=== PATIENT | female | born 1940 | race Caucasian/White ===

== ENCOUNTER 2020-12-19 11:15 | Outpatient (CLI) | payer MEDICARE, SELFPAY | END 2020-12-19 11:16 | disposition home or self-care (01) | LOC: ANHAUDIO 11:20 | PROVIDERS: PCP Internal Medicine Infectious Disease; Visit Provider Otolaryngology | DX: H93.13 Tinnitus, bilateral (principal); H90.3 Sensorineural hearing loss, bilateral | CPT/HCPCS: 92557; 92567 ==

== ENCOUNTER 2021-01-16 08:45 | Outpatient (RCR) | payer MEDICARE, SELFPAY | END 2021-01-16 23:59 | disposition home or self-care (01) | LOC: ANHAUDIO 08:45 | PROVIDERS: PCP Internal Medicine Infectious Disease; Visit Provider Internal Medicine Infectious Disease | DX: Z46.1 Encounter for fitting and adjustment of hearing aid (principal) | CPT/HCPCS: V5261 ==

== ENCOUNTER 2021-09-03 14:00 | Outpatient (RCR) | payer MEDICARE, SELFPAY | END 2021-09-03 23:59 | disposition home or self-care (01) | LOC: ANHAUDIO 14:00 | PROVIDERS: PCP Internal Medicine Infectious Disease; Visit Provider Internal Medicine Infectious Disease | DX: Z46.1 Encounter for fitting and adjustment of hearing aid (principal) | CPT/HCPCS: 99199 ==

== ENCOUNTER 2023-02-24 13:37 | Outpatient (CLI) | payer OTHER, SELFPAY ==
--- NOTE | ~2023-02-24 | US_ITS ---
US arterial ankle brachial ind INDICATION: Peripheral vascular disease TECHNIQUE: Segmental pressures and plethysmographic and Doppler waveforms of the brachial and lower e xtremity arteries were obtained. COMPARISON: None. FINDINGS: Right and left brachial artery pressures of 115 mm Hg and 111 mm Hg, respectively, are concordant (no rmal difference <= 30 mmHg). The right ankle-brachial index (GERALDINE) is 1.28 (normal >= 0.9-1.0). The right great toe-brachial index (TBI) is 0.4 (normal >= 0.60). The left GERALDINE is 1.18. The left TBI is 0.32. IMPRESSION: 1. Normal bilateral ankle-brachial indices. 2: Diminished bilateral toe brachial indices consistent with peripheral arterial disease. Reviewed, dictated and finalized at location B. IMPRESSION: 1. Normal bilateral ankle-brachial indices. 2: Diminished bilateral toe brachial indices consistent with peripheral arteri al disease.
== END 2023-02-24 13:38 | disposition home or self-care (01) ==
PROVIDERS: PCP Internal Medicine Infectious Disease; Visit Provider Podiatrist Foot & Ankle Surgery
DX: I73.9 Peripheral vascular disease, unspecified (principal)
CPT/HCPCS: 93922

== ENCOUNTER 2023-12-11 10:34 | Emergency (ER) | payer OTHER, SELFPAY ==
--- NOTE | ~2023-12-11 | CT_ITS ---
EXAMINATION: CT brain wo con DATE: 12/11/2023 11:38 INDICATION: Fall. TECHNIQUE: Computed tomography (CT) of the head was performed without intravenous contrast. The mA wa s adjusted according to patient size. Iterative reconstruction technique was employed. The dose-lengt h product was 605.33 mGy-cm. COMPARISON: None FINDINGS: There are scattered areas of low attenuation in the cerebral white matter. There is an old infarct in right parietal lobe. There is no intracranial hemorrhage, acute infarction, or abnormal in tracranial mass lesion. The ventricles are normal in size. There are likely changes of ocular lens re placement surgeries. There is mucosal thickening in the paranasal sinuses. The mastoid air cells are normal. IMPRESSION: 1. 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 2. Moderate nonspecific cerebral white matter disease, which likely represents chronic small vessel i schemic disease. Reviewed, dictated and finalized at location A. IMPRESSION: 1. 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 2. Moderate nonspecific cerebral white matter disease, which likely represents chronic small vessel ischemic disease.
--- NOTE | ~2023-12-11 | XR_ITS ---
EXAMINATION: XR hip RT min 3V w AP pelvis DATE: 12/11/2023 12:10 INDICATION: Right hip pain. Fall. TECHNIQUE: An anteroposterior view the pelvis on 2 radiographs and 3 views of right hip were obtained . COMPARISON: None. FINDINGS: Bone alignment is normal. No fracture. There is mild osteoarthritis of the hips. There is s evere lumbar spondylosis. IMPRESSION: 1. Mild osteoarthritis of the hips. Reviewed, dictated and finalized at location A.
--- NOTE | ~2023-12-11 | CT_ITS ---
EXAMINATION: CT cervical spine wo con DATE: 12/11/2023 11:38 INDICATION: Fall. TECHNIQUE: Computed tomography (CT) of the cervical spine was performed without intravenous contrast. Automated exposure control and iterative reconstruction technique were employed. The dose-length pro duct was 434.73 mGy-cm. COMPARISON: None FINDINGS: There is 2 mm retrolisthesis of C5 on C6 and 2 mm anterolisthesis of C7 on T1. Vertebral bigg dy heights are normal. There is severely decreased disc height at C5-C6 and C6-C7. The following disc levels are specifically discussed: C2-C3: There is no uncovertebral joint osteoarthritis. There is mild right and severe left facet join t osteoarthritis. There is mild left neural foraminal stenosis. There is no central canal stenosis. C3-C4: There is ankylosis of the uncovertebral joints with severe right and mild left hypertrophy. Th ere is ankylosis of the facet joints with severe right and mild left hypertrophy. There is moderate r ight and mild left neural foraminal stenosis. There is no central canal stenosis. C4-C5: There is no uncovertebral joint osteoarthritis. There is severe right and moderate left facet joint osteoarthritis. There is mild right neural foraminal stenosis. There is no central canal stenos is. C5-C6: There is severe bilateral uncovertebral joint osteoarthritis. There is mild right and moderate left facet joint osteoarthritis. There is moderate bilateral neural foraminal stenosis. There is mil d central canal stenosis. C6-C7: There is severe bilateral uncovertebral joint osteoarthritis. There is severe bilateral facet joint osteoarthritis. There is mild bilateral neural foraminal stenosis. There is mild central canal stenosis. C7-T1: There is no uncovertebral joint osteoarthritis. There is severe bilateral facet joint osteoart hritis. There is mild bilateral neural foraminal stenosis. There is no central canal stenosis. IMPRESSION: 1. No fracture. 2. Severe cervical spondylosis. Reviewed, dictated and finalized at location A.
--- NOTE | ~2023-12-11 | XR_ITS ---
EXAMINATION: XR shoulder RT min 2V DATE: 12/11/2023 12:11 INDICATION: Right shoulder pain. Fall. TECHNIQUE: 4 views of right shoulder were obtained. COMPARISON: None. FINDINGS: Bone alignment is normal. No fracture. There is severe osteoarthritis of acromioclavicular joint and glenohumeral joint. A calcified right lung nodule is consistent with old granulomatous dise ase. IMPRESSION: 1. Polyarticular osteoarthritis. Reviewed, dictated and finalized at location A.
--- NOTE | ~2023-12-11 | CT_ITS ---
EXAMINATION: CT knee RT wo con DATE: 12/11/2023 13:34 INDICATION: Right knee pain. Fall. TECHNIQUE: Computed tomography (CT) of the right knee was performed without intravenous contrast. Aut omated exposure control and iterative reconstruction technique were employed. The dose-length product was 536.81 mGy-cm. COMPARISON: Right knee radiographs 12/11/2023 FINDINGS: There is varus angulation at the knee. No fracture. There is severe osteoarthritis of the m edial and patellofemoral compartments and moderate osteoarthritis of the lateral compartment. There i s a large knee joint effusion with loose bodies. IMPRESSION: 1. Severe right knee osteoarthritis. 2. Large right knee joint effusion with loose bodies. Reviewed, dictated and finalized at location A.
--- NOTE | ~2023-12-11 | XR_ITS ---
EXAMINATION: XR knee RT min 4V DATE: 12/11/2023 12:11 INDICATION: Right knee pain. Fall. TECHNIQUE: 4 views of right knee were obtained. COMPARISON: None. FINDINGS: There is varus angulation at the knee. No fracture. There is severe osteoarthritis of media l and patellofemoral compartments and moderate osteoarthritis of lateral compartment. There is a larg e knee joint effusion with loose bodies. IMPRESSION: 1. Severe right knee osteoarthritis. 2. Large right knee joint effusion with loose bodies. Reviewed, dictated and finalized at location A.
[2023-12-11 10:44] VITALS: BP 122/65; PULSE 80; RESP 16; TEMP 36.2; O2SAT 97
[2023-12-11 10:47] VITALS: O2SAT 97
[2023-12-11] MEDS: HYDROcodone/acetaminophen (*CRX) 5-325 MG TABLET 1 TAB PO (12:39)
--- NOTE | 2023-12-11 13:57 | ED.FALL ---
HPI - Fall General Chief Complaint: Fall Stated Complaint: fall Time Seen by Provider: 12/11/23 11:28 History of Present Illness HPI Narrative: This is a 83-year-old female with a past medical history significant for significant osteoarthritis and previous atrial fibrillation on Eliquis. She presents today from her shelter facility after a mechanical fall while transferring out of her wheelchair into bed. She fell onto her right side and landed on her right knee and hip. She states she did hit her head but did not lose consciousness. Did not have any neck pain. Does take blood thinner medications for her previous atrial fibrillation. No nausea, vomiting, headache, vision change, abdominal pain, back pain. Related Data Home Medications Medication Instructions Recorded Confirmed atorvastatin 10 mg tablet 10 mg PO DAILY 10/10/20 08/19/22 dabigatran etexilate 150 mg 150 mg PO DAILY 10/10/20 08/19/22 capsule (Pradaxa) digoxin 125 mcg (0.125 mg) tablet 125 mcg PO DAILY 10/10/20 08/19/22 furosemide 40 mg tablet (Lasix) 40 mg PO QAM 10/10/20 08/19/22 levothyroxine 175 mcg capsule 175 mcg PO DAILY 10/10/20 08/19/22 Allergies Allergy/AdvReac Type Severity Reaction Status Date / Time adhesive tape Allergy Unknown Unknown Verified 12/11/23 10:50 amitriptyline [From Elavil] Allergy Unknown Unknown Verified 12/11/23 10:50 procaine [From Novocain] Allergy Unknown Unknown Verified 12/11/23 10:50 propoxyphene [From Darvon] Allergy Unknown Unknown Verified 12/11/23 10:50 Review of Systems Review of Systems: As reviewed [facility] Family History Family History Father Malignant neoplasm of prostate Hypertension Cerebrovascular accident Mother Depression Heart disease Grandparent Hypertension Heart disease Grandparent Alcoholism Social History Social History Smoking status: Never smoker Alcohol intake: current Substance use type: does not use Exam Narrative: GENERAL: [Well-appearing, well-nourished, and in no acute distress.] HEAD: [Normocephalic, atraumatic.] EYES: [PERRLA and EOMI.] ENT: Nares clear, no rhinorrhea or epistaxis. Mucous membranes moist. NECK: Supple. CHEST: [Clear to auscultation. No respiratory distress.] HEART: [Regular rate and rhythm]. No murmur heard. [Normal peripheral pulses.] ABDOMEN: [Soft, nondistended], [nontender], [No rigidity or guarding] EXTREMITIES: Normal range of motion. [No edema.] Intact extensor mechanisms bilaterally. Full range of motion of the hip and knee. Able to plantar and dorsiflex equally. Mild joint effusion on the right side without any bleeding, overlying skin changes or tenderness over the patellar or quadriceps tendon. Minimal tenderness to the right hip without any step-offs deformities. No CT or L-spine tenderness. SKIN: Warm, dry, no rash. NEURO: [No focal deficits]. Alert and oriented [x3.] PSYCH: [Normal mood and affect.] Course Vital Signs Vital signs: Vital Signs Temperature 36.2 C L 12/11/23 10:44 Pulse Rate 80 12/11/23 10:44 Respiratory Rate 16 12/11/23 10:44 Blood Pressure 122/65 12/11/23 10:44 Pulse Oximetry 97 12/11/23 10:44 Oxygen Delivery Room Air 12/11/23 10:44 Temperature 36.2 C L 12/11/23 10:44 Pulse Rate 80 12/11/23 10:44 Respiratory Rate 16 12/11/23 10:44 Blood Pressure 122/65 12/11/23 10:44 Pulse Oximetry 97 12/11/23 10:47 Oxygen Delivery Nasal Cannula 12/11/23 10:47 Oxygen Flow Rate 3.5 12/11/23 10:47 MDM - Fall MDM Narrative Medical decision making narrative: This is a 83-year-old female presenting for mechanical fall while transferring out of wheelchair into her bed. She was provide analgesia with [place] p.o. and Zofran. x-rays are obtained of her right shoulder, right knee and right hip. CT cervical spine and brain we
[2023-12-11] MEDS: ONDANSETRON HCL ODT 4 MG TABLET PO (15:16)
[2023-12-11 15:18] VITALS: BP 117/74; PULSE 61; RESP 20; O2SAT 96
== END 2023-12-11 16:19 ==
PROVIDERS: Emergency Provider Student in an Organized Health Care Education/Training Program; PCP Internal Medicine Infectious Disease
DX: S09.90XA Unspecified injury of head, initial encounter (principal); M19.011 Primary osteoarthritis, right shoulder; M17.11 Unilateral primary osteoarthritis, right knee; W05.0XXA Fall from non-moving wheelchair, initial encounter
CPT/HCPCS: 70450; 72125; 73030; 73502; 73564; 73700; 99284; A9270

== ENCOUNTER 2023-12-12 13:03 | Inpatient (IN) | payer OTHER, SELFPAY ==
[2023-12-12] VITALS (8 sets, daily range): BP systolic 115–119; BP diastolic 70–75; PULSE 73–85; RESP 16–22; TEMP 36.7–36.9; O2SAT 96–100; BMI 40.6
--- NOTE | ~2023-12-12 | CT_ITS ---
EXAMINATION: CT brain wo con DATE: 12/12/2023 19:56 INDICATION: Confusion. TECHNIQUE: Computed tomography (CT) of the head was performed without intravenous contrast. The mA wa s adjusted according to patient size. Iterative reconstruction technique was employed. The dose-lengt h product was 756.67 mGy-cm. COMPARISON: Head CT 12/11/23 FINDINGS: There is no intracranial hemorrhage, acute infarction, or abnormal intracranial mass lesion . There is an old infarct in right parietal lobe. There is an old lacunar infarct in left thalamus. T here are scattered areas of low attenuation in the cerebral white matter. The ventricles are normal i n size. There is mild mucosal thickening in the ethmoid sinuses. There are likely changes of ocular l ens replacement surgeries. The mastoid air cells are normal. IMPRESSION: 1. Old infarcts in right parietal lobe and left thalamus. 2. Moderate nonspecific cerebral white matter disease, which likely represents chronic small vessel i schemic disease. Reviewed, dictated and finalized at location E. IMPRESSION: 1. Old infarcts in right parietal lobe and left thalamus. 2. Moderate nonspecific cerebral white matter disease, which likely represents chronic small vessel ischemic disease.
--- NOTE | ~2023-12-12 | XR_ITS ---
EXAMINATION: XR sniff test with CXR2V DATE: 12/20/2023 12:20 INDICATION: Elevated right hemidiaphragm. Shortness of breath. TECHNIQUE: I performed fluoroscopy of the chest while the patient performed normal aspiration, deep r espiration, and forceful sniffing. 518 images were obtained. The fluoroscopy exposure time was 0.3 mi nutes. COMPARISON: Chest 2 views 12/12/2023 FINDINGS: There is marked elevation of right hemidiaphragm at rest. The right hemidiaphragm is hypomo bile with all breathing tasks. No paradoxical motion. There is an electronic implant in left anterior chest wall. IMPRESSION: 1. Paralysis of right hemidiaphragm. Reviewed, dictated and finalized at location A.
--- NOTE | ~2023-12-12 | XR_ITS ---
EXAMINATION: XR chest 2V DATE: 12/12/2023 13:41 INDICATION: Weakness. TECHNIQUE: Frontal and lateral views of the chest were obtained. COMPARISON: None. FINDINGS: There is marked elevation of right hemidiaphragm. Calcified right lung nodules are consiste nt with old granulomatous disease. There are airspace opacities at right lung base and in left mid an d lower lung zones, likely atelectasis. No pneumothorax. Cardiomegaly is noted. There is an electroni c implant in left anterior chest wall. IMPRESSION: 1. Marked elevation of right hemidiaphragm. 2. Airspace opacities at right lung base and in left mid and lower lung zones, likely atelectasis. 3. Cardiomegaly. Reviewed, dictated and finalized at location E.
--- NOTE | ~2023-12-12 | CT_ITS ---
EXAMINATION:CT diagnostic chest wo con DATE: 12/21/2023 09:50 INDICATION: Paralyzed right diaphragm. TECHNIQUE: Computed tomography (CT) of the chest was performed without intravenous contrast. Automate d exposure control and iterative reconstruction technique were employed. The dose-length product (DLP ) was 639.37 mGy-cm. COMPARISON: Chest 2 views 12/11/2013 FINDINGS: There is marked elevation of right hemidiaphragm. There is passive atelectasis in inferior right lung. There is mild atelectasis on the left. A calcified right lung nodule and calcified right hilar lymph nodes are consistent with old granulomatous disease. There is a small right pleural effus ion. Cardiomegaly is noted. There are coronary artery calcifications. There are calcifications of the aortic valve. No pericardial effusion. There are gallstones in the gallbladder. Calcifications in th e spleen are consistent with old granulomatous disease. There is severe thoracic spondylosis. IMPRESSION: 1. Marked elevation of right hemidiaphragm. 2. Small right pleural effusion. Reviewed, dictated and finalized at location A.
--- NOTE | 2023-12-12 13:24 | ECG_ITS ---
Test Date: 2023-12-12 14:38:20 Measurements Intervals [place] Rate: 83 P: 0 RI: 0 QRS: -74 QRSD: 131 T: -24 QT: 373 QTc: 439 Interpretive Statements ATRIAL FIBRILLATION RIGHT BUNDLE BRANCH BLOCK [120+ ms QRS DURATION, UPRIGHT V1, 40+ ms S IN I/aVL/V4/V5/V6] POOR R-WAVE PROGRESSION /CANNOT EXCLUDE PREVIOUS ANTERIOR INFARCTION LEFTWARD AXIS ABNORMAL ECG No previous ECG available for comparison Electronically Signed On 12-13-2023 12:20:16 CDT by Salvatore Reddy M.D.
--- NOTE | 2023-12-12 14:07 | ED.GENADULT ---
HPI - General Adult General Chief complaint: Urogenital-Female Stated complaint: weakness, extra sleepy Time Seen by Provider: 12/12/23 13:19 Source: patient Mode of arrival: EMS Limitations: altered mental status History of Present Illness HPI narrative: 83 yo presents with report of weakness and increased sleepiness per staff at [facility]. She states [facility] is an assisted livign facility and she is respondible for taking her own meds which she hasn't taken today. She did come here yesterday after a ground level fall which did not show any acute process. She is complainign of pain all over from her arthritis; states this is chronic. She denies any abdominal pain. She does feel nauseated. Urine reportedly strong smelling. On 3.5LPM via nasal cannula at baseline by report. Related Data Home Medications Medication Instructions Recorded Confirmed atorvastatin 10 mg tablet 10 mg PO DAILY 10/10/20 12/12/23 digoxin 125 mcg (0.125 mg) tablet 62.5 mcg PO DAILY 10/10/20 12/12/23 furosemide 40 mg tablet (Lasix) 40 mg PO QAM 10/10/20 12/12/23 albuterol sulfate 2.5 mg/3 mL 2.5 mg inhalation TID 12/12/23 12/12/23 (0.083 %) solution for nebulization albuterol sulfate 2.5 mg/3 mL 2.5 mg inhalation TID PRN Wheezing 12/12/23 12/12/23 (0.083 %) solution for nebulization albuterol sulfate 90 mcg/actuation 2 puff inhalation Q6H PRN 12/12/23 12/12/23 aerosol inhaler (Ventolin HFA) Shortness Of Breath apixaban 5 mg tablet (Eliquis) 5 mg PO BID 12/12/23 12/12/23 clotrimazole 1 % topical cream 1 applic topical BID 12/12/23 12/12/23 cyanocobalamin (vitamin B-12) 1,000 mcg IM MONTHLY 12/12/23 12/12/23 1,000 mcg/mL injection solution diltiazem HCl 240 mg PO DAILY 12/12/23 12/12/23 ferrous sulfate 325 mg (65 mg 325 mg PO DAILY 12/12/23 12/12/23 iron) tablet (FeroSul) levothyroxine 150 mcg tablet 150 mcg PO DAILY 12/12/23 12/12/23 loratadine 10 mg tablet 10 mg PO DAILY 12/12/23 12/12/23 meclizine 25 mg tablet 25 mg PO PRN PRN Dizziness 12/12/23 12/12/23 multivitamin with folic acid 400 1 tablet PO DAILY 12/12/23 12/12/23 mcg tablet (Tab-A-Mehran) pantoprazole 40 mg PO DAILY 12/12/23 12/12/23 polyethylene glycol 3350 17 gram 17 g PO DAILY PRN Constipation 12/12/23 12/12/23 oral powder packet (Miralax) potassium chloride 10 mEq 20 meq PO DAILY 12/12/23 12/12/23 capsule,extended release Allergies Allergy/AdvReac Type Severity Reaction Status Date / Time adhesive tape Allergy Unknown Unknown Verified 12/12/23 13:14 amitriptyline [From Elavil] Allergy Unknown Unknown Verified 12/12/23 13:14 procaine [From Novocain] Allergy Unknown Unknown Verified 12/12/23 13:14 propoxyphene [From Darvon] Allergy Unknown Unknown Verified 12/12/23 13:14 [facility] Past Medical History Medical History (Updated 12/12/23 @ 18:27 by Idalia Shelley PA-C) Atrial fibrillation Chronic anticoagulation Diastolic congestive heart failure Hyperlipidemia Hypertension Hypothyroidism Obstructive sleep apnea on CPAP Surgical History Surgical History (Updated 12/12/23 @ 18:23 by Idalia Shelley PA-C) History of cataract extraction History of tonsillectomy and adenoidectomy Family History Family History Father Malignant neoplasm of prostate Hypertension Cerebrovascular accident Mother Depression Heart disease Grandparent Hypertension Heart disease Grandparent Alcoholism Social History Social History (Updated 12/12/23 @ 18:24 by Idalia Shelley PA-C) Social History: Surrogate medical decision maker: Marleny Manzo, cousin. Code status: Full code. Smoking status: Never smoker Alcohol intake: unknown Substance use: never Substance use type: does not use Do You Feel Safe in your Home?: Yes Lack of Transportation: No Lack of Food: Never True Current Housing: I Have Housing Concerned About Future Housing: No Difficulty Paying Gas/Electric Bills: No Difficulty Payin
[2023-12-12 14:13] LABS: Hematocrit 46.8 % (37.0-47.0); Immature Platelet Fraction Pct 6.2 % (0.9-11.2); Mean Corpuscular HGB Conc 29.9 g/dl (32-36); Mean Corpuscular Hemoglobin 30.7 pg (26-34); Mean Corpuscular Volume 102.6 fl (80-100); Mean Platelet Volume 10.4 fl (7.4-10.4); Platelet Count Result 114 k/mm3 (150-375); Red Blood Count 4.56 M/mm3 (4.2-5.4); Red Cell Distribution Width 13.5 % (11.5-14.5); White Blood Count 7.8 K/mm3 (4.5-10.0)
[2023-12-12 14:15] LABS: Add Urine Microscopic? YES; Appearance Urine Cloudy (Clear); Bacteria Urine 4+ /hpf; Bilirubin Urine 1+ (Negative); Blood Urine Negative (Negative); Color Urine Dark Yellow (Yellow); Glucose Urine UA Negative (Negative); Ketones Urine Negative (Negative); Leukocyte Esterase Ur 3+ LEU/UL (Negative); Need Manual Microscopic Reviewed; Nitrate Urine Positive (Negative); Non Pathogenic Casts 0-2; Protein Urine 1+ mg/dL (Negative); Specific Grav Ur 1.023 (1.001-1.035); Squamous Epithelial Cell Urine None Seen /hpf (Few); Urobilinogen Urine >=8.0 mg/dL (<2.0); WBC Urine >100 /hpf (0-3)
[2023-12-12 14:30] LABS: Alanine Aminotransferase 23 U/L (6-35); Albumin Level 3.6 g/dL (3.5-5.1); Alkaline Phosphatase 87 U/L (38-126); Aspartate Amino Transferase 31 U/L (14-36); Bilirubin,Total 1.2 mg/dL (0.2-1.3); Blood Urea Nitrogen 28 mg/dL (7-17); Calcium 8.9 mg/dL (8.4-10.2); Carbon Dioxide > 40 mmol/L (22-30); Chloride 88 mmol/L (98-107); Creatine Kinase 36 U/L (30-135); Estimated CRCL calculation 64 ml/min; Estimated Glomerular Filt Rate > 60; Glucose 131 mg/dL (65-110); Potassium 4.8 mmol/L (3.4-5.0); Sodium 139 mmol/L (137-145)
[2023-12-12 14:38] LABS: Band Neutrophils Percent 1 % (0-6); Monocytes Absolute Manual 1.01 K/mm3 (0.1-0.90); Monocytes Percent Manual 13 % (3-9); Neutrophils Absolute Manual 5.38 K/mm3 (1.7-7.2); Neutrophils Percent Manual 68 % (46-73); Total Cells Counted 100
[2023-12-12 14:39] LABS: Atypical Lymphocytes Present; Platelet Estimate Decreased (Adequate); Schistocytes None Seen
[2023-12-12 14:40] LABS: Hypochromasia 1+
[2023-12-12] MEDS: ONDANSETRON INJ 4 MG/2 ML VIAL IV PUSH ×2 (15:14→20:17)
--- NOTE | 2023-12-12 16:25 | PM.IMHP ---
H&P: HPI History of Present Illness Date/Time: 12/12/23 16:25 Chief Complaint: Weakness, fatigue, confusion. Narrative: This is a pleasant 83-year-old female with atrial fibrillation on chronic anticoagulation, diastolic congestive heart failure, chronic obstructive pulmonary disease, chronic respiratory failure on 3 L home oxygen, obstructive sleep apnea on CPAP, hyperlipidemia, and hypothyroidism who presented to the emergency department via EMS from [facility] for evaluation of weakness, fatigue, and confusion. The patient provides the following history. She was seen in the emergency department late yesterday morning for evaluation after mechanical fall while transferring from wheelchair to bed. She landed on her right side, more specifically on the knee and hip, and did hit her head as well. There was no loss of consciousness and imaging did not demonstrate any acute fractures however she was found to have a large right knee joint effusion with loose bodies. She was discharged home and she has felt increasingly weak and fatigued since that time. She tells me that she has been having memory issues for quite some time however it has been much worse in the last 24 hours. Mostly she feels as though her thought process is slow and she is having occasional difficulties coming up with the words that she is wanting to stay. She has also noticed that her urine smells quite strong today. Her stomach is also upset and she reports pretty frequent belching, hiccups, and dry heaves which started today. With further questioning she reports that she has been taking 2 Aleve a day instead of tramadol for her chronic arthritic pain because she cannot afford the tramadol. She denies vertigo, visual changes, facial droop, dysarthria, dysphagia, focal weakness, paresthesias, chest pain, pleuritic pain, palpitations, vomiting, hematemesis, melena, hematochezia, and dysuria. In the ED: She was afebrile on arrival with stable vital signs. Labs were significant for WBC count of 7.8, hemoglobin 14.0, platelet 114, sodium 139, potassium 4.8, chloride 88, carbon dioxide greater than 40, BUN 28, creatinine 0.70, glucose 131. Urinalysis was nitrate and leukocyte esterase positive with greater than 100 WBC and 4+ bacteria on microscopy. Chest x-ray showed marked elevation of the right hemidiaphragm, airspace opacities the right lung base in the left mid and lower lung zones (likely atelectasis), and cardiomegaly. She was given a dose of ceftriaxone for apparent urinary tract infection and she is being admitted in this setting for further treatment. Review of Systems Review of Systems: 12 systems were reviewed and are negative except for as per HPI. [facility] Past Medical History Medical History (Updated 12/12/23 @ 18:27 by Idalia Shelley PA-C) Atrial fibrillation Chronic anticoagulation Diastolic congestive heart failure Hyperlipidemia Hypertension Hypothyroidism Obstructive sleep apnea on CPAP Surgical History Surgical History (Updated 12/12/23 @ 18:23 by Idalia Shelley PA-C) History of cataract extraction History of tonsillectomy and adenoidectomy Family History Family History Father Malignant neoplasm of prostate Hypertension Cerebrovascular accident Mother Depression Heart disease Grandparent Hypertension Heart disease Grandparent Alcoholism Social History Social History (Updated 12/12/23 @ 18:24 by Idalia Shelley PA-C) Social History: Surrogate medical decision maker: Marleny Manzo, cousin. Code status: Full code. Smoking status: Never smoker Alcohol intake: unknown Substance use: never Substance use type: does not use Do You Feel Safe in your Home?: Yes Lack of Transportation: No Lack of Food: Never True Current Housing: I Have Housing Concerned About Future Housing: No Difficulty Paying Gas/Electric Bills: No Difficulty Paying for Meds: No
--- NOTE | 2023-12-12 16:31 | PC.NURSE ---
This patient, Monica Bishop, was admitted to Medical Room 258-01. Patient/family oriented to hospital policies and general routines including ID bracelet, bed and alarms, visiting hours, pain management, procedures, bathroom and other care routines, personal items, smoking policy, room service/diet, and visiting hours. Information on how to activate the Rapid Response Team has been discussed. Patient/Family are encouraged to report perceived risks to care and to ask questions if they do not understand what they are told or what they should do.
[2023-12-12 17:01] LABS: Fractional Inspired Oxygen 34 %; HCO3 VBG 48.5 mEq/l (24.0-30.0)
[2023-12-12 17:02] LABS: PCO2 VBG 87.9 mmHg (42.0-48.0); PO2 VBG < 27.0 mmHg (35.0-45.0)
[2023-12-12 17:03] LABS: Device NASAL CANNULA; Liters per Minute 3.5 LPM
[2023-12-12 17:48] LABS: Digoxin < 0.5 ng/mL (0.8-2.0)
[2023-12-12 18:17] LABS: Thyroid Stimulating Hormone Reflex 0.567 uIU/mL (0.465-4.68)
[2023-12-12] MEDS: SODIUM CHLORIDE 0.9% IV 1,000 ML 100 ML IV CONT (19:23)
[2023-12-12] MEDS: ACETAMINOPHEN 325 MG TABLET 650 MG PO (20:15)
[2023-12-12] MEDS: APIXABAN 5 MG TABLET PO (20:15)
[2023-12-13] VITALS (16 sets, daily range): BP systolic 102–142; BP diastolic 65–95; PULSE 66–114; RESP 15–23; TEMP 36.4–36.7; O2SAT 92–98
--- NOTE | 2023-12-13 | ECHO_ITS ---
Patient Info Name: Monica Bishop Age: 83 years : 1940 Gender: Female Ht: 64 in Wt: 236 lbs BSA: 2.25 m2 HR: 90 bpm BP: 102 / 70 mmHg Heart Rhythm: Atrial Fibrillation Technical Quality: Fair Exam Date: 12/13/2023 11:16 AM Exam Location: Echo Lab Patient Status: Outpatient Admit Date: 12/12/2023 Staff Ordering Physician: Idalia Shelley PA-C Precipitate Washer: Samina Lucio RDCS Attending Provider: Mikayla Roca PA-C Referring Physician: Karsten GRACE; Exam Type: CA echo doppler color flow Study Info Indications I50.21 - Acute systolic (congestive) heart failure I48.1 - Persistent atrial fibrillation I51.7 - Cardiomegaly Complete two-dimensional, color flow and Doppler transthoracic echocardiogram is performed. Summary 1. Complete two-dimensional, color flow and Doppler transthoracic echocardiogram is performed. 2. Left ventricular chamber dimension is normal. 3. Left ventricular systolic function is normal, estimated at 55-60%. 4. There is mild concentric increased left ventricular wall thickness. 5. The left ventricular diastolic function is abnormal. 6. E/e' 11 is mildly elevated. 7. Atrial fibrillation. 8. Left atrial chamber dimension is moderately enlarged. 9. Right atrial chamber dimension is mildly enlarged. 10. There is moderate aortic valve sclerosis. 11. There is moderate aortic valve stenosis with a peak velocity of 291 cm/s, mean gradient of 15 mmHg, and aortic valve area of 1.3 cm2. 12. There is mild to moderate aortic valve regurgitation. 13. There is trace mitral valve regurgitation. 14. There is mild tricuspid valve regurgitation. 15. Moderate pulmonary hypertension, estimated pulmonary arterial systolic pressure is 52 mmHg. 16. There is trace pulmonic regurgitation. 17. Dilated inferior vena cava with >50% collapse upon inspiration consistent with elevated right atrial pressure, 10 mmHg. Left Ventricle Atrial fibrillation. E/e' 11 is mildly elevated. Left ventricular chamber dimension is normal. Left ventricular systolic function is normal, estimated at 55-60%. There is mild concentric increased left ventricular wall thickness. The left ventricular diastolic function is abnormal. Right Ventricle Right ventricular chamber dimension is normal. Right ventricular systolic function is normal. Left Atria Left atrial chamber dimension is moderately enlarged. Right Atria Right atrial chamber dimension is mildly enlarged. Aortic Valve The aortic valve is trileaflet. There is moderate aortic valve sclerosis. There is moderate aortic valve stenosis with a peak velocity of 291 cm/s, mean gradient of 15 mmHg, and aortic valve area of 1.3 cm2. There is mild to moderate aortic valve regurgitation. Pulmonic Valve There is trace pulmonic regurgitation. Mitral Valve There is no mitral valve stenosis. There is trace mitral valve regurgitation. Tricuspid Valve There is mild tricuspid valve regurgitation. Moderate pulmonary hypertension, estimated pulmonary arterial systolic pressure is 52 mmHg. Pericardium/Pleural There is no pericardial effusion. Inferior Vena Cava Dilated inferior vena cava with >50% collapse upon inspiration consistent with elevated right atrial pressure, 10 mmHg. Aorta The aortic root size at the sinus of Valsalva is normal. Left Ventricular Outflow Tract Name Value Normal LVOT 2D
[2023-12-13] MEDS: ACETAMINOPHEN 325 MG TABLET 650 MG PO ×3 (04:15→20:28)
[2023-12-13 05:17] LABS: Hematocrit 44.5 % (37.0-47.0); Hemoglobin 13.3 g/dL (12.0-15.0); Mean Corpuscular HGB Conc 29.9 g/dl (32-36); Mean Corpuscular Hemoglobin 30.6 pg (26-34); Mean Corpuscular Volume 102.5 fl (80-100); Mean Platelet Volume 10.3 fl (7.4-10.4); Platelet Count Result 112 k/mm3 (150-375); Red Blood Count 4.34 M/mm3 (4.2-5.4); Red Cell Distribution Width 13.2 % (11.5-14.5); White Blood Count 8.2 K/mm3 (4.5-10.0)
[2023-12-13 05:46] LABS: Blood Urea Nitrogen 25 mg/dL (7-17); Calcium 8.7 mg/dL (8.4-10.2); Carbon Dioxide > 40 mmol/L (22-30); Chloride 91 mmol/L (98-107); Estimated CRCL calculation 74 ml/min; Estimated Glomerular Filt Rate > 60; Glucose 155 mg/dL (65-110); Potassium 4.2 mmol/L (3.4-5.0); Sodium 138 mmol/L (137-145)
[2023-12-13] MEDS: LEVOTHYROXINE SODIUM 150 MCG TABLET PO (06:19)
--- NOTE | 2023-12-13 07:24 | PM.IMPN ---
Progress Note: A&P Assessment and Plan (1) Fall: Qualifiers: Encounter type: subsequent encounter Qualified Code(s): W19.XXXD - Unspecified fall, subsequent encounter Code(s): W19.XXXA - Unspecified fall, initial encounter Status: Acute Assessment and Plan: Patient reports a mechanical fall ambulating from wheelchair to bed on 12/10, landing on her right knee/hip and hitting her head. Denies loss of consciousness. She reported to the ED and was discharged that day. Imaging did not demonstrate any acute fractures however she was found to have a large right knee joint effusion with loose bodies. - PT/OT (2) Urinary tract infection: Code(s): N39.0 - Urinary tract infection, site not specified Status: Acute Assessment and Plan: - UA:cloudy appearance with 1+ protein, positive nitrate, +bili, >8 urobilinogen, 3+ leukocytes, 3-5 RBC, >100 WBC, 4+ bacteria - UC obtained on 12/11: pending - No previous micro to be reviewed - started on Rocephin 12/12 (3) Elevated hemidiaphragm: Code(s): J98.6 - Disorders of diaphragm Status: Acute Assessment and Plan: Chest XR showed marked elevation of right hemidiaphragm. Airspace opacities at right lung base and in left mid and lower lung zones, likely atelectasis. Cardiomegaly. Unsure if hemidiaphragm elevation is chronic. - ABG pH 7.360, pCO2 87.9, pO2 <27, HCO3 < 27 - PCP records requested - Chronic O2 supplementation of 3.5 L NC - Pulmonology consulted (4) Nausea: Code(s): R11.0 - Nausea Status: Acute Assessment and Plan: Nausea possibly related to underlying UTI however she has been taking Aleve daily for arthritic pain which could be playing a factor here. She has not noticed any dark stools. - Stool for occult blood ordered - Avoid NSAIDs for now - Continue PPI. (5) Atrial fibrillation: Code(s): I48.91 - Unspecified atrial fibrillation Status: Acute Assessment and Plan: Chronic. - Eliquis 5 mg BID - Diltiazem 240 mg daily - digoxin 62.5 mg daily (level < 0.5) - Monitor (6) Diastolic congestive heart failure: Code(s): I50.30 - Unspecified diastolic (congestive) heart failure Status: Acute Assessment and Plan: Chronic, does not appear to be in acute exacerbation. - Continue home medications - Monitor I/O and volume status (7) Hypertension: Code(s): I10 - Essential (primary) hypertension Status: Acute Assessment and Plan: Chronic, well controlled on home medications. - diltiazem 240 mg daily - lasix 40 mg daily - monitor (8) Hypothyroidism: Code(s): E03.9 - Hypothyroidism, unspecified Status: Acute Assessment and Plan: Chronic, continue home medications. - levothyroxine 150 mcg daily - TSH on 12/11: 0.567 (9) Obstructive sleep apnea on CPAP: Code(s): G47.33 - Obstructive sleep apnea (adult) (pediatric) Status: Acute Assessment and Plan: Continue CPAP Time Spent With Patient Time with patient: 25 - 35 minutes Subjective Date/time seen: 12/13/23 07:24 Interval history: 83-year-old female with atrial fibrillation on chronic anticoagulation, diastolic congestive heart failure, chronic obstructive pulmonary disease, chronic respiratory failure on 3 L home oxygen, obstructive sleep apnea on CPAP, hyperlipidemia, and hypothyroidism who presented to the emergency department via EMS from [facility] for evaluation of weakness, fatigue, and confusion. Patient is pleasant lying comfortably in bed. She continues to endorse slight nausea and lower back pain. Patient has no other complaints, denying chest pain, palpitations, vomiting, abdominal pain, dysuria/hematuria/burning sensation with urination. She does note that she has not had a bowel movement. Patient started on a bowel regimen. Patient's urine culture is still pending. She remains on Rocephin at this time. Patient remai
[2023-12-13] MEDS: ATORVASTATIN 10 MG TABLET PO (09:23)
[2023-12-13] MEDS: APIXABAN 5 MG TABLET PO ×2 (09:23→20:28)
[2023-12-13] MEDS: POTASSIUM CHLORIDE 20 MEQ ER TABLET PO (09:23)
[2023-12-13] MEDS: FUROSEMIDE 40 MG TABLET PO (09:23)
[2023-12-13] MEDS: MULTIVITAMINS THERAPEUTIC TAB (*BKC) 1 TABLET PO (09:24)
[2023-12-13] MEDS: FERROUS SULFATE 325 MG TABLET DR PO (09:24)
[2023-12-13] MEDS: LORATADINE 10 MG TABLET PO (09:24)
[2023-12-13] MEDS: dilTIAZem HCL CD 240 MG CAP.24HR PO (09:24)
[2023-12-13] MEDS: DIGOXIN 62.5 MCG TABLET PO (09:24)
[2023-12-13] MEDS: PANTOPRAZOLE 40 MG TABLET PO (09:24)
[2023-12-13] MEDS: MICONAZOLE NITRATE 2% CREAM 30 GM TUBE 1 APPLIC TOPICAL ×2 (09:26→14:27)
[2023-12-13] MEDS: ONDANSETRON INJ 4 MG/2 ML VIAL IV PUSH ×2 (14:18→20:25)
[2023-12-13] MEDS: SENNA/DOCUSATE SODIUM TABLET 1 TAB PO (20:28)
[2023-12-13] MEDS: traMADol HCL (*CRX) 50 MG TABLET PO (20:29)
--- NOTE | 2023-12-13 21:05 | PM.CNPUL ---
Assessment and Plan Assessment and plan (1) Obstructive sleep apnea on CPAP: Code(s): G47.33 - Obstructive sleep apnea (adult) (pediatric) Status: Acute Assessment and Plan: She has had obstructive sleep apnea for years, her current device is may be 3 to 5 years old. She uses it without difficulties. This is a stable problem and can be followed in the outpatient setting. (2) Elevated hemidiaphragm: Code(s): J98.6 - Disorders of diaphragm Status: Acute Assessment and Plan: She has an elevated right hemidiaphragm, and this contributes to her issue with poor lung capacity. She did know that she had this. She has never had chest surgery. This is an incidental finding but with obesity, this can contribute to hypercapnia. Her body mass index is 41.3. Her CPAP use at night is helping to overcome and helping her to ventilate at night. (3) Chronic respiratory failure with hypoxia: Code(s): J96.11 - Chronic respiratory failure with hypoxia Status: Acute Assessment and Plan: She has been on oxygen a number of years, was prescribed 2.5 L around the clock, she does not ambulate but she does transfer weight from bed to wheelchair. She does not need home oxygen evaluation. She is able to have her oxygen decreased currently at 3.5 L with saturation is high is 97%. Our goal is up to 94% with supplemental oxygen. (4) Secondary pulmonary hypertension: Status: Acute Assessment and Plan: Right ventricular systolic pressure 58 mm Hg on echo December 12. This is secondary to her cardiac dysfunction. The patient has diastolic dysfunction, moderate aortic stenosis, aortic insufficiency and biatrial enlargement. Plan She has significant cardiac issues overlapping with her lung disease. diastolic dysfunction, moderate aortic stenosis, moderate aortic insufficiency, biatrial enlargement, normal systolic size and function; Dr Rivera at [facility] has been her correspondence review clerk, however her insurance does not cover seeing him. She is still short of breath, cannot sleep comfortably, and has not been using PAP since she is in the recliner however has no place to put the CPAP in her apartment. She is a never smoker, tells me that she has increased shortness of breath and wheezing when she has increased edema, and was not responding to Breztri, a triple inhaler and occasional use of albuterol in her nebulizer at home. She is not stable yet, needs to have O2 weaned, and an ABG while she is here, not venous blood gas. She has atelectasis on CXR, not pneumonia. * Incentive spirometry * Wean O2- goal is sat 90-94% on supplemental O2, and she is higher now * ABG on lower O2- may qualify for non invasive ventilator instead of regular CPAP and not need to have repeat sleep testing * continue albuterol to use p.r.n., no regular controller inhaler, I told her that she can follow up in our office, will continue to follow withh you this admission. Thank you. History of Present Illness History of Present Illness Consult date: 12/15/23 Requesting physician: Idalia Shelley PA-C Chief complaint: uti,weakness Narrative: December 15, 2023 10:40 am; Room 258 NEW: Monica Bishop is an 83-year-old female with FERNIE, Home O2 use, hx of COPD, never smoked, and an elevated right hemidiaphragm; she was admitted with a fall and a UTI. She has COPD and has been on oxygen a number of years. She lives at [facility], for the last year and a half due to worsening overall function. Her COPD, FERNIE and O2 needs were treated by LUBA Lees in [facility] who recently moved our practice and she no longer provides pulmonary care. The patient has not had any pulmonary visits since the end of 3. The reason for this ad
[2023-12-13] MEDS: ALBUTEROL SULFATE NEB 2.5 MG/3 ML INH INHALATION (21:11)
[2023-12-14] VITALS (17 sets, daily range): BP systolic 107–137; BP diastolic 56–76; PULSE 57–94; RESP 16–21; TEMP 36.4–36.9; O2SAT 93–96
[2023-12-14] MEDS: ACETAMINOPHEN 325 MG TABLET 650 MG PO ×2 (00:50→21:21)
[2023-12-14] MEDS: LEVOTHYROXINE SODIUM 150 MCG TABLET PO (05:33)
[2023-12-14 06:43] LABS: Basophils Absolute Auto 0.1 K/mm3 (0.0-0.1); Basophils Percent Auto 0.6 % (0.2-1.2); Eosinophils Absolute Auto 0.2 K/mm3 (0-0.3); Eosinophils Percent Auto 2.4 % (0-4.4); Hematocrit 43.4 % (37.0-47.0); Hemoglobin 13.1 g/dL (12.0-15.0); Immature Granulocyte Absolute 0.09 K/mm3 (0.00-0.031); Immature Granulocyte Percent A 1.2 % (0-0.5); Immature Platelet Fraction Pct 6.8 % (0.9-11.2); Lymphocytes Absolute Auto 0.97 K/mm3 (0.9-3.2); Lymphocytes Percent Auto 12.5 % (18.3-44.2); Mean Corpuscular HGB Conc 30.2 g/dl (32-36); Mean Corpuscular Volume 99.5 fl (80-100); Mean Platelet Volume 10.3 fl (7.4-10.4); Monocytes Absolute Auto 0.8 K/mm3 (0.1-0.6); Monocytes Percent Auto 9.8 % (2.6-8.5); Neutrophils Absolute Auto 5.7 K/mm3 (1.3-6.7); Neutrophils Percent Auto 73.5 % (45.5-73.1); Platelet Count Result 114 k/mm3 (150-375); Red Blood Count 4.36 M/mm3 (4.2-5.4); Red Cell Distribution Width 13.2 % (11.5-14.5); White Blood Count 7.8 K/mm3 (4.5-10.0)
[2023-12-14] MEDS: ONDANSETRON INJ 4 MG/2 ML VIAL IV PUSH (06:44)
[2023-12-14] MEDS: traMADol HCL (*CRX) 50 MG TABLET PO ×3 (06:45→21:20)
[2023-12-14 06:51] LABS: Alanine Aminotransferase 19 U/L (6-35); Albumin Level 3.3 g/dL (3.5-5.1); Alkaline Phosphatase 74 U/L (38-126); Aspartate Amino Transferase 26 U/L (14-36); Bilirubin,Total 0.9 mg/dL (0.2-1.3); Blood Urea Nitrogen 18 mg/dL (7-17); Calcium 8.6 mg/dL (8.4-10.2); Carbon Dioxide > 40 mmol/L (22-30); Chloride 89 mmol/L (98-107); Estimated CRCL calculation 64 ml/min; Estimated Glomerular Filt Rate > 60; Glucose 125 mg/dL (65-110); Potassium 4.2 mmol/L (3.4-5.0); Sodium 136 mmol/L (137-145)
--- NOTE | 2023-12-14 08:27 | PM.IMPN ---
Progress Note: A&P Assessment and Plan (1) Fall: Qualifiers: Encounter type: subsequent encounter Qualified Code(s): W19.XXXD - Unspecified fall, subsequent encounter Code(s): W19.XXXA - Unspecified fall, initial encounter Status: Acute Assessment and Plan: Patient reports a mechanical fall ambulating from wheelchair to bed on 12/10, landing on her right knee/hip and hitting her head. Denies loss of consciousness. She reported to the ED and was discharged that day. Imaging did not demonstrate any acute fractures however she was found to have a large right knee joint effusion with loose bodies. - PT/OT Patient states she is able to walk 3-4 steps at baseline to get to wheelchair. (2) Urinary tract infection: Code(s): N39.0 - Urinary tract infection, site not specified Status: Acute Assessment and Plan: - UA:cloudy appearance with 1+ protein, positive nitrate, +bili, >8 urobilinogen, 3+ leukocytes, 3-5 RBC, >100 WBC, 4+ bacteria - UC obtained on 12/11: preliminary- ecoli - No previous micro to be reviewed - started on Rocephin 12/12 (3) Elevated hemidiaphragm: Code(s): J98.6 - Disorders of diaphragm Status: Acute Assessment and Plan: Chest XR showed marked elevation of right hemidiaphragm. Airspace opacities at right lung base and in left mid and lower lung zones, likely atelectasis. Cardiomegaly. Unsure if hemidiaphragm elevation is chronic. - ABG pH 7.360, pCO2 87.9, pO2 <27, HCO3 < 27 - PCP records requested - Chronic O2 supplementation of 3.5 L NC - Pulmonology consulted (4) Nausea: Code(s): R11.0 - Nausea Status: Acute Assessment and Plan: Nausea possibly related to underlying UTI however she has been taking Aleve daily for arthritic pain which could be playing a factor here. She has not noticed any dark stools. - Stool for occult blood ordered - Avoid NSAIDs for now - Continue PPI. - Zofran PO PRN (5) Atrial fibrillation: Code(s): I48.91 - Unspecified atrial fibrillation Status: Acute Assessment and Plan: Chronic. - Eliquis 5 mg BID - Diltiazem 240 mg daily - digoxin 62.5 mg daily (level < 0.5) - Monitor (6) Diastolic congestive heart failure: Code(s): I50.30 - Unspecified diastolic (congestive) heart failure Status: Acute Assessment and Plan: Chronic, does not appear to be in acute exacerbation. - Continue home medications - Monitor I/O and volume status (7) Hypertension: Code(s): I10 - Essential (primary) hypertension Status: Acute Assessment and Plan: Chronic, well controlled on home medications. - diltiazem 240 mg daily - lasix 40 mg daily - monitor (8) Hypothyroidism: Code(s): E03.9 - Hypothyroidism, unspecified Status: Acute Assessment and Plan: Chronic, continue home medications. - levothyroxine 150 mcg daily - TSH on 12/11: 0.567 (9) Obstructive sleep apnea on CPAP: Code(s): G47.33 - Obstructive sleep apnea (adult) (pediatric) Status: Acute Assessment and Plan: Continue CPAP Time Spent With Patient Time with patient: 25 - 35 minutes Subjective Date/time seen: 12/14/23 08:27 Interval history: 83-year-old female with atrial fibrillation on chronic anticoagulation, diastolic congestive heart failure, chronic obstructive pulmonary disease, chronic respiratory failure on 3 L home oxygen, obstructive sleep apnea on CPAP, hyperlipidemia, and hypothyroidism who presented to the emergency department via EMS from [facility] for evaluation of weakness, fatigue, and confusion. Patient is pleasant lying in bed. She continues to endorse nausea. She states that oral zofran has worked very well in the past. DC IV lasix and transitioned to PO. Patient denies chest pain, shortness of breath, vomiting, abdominal pain. She endorses slight dizziness. Resumed patients home meclizine PRN. Pulmonology consulted
[2023-12-14] MEDS: POTASSIUM CHLORIDE 20 MEQ ER TABLET PO (08:28)
[2023-12-14] MEDS: APIXABAN 5 MG TABLET PO ×2 (08:28→21:21)
[2023-12-14] MEDS: PANTOPRAZOLE 40 MG TABLET PO (08:29)
[2023-12-14] MEDS: dilTIAZem HCL CD 240 MG CAP.24HR PO (08:29)
[2023-12-14] MEDS: FERROUS SULFATE 325 MG TABLET DR PO (08:29)
[2023-12-14] MEDS: FUROSEMIDE 40 MG TABLET PO (08:29)
[2023-12-14] MEDS: LORATADINE 10 MG TABLET PO (08:29)
[2023-12-14] MEDS: ATORVASTATIN 10 MG TABLET PO (08:29)
[2023-12-14] MEDS: DIGOXIN 62.5 MCG TABLET PO (08:30)
[2023-12-14] MEDS: MULTIVITAMINS THERAPEUTIC TAB (*BKC) 1 TABLET PO (08:30)
[2023-12-14] MEDS: ALBUTEROL SULFATE NEB 2.5 MG/3 ML INH INHALATION ×3 (08:34→20:24)
[2023-12-14] MEDS: MICONAZOLE NITRATE 2% CREAM 30 GM TUBE 1 APPLIC TOPICAL ×2 (08:39→18:15)
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
[2023-12-14] MEDS: ONDANSETRON HCL ODT 4 MG TABLET PO ×2 (13:26→21:20)
[2023-12-14] MEDS: MECLIZINE HCL 25 MG TABLET PO (21:20)
[2023-12-14] MEDS: SENNA/DOCUSATE SODIUM TABLET 1 TAB PO (21:20)
[2023-12-15] VITALS (17 sets, daily range): BP systolic 98–131; BP diastolic 53–75; PULSE 61–77; RESP 15–24; TEMP 36.3–36.8; O2SAT 94–98
[2023-12-15] MEDS: traMADol HCL (*CRX) 50 MG TABLET PO ×3 (04:07→20:21)
[2023-12-15] MEDS: ONDANSETRON HCL ODT 4 MG TABLET PO ×3 (04:07→20:21)
[2023-12-15] MEDS: ACETAMINOPHEN 325 MG TABLET 650 MG PO (04:08)
[2023-12-15] MEDS: LEVOTHYROXINE SODIUM 150 MCG TABLET PO (05:38)
[2023-12-15 05:39] LABS: Basophils Percent Auto 0.6 % (0.2-1.2); Eosinophils Absolute Auto 0.2 K/mm3 (0-0.3); Eosinophils Percent Auto 2.9 % (0-4.4); Hematocrit 41.7 % (37.0-47.0); Immature Granulocyte Absolute 0.08 K/mm3 (0.00-0.031); Immature Granulocyte Percent A 1.1 % (0-0.5); Immature Platelet Fraction Pct 6.5 % (0.9-11.2); Lymphocytes Absolute Auto 0.96 K/mm3 (0.9-3.2); Lymphocytes Percent Auto 13.4 % (18.3-44.2); Mean Corpuscular HGB Conc 31.2 g/dl (32-36); Mean Corpuscular Volume 99.5 fl (80-100); Mean Platelet Volume 10.3 fl (7.4-10.4); Monocytes Absolute Auto 0.8 K/mm3 (0.1-0.6); Monocytes Percent Auto 10.9 % (2.6-8.5); Neutrophils Absolute Auto 5.1 K/mm3 (1.3-6.7); Neutrophils Percent Auto 71.1 % (45.5-73.1); Platelet Count Result 111 k/mm3 (150-375); Red Blood Count 4.19 M/mm3 (4.2-5.4); Red Cell Distribution Width 13.4 % (11.5-14.5); White Blood Count 7.2 K/mm3 (4.5-10.0)
[2023-12-15 05:59] LABS: Alanine Aminotransferase 18 U/L (6-35); Albumin Level 3.1 g/dL (3.5-5.1); Alkaline Phosphatase 74 U/L (38-126); Aspartate Amino Transferase 25 U/L (14-36); Bilirubin,Total 0.8 mg/dL (0.2-1.3); Blood Urea Nitrogen 14 mg/dL (7-17); Calcium 8.8 mg/dL (8.4-10.2); Carbon Dioxide > 40 mmol/L (22-30); Chloride 90 mmol/L (98-107); Estimated CRCL calculation 64 ml/min; Estimated Glomerular Filt Rate > 60; Glucose 147 mg/dL (65-110); Potassium 4.2 mmol/L (3.4-5.0); Sodium 135 mmol/L (137-145)
--- NOTE | 2023-12-15 08:05 | PM.IMPN ---
Progress Note: A&P Assessment and Plan (1) Urinary tract infection: Code(s): N39.0 - Urinary tract infection, site not specified Status: Acute Assessment and Plan: The patient presented to the emergency department for evaluation of weakness and fatigue as detailed in HPI. Labs, imaging, EKG, and all reports were personally reviewed. Urinalysis is suspicious for urinary tract infection and she has been started on ceftriaxone, pending urine culture - antibiotics switched to PO -Augmentin- based on sensitives (2) Elevated hemidiaphragm: Code(s): J98.6 - Disorders of diaphragm Status: Acute Assessment and Plan: pulm consulted appreciate recommendations (3) Nausea: Code(s): R11.0 - Nausea Status: Acute Assessment and Plan: continue zofran prn (4) Atrial fibrillation: Code(s): I48.91 - Unspecified atrial fibrillation Status: Acute (5) Chronic anticoagulation: Code(s): Z79.01 - nursing home (current) use of anticoagulants Status: Acute (6) Diastolic congestive heart failure: Code(s): I50.30 - Unspecified diastolic (congestive) heart failure Status: Acute (7) Hypertension: Code(s): I10 - Essential (primary) hypertension Status: Acute (8) Hyperlipidemia: Code(s): E78.5 - Hyperlipidemia, unspecified Status: Acute (9) Hypothyroidism: Code(s): E03.9 - Hypothyroidism, unspecified Status: Acute (10) Obstructive sleep apnea on CPAP: Code(s): G47.33 - Obstructive sleep apnea (adult) (pediatric) Status: Acute Plan . Chest x-ray showed markedly elevated right hemidiaphragm of unknown if this is chronic, and records have been requested from her primary care provider for comparison. Serum carbon dioxide is markedly elevated thus will check a blood gas. Nausea may be related to underlying urinary tract infection however she has been taking Aleve daily for arthritic pain which could be playing a factor here. She has not noticed any dark stools however will check stool for occult blood. Avoid NSAIDs for now will and continue PPI. She is clinically compensated with regards to her congestive heart failure. Monitor volume status closely with daily weights and I/O. Blood pressures were reviewed and they are stable. CPAP will be provided for the patient to use while hospitalized. Check digoxin level. Continue apixaban for stroke prophylaxis. Time Spent With Patient Time with patient: Greater than 35 minutes Subjective Date/time seen: 12/15/23 08:05 Interval history: 83-year-old female with atrial fibrillation on chronic anticoagulation, diastolic congestive heart failure, chronic obstructive pulmonary disease, chronic respiratory failure on 3 L home oxygen, obstructive sleep apnea on CPAP, hyperlipidemia, and hypothyroidism who presented to the emergency department via EMS from [facility] for evaluation of weakness, fatigue, and confusion. Patient is pleasant lying in bed. She continues to endorse nausea. She states that oral zofran has worked very well in the past. DC IV lasix and transitioned to PO. Patient denies chest pain, shortness of breath, vomiting, abdominal pain. She endorses slight dizziness. Resumed patients home meclizine PRN. Pulmonology consulted. Patient states that her baseline level of function is walking a few steps. PT/OT ordered. Patient was evaluated by speech as she continues to endorse feeling as though something is stuck in her throat. Patient had a normal swallow study and speech had no recommendations. 12/14- assuming care. Pt is seen and examined. she is convinced that she is swollen- her BUE slightly swollen but BLE have trace edema- she states it is swollen for her . She has pain all over and normally takes pain pill that helps- aware that she would have to work with PT/OT. Review of Systems Review of Systems: 12 systems were reviewed and are negative except for as per H
[2023-12-15] MEDS: FUROSEMIDE 40 MG TABLET PO (08:10)
[2023-12-15] MEDS: LORATADINE 10 MG TABLET PO (08:11)
[2023-12-15] MEDS: PANTOPRAZOLE 40 MG TABLET PO (08:11)
[2023-12-15] MEDS: APIXABAN 5 MG TABLET PO ×2 (08:11→20:22)
[2023-12-15] MEDS: FERROUS SULFATE 325 MG TABLET DR PO (08:11)
[2023-12-15] MEDS: MULTIVITAMINS THERAPEUTIC TAB (*BKC) 1 TABLET PO (08:11)
[2023-12-15] MEDS: DIGOXIN 62.5 MCG TABLET PO (08:12)
[2023-12-15] MEDS: POTASSIUM CHLORIDE 20 MEQ ER TABLET PO (08:12)
[2023-12-15] MEDS: dilTIAZem HCL CD 240 MG CAP.24HR PO (08:12)
[2023-12-15] MEDS: ATORVASTATIN 10 MG TABLET PO (08:12)
[2023-12-15] MEDS: MICONAZOLE NITRATE 2% CREAM 30 GM TUBE 1 APPLIC TOPICAL (08:13)
[2023-12-15] MEDS: ALBUTEROL SULFATE NEB 2.5 MG/3 ML INH INHALATION ×3 (08:32→21:55)
[2023-12-15] MEDS: AMOXICILLIN/CLAVULANATE K 875-125 MG TAB 1 TABLET PO ×2 (12:55→20:22)
[2023-12-15] MEDS: MECLIZINE HCL 25 MG TABLET PO (13:30)
[2023-12-15] MEDS: TOLNAFTATE 1% POWDER 45 GM BTL 1 APPLIC TOPICAL ×2 (18:44→20:22)
[2023-12-15] MEDS: SENNA/DOCUSATE SODIUM TABLET 1 TAB PO (20:22)
[2023-12-16] VITALS (16 sets, daily range): BP systolic 90–151; BP diastolic 49–85; PULSE 58–98; RESP 12–20; TEMP 36.5–37.1; O2SAT 90–100
[2023-12-16] MEDS: ONDANSETRON HCL ODT 4 MG TABLET PO ×2 (02:48→17:41)
[2023-12-16] MEDS: traMADol HCL (*CRX) 50 MG TABLET PO ×2 (02:48→17:41)
[2023-12-16 05:36] LABS: Basophils Absolute Auto 0.1 K/mm3 (0.0-0.1); Basophils Percent Auto 0.8 % (0.2-1.2); Eosinophils Absolute Auto 0.2 K/mm3 (0-0.3); Eosinophils Percent Auto 2.8 % (0-4.4); Hematocrit 43.1 % (37.0-47.0); Hemoglobin 13.2 g/dL (12.0-15.0); Immature Granulocyte Absolute 0.09 K/mm3 (0.00-0.031); Immature Granulocyte Percent A 1.2 % (0-0.5); Immature Platelet Fraction Pct 6.5 % (0.9-11.2); Lymphocytes Absolute Auto 0.72 K/mm3 (0.9-3.2); Lymphocytes Percent Auto 9.3 % (18.3-44.2); Mean Corpuscular HGB Conc 30.6 g/dl (32-36); Mean Corpuscular Hemoglobin 30.3 pg (26-34); Mean Corpuscular Volume 98.9 fl (80-100); Mean Platelet Volume 10.4 fl (7.4-10.4); Monocytes Absolute Auto 0.9 K/mm3 (0.1-0.6); Monocytes Percent Auto 10.9 % (2.6-8.5); Neutrophils Absolute Auto 5.8 K/mm3 (1.3-6.7); Platelet Count Result 110 k/mm3 (150-375); Red Blood Count 4.36 M/mm3 (4.2-5.4); Red Cell Distribution Width 13.3 % (11.5-14.5); White Blood Count 7.8 K/mm3 (4.5-10.0)
[2023-12-16 06:00] LABS: Alanine Aminotransferase 23 U/L (6-35); Albumin Level 3.2 g/dL (3.5-5.1); Alkaline Phosphatase 73 U/L (38-126); Aspartate Amino Transferase 32 U/L (14-36); Bilirubin,Total 0.9 mg/dL (0.2-1.3); Blood Urea Nitrogen 16 mg/dL (7-17); Calcium 8.7 mg/dL (8.4-10.2); Carbon Dioxide > 40 mmol/L (22-30); Chloride 89 mmol/L (98-107); Estimated CRCL calculation 64 ml/min; Estimated Glomerular Filt Rate > 60; Glucose 127 mg/dL (65-110); Potassium 4.1 mmol/L (3.4-5.0); Sodium 134 mmol/L (137-145)
[2023-12-16 06:22] LABS: Alveolar/Arterial O2 Gradient 82.5 mmHg; Base Excess ABG 13.9 mEq/l (+/-2.0); Fractional Inspired Oxygen 32 %; HCO3 ABG 41.1 mEq/l (22.0-26.0); Oxygen Content ABG 17.8 %vol (16.0-22.0); Oxygen Saturation ABG 94.4 % (95.0-100.0); Oxyhemoglobin 93.4 % THb (90.0-100.0); PO2 ABG 71.8 mmHg (80.0-100.0); PO2 FiO2 Ratio Arterial Blood 2.24 %; Total Hemoglobin 13.5 g/dL (12.0-18.0); pH ABG 7.432 (7.350-7.450)
[2023-12-16 06:23] LABS: PCO2 ABG 63.1 mmHg (35.0-45.0); Site Drawn RIGHT BRACHIAL
[2023-12-16 06:24] LABS: Device NASAL CANNULA
[2023-12-16] MEDS: LEVOTHYROXINE SODIUM 150 MCG TABLET PO (07:04)
--- NOTE | 2023-12-16 07:36 | PM.IMPN ---
Progress Note: A&P Assessment and Plan (1) Urinary tract infection: Code(s): N39.0 - Urinary tract infection, site not specified Status: Acute Assessment and Plan: The patient presented to the emergency department for evaluation of weakness and fatigue as detailed in HPI. Labs, imaging, EKG, and all reports were personally reviewed. Urinalysis is suspicious for urinary tract infection and she has been started on ceftriaxone, pending urine culture - antibiotics switched to PO -Augmentin- based on sensitives (2) Elevated hemidiaphragm: Code(s): J98.6 - Disorders of diaphragm Status: Acute Assessment and Plan: pulm consulted appreciate recommendations: - never had any chest surgeries - obesity could be a major contributing factor - CPAP- had been wearing it for awhile - adjustments based on ABG per pulm pco2 result for 12/[address] Mandujano (3) Nausea: Code(s): R11.0 - Nausea Status: Acute Assessment and Plan: continue zofran prn (4) Atrial fibrillation: Code(s): I48.91 - Unspecified atrial fibrillation Status: Acute (5) Chronic anticoagulation: Code(s): Z79.01 - exterminator helper termite (current) use of anticoagulants Status: Acute (6) Diastolic congestive heart failure: Code(s): I50.30 - Unspecified diastolic (congestive) heart failure Status: Acute Assessment and Plan: - secondary pulm HTN - Right ventricular systolic pressure 58 mm Hg on echo completed on December 12- secondary to her cardiac dysfunction. The patient has diastolic dysfunction, moderate aortic stenosis, aortic insufficiency and biatrial enlargement. - she used to follow up with share dairy farmer Dr Rivera at [facility] but her insurance not longer covers this provider (7) Hypertension: Code(s): I10 - Essential (primary) hypertension Status: Acute (8) Hyperlipidemia: Code(s): E78.5 - Hyperlipidemia, unspecified Status: Acute (9) Hypothyroidism: Code(s): E03.9 - Hypothyroidism, unspecified Status: Acute Assessment and Plan: - will check tsh panel (10) Obstructive sleep apnea on CPAP: Code(s): G47.33 - Obstructive sleep apnea (adult) (pediatric) Status: Acute Plan . Chest x-ray showed markedly elevated right hemidiaphragm of unknown if this is chronic, and records have been requested from her primary care provider for comparison. Serum carbon dioxide is markedly elevated thus will check a blood gas. Nausea may be related to underlying urinary tract infection however she has been taking Aleve daily for arthritic pain which could be playing a factor here. She has not noticed any dark stools however will check stool for occult blood. Avoid NSAIDs for now will and continue PPI. She is clinically compensated with regards to her congestive heart failure. Monitor volume status closely with daily weights and I/O. Blood pressures were reviewed and they are stable. CPAP will be provided for the patient to use while hospitalized. Check digoxin level (<0.5). Continue apixaban for stroke prophylaxis. diabetes: hga1c 5.9- she reports it better than 6 and higher in the past. discussed in details. She reports that she lost some weight insertionally in order to prevent diabetes Time Spent With Patient Time with patient: 25 - 35 minutes Subjective Date/time seen: 12/16/23 07:36 Interval history: 83-year-old female with atrial fibrillation on chronic anticoagulation, diastolic congestive heart failure, chronic obstructive pulmonary disease, chronic respiratory failure on 3 L home oxygen, obstructive sleep apnea on CPAP, hyperlipidemia, and hypothyroidism who presented to the emergency department via EMS from [facility] for evaluation of weakness, fatigue, and confusion. Patient is pleasant lying in bed. She continues to endorse nausea. She states that oral zofran has worked very well in the past. DC IV lasix and transitioned to PO. Anupama
[2023-12-16 08:14] LABS: Hemoglobin A1C 5.9 % (<5.7)
[2023-12-16] MEDS: MECLIZINE HCL 25 MG TABLET PO (08:34)
[2023-12-16] MEDS: FUROSEMIDE 40 MG TABLET PO (08:35)
[2023-12-16] MEDS: dilTIAZem HCL CD 240 MG CAP.24HR PO (08:35)
[2023-12-16] MEDS: DIGOXIN 62.5 MCG TABLET PO (08:35)
[2023-12-16] MEDS: PANTOPRAZOLE 40 MG TABLET PO (08:35)
[2023-12-16] MEDS: AMOXICILLIN/CLAVULANATE K 875-125 MG TAB 1 TABLET PO ×2 (08:35→20:31)
[2023-12-16] MEDS: FERROUS SULFATE 325 MG TABLET DR PO (08:36)
[2023-12-16] MEDS: POTASSIUM CHLORIDE 20 MEQ ER TABLET PO (08:36)
[2023-12-16] MEDS: ATORVASTATIN 10 MG TABLET PO (08:36)
[2023-12-16] MEDS: MULTIVITAMINS THERAPEUTIC TAB (*BKC) 1 TABLET PO (08:36)
[2023-12-16] MEDS: LORATADINE 10 MG TABLET PO (08:36)
[2023-12-16] MEDS: APIXABAN 5 MG TABLET PO ×2 (08:36→20:31)
[2023-12-16] MEDS: TOLNAFTATE 1% POWDER 45 GM BTL 1 APPLIC TOPICAL ×2 (08:37→20:31)
[2023-12-16] MEDS: ALBUTEROL SULFATE NEB 2.5 MG/3 ML INH INHALATION ×2 (08:51→20:11)
[2023-12-16 11:52] LABS: Free T4 Free Thyroxine Reflex 0.87 ng/dL (0.78-2.19)
[2023-12-16] MEDS: SACCHAROMYCES BOULARDII 250 MG CAPSULE PO ×2 (12:22→16:28)
--- NOTE | 2023-12-16 13:05 | PM.PNPUL ---
Progress Note: A&P Assessment and Plan (1) Obstructive sleep apnea on CPAP: Code(s): G47.33 - Obstructive sleep apnea (adult) (pediatric) Status: Acute Assessment and Plan: She has had obstructive sleep apnea for years, her current device is may be 3 to 5 years old. She uses it without difficulties. This is a stable problem and can be followed in the outpatient setting. SHe has a machine at [facility], wnats to have it here to use. (2) Elevated hemidiaphragm: Code(s): J98.6 - Disorders of diaphragm Status: Acute Assessment and Plan: She has an elevated right hemidiaphragm, and this contributes to her issue with poor lung capacity. She did know that she had this. She has never had chest surgery. This is an incidental finding but with obesity, this can contribute to hypercapnia. Her body mass index is 41.3. Her CPAP use at night is helping to overcome and helping her to ventilate at night. (3) Chronic respiratory failure with hypoxia: Code(s): J96.11 - Chronic respiratory failure with hypoxia Status: Acute Assessment and Plan: She has been on oxygen a number of years, was prescribed 2.5 L around the clock, she does not ambulate but she does transfer weight from bed to wheelchair. She does not need home oxygen evaluation. She is able to have her oxygen decreased currently at 3L with saturation is high is 96%. Our goal is up to 94% with supplemental oxygen. (4) Secondary pulmonary hypertension: Status: Acute Assessment and Plan: Right ventricular systolic pressure 58 mm Hg on echo December 12. This is secondary to her cardiac dysfunction. The patient has diastolic dysfunction, moderate aortic stenosis, aortic insufficiency and biatrial enlargement. Subjective Date/time seen: 12/16/23 13:05 Interval history: 12/16/2023; hospital follow up; she is lying in bed, has anxiety today, wants some items from [facility], her CPAP which would be more comfortable for her, a radio and electronic tablet, as well as K tape for her left shoulder. She says that her shortness of breath comes and goes. Dr Rivera at [facility] has been her market research associate, can no longer see him due to insurance changes. Dr Rivera is not on her plan. Using 34% which is about 3 L/min with saturation 96% and higher. SHe says taht she does not feel back to normal, still loses balance easily, shortof breath at times. 12/15/2023, new consult; Monica Bishop is an 83-year-old female with FERNIE, Home O2 use, hx of COPD, never smoked, and an elevated right hemidiaphragm; she was admitted with a fall and a UTI. She has COPD and has been on oxygen a number of years. She lives at [facility], for the last year and a half due to worsening overall function. Her COPD, FERNIE and O2 needs were treated by LUBA Lees in [facility] who recently moved our practice and she no longer provides pulmonary care. The patient has not had any pulmonary visits since the end of 2022. The reason for this admission was a mechanical fall transferring from wheelchair into the bed. This was also associated with urinary tract infection. She has atrial fibrillation in the pas, was on Eliquis. She also has osteoarthritis. She tells me that she was increasingly short of breath before coming in. Her baseline oxygen use was 2.5 L but in the last several weeks she increased it to 3.5 L. She does not have an oximeter, her saturation is checked once a month at her facility. She does tell me she was increasingly short of breath. She does not cough every day. She has mild to modest sputum production when she
[2023-12-16 13:39] LABS: Total Triiodothyronine (T3) 0.72 NG/ML (0.97-1.69)
[2023-12-16 17:40] LABS: Strep Group A RT-PCR NOT DETECTED (Negative)
[2023-12-16] MEDS: SENNA/DOCUSATE SODIUM TABLET 1 TAB PO (20:31)
[2023-12-17] VITALS (20 sets, daily range): BP systolic 96–133; BP diastolic 59–79; PULSE 64–90; RESP 14–18; TEMP 36.5–36.8; O2SAT 93–98
[2023-12-17 05:14] LABS: Basophils Percent Auto 0.5 % (0.2-1.2); Eosinophils Absolute Auto 0.3 K/mm3 (0-0.3); Eosinophils Percent Auto 3.5 % (0-4.4); Hemoglobin 12.9 g/dL (12.0-15.0); Immature Granulocyte Percent A 1.3 % (0-0.5); Immature Platelet Fraction Pct 5.5 % (0.9-11.2); Lymphocytes Absolute Auto 0.84 K/mm3 (0.9-3.2); Lymphocytes Percent Auto 10.9 % (18.3-44.2); Mean Corpuscular HGB Conc 31.5 g/dl (32-36); Mean Corpuscular Hemoglobin 30.9 pg (26-34); Mean Corpuscular Volume 98.1 fl (80-100); Mean Platelet Volume 10.5 fl (7.4-10.4); Monocytes Absolute Auto 0.8 K/mm3 (0.1-0.6); Monocytes Percent Auto 10.8 % (2.6-8.5); Neutrophils Absolute Auto 5.6 K/mm3 (1.3-6.7); Platelet Count Result 114 k/mm3 (150-375); Red Blood Count 4.18 M/mm3 (4.2-5.4); Red Cell Distribution Width 13.6 % (11.5-14.5); White Blood Count 7.7 K/mm3 (4.5-10.0)
[2023-12-17 05:26] LABS: Alanine Aminotransferase 26 U/L (6-35); Albumin Level 3.2 g/dL (3.5-5.1); Alkaline Phosphatase 69 U/L (38-126); Aspartate Amino Transferase 36 U/L (14-36); Bilirubin,Total 0.8 mg/dL (0.2-1.3); Blood Urea Nitrogen 13 mg/dL (7-17); Calcium 8.6 mg/dL (8.4-10.2); Carbon Dioxide > 40 mmol/L (22-30); Chloride 91 mmol/L (98-107); Estimated CRCL calculation 75 ml/min; Estimated Glomerular Filt Rate > 60; Glucose 113 mg/dL (65-110); Potassium 3.9 mmol/L (3.4-5.0); Sodium 136 mmol/L (137-145)
--- NOTE | 2023-12-17 07:25 | PM.IMPN ---
Progress Note: A&P Assessment and Plan (1) Urinary tract infection: Code(s): N39.0 - Urinary tract infection, site not specified Status: Acute Assessment and Plan: The patient presented to the emergency department for evaluation of weakness and fatigue as detailed in HPI. Labs, imaging, EKG, and all reports were personally reviewed. Urinalysis is suspicious for urinary tract infection and she has been started on ceftriaxone, pending urine culture - antibiotics switched to PO -Augmentin- based on sensitives (2) Elevated hemidiaphragm: Code(s): J98.6 - Disorders of diaphragm Status: Acute Assessment and Plan: pulm consulted appreciate recommendations: - never had any chest surgeries - obesity could be a major contributing factor - CPAP- had been wearing it for awhile - adjustments based on ABG per pulm pco2 result for 12/[address] Mandujano - stable overnight- continue to minitor - will need to establish with pulm here when discharged (3) Nausea: Code(s): R11.0 - Nausea Status: Acute Assessment and Plan: continue zofran prn (4) Atrial fibrillation: Code(s): I48.91 - Unspecified atrial fibrillation Status: Acute (5) Chronic anticoagulation: Code(s): Z79.01 - intermediate card tender (current) use of anticoagulants Status: Acute (6) Diastolic congestive heart failure: Code(s): I50.30 - Unspecified diastolic (congestive) heart failure Status: Acute Assessment and Plan: - secondary pulm HTN - Right ventricular systolic pressure 58 mm Hg on echo completed on December 12- secondary to her cardiac dysfunction. The patient has diastolic dysfunction, moderate aortic stenosis, aortic insufficiency and biatrial enlargement. - she used to follow up with customs compliance director Dr Rivera at [facility] but her insurance not longer covers this provider (7) Hypertension: Code(s): I10 - Essential (primary) hypertension Status: Acute (8) Hyperlipidemia: Code(s): E78.5 - Hyperlipidemia, unspecified Status: Acute (9) Hypothyroidism: Code(s): E03.9 - Hypothyroidism, unspecified Status: Acute Assessment and Plan: - will check tsh panel (10) Obstructive sleep apnea on CPAP: Code(s): G47.33 - Obstructive sleep apnea (adult) (pediatric) Status: Acute Plan . Chest x-ray showed markedly elevated right hemidiaphragm of unknown if this is chronic, and records have been requested from her primary care provider for comparison. Serum carbon dioxide is markedly elevated thus will check a blood gas. Nausea may be related to underlying urinary tract infection however she has been taking Aleve daily for arthritic pain which could be playing a factor here. She has not noticed any dark stools however will check stool for occult blood. Avoid NSAIDs for now will and continue PPI. She is clinically compensated with regards to her congestive heart failure. Monitor volume status closely with daily weights and I/O. Blood pressures were reviewed and they are stable. CPAP will be provided for the patient to use while hospitalized. Check digoxin level (<0.5). Continue apixaban for stroke prophylaxis. diabetes: hga1c 5.9- she reports it better than 6 and higher in the past. discussed in details. She reports that she lost some weight insertionally in order to prevent diabetes Time Spent With Patient Time with patient: Greater than 35 minutes Subjective Date/time seen: 12/17/23 07:25 Interval history: Interval history: 83-year-old female with atrial fibrillation on chronic anticoagulation, diastolic congestive heart failure, chronic obstructive pulmonary disease, chronic respiratory failure on 3 L home oxygen, obstructive sleep apnea on CPAP, hyperlipidemia, and hypothyroidism who presented to the emergency department via EMS from [facility] for evaluation of weakness, fatigue, and confusion. Patient is pleasant lying in bed. She marky
[2023-12-17] MEDS: ALBUTEROL SULFATE NEB 2.5 MG/3 ML INH INHALATION ×3 (08:50→20:23)
[2023-12-17] MEDS: ONDANSETRON HCL ODT 4 MG TABLET PO ×2 (09:12)
[2023-12-17] MEDS: LEVOTHYROXINE SODIUM 150 MCG TABLET PO (09:42)
[2023-12-17] MEDS: traMADol HCL (*CRX) 50 MG TABLET PO ×2 (09:42)
[2023-12-17] MEDS: dilTIAZem HCL CD 240 MG CAP.24HR PO (09:43)
[2023-12-17] MEDS: FERROUS SULFATE 325 MG TABLET DR PO (09:43)
[2023-12-17] MEDS: PANTOPRAZOLE 40 MG TABLET PO (09:43)
[2023-12-17] MEDS: POTASSIUM CHLORIDE 20 MEQ ER TABLET PO (09:43)
[2023-12-17] MEDS: MULTIVITAMINS THERAPEUTIC TAB (*BKC) 1 TABLET PO (09:43)
[2023-12-17] MEDS: ATORVASTATIN 10 MG TABLET PO (09:43)
[2023-12-17] MEDS: DIGOXIN 62.5 MCG TABLET PO (09:43)
[2023-12-17] MEDS: AMOXICILLIN/CLAVULANATE K 875-125 MG TAB 1 TABLET PO ×2 (09:43→20:19)
[2023-12-17] MEDS: SACCHAROMYCES BOULARDII 250 MG CAPSULE PO ×3 (09:43→16:26)
[2023-12-17] MEDS: FUROSEMIDE 40 MG TABLET PO (09:44)
[2023-12-17] MEDS: TOLNAFTATE 1% POWDER 45 GM BTL 1 APPLIC TOPICAL ×2 (09:44→20:19)
[2023-12-17] MEDS: APIXABAN 5 MG TABLET PO ×2 (09:44→20:19)
[2023-12-17] MEDS: LORATADINE 10 MG TABLET PO (09:44)
[2023-12-17] MEDS: PROCHLORPERAZINE MALEATE PO (16:26)
--- NOTE | 2023-12-17 16:46 | PM.PNPUL ---
Progress Note: A&P Assessment and Plan (1) Obstructive sleep apnea on CPAP: Code(s): G47.33 - Obstructive sleep apnea (adult) (pediatric) Status: Acute Assessment and Plan: She has had obstructive sleep apnea for years, her current device is may be 3 to 5 years old. She uses it without difficulties. This is a stable problem and can be followed in the outpatient setting. She has a CPAP machine at [facility], wants to have it here to use. (2) Elevated hemidiaphragm: Code(s): J98.6 - Disorders of diaphragm Status: Acute Assessment and Plan: She has an elevated right hemidiaphragm, and this contributes to her issue with poor lung capacity. She did know that she had this. She has never had chest surgery. This is an incidental finding but with obesity, this can contribute to hypercapnia. Her body mass index is 41.3. Her CPAP use at night is helping to overcome and helping her to ventilate at night. (3) Chronic respiratory failure with hypoxia: Code(s): J96.11 - Chronic respiratory failure with hypoxia Status: Acute Assessment and Plan: She has been on oxygen a number of years, was prescribed 2.5 L around the clock, she does not ambulate but she does transfer weight from bed to wheelchair. She does not need home oxygen evaluation. She is able to have her oxygen decreased currently at 3L with saturation is high is 96%. Our goal is up to 94% with supplemental oxygen. (4) Secondary pulmonary hypertension: Status: Acute Assessment and Plan: Right ventricular systolic pressure 58 mm Hg on echo December 12. This is secondary to her cardiac dysfunction. The patient has diastolic dysfunction, moderate aortic stenosis, aortic insufficiency and biatrial enlargement. Subjective Date/time seen: 12/17/23 16:46 Interval history: 12/17/23; Monica Bishop is an 83-year-old woman, sitting in a chair, upset because she does not like the person who is her POA. She is considering having someone else take over this task. She has generalized pain, does not feel that she can go home. Her blood pressure is labile, lower when she is sitting or supine, rising when she is upright. She is on the same amount of oxygen, 3 L, sat 93-97%. She does not like using the BiPAP set up here, 02/04 with O2 bleed in, wants her own CPAP machine from [employer]. She does not use it every night, however when she does use it, she says that she sleeps more restfully. ............................................................. 12/16/2023; hospital follow up; she is lying in bed, has anxiety today, wants some items from [employer], her CPAP which would be more comfortable for her, a radio and electronic tablet, as well as K tape for her left shoulder. She says that her shortness of breath comes and goes. Dr Rivera at [facility] has been her all terrain vehicle technician, can no longer see him due to insurance changes. Dr Rivera is not on her plan. Using 34% which is about 3 L/min with saturation 96% and higher. She says that she does not feel back to normal, still loses balance easily, short of breath at times. 12/15/2023, new consult; Monica Bishop is an 83-year-old female with FERNIE, Home O2 use, hx of COPD, never smoked, and an elevated right hemidiaphragm; she was admitted with a fall and a UTI. She has COPD and has been on oxygen a number of years. She lives at [facility], for the last year and a half due to worsening overall function. Her COPD, FERNIE and O2 needs were treated by LUBA eLes in [facility] who recently moved our practice and she no longer provides pulmonary care. The mia
[2023-12-17] MEDS: SENNA/DOCUSATE SODIUM TABLET 1 TAB PO (20:19)
[2023-12-18] VITALS (15 sets, daily range): BP systolic 89–130; BP diastolic 54–72; PULSE 57–79; RESP 16–18; TEMP 36.6–37.1; O2SAT 95–97
[2023-12-18] MEDS: traMADol HCL (*CRX) 50 MG TABLET PO ×3 (00:40→20:36)
[2023-12-18 05:12] LABS: Basophils Percent Auto 0.5 % (0.2-1.2); Eosinophils Absolute Auto 0.3 K/mm3 (0-0.3); Eosinophils Percent Auto 3.3 % (0-4.4); Hematocrit 40.1 % (37.0-47.0); Hemoglobin 12.7 g/dL (12.0-15.0); Immature Granulocyte Absolute 0.11 K/mm3 (0.00-0.031); Immature Granulocyte Percent A 1.4 % (0-0.5); Immature Platelet Fraction Pct 5.5 % (0.9-11.2); Lymphocytes Absolute Auto 0.96 K/mm3 (0.9-3.2); Lymphocytes Percent Auto 11.8 % (18.3-44.2); Mean Corpuscular HGB Conc 31.7 g/dl (32-36); Mean Corpuscular Hemoglobin 31.1 pg (26-34); Mean Platelet Volume 9.7 fl (7.4-10.4); Monocytes Absolute Auto 0.9 K/mm3 (0.1-0.6); Monocytes Percent Auto 10.8 % (2.6-8.5); Neutrophils Absolute Auto 5.9 K/mm3 (1.3-6.7); Neutrophils Percent Auto 72.2 % (45.5-73.1); Platelet Count Result 119 k/mm3 (150-375); Red Blood Count 4.09 M/mm3 (4.2-5.4); Red Cell Distribution Width 13.6 % (11.5-14.5); White Blood Count 8.1 K/mm3 (4.5-10.0)
[2023-12-18 05:32] LABS: Alanine Aminotransferase 33 U/L (6-35); Albumin Level 3.1 g/dL (3.5-5.1); Alkaline Phosphatase 72 U/L (38-126); Aspartate Amino Transferase 44 U/L (14-36); Bilirubin,Total 0.8 mg/dL (0.2-1.3); Blood Urea Nitrogen 12 mg/dL (7-17); Calcium 8.1 mg/dL (8.4-10.2); Carbon Dioxide > 40 mmol/L (22-30); Chloride 93 mmol/L (98-107); Estimated CRCL calculation 64 ml/min; Estimated Glomerular Filt Rate > 60; Glucose 119 mg/dL (65-110); Potassium 4.5 mmol/L (3.4-5.0); Sodium 136 mmol/L (137-145)
[2023-12-18] MEDS: LEVOTHYROXINE SODIUM 150 MCG TABLET PO (06:17)
[2023-12-18] MEDS: ACETAMINOPHEN 325 MG TABLET 650 MG PO ×2 (06:23→15:10)
[2023-12-18] MEDS: PROCHLORPERAZINE MALEATE PO (06:23)
[2023-12-18] MEDS: ALBUTEROL SULFATE NEB 2.5 MG/3 ML INH INHALATION ×3 (07:04→21:30)
--- NOTE | 2023-12-18 08:18 | PM.IMPN ---
Progress Note: A&P Assessment and Plan (1) Urinary tract infection: Code(s): N39.0 - Urinary tract infection, site not specified Status: Acute Assessment and Plan: The patient presented to the emergency department for evaluation of weakness and fatigue as detailed in HPI. Labs, imaging, EKG, and all reports were personally reviewed. Urinalysis is suspicious for urinary tract infection and she has been started on ceftriaxone, pending urine culture - antibiotics switched to PO -Augmentin- based on sensitives - last dose 12/17 2099 (2) Elevated hemidiaphragm: Code(s): J98.6 - Disorders of diaphragm Status: Acute Assessment and Plan: pulm consulted appreciate recommendations: - never had any chest surgeries - obesity could be a major contributing factor - CPAP- had been wearing it for awhile - adjustments based on ABG per pulm pco2 result for 12/[address] Mandujano - stable overnight- continue to minitor - will need to establish with pulm here when discharged (3) Nausea: Code(s): R11.0 - Nausea Status: Acute Assessment and Plan: continue zofran prn (4) Atrial fibrillation: Code(s): I48.91 - Unspecified atrial fibrillation Status: Acute Assessment and Plan: continue ANTICOAGULATION will need to re establish with card when discharged (5) Chronic anticoagulation: Code(s): Z79.01 - senior care (current) use of anticoagulants Status: Acute (6) Diastolic congestive heart failure: Code(s): I50.30 - Unspecified diastolic (congestive) heart failure Status: Acute Assessment and Plan: - secondary pulm HTN - Right ventricular systolic pressure 58 mm Hg on echo completed on December 12- secondary to her cardiac dysfunction. The patient has diastolic dysfunction, moderate aortic stenosis, aortic insufficiency and biatrial enlargement. - she used to follow up with pathology manager Dr Rivera at [facility] but her insurance not longer covers this provider (7) Hypertension: Code(s): I10 - Essential (primary) hypertension Status: Acute (8) Hyperlipidemia: Code(s): E78.5 - Hyperlipidemia, unspecified Status: Acute (9) Hypothyroidism: Code(s): E03.9 - Hypothyroidism, unspecified Status: Acute Assessment and Plan: - will check tsh panel (10) Obstructive sleep apnea on CPAP: Code(s): G47.33 - Obstructive sleep apnea (adult) (pediatric) Status: Acute Plan . Chest x-ray showed markedly elevated right hemidiaphragm of unknown if this is chronic, and records have been requested from her primary care provider for comparison. Serum carbon dioxide is markedly elevated thus will check a blood gas. Nausea may be related to underlying urinary tract infection however she has been taking Aleve daily for arthritic pain which could be playing a factor here. She has not noticed any dark stools however will check stool for occult blood. Avoid NSAIDs for now will and continue PPI. She is clinically compensated with regards to her congestive heart failure. Monitor volume status closely with daily weights and I/O. Blood pressures were reviewed and they are stable. CPAP will be provided for the patient to use while hospitalized. Check digoxin level (<0.5). Continue apixaban for stroke prophylaxis. diabetes: hga1c 5.9- she reports it better than 6 and higher in the past. discussed in details. She reports that she lost some weight insertionally in order to prevent diabetes Time Spent With Patient Time with patient: Greater than 35 minutes Subjective Date/time seen: 12/18/23 08:18 Interval history: Interval history: 83-year-old female with atrial fibrillation on chronic anticoagulation, diastolic congestive heart failure, chronic obstructive pulmonary disease, chronic respiratory failure on 3 L home oxygen, obstructive sleep apnea on CPAP, hyperlipidemia, and hypothyroidism who presented to the emergency departme
[2023-12-18] MEDS: SACCHAROMYCES BOULARDII 250 MG CAPSULE PO ×2 (08:50→12:22)
[2023-12-18] MEDS: PANTOPRAZOLE 40 MG TABLET PO (08:50)
[2023-12-18] MEDS: dilTIAZem HCL CD 240 MG CAP.24HR PO (08:50)
[2023-12-18] MEDS: ATORVASTATIN 10 MG TABLET PO (08:50)
[2023-12-18] MEDS: POTASSIUM CHLORIDE 20 MEQ ER TABLET PO (08:50)
[2023-12-18] MEDS: AMOXICILLIN/CLAVULANATE K 875-125 MG TAB 1 TABLET PO ×2 (08:50→20:36)
[2023-12-18] MEDS: FERROUS SULFATE 325 MG TABLET DR PO (08:50)
[2023-12-18] MEDS: LORATADINE 10 MG TABLET PO (08:50)
[2023-12-18] MEDS: APIXABAN 5 MG TABLET PO ×2 (08:50→20:36)
[2023-12-18] MEDS: MULTIVITAMINS THERAPEUTIC TAB (*BKC) 1 TABLET PO (08:50)
[2023-12-18] MEDS: TOLNAFTATE 1% POWDER 45 GM BTL 1 APPLIC TOPICAL ×2 (08:51→20:36)
--- NOTE | 2023-12-18 14:40 | PCPTNOTE ---
The patient treatment was not able to be completed due to patient having low BP. RN advised to hold PT at this time as meds are ajusted to improve BP. Will plan to continue treatment per plan of care.
[2023-12-18] MEDS: ALBUMIN HUMAN 25% 25 GM/100 ML 100 ML IVPB (15:00)
--- NOTE | 2023-12-18 15:58 | PM.PNPUL ---
Progress Note: A&P Assessment and Plan (1) Obstructive sleep apnea on CPAP: Code(s): G47.33 - Obstructive sleep apnea (adult) (pediatric) Status: Acute Assessment and Plan: She has had obstructive sleep apnea for years, her current device is may be 3 to 5 years old. She uses it without difficulties. This is a stable problem and can be followed in the outpatient setting. She has a CPAP machine at [facility], now has it here, with settings APAP 5 cm to 9 cm and 2 cm EPR. She has a nasal mask. She now has her own machine here. She wants to wear it instead of using the machine we have. With her elevated CO2, she will likely need better settings. I plugged her machine in to check settings. We will have her wear it tongiht, see how she feels in the morning. (2) Elevated hemidiaphragm: Code(s): J98.6 - Disorders of diaphragm Status: Acute Assessment and Plan: She has an elevated right hemidiaphragm, and this contributes to her issue with poor lung capacity. She did know that she had this. She has never had chest surgery. This is an incidental finding but with obesity, this can contribute to hypercapnia. Her body mass index is 41.3. Her CPAP use at night is helping to overcome and helping her to ventilate at night. (3) Chronic respiratory failure with hypoxia: Code(s): J96.11 - Chronic respiratory failure with hypoxia Status: Acute Assessment and Plan: She has been on oxygen a number of years, was prescribed 2.5 L around the clock, she does not ambulate but she does transfer weight from bed to wheelchair. She does not need home oxygen evaluation. She is able to have her oxygen decreased currently at 3L with saturation is high is 96%. Our goal is up to 94% with supplemental oxygen. (4) Secondary pulmonary hypertension: Status: Acute Assessment and Plan: Right ventricular systolic pressure 58 mm Hg on echo December 12. This is secondary to her cardiac dysfunction. The patient has diastolic dysfunction, moderate aortic stenosis, aortic insufficiency and biatrial enlargement. Subjective Date/time seen: 12/18/23 15:58 Interval history: 12/18/23; Monica Bishop is sitting in chair, BP is low; this was re-checked manually by the charge nurse; ......................................................... 12/17/23; Monica Bishop is an 83-year-old woman, sitting in a chair, upset because she does not like the person who is her POA. She is considering having someone else take over this task. She has generalized pain, does not feel that she can go home. Her blood pressure is labile, lower when she is sitting or supine, rising when she is upright. She is on the same amount of oxygen, 3 L, sat 93-97%. She does not like using the BiPAP set up here, 02/04 with O2 bleed in, wants her own CPAP machine from [facility]. She does not use it every night, however when she does use it, she says that she sleeps more restfully. ............................................................. 12/16/2023; hospital follow up; she is lying in bed, has anxiety today, wants some items from [employer], her CPAP which would be more comfortable for her, a radio and electronic tablet, as well as K tape for her left shoulder. She says that her shortness of breath comes and goes. Dr Rivera at [facility] has been her brewery representative, can no longer see him due to insurance changes. Dr Rivera is not on her plan. Using 34% which is about 3 L/min with saturation 96% and higher. She says that she does not feel back to normal, still loses balance easily, short of breath at times. 12/15/2023, new consult; Monica Bishop is
[2023-12-18] MEDS: SENNA/DOCUSATE SODIUM TABLET 1 TAB PO (20:36)
[2023-12-19] VITALS (23 sets, daily range): BP systolic 96–155; BP diastolic 52–125; PULSE 61–77; RESP 16–22; TEMP 36.4–37.1; O2SAT 94–100
[2023-12-19] MEDS: traMADol HCL (*CRX) 50 MG TABLET PO (04:35)
[2023-12-19] MEDS: LEVOTHYROXINE SODIUM 150 MCG TABLET PO (05:54)
--- NOTE | 2023-12-19 07:27 | PM.IMPN ---
Progress Note: A&P Assessment and Plan (1) Urinary tract infection: Code(s): N39.0 - Urinary tract infection, site not specified Status: Acute Assessment and Plan: The patient presented to the emergency department for evaluation of weakness and fatigue as detailed in HPI. Labs, imaging, EKG, and all reports were personally reviewed. Urinalysis is suspicious for urinary tract infection and she has been started on ceftriaxone, pending urine culture - antibiotics switched to PO -Augmentin- based on sensitives - last dose 12/17 2100 (2) Elevated hemidiaphragm: Code(s): J98.6 - Disorders of diaphragm Status: Acute Assessment and Plan: pulm consulted appreciate recommendations: - never had any chest surgeries - obesity could be a major contributing factor - CPAP- had been wearing it for awhile - adjustments based on ABG per pulm pco2 result for 12/[address] Mandujano - stable overnight- continue to minitor - will need to establish with pulm here when discharged (3) Nausea: Code(s): R11.0 - Nausea Status: Acute Assessment and Plan: continue zofran prn (4) Atrial fibrillation: Code(s): I48.91 - Unspecified atrial fibrillation Status: Acute Assessment and Plan: continue ANTICOAGULATION will need to re establish with card when discharged - card was consulted- advised to stop dig and continue the diltiazem and apixaban (5) Chronic anticoagulation: Code(s): Z79.01 - retirement (current) use of anticoagulants Status: Acute (6) Diastolic congestive heart failure: Code(s): I50.30 - Unspecified diastolic (congestive) heart failure Status: Acute Assessment and Plan: - secondary pulm HTN - Right ventricular systolic pressure 58 mm Hg on echo completed on December 12- secondary to her cardiac dysfunction. The patient has diastolic dysfunction, moderate aortic stenosis, aortic insufficiency and biatrial enlargement. - she used to follow up with lead front desk agent Dr Rivera at [facility] but her insurance not longer covers this provider 12/17- card consult placed. episodes of hypotension last night. her lasix was held. card consult will not prevent her from being discharged- if placement is found- she can go and have a close f/u with them after discharge if stable 12/18- card seen her- appreciate recommendations. Not sure if she would want to f/u with cardiology here- will give her resources. (7) Hypertension: Code(s): I10 - Essential (primary) hypertension Status: Acute (8) Hyperlipidemia: Code(s): E78.5 - Hyperlipidemia, unspecified Status: Acute (9) Hypothyroidism: Code(s): E03.9 - Hypothyroidism, unspecified Status: Acute Assessment and Plan: - will check tsh panel (10) Obstructive sleep apnea on CPAP: Code(s): G47.33 - Obstructive sleep apnea (adult) (pediatric) Status: Acute Plan . Chest x-ray showed markedly elevated right hemidiaphragm of unknown if this is chronic, and records have been requested from her primary care provider for comparison. Serum carbon dioxide is markedly elevated thus will check a blood gas. Nausea may be related to underlying urinary tract infection however she has been taking Aleve daily for arthritic pain which could be playing a factor here. She has not noticed any dark stools however will check stool for occult blood. Avoid NSAIDs for now will and continue PPI. She is clinically compensated with regards to her congestive heart failure. Monitor volume status closely with daily weights and I/O. Blood pressures were reviewed and they are stable. CPAP will be provided for the patient to use while hospitalized. Check digoxin level (<0.5). Continue apixaban for stroke prophylaxis. diabetes: hga1c 5.9- she reports it better than 6 and higher in the past. discussed in details. She reports that she lost some weight insertionally in order to prevent diabetes Time Spent
[2023-12-19] MEDS: ALBUTEROL SULFATE NEB 2.5 MG/3 ML INH INHALATION ×3 (07:55→20:19)
[2023-12-19] MEDS: PROCHLORPERAZINE MALEATE PO (08:28)
[2023-12-19] MEDS: dilTIAZem HCL CD 240 MG CAP.24HR PO (08:29)
[2023-12-19] MEDS: MULTIVITAMINS THERAPEUTIC TAB (*BKC) 1 TABLET PO (08:29)
[2023-12-19] MEDS: POTASSIUM CHLORIDE 20 MEQ ER TABLET PO (08:29)
[2023-12-19] MEDS: LORATADINE 10 MG TABLET PO (08:30)
[2023-12-19] MEDS: HYDROcodone/acetaminophen (*CRX) 5-325 MG TABLET 1 TAB PO ×2 (08:30→20:43)
[2023-12-19] MEDS: FERROUS SULFATE 325 MG TABLET DR PO (08:30)
[2023-12-19] MEDS: PANTOPRAZOLE 40 MG TABLET PO (08:30)
[2023-12-19] MEDS: APIXABAN 5 MG TABLET PO ×2 (08:30→20:40)
[2023-12-19] MEDS: ATORVASTATIN 10 MG TABLET PO (08:30)
[2023-12-19] MEDS: SACCHAROMYCES BOULARDII 250 MG CAPSULE PO ×3 (08:30→17:30)
[2023-12-19] MEDS: TOLNAFTATE 1% POWDER 45 GM BTL 1 APPLIC TOPICAL ×2 (08:32→20:40)
--- NOTE | 2023-12-19 10:22 | PM.CNCAR ---
Assessment and Plan Assessment and plan (1) Atrial fibrillation: Code(s): I48.91 - Unspecified atrial fibrillation Status: Acute (2) Chronic anticoagulation: Code(s): Z79.01 - shelter (current) use of anticoagulants Status: Acute Plan This is an 83-year-old woman with chronic atrial fibrillation being managed with rate control and anticoagulation. Her rhythm is stable since she has been here over the last week and she is appropriately anticoagulated with apixaban. The patient has a multitude of other comorbidities with morbid obesity sleep apnea and significant generalized weakness. Her echocardiogram shows that she has mild aortic valve stenosis which is not a clinically important issue at this time and given her advanced age I doubt will become significant in her lifetime. It seems possible but unlikely that she will regain strength/capability returning to assisted living facility she may well require long term placement. Hopefully with rehab/therapy she will get strong enough to go back to her apartment. Regarding her rate control I believe we should consider discontinuing the very low dose of digoxin she is taking I doubt that is doing much at all to provide rate control and at her advanced age has a very low therapeutic index. Will continue the diltiazem and apixaban for now Salvatore Reddy MD [facility] History of Present Illness History of Present Illness Consult date/time: 12/19/23 10:22 Reason For Visit: uti,weakness Narrative: This is an 83-year-old lady I am seeing today at the request of the hospitalist to become established for cardiovascular care because according to the chart her established nurse manager no longer accepts her insurance. Her principal cardiac problem is chronic atrial fibrillation. I do not have records from her previous physician but the patient is a reasonable historian she was brought to the hospital here 7 days ago because of a fall that she sustained at her assisted living facility when transferring from the bed to a chair. She has been having problems with weakness, labile blood pressure and has not been able to be discharged from the hospital since then. There apparently are plans that she might have to go to a long term facility for these reasons. She has atrial fibrillation and is on a regimen of diltiazem and a very low dose of digoxin to provide heart rate control and she is anticoagulated with apixaban. She is not known to have coronary artery disease. An echocardiogram that was done earlier during this hospitalization and read by a different nurse manager shows evidence of mild aortic valve stenosis with a valve area of 1.3 cm2. The principal reason for asking me to see her today is to become established for ongoing cardiovascular care in anticipation of her discharge. 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 She has not been experiencing any step complaints of palpitations chest pain significant shortness of breath orthopnea or PND. According to the records her principal medical comorbidities are obesity and sleep apnea as well as treated hypothyroidism. Review of Systems Constitutional: Constitutional: Reports lethargy Eyes: Eyes: Reports no additional eye complaints ENT: Reports system reviewed and no additional complaints, except as documented Cardiovascular: Cardiovascular: Reports no additional cardiovascular complaints Respiratory: Respiratory: Reports dyspnea on exertion Gastrointestinal: Gastrointestinal: Reports no additional gastrointestinal complaints Musculoskeletal: Musculoskeletal: Reports back pain and Reports arthralgias Neurologic: Comments: Recent memory decline Endocrine: Endocrine: Reports no additional endocrine complaints Hematologic/Lymphatic: Hematologic/Lymphatic: Reports no additional hematologic/lymphatic complaints Allergic/Immunologic: Allergic/Immunologic: Reports
[2023-12-19] MEDS: polyethylene glycoL 3350 17 GM POWD.PACK PO (12:33)
[2023-12-19] MEDS: SENNA/DOCUSATE SODIUM TABLET 1 TAB PO (20:40)
[2023-12-20] VITALS (22 sets, daily range): BP systolic 104–148; BP diastolic 46–94; PULSE 60–88; RESP 12–24; TEMP 36.6–36.9; O2SAT 90–97
[2023-12-20] MEDS: ALBUTEROL SULFATE NEB 2.5 MG/3 ML INH INHALATION ×4 (05:50→20:44)
[2023-12-20] MEDS: LEVOTHYROXINE SODIUM 150 MCG TABLET PO (06:12)
[2023-12-20 06:36] LABS: Hematocrit 41.1 % (37.0-47.0); Hemoglobin 12.9 g/dL (12.0-15.0); Immature Platelet Fraction Pct 5.4 % (0.9-11.2); Mean Corpuscular HGB Conc 31.4 g/dl (32-36); Mean Corpuscular Volume 98.8 fl (80-100); Mean Platelet Volume 9.9 fl (7.4-10.4); Platelet Count Result 119 k/mm3 (150-375); Red Blood Count 4.16 M/mm3 (4.2-5.4); Red Cell Distribution Width 13.9 % (11.5-14.5); White Blood Count 8.5 K/mm3 (4.5-10.0)
[2023-12-20 06:44] LABS: Anion Gap 5 mmol/L (4-12); Blood Urea Nitrogen 14 mg/dL (7-17); Calcium 8.7 mg/dL (8.4-10.2); Carbon Dioxide 36 mmol/L (22-30); Chloride 95 mmol/L (98-107); Estimated CRCL calculation 74 ml/min; Estimated Glomerular Filt Rate > 60; Glucose 120 mg/dL (65-110); Potassium 4.4 mmol/L (3.4-5.0); Sodium 136 mmol/L (137-145)
--- NOTE | 2023-12-20 08:31 | PM.IMPN ---
Progress Note: A&P Assessment and Plan (1) Urinary tract infection: Code(s): N39.0 - Urinary tract infection, site not specified Status: Acute Assessment and Plan: The patient presented to the emergency department for evaluation of weakness and fatigue as detailed in HPI. Labs, imaging, EKG, and all reports were personally reviewed. Urinalysis is suspicious for urinary tract infection and she has been started on ceftriaxone, pending urine culture - antibiotics switched to PO -Augmentin- based on sensitives - last dose 12/17 2100 (2) Elevated hemidiaphragm: Code(s): J98.6 - Disorders of diaphragm Status: Acute Assessment and Plan: pulm consulted appreciate recommendations: - never had any chest surgeries - obesity could be a major contributing factor - CPAP- had been wearing it for awhile - adjustments based on ABG per pulm pco2 result for 12/[address] Mandujano - stable overnight- continue to minitor - will need to establish with pulm here when discharged - pulm repeating abg in am 12/19 (3) Nausea: Code(s): R11.0 - Nausea Status: Acute Assessment and Plan: continue zofran prn stable (4) Atrial fibrillation: Code(s): I48.91 - Unspecified atrial fibrillation Status: Acute Assessment and Plan: continue ANTICOAGULATION will need to re establish with card when discharged - card was consulted- advised to stop dig and continue the diltiazem and apixaban (5) Chronic anticoagulation: Code(s): Z79.01 - alf (current) use of anticoagulants Status: Acute (6) Diastolic congestive heart failure: Code(s): I50.30 - Unspecified diastolic (congestive) heart failure Status: Acute Assessment and Plan: - secondary pulm HTN - Right ventricular systolic pressure 58 mm Hg on echo completed on December 12- secondary to her cardiac dysfunction. The patient has diastolic dysfunction, moderate aortic stenosis, aortic insufficiency and biatrial enlargement. - she used to follow up with asphalt paving machine operator Dr Rivera at [facility] but her insurance not longer covers this provider 12/17- card consult placed. episodes of hypotension last night. her lasix was held. card consult will not prevent her from being discharged- if placement is found- she can go and have a close f/u with them after discharge if stable 12/18- card seen her- appreciate recommendations. Not sure if she would want to f/u with cardiology here- will give her resources. 12/19 stopped digoxin per card recommendations. monitor. will discuss starting jardiance- pt is agreeable- will start. hold lasix (7) Hypertension: Code(s): I10 - Essential (primary) hypertension Status: Acute (8) Hyperlipidemia: Code(s): E78.5 - Hyperlipidemia, unspecified Status: Acute (9) Hypothyroidism: Code(s): E03.9 - Hypothyroidism, unspecified Status: Acute Assessment and Plan: - will check tsh panel (10) Obstructive sleep apnea on CPAP: Code(s): G47.33 - Obstructive sleep apnea (adult) (pediatric) Status: Acute Plan . Chest x-ray showed markedly elevated right hemidiaphragm of unknown if this is chronic, and records have been requested from her primary care provider for comparison. Serum carbon dioxide is markedly elevated thus will check a blood gas. Nausea may be related to underlying urinary tract infection however she has been taking Aleve daily for arthritic pain which could be playing a factor here. She has not noticed any dark stools however will check stool for occult blood. Avoid NSAIDs for now will and continue PPI. She is clinically compensated with regards to her congestive heart failure. Monitor volume status closely with daily weights and I/O. Blood pressures were reviewed and they are stable. CPAP will be provided for the patient to use while hospitalized. Check digoxin level (<0.5). Continue apixaban for stroke prophylaxis. diabetes: hga1c 5
[2023-12-20 08:33] LABS: NT Pro B Type Natriuretic Pept 494 pg/mL (19.9-100)
[2023-12-20] MEDS: POTASSIUM CHLORIDE 20 MEQ ER TABLET PO (08:36)
[2023-12-20] MEDS: SACCHAROMYCES BOULARDII 250 MG CAPSULE PO ×3 (08:36→16:52)
[2023-12-20] MEDS: PANTOPRAZOLE 40 MG TABLET PO (08:36)
[2023-12-20] MEDS: FERROUS SULFATE 325 MG TABLET DR PO (08:36)
[2023-12-20] MEDS: LORATADINE 10 MG TABLET PO (08:37)
[2023-12-20] MEDS: ATORVASTATIN 10 MG TABLET PO (08:37)
[2023-12-20] MEDS: APIXABAN 5 MG TABLET PO ×2 (08:37→21:01)
[2023-12-20] MEDS: MULTIVITAMINS THERAPEUTIC TAB (*BKC) 1 TABLET PO (08:37)
[2023-12-20] MEDS: traMADol HCL (*CRX) 50 MG TABLET PO (08:40)
[2023-12-20] MEDS: dilTIAZem HCL CD 240 MG CAP.24HR PO (08:41)
[2023-12-20] MEDS: TOLNAFTATE 1% POWDER 45 GM BTL 1 APPLIC TOPICAL ×2 (08:41→21:02)
[2023-12-20] MEDS: polyethylene glycoL 3350 17 GM POWD.PACK PO (08:43)
--- NOTE | 2023-12-20 09:30 | PM.PNCARD ---
Progress Note: A&P Assessment and Plan (1) Atrial fibrillation: Code(s): I48.91 - Unspecified atrial fibrillation Status: Acute Assessment and Plan: Continue diltiazem and apixaban (2) Chronic anticoagulation: Code(s): Z79.01 - [facility] (current) use of anticoagulants Status: Acute Assessment and Plan: No bleeding issues (3) Chronic diastolic (congestive) heart failure: Code(s): I50.32 - Chronic diastolic (congestive) heart failure Status: Acute Assessment and Plan: Acutely short of breath today. She has not been receiving her oral furosemide. Will give her a dose of IV furosemide 40 mg IV x1 and monitor response (4) Hypertension: Code(s): I10 - Essential (primary) hypertension Status: Acute Assessment and Plan: At reasonable goal Subjective Date/time seen: 12/20/23 09:30 Interval history: This is an 83-year-old lady I am seeing at the request of the hospitalist to become established for cardiovascular care because according to the chart her established oil expeller no longer accepts her insurance. Her principal cardiac problem is chronic atrial fibrillation. I do not have records from her previous physician but the patient is a reasonable historian she was brought to the hospital here 7 days ago because of a fall that she sustained at her assisted living facility when transferring from the bed to a chair. She has been having problems with weakness, labile blood pressure and has not been able to be discharged from the hospital since then. There apparently are plans that she might have to go to a detention facility for these reasons. She has atrial fibrillation and is on a regimen of diltiazem and a very low dose of digoxin to provide heart rate control and she is anticoagulated with apixaban. She is not known to have coronary artery disease. An echocardiogram that was done earlier during this hospitalization and read by a different oil expeller shows evidence of mild aortic valve stenosis with a valve area of 1.3 cm2. The principal reason for asking me to see her today is to become established for ongoing cardiovascular care in anticipation of her discharge. 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 She has not been experiencing any step complaints of palpitations chest pain significant shortness of breath orthopnea or PND. According to the records her principal medical comorbidities are obesity and sleep apnea as well as treated hypothyroidism. Date of service 12/20/2023: Complains of some acute shortness of breath today. No chest pain. Review of Systems Constitutional: Constitutional: Reports lethargy Eyes: Eyes: Reports no additional eye complaints ENT: Reports system reviewed and no additional complaints, except as documented Cardiovascular: Cardiovascular: Reports no additional cardiovascular complaints and Reports dyspnea on exertion Respiratory: Respiratory: Reports dyspnea on exertion Gastrointestinal: Gastrointestinal: Reports no additional gastrointestinal complaints Musculoskeletal: Musculoskeletal: Reports back pain and Reports arthralgias Endocrine: Endocrine: Reports no additional endocrine complaints Hematologic/Lymphatic: Hematologic/Lymphatic: Reports no additional hematologic/lymphatic complaints Allergic/Immunologic: Allergic/Immunologic: Reports no additional allergic/immunologic complaints Exam Const: General: comfortable and no acute distress Other: Pleasant obese elderly lady watching television no active complaints HENMT: Mouth: Yes moist mucous membranes Eyes: Sclera: sclerae normal Neck: Neck: supple Resp: Effort & Inspection: normal respiratory effort Auscultation: clear to auscultation bilaterally Cardio: Rate: regular rate Rhythm: abnormal rhythm irregularly irregular GI: Auscultation: normal bowel sounds Other: Obese but benign Sk
[2023-12-20] MEDS: FUROSEMIDE INJ 40 MG/4 ML VIAL IV PUSH (10:20)
--- NOTE | 2023-12-20 10:42 | PM.PNPUL ---
Progress Note: A&P Assessment and Plan (1) Obstructive sleep apnea on CPAP: Code(s): G47.33 - Obstructive sleep apnea (adult) (pediatric) Status: Acute Assessment and Plan: 12/18/23: She has had obstructive sleep apnea for years, her current device is may be 3 to 5 years old. She uses it without difficulties. This is a stable problem and can be followed in the outpatient setting. She has a CPAP machine at [facility], now has it here, with settings APAP 5 cm to 9 cm and 2 cm EPR. She has a nasal mask. She now has her own machine here. She wants to wear it instead of using the machine we have. With her elevated CO2, she will likely need better settings. I plugged her machine in to check settings. We will have her wear it tonight, see how she feels in the morning. 12/20/23: The patient tells me that at [facility], 6 months ago she moved from sleeping in her bed to sleeping in a recliner. Her auto Pap machine was never moved from her bed room to the recliner and she has not been wearing this for 6 months. Last night she wore her home auto PAP 5 to -9 machine with 3 L bleed in and said she did well and slept well. She had some shortness of breath this morning minimally improved with albuterol. She is receiving 40 of Lasix IV from Cardiology. BNP today is 494. Sniff test is ordered. Plan: Tonight the patient will wear her home auto PAP 5 to 9 with 3 L bleed in and we will obtain an overnight oximetry and an ABG prior to removal of the nasal cushions. The patient will not be able to return to [facility] and will need a assisted facility. Tentatively she is being arranged to go to [place]. I have discussed with the sales service coordinator who will contact care coordination to discuss the respiratory support that can be delivered at her assisted facility. Will follow with you. (2) Chronic respiratory failure with hypoxia: Code(s): J96.11 - Chronic respiratory failure with hypoxia Status: Acute Assessment and Plan: 12/18/23: She has an elevated right hemidiaphragm, and this contributes to her issue with poor lung capacity. She did know that she had this. She has never had chest surgery. This is an incidental finding but with obesity, this can contribute to hypercapnia. Her body mass index is 41.3. Her CPAP use at night is helping to overcome and helping her to ventilate at night. She has been on oxygen a number of years, was prescribed 2.5 L around the clock, she does not ambulate but she does transfer weight from bed to wheelchair. She does not need home oxygen evaluation. She is able to have her oxygen decreased currently at 3L with saturation is high is 96%. Our goal is up to 94% with supplemental oxygen. 12/20/23: Patient with shortness of breath. She has no wheezing. She has no tobacco history use and no history of asthma. Admission weight 110.4 kg and today's weight is 109.3 kg. Cumulative she is positive 3.7 L since admission. BNP is 494 today. Etiology of shortness of breath, hypoxic and hypercarbic respiratory failure, and pulmonary hypertension includes: paralyzed right hemidiaphragm, atelectasis from her elevated right hemidiaphragm, fluid overload (the patient has diastolic dysfunction, afib, moderate aortic stenosis, Mild to moderate aortic regurgitation, and biatrial enlargement, normal RV size and function with PASP 52), obstructive sleep apnea, and morbid obesity. I doubt she has reactive airways disease Plan: I will change her albuterol nebulizers from scheduled t.i.d. to p.r.n.. I will order sniff test to assess for paralyzed right hemidiaphragm. Lasix 40 IV given by Cardiology. Subjective Date/time seen: 12/20/23 10:42 Interval history: 12/15/2023, new consult; Monica Bishop is an 83-year-old female with FERNIE, Home O2 use, hx of COPD, never smoked, and an elevated right hemidiaphragm; she was admitted with a fall and
--- NOTE | 2023-12-20 11:49 | PCPTNOTE ---
Attempted to see patient for PT, however patient was leaving room for testing.
[2023-12-20] MEDS: PROCHLORPERAZINE MALEATE PO (12:35)
[2023-12-20] MEDS: EMPAGLIFLOZIN 10 MG TABLET PO (16:53)
[2023-12-20] MEDS: HYDROcodone/acetaminophen (*CRX) 5-325 MG TABLET 1 TAB PO (21:01)
[2023-12-20] MEDS: SENNA/DOCUSATE SODIUM TABLET 1 TAB PO (21:01)
[2023-12-21] VITALS (12 sets, daily range): BP systolic 109–143; BP diastolic 48–84; PULSE 58–90; RESP 14–20; TEMP 36.2–36.7; O2SAT 90–98
[2023-12-21] MEDS: HYDROcodone/acetaminophen (*CRX) 5-325 MG TABLET 1 TAB PO (04:41)
[2023-12-21 05:56] LABS: Alveolar/Arterial O2 Gradient 88.5 mmHg; Base Excess ABG 7.5 mEq/l (+/-2.0); Fractional Inspired Oxygen 32 %; HCO3 ABG 34.6 mEq/l (22.0-26.0); Oxygen Content ABG 17.6 %vol (16.0-22.0); Oxygen Saturation ABG 93.2 % (95.0-100.0); Oxyhemoglobin 92.6 % THb (90.0-100.0); PO2 ABG 69.5 mmHg (80.0-100.0); PO2 FiO2 Ratio Arterial Blood 2.17 %; Total Hemoglobin 13.5 g/dL (12.0-18.0); pH ABG 7.379 (7.350-7.450)
[2023-12-21 05:57] LABS: Site Drawn RIGHT BRACHIAL
[2023-12-21 05:58] LABS: Device OTHER DEVICE
[2023-12-21] MEDS: LEVOTHYROXINE SODIUM 150 MCG TABLET PO (06:14)
[2023-12-21 07:34] LABS: Hematocrit 42.7 % (37.0-47.0); Hemoglobin 13.2 g/dL (12.0-15.0); Immature Platelet Fraction Pct 5.3 % (0.9-11.2); Mean Corpuscular HGB Conc 30.9 g/dl (32-36); Mean Corpuscular Hemoglobin 30.8 pg (26-34); Mean Corpuscular Volume 99.8 fl (80-100); Mean Platelet Volume 10.1 fl (7.4-10.4); Platelet Count Result 119 k/mm3 (150-375); Red Blood Count 4.28 M/mm3 (4.2-5.4); Red Cell Distribution Width 14.1 % (11.5-14.5); White Blood Count 8.7 K/mm3 (4.5-10.0)
[2023-12-21 07:48] LABS: Blood Urea Nitrogen 13 mg/dL (7-17); Calcium 8.9 mg/dL (8.4-10.2); Carbon Dioxide > 40 mmol/L (22-30); Chloride 95 mmol/L (98-107); Estimated CRCL calculation 64 ml/min; Estimated Glomerular Filt Rate > 60; Glucose 123 mg/dL (65-110); Potassium 4.7 mmol/L (3.4-5.0); Sodium 137 mmol/L (137-145)
[2023-12-21] MEDS: dilTIAZem HCL CD 240 MG CAP.24HR PO (08:49)
[2023-12-21] MEDS: PANTOPRAZOLE 40 MG TABLET PO (08:49)
[2023-12-21] MEDS: APIXABAN 5 MG TABLET PO ×2 (08:49→20:20)
[2023-12-21] MEDS: FERROUS SULFATE 325 MG TABLET DR PO (08:49)
[2023-12-21] MEDS: LORATADINE 10 MG TABLET PO (08:49)
[2023-12-21] MEDS: MULTIVITAMINS THERAPEUTIC TAB (*BKC) 1 TABLET PO (08:49)
[2023-12-21] MEDS: ATORVASTATIN 10 MG TABLET PO (08:49)
[2023-12-21] MEDS: PROCHLORPERAZINE MALEATE PO (08:49)
[2023-12-21] MEDS: SACCHAROMYCES BOULARDII 250 MG CAPSULE PO ×3 (08:49→16:32)
[2023-12-21] MEDS: TOLNAFTATE 1% POWDER 45 GM BTL 1 APPLIC TOPICAL ×2 (08:50→20:25)
[2023-12-21] MEDS: EMPAGLIFLOZIN 10 MG TABLET PO (08:50)
[2023-12-21] MEDS: POTASSIUM CHLORIDE 20 MEQ ER TABLET PO (08:50)
--- NOTE | 2023-12-21 08:59 | PM.IMPN ---
Progress Note: A&P Assessment and Plan (1) Elevated hemidiaphragm: Code(s): J98.6 - Disorders of diaphragm Status: Acute Assessment and Plan: pulm consulted appreciate recommendations: - never had any chest surgeries - obesity could be a major contributing factor - CPAP- had been wearing it for awhile - adjustments based on ABG per pulm pco2 result for 12/[address] Mandujano - stable overnight- continue to minitor - will need to establish with pulm here when discharged - pulm repeating abg in am 12/19 12/20- pulm following with home cpap machine and adjusting setting based on abg/labs/clinical s/s (2) Nausea: Code(s): R11.0 - Nausea Status: Acute Assessment and Plan: continue zofran prn stable (3) Atrial fibrillation: Code(s): I48.91 - Unspecified atrial fibrillation Status: Acute Assessment and Plan: continue ANTICOAGULATION will need to re establish with card when discharged - card was consulted- advised to stop dig and continue the diltiazem and apixaban (4) Chronic anticoagulation: Code(s): Z79.01 - exterminator (current) use of anticoagulants Status: Acute (5) Diastolic congestive heart failure: Code(s): I50.30 - Unspecified diastolic (congestive) heart failure Status: Acute Assessment and Plan: - secondary pulm HTN - Right ventricular systolic pressure 58 mm Hg on echo completed on December 12- secondary to her cardiac dysfunction. The patient has diastolic dysfunction, moderate aortic stenosis, aortic insufficiency and biatrial enlargement. - she used to follow up with mixer lever operator Dr Rivera at [facility] but her insurance not longer covers this provider 12/17- card consult placed. episodes of hypotension last night. her lasix was held. card consult will not prevent her from being discharged- if placement is found- she can go and have a close f/u with them after discharge if stable 12/18- card seen her- appreciate recommendations. Not sure if she would want to f/u with cardiology here- will give her resources. 12/19 stopped digoxin per card recommendations. monitor. will discuss starting jardiance- pt is agreeable- will start. hold lasix 12/20- sob- lasix iv was given with relief, will resume home oral lasix dose (6) Hypertension: Code(s): I10 - Essential (primary) hypertension Status: Acute (7) Hyperlipidemia: Code(s): E78.5 - Hyperlipidemia, unspecified Status: Acute (8) Hypothyroidism: Code(s): E03.9 - Hypothyroidism, unspecified Status: Acute Assessment and Plan: - will check tsh panel (9) Obstructive sleep apnea on CPAP: Code(s): G47.33 - Obstructive sleep apnea (adult) (pediatric) Status: Acute Plan . Chest x-ray showed markedly elevated right hemidiaphragm of unknown if this is chronic, and records have been requested from her primary care provider for comparison. Serum carbon dioxide is markedly elevated thus will check a blood gas. Nausea may be related to underlying urinary tract infection however she has been taking Aleve daily for arthritic pain which could be playing a factor here. She has not noticed any dark stools however will check stool for occult blood. Avoid NSAIDs for now will and continue PPI. She is clinically compensated with regards to her congestive heart failure. Monitor volume status closely with daily weights and I/O. Blood pressures were reviewed and they are stable. CPAP will be provided for the patient to use while hospitalized. Check digoxin level (<0.5). Continue apixaban for stroke prophylaxis. diabetes: hga1c 5.9- she reports it better than 6 and higher in the past. discussed in details. She reports that she lost some weight insertionally in order to prevent diabetes. will start 10 mg jardiance for chf which amita help with sugar control as well. Time Spent With Patient Time with patient: Greater than 35 minutes Subjective Date/time seen: 12/20
--- NOTE | 2023-12-21 09:45 | PM.PNPUL ---
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 ABG on 3 L NC on 12/16/2023 with pH 7.43/63/72. The patient has chronic hypercarbic and hypoxemic respiratory failure from her paralyzed right hemidiaphragm and would benefit from noninvasive ventilation to prevent further deterioration and hospitalization. 12/18/23: She has an elevated right hemidiaphragm, and this contributes to her issue with poor lung capacity. She did know that she had this. She has never had chest surgery. This is an incidental finding but with obesity, this can contribute to hypercapnia. Her body mass index is 41.3. Her CPAP use at night is helping to overcome and helping her to ventilate at night. She has been on oxygen a number of years, was prescribed 2.5 L around the clock, she does not ambulate but she does transfer weight from bed to wheelchair. She does not need home oxygen evaluation. She is able to have her oxygen decreased currently at 3L with saturation is high is 96%. Our goal is up to 94% with supplemental oxygen. 12/20/23: Patient with shortness of breath. She has no wheezing. She has no tobacco history use and no history of asthma. Admission weight 110.4 kg and today's weight is 109.3 kg. Cumulative she is positive 3.7 L since admission. BNP is 494 today. Etiology of shortness of breath, hypoxic and hypercarbic respiratory failure, and pulmonary hypertension includes: paralyzed right hemidiaphragm, atelectasis from her elevated right hemidiaphragm, fluid overload (the patient has diastolic dysfunction, afib, moderate aortic stenosis, Mild to moderate aortic regurgitation, and biatrial enlargement, normal RV size and function with PASP 52), obstructive sleep apnea, and morbid obesity. I doubt she has reactive airways disease Plan: I will change her albuterol nebulizers from scheduled t.i.d. to p.r.n.. I will order sniff test to assess for paralyzed right hemidiaphragm. Lasix 40 IV given by Cardiology. 12/21/23: Patient tells me she is breathing normal. She denies fever, chills, cough, phlegm production. She is on 3 L nasal cannula saturations 99%. Patient tells me she wear her home auto Pap machine with her nasal pillows in place although she says she also had nasal cannula in place therefore she had difficulty with the auto Pap. Overnight oximetry on 3 L bleed in with recording duration 7 hours and 26 minutes, average saturation 92%, low saturation 81 %, tab with saturation less than or equal to 88% was 52 minutes. Oxygen desaturation index 4.5. The patient tells me she is claustrophobic and absolutely cannot tolerate any fullface mask. The patient tried a nasal mask in the hospital previously and had difficulty with that. She does tolerate nasal pillows. Plan: [facility] provide [facility]. Will place the patient on BiPAP rate of 14, pressures 15/5 and 4 L bleed in with her nasal pillows and check an overnight oximetry an ABG In the morning prior to removal to assess oxygenation and ventilation on these settings. (2) Obstructive sleep apnea on CPAP: Code(s): G47.33 - Obstructive sleep apnea (adult) (pediatric) Status: Acute Assessment and Plan: 12/18/23: She has had obstructive sleep apnea for years, her current device is may be 3 to 5 years old. She uses it without difficulties. This is a stable problem and can be followed in the outpatient setting. She has a CPAP machine at [facility], now has it here, with settings APAP 5 cm to 9 cm and 2 cm EPR. She has a nasal mask. She now has her own machine here. She wants to wear it instead of using the machine we have. With her elevated CO2, she will likely need better settings. I plugged her machine in to check settings. We wi
--- NOTE | 2023-12-21 11:27 | PM.PNCARD ---
Progress Note: A&P Assessment and Plan (1) Atrial fibrillation: Code(s): I48.91 - Unspecified atrial fibrillation Status: Acute Assessment and Plan: Continue diltiazem and apixaban (2) Chronic anticoagulation: Code(s): Z79.01 - care home (current) use of anticoagulants Status: Acute Assessment and Plan: No bleeding issues. Continue Eliquis. (3) Chronic diastolic (congestive) heart failure: Code(s): I50.32 - Chronic diastolic (congestive) heart failure Status: Acute Assessment and Plan: Will resume home dose of PO Lasix today. (4) Hypertension: Code(s): I10 - Essential (primary) hypertension Status: Acute Assessment and Plan: At reasonable goal Subjective Date/time seen: 12/21/23 11:27 Interval history: This is an 83-year-old lady I am seeing at the request of the hospitalist to become established for cardiovascular care because according to the chart her established monogram technician no longer accepts her insurance. Her principal cardiac problem is chronic atrial fibrillation. I do not have records from her previous physician but the patient is a reasonable historian she was brought to the hospital here 7 days ago because of a fall that she sustained at her assisted living facility when transferring from the bed to a chair. She has been having problems with weakness, labile blood pressure and has not been able to be discharged from the hospital since then. There apparently are plans that she might have to go to a [facility] facility for these reasons. She has atrial fibrillation and is on a regimen of diltiazem and a very low dose of digoxin to provide heart rate control and she is anticoagulated with apixaban. She is not known to have coronary artery disease. An echocardiogram that was done earlier during this hospitalization and read by a different monogram technician shows evidence of mild aortic valve stenosis with a valve area of 1.3 cm2. The principal reason for asking me to see her today is to become established for ongoing cardiovascular care in anticipation of her discharge. 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 She has not been experiencing any step complaints of palpitations chest pain significant shortness of breath orthopnea or PND. According to the records her principal medical comorbidities are obesity and sleep apnea as well as treated hypothyroidism. Date of service 12/20/2023: Complains of some acute shortness of breath today. No chest pain. Date of service 12/20: No shortness of breath today. Complains of dry eyes. Review of Systems Review of Systems: All systems reviewed & are unremarkable except as noted in HPI and below (HPI) Exam Const: General: no acute distress HENMT: Mouth: Yes moist mucous membranes Eyes: General: appearance normal, both eyes and all related structures Sclera: sclerae normal Cardio: Rate: regular rate Rhythm: abnormal rhythm irregularly irregular Skin: General skin exam: normal color Neuro: Speech: normal speech Psych: Mental Status: mental status grossly normal Affect: normal affect Objective Data Vital Signs Vital Signs: Vital Signs - 24 hr 12/20/23 12:55 12/20/23 12:56 12/20/23 14:00 Temperature 36.8 C Pulse Rate 72 88 66 Respiratory Rate 12 Blood Pressure 122/67 136/83 104/46 L Pulse Oximetry 94 93 96 Oxygen Delivery Oxygen Flow Rate Fraction of Inspired Oxygen 12/20/23 14:24 12/20/23 14:24 12/20/23 14:29 Temperature Pulse Rate 60 60 64 Respiratory Rate 20 20 20 Blood Pressure Pulse Oximetry 93 Oxygen Delivery Nasal Cannula Oxygen Flow Rate 3 Fraction of Inspired Oxygen 32 12/20/23 20:45 12/20/23 20:50 12/20/23 20:58 Temperature Pulse Rate 76 76 72 Respiratory Rate 20 20 Blood Pressure Pulse Oximetry 95 Oxygen Delivery Nasal Cannula Oxygen Flow Rate 3 Fraction of Inspired
[2023-12-21] MEDS: FUROSEMIDE 40 MG TABLET PO (12:02)
[2023-12-21] MEDS: traMADol HCL (*CRX) 50 MG TABLET PO (16:35)
[2023-12-21] MEDS: ONDANSETRON HCL ODT 4 MG TABLET PO (16:35)
[2023-12-21] MEDS: SENNA/DOCUSATE SODIUM TABLET 1 TAB PO (20:20)
[2023-12-22] VITALS (11 sets, daily range): BP systolic 104–121; BP diastolic 51–78; PULSE 63–94; RESP 14–18; TEMP 36.4–36.9; O2SAT 94–99
[2023-12-22] MEDS: HYDROcodone/acetaminophen (*CRX) 5-325 MG TABLET 1 TAB PO ×2 (00:34→23:36)
[2023-12-22 05:39] LABS: Alveolar/Arterial O2 Gradient 98.5 mmHg; Base Excess ABG 11.2 mEq/l (+/-2.0); Fractional Inspired Oxygen 36 %; HCO3 ABG 39.2 mEq/l (22.0-26.0); Oxygen Content ABG 17.9 %vol (16.0-22.0); Oxygen Saturation ABG 95.1 % (95.0-100.0); Oxyhemoglobin 94.2 % THb (90.0-100.0); PO2 ABG 79.4 mmHg (80.0-100.0); PO2 FiO2 Ratio Arterial Blood 2.21 %; Total Hemoglobin 13.5 g/dL (12.0-18.0); pH ABG 7.379 (7.350-7.450)
[2023-12-22 05:42] LABS: Device BIPAP; Expiratory Pressure 5 cmH2O; Inspiratory Pressure 15 cmH2O; Modified Allen's Test Pass; PCO2 ABG 67.9 mmHg (35.0-45.0); Site Drawn RIGHT RADIAL
[2023-12-22] MEDS: LEVOTHYROXINE SODIUM 150 MCG TABLET PO (05:43)
--- NOTE | 2023-12-22 06:25 | PC.NURSE ---
During morning med pass patient told tag writer she had called nurses station twice during the night wanting the nurse to call the respiratory therapist in regards to cpap not fitting correctly. Crew Scheduler was not notified, nor did any of other staff recollect taking the calls. Crew Scheduler rounded hourly along with PCT and no distress was noted. Patient appeared to be resting comfortable with eyes closed with each pass. Crew Scheduler also notes that patient called nurse to room the previous night wanting to call the respiratory therapist, Sonia to bedside. At that time she stated that the therapist had applied her cpap while her nasal cannula was still in her nose. It was noted by tag writer and therapist that the nasal cannula was not in her nose. The tag writer has also reported this to the charge nurse, Za Duncan
[2023-12-22 07:01] LABS: Hematocrit 42.8 % (37.0-47.0); Hemoglobin 13.4 g/dL (12.0-15.0); Immature Platelet Fraction Pct 4.7 % (0.9-11.2); Mean Corpuscular HGB Conc 31.3 g/dl (32-36); Mean Corpuscular Volume 99.1 fl (80-100); Mean Platelet Volume 9.8 fl (7.4-10.4); Platelet Count Result 112 k/mm3 (150-375); Red Blood Count 4.32 M/mm3 (4.2-5.4); Red Cell Distribution Width 13.8 % (11.5-14.5); White Blood Count 7.8 K/mm3 (4.5-10.0)
[2023-12-22 07:09] LABS: Blood Urea Nitrogen 15 mg/dL (7-17); Calcium 8.7 mg/dL (8.4-10.2); Carbon Dioxide > 40 mmol/L (22-30); Chloride 93 mmol/L (98-107); Estimated CRCL calculation 73 ml/min; Estimated Glomerular Filt Rate > 60; Glucose 123 mg/dL (65-110); Potassium 4.2 mmol/L (3.4-5.0); Sodium 136 mmol/L (137-145)
[2023-12-22] MEDS: FERROUS SULFATE 325 MG TABLET DR PO (10:14)
[2023-12-22] MEDS: ATORVASTATIN 10 MG TABLET PO (10:14)
[2023-12-22] MEDS: POTASSIUM CHLORIDE 20 MEQ ER TABLET PO (10:14)
[2023-12-22] MEDS: LORATADINE 10 MG TABLET PO (10:14)
[2023-12-22] MEDS: APIXABAN 5 MG TABLET PO ×2 (10:14→21:06)
[2023-12-22] MEDS: traMADol HCL (*CRX) 50 MG TABLET PO ×2 (10:14→17:10)
[2023-12-22] MEDS: EMPAGLIFLOZIN 10 MG TABLET PO (10:14)
[2023-12-22] MEDS: TOLNAFTATE 1% POWDER 45 GM BTL 1 APPLIC TOPICAL ×2 (10:15→21:06)
[2023-12-22] MEDS: PANTOPRAZOLE 40 MG TABLET PO (10:15)
[2023-12-22] MEDS: MULTIVITAMINS THERAPEUTIC TAB (*BKC) 1 TABLET PO (10:15)
[2023-12-22] MEDS: dilTIAZem HCL CD 240 MG CAP.24HR PO (10:15)
[2023-12-22] MEDS: SACCHAROMYCES BOULARDII 250 MG CAPSULE PO ×3 (10:15→17:08)
[2023-12-22] MEDS: FUROSEMIDE 40 MG TABLET PO (10:15)
--- NOTE | 2023-12-22 12:16 | PM.IMPN ---
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 pulm consulted appreciate recommendations: - never had any chest surgeries - obesity could be a major contributing factor - CPAP- had been wearing it for awhile - adjustments based on ABG per pulm pco2 result for 12/[address] Mandujano - stable overnight- continue to minitor - will need to establish with pulm here when discharged - pulm repeating abg in am 12/19 12/20- pulm following with home cpap machine and adjusting setting based on abg/labs/clinical s/s 12/21 - optimising BIPAP setting pt to have apnea link test tonite (2) Nausea: Code(s): R11.0 - Nausea Status: Acute Assessment and Plan: continue zofran prn stable (3) Atrial fibrillation: Code(s): I48.91 - Unspecified atrial fibrillation Status: Acute Assessment and Plan: will need to re establish with card when discharged - card was consulted- advised to stop dig and continue the diltiazem and apixaban (4) Chronic anticoagulation: Code(s): Z79.01 - senior care (current) use of anticoagulants Status: Acute (5) Diastolic congestive heart failure: Code(s): I50.30 - Unspecified diastolic (congestive) heart failure Status: Acute Assessment and Plan: - secondary pulm HTN - Right ventricular systolic pressure 58 mm Hg on echo completed on December 12- secondary to her cardiac dysfunction. The patient has diastolic dysfunction, moderate aortic stenosis, aortic insufficiency and biatrial enlargement. - she used to follow up with nursing informatics clinical analyst Dr Rivera at [facility] but her insurance not longer covers this provider 12/17- card consult placed. episodes of hypotension last night. her lasix was held. card consult will not prevent her from being discharged- if placement is found- she can go and have a close f/u with them after discharge if stable 12/18- card seen her- appreciate recommendations. Not sure if she would want to f/u with cardiology here- will give her resources. 12/19 stopped digoxin per card recommendations. monitor. will discuss starting jardiance- pt is agreeable- will start. hold lasix 12/20- sob- lasix iv was given with relief, will resume home oral lasix dose 12/21 pt stable on oral lasix (6) Hypertension: Code(s): I10 - Essential (primary) hypertension Status: Acute Assessment and Plan: chronic and stable (7) Hyperlipidemia: Code(s): E78.5 - Hyperlipidemia, unspecified Status: Acute Assessment and Plan: stable (8) Hypothyroidism: Code(s): E03.9 - Hypothyroidism, unspecified Status: Acute Assessment and Plan: - will check tsh panel (9) Obstructive sleep apnea on CPAP: Code(s): G47.33 - Obstructive sleep apnea (adult) (pediatric) Status: Acute Plan . diabetes: hga1c 5.9- she reports it better than 6 and higher in the past. discussed in details. pt started on Jardiance. will start 10 mg jardiance for chf which amita help with sugar control as well. Subjective Date/time seen: 12/22/23 12:16 Interval history: Interval history: 83-year-old female with atrial fibrillation on chronic anticoagulation, diastolic congestive heart failure, chronic obstructive pulmonary disease, chronic respiratory failure on 3 L home oxygen, obstructive sleep apnea on CPAP, hyperlipidemia, and hypothyroidism who presented to the emergency department via EMS from [facility] for evaluation of weakness, fatigue, and confusion. Patient is pleasant lying in bed. She continues to endorse nausea. She states that oral zofran has worked very well in the past. DC IV lasix and transitioned to PO. Patient denies chest pain, shortness of breath, vomiting, abdominal pain. She endorses slight dizziness. Resumed patients home meclizine PRN. Pulmono
--- NOTE | 2023-12-22 13:27 | PCRCNOTE ---
pt placed on home Bipap unit to make sure pt could tolerate. Patient stated it felt fine and she would be able to wear it noc....V daniella Avalos CRTT
[2023-12-22] MEDS: SENNA/DOCUSATE SODIUM TABLET 1 TAB PO (21:06)
[2023-12-23] VITALS (10 sets, daily range): BP systolic 91–120; BP diastolic 57–72; PULSE 67–79; RESP 16–19; TEMP 36.4–36.7; O2SAT 94–99
--- NOTE | 2023-12-23 05:51 | PC.NURSE ---
Call placed to Dr Mitchell and asked if pt was supposed to be on her own home unit due to staff not being able to adjust the unit. He stated that yes she is supposed to be on her own unit and to draw ABG on that this morning.
[2023-12-23] MEDS: LEVOTHYROXINE SODIUM 150 MCG TABLET PO (05:56)
[2023-12-23] MEDS: HYDROcodone/acetaminophen (*CRX) 5-325 MG TABLET 1 TAB PO ×2 (05:56→20:54)
[2023-12-23 06:16] LABS: Alveolar/Arterial O2 Gradient 114.3 mmHg; Base Excess ABG 11.6 mEq/l (+/-2.0); Fractional Inspired Oxygen 36 %; HCO3 ABG 39.2 mEq/l (22.0-26.0); Oxygen Content ABG 17.3 %vol (16.0-22.0); Oxygen Saturation ABG 92.4 % (95.0-100.0); Oxyhemoglobin 92.2 % THb (90.0-100.0); PO2 ABG 66.3 mmHg (80.0-100.0); PO2 FiO2 Ratio Arterial Blood 1.84 %; Total Hemoglobin 13.3 g/dL (12.0-18.0); pH ABG 7.394 (7.350-7.450)
[2023-12-23 06:18] LABS: Device CPAP; Modified Allen's Test Pass; PCO2 ABG 65.6 mmHg (35.0-45.0); Site Drawn RIGHT RADIAL
[2023-12-23 06:21] LABS: CPAP 9 cmH2O
[2023-12-23 06:51] LABS: Hematocrit 43.5 % (37.0-47.0); Hemoglobin 13.4 g/dL (12.0-15.0); Mean Corpuscular HGB Conc 30.8 g/dl (32-36); Mean Corpuscular Hemoglobin 30.5 pg (26-34); Mean Corpuscular Volume 99.1 fl (80-100); Platelet Count Result 124 k/mm3 (150-375); Red Blood Count 4.39 M/mm3 (4.2-5.4); Red Cell Distribution Width 13.6 % (11.5-14.5); White Blood Count 7.6 K/mm3 (4.5-10.0)
[2023-12-23 06:58] LABS: Anion Gap 3 mmol/L (4-12); Blood Urea Nitrogen 19 mg/dL (7-17); Calcium 8.7 mg/dL (8.4-10.2); Carbon Dioxide 38 mmol/L (22-30); Chloride 94 mmol/L (98-107); Estimated CRCL calculation 56 ml/min; Estimated Glomerular Filt Rate > 60; Glucose 121 mg/dL (65-110); Sodium 135 mmol/L (137-145)
--- NOTE | 2023-12-23 08:11 | P.PNPL_ITS ---
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 ABG on 3 L NC on 12/16/2023 with pH 7.43/63/72. The patient has chronic hypercarbic and hypoxemic respiratory failure from her paralyzed right hemidiaphragm and would benefit from noninvasive ventilation to prevent further deterioration and hospitalization. 12/18/23: She has an elevated right hemidiaphragm, and this contributes to her issue with poor lung capacity. She did know that she had this. She has never had chest surgery. This is an incidental finding but with obesity, this can contribute to hypercapnia. Her body mass index is 41.3. Her CPAP use at night is helping to overcome and helping her to ventilate at night. She has been on oxygen a number of years, was prescribed 2.5 L around the clock, she does not ambulate but she does transfer weight from bed to wheelchair. She does not need home oxygen evaluation. She is able to have her oxygen decreased currently at 3L with saturation is high is 96%. Our goal is up to 94% with supplemental oxygen. 12/20/23: Patient with shortness of breath. She has no wheezing. She has no tobacco history use and no history of asthma. Admission weight 110.4 kg and today's weight is 109.3 kg. Cumulative she is positive 3.7 L since admission. BNP is 494 today. Etiology of shortness of breath, hypoxic and hypercarbic respiratory failure, and pulmonary hypertension includes: paralyzed right hemidiaphragm, atelectasis from her elevated right hemidiaphragm, fluid overload (the patient has diastolic dysfunction, afib, moderate aortic stenosis, Mild to moderate aortic regurgitation, and biatrial enlargement, normal RV size and function with PASP 52), obstructive sleep apnea, and morbid obesity. I doubt she has reactive airways disease Plan: I will change her albuterol nebulizers from scheduled t.i.d. to p.r.n.. I will order sniff test to assess for paralyzed right hemidiaphragm. Lasix 40 IV given by Cardiology. 12/21/23: Patient tells me she is breathing normal. She denies fever, chills, cough, phlegm production. She is on 3 L nasal cannula saturations 99%. Patient tells me she wear her home auto Pap machine with her nasal pillows in place although she says she also had nasal cannula in place therefore she had difficulty with the auto Pap. Overnight oximetry on 3 L bleed in with recording duration 7 hours and 26 minutes, average saturation 92%, low saturation 81 %, tab with saturation less than or equal to 88% was 52 minutes. Oxygen desaturation index 4.5. The patient tells me she is claustrophobic and absolutely cannot tolerate any fullface mask. The patient tried a nasal mask in the hospital previously and had difficulty with that. She does tolerate nasal pillows. Plan[facility]. Will place the patient on BiPAP rate of 14, pressures 15/5 and 4 L bleed in with her nasal pillows and check an overnight oximetry an ABG In the morning prior to removal to assess oxygenation and ventilation on these settings. Later in the day we were told that [facility] could support BiPAP. Noninvasive with AVAPS mode is not an option with nasal pillows. The patient was placed on BiPAP rate of 14, pressures 15/5 and 4 L bleed in and she tolerated this well with her nasal pillows. Later in the day the patient had a CT scan of the chest that showed an elevated right hemidiaphragm with atelectasis right greater than left, no emphysema, no mediastinal masses, no nodules. The
[2023-12-23] MEDS: TOLNAFTATE 1% POWDER 45 GM BTL 1 APPLIC TOPICAL ×2 (08:19→20:43)
[2023-12-23] MEDS: FERROUS SULFATE 325 MG TABLET DR PO (08:19)
[2023-12-23] MEDS: SACCHAROMYCES BOULARDII 250 MG CAPSULE PO ×3 (08:20→17:13)
[2023-12-23] MEDS: POTASSIUM CHLORIDE 20 MEQ ER TABLET PO (08:20)
[2023-12-23] MEDS: dilTIAZem HCL CD 240 MG CAP.24HR PO (08:20)
[2023-12-23] MEDS: PANTOPRAZOLE 40 MG TABLET PO (08:20)
[2023-12-23] MEDS: LORATADINE 10 MG TABLET PO (08:20)
[2023-12-23] MEDS: MULTIVITAMINS THERAPEUTIC TAB (*BKC) 1 TABLET PO (08:20)
[2023-12-23] MEDS: EMPAGLIFLOZIN 10 MG TABLET PO (08:20)
[2023-12-23] MEDS: ATORVASTATIN 10 MG TABLET PO (08:20)
[2023-12-23] MEDS: FUROSEMIDE 40 MG TABLET PO (08:20)
[2023-12-23] MEDS: APIXABAN 5 MG TABLET PO ×2 (08:20→20:40)
--- NOTE | 2023-12-23 09:21 | PCNWS ---
Weekly nutritional screen. Patient is tolerating current regular diet with adequate intake at 50-100%. No weight loss reported. No nutritional needs at this time.
--- NOTE | 2023-12-23 11:23 | PM.PNCARD ---
Progress Note: A&P Assessment and Plan (1) Atrial fibrillation: Code(s): I48.91 - Unspecified atrial fibrillation Status: Acute Assessment and Plan: Continue diltiazem and apixaban (2) Chronic anticoagulation: Code(s): Z79.01 - detention (current) use of anticoagulants Status: Acute Assessment and Plan: No bleeding issues. Continue Eliquis. (3) Chronic diastolic (congestive) heart failure: Code(s): I50.32 - Chronic diastolic (congestive) heart failure Status: Acute Assessment and Plan: Continue current dose of PO Lasix. (4) Hypertension: Code(s): I10 - Essential (primary) hypertension Status: Acute Assessment and Plan: At reasonable goal Plan Cardiology will sign off at this time. Please call us back if needed. Subjective Date/time seen: 12/23/23 11:23 Interval history: This is an 83-year-old lady I am seeing at the request of the hospitalist to become established for cardiovascular care because according to the chart her established mail room no longer accepts her insurance. Her principal cardiac problem is chronic atrial fibrillation. I do not have records from her previous physician but the patient is a reasonable historian she was brought to the hospital here 7 days ago because of a fall that she sustained at her assisted living facility when transferring from the bed to a chair. She has been having problems with weakness, labile blood pressure and has not been able to be discharged from the hospital since then. There apparently are plans that she might have to go to a long term facility for these reasons. She has atrial fibrillation and is on a regimen of diltiazem and a very low dose of digoxin to provide heart rate control and she is anticoagulated with apixaban. She is not known to have coronary artery disease. An echocardiogram that was done earlier during this hospitalization and read by a different mail room shows evidence of mild aortic valve stenosis with a valve area of 1.3 cm2. The principal reason for asking me to see her today is to become established for ongoing cardiovascular care in anticipation of her discharge. 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 She has not been experiencing any step complaints of palpitations chest pain significant shortness of breath orthopnea or PND. According to the records her principal medical comorbidities are obesity and sleep apnea as well as treated hypothyroidism. Date of service 12/20/2023: Complains of some acute shortness of breath today. No chest pain. Date of service 12/20: No shortness of breath today. Complains of dry eyes. Date of service 12/21: States her breathing is okay. Diuresed 1150 ccs of urine yesterday, however, had a few unmeasured voids. Review of Systems Review of Systems: All systems reviewed & are unremarkable except as noted in HPI and below (HPI) Exam Const: General: no acute distress HENMT: Mouth: Yes moist mucous membranes Eyes: General: appearance normal, both eyes and all related structures Sclera: sclerae normal Cardio: Rate: regular rate Rhythm: abnormal rhythm irregularly irregular Skin: General skin exam: normal color Neuro: Speech: normal speech Psych: Mental Status: mental status grossly normal Affect: normal affect Objective Data Vital Signs Vital Signs: Vital Signs - 24 hr 12/22/23 14:58 12/22/23 15:01 12/22/23 15:01 Temperature 36.6 C 36.4 C 36.4 C Pulse Rate 70 72 72 Respiratory Rate 16 16 16 Blood Pressure 104/59 L 121/66 121/66 Pulse Oximetry 94 96 96 Oxygen Delivery Oxygen Flow Rate 12/22/23 15:04 12/22/23 20:00 12/22/23 20:09 Temperature 36.6 C 36.9 C 36.7 C Pulse Rate 85 78 76 Respiratory Rate 16 18 18 Blood Pressure 106/62 117/66 108/51 L Pulse Oximetry 95 98 94 Oxygen Delivery Oxygen Flow Rate 12/22/23 20:14 12/22/23 20:00 12/22/23 22
[2023-12-23] MEDS: ARTIFICIAL TEARS OPHTH SOLN 15 ML BOTTLE 1 DROP EACH EYE (12:37)
--- NOTE | 2023-12-23 13:44 | PM.IMPN ---
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 pulm consulted appreciate recommendations: - never had any chest surgeries - obesity could be a major contributing factor - CPAP- had been wearing it for awhile - adjustments based on ABG per pulm pco2 result for 12/[address] Mandujano - stable overnight- continue to minitor - will need to establish with pulm here when discharged - pulm repeating abg in am 12/19 12/20- pulm following with home cpap machine and adjusting setting based on abg/labs/clinical s/s 12/21 -optimizing BIPAP setting,pt to have apnea link test tonite unfortunately pt did not have bipap last night only her own Cpap machine 12/22 optimizing BIPAP setting, pt to have ABG in AM (2) Nausea: Code(s): R11.0 - Nausea Status: Acute Assessment and Plan: continue zofran prn stable (3) Atrial fibrillation: Code(s): I48.91 - Unspecified atrial fibrillation Status: Acute Assessment and Plan: will need to re establish with card when discharged - card was consulted- advised to stop dig and continue the diltiazem and eliquis on dc (4) Chronic anticoagulation: Code(s): Z79.01 - termite treater helper (current) use of anticoagulants Status: Acute Assessment and Plan: on eliquis (5) Diastolic congestive heart failure: Code(s): I50.30 - Unspecified diastolic (congestive) heart failure Status: Acute Assessment and Plan: - secondary pulm HTN - Right ventricular systolic pressure 58 mm Hg on echo completed on December 12- secondary to her cardiac dysfunction. The patient has diastolic dysfunction, moderate aortic stenosis, aortic insufficiency and biatrial enlargement. - she used to follow up with belt builder helper Dr Rivera at [facility] but her insurance not longer covers this provider 12/17- card consult placed. episodes of hypotension last night. her lasix was held. card consult will not prevent her from being discharged- if placement is found- she can go and have a close f/u with them after discharge if stable 12/18- card seen her- appreciate recommendations. Not sure if she would want to f/u with cardiology here- will give her resources. 12/19 stopped digoxin per card recommendations. monitor. will discuss starting jardiance- pt is agreeable- will start. hold lasix 12/20- sob- lasix iv was given with relief, will resume home oral lasix dose 12/21 pt stable on oral lasix ok to dc with lasix as per cardiology MD (6) Hypertension: Code(s): I10 - Essential (primary) hypertension Status: Acute Assessment and Plan: chronic and stable (7) Hyperlipidemia: Code(s): E78.5 - Hyperlipidemia, unspecified Status: Acute Assessment and Plan: stable (8) Hypothyroidism: Code(s): E03.9 - Hypothyroidism, unspecified Status: Acute Assessment and Plan: - tsh is nl (9) Obstructive sleep apnea on CPAP: Code(s): G47.33 - Obstructive sleep apnea (adult) (pediatric) Status: Acute Assessment and Plan: Pulmonology following Plan . diabetes: hga1c 5.9- she reports it better than 6 and higher in the past. discussed in details. pt started on Jardiance. will start 10 mg jardiance for chf which amita help with sugar control as well. Subjective Date/time seen: 12/23/23 13:44 Interval history: Interval history: 83-year-old female with atrial fibrillation on chronic anticoagulation, diastolic congestive heart failure, chronic obstructive pulmonary disease, chronic respiratory failure on 3 L home oxygen, obstructive sleep apnea on CPAP, hyperlipidemia, and hypothyroidism who presented to the emergency department via EMS from [facility] for evaluation of weakness, fatigue, and confusion. Patient is pleasant lying in bed. She continues to endors
[2023-12-23] MEDS: SENNA/DOCUSATE SODIUM TABLET 1 TAB PO (20:40)
[2023-12-24 02:38] VITALS: PULSE 64; RESP 19; O2SAT 96
[2023-12-24 05:18] LABS: Base Excess ABG 10.1 mEq/l (+/-2.0); HCO3 ABG 36.2 mEq/l (22.0-26.0); Oxygen Content ABG 17.9 %vol (16.0-22.0); Oxygen Saturation ABG 94.4 % (95.0-100.0); Oxyhemoglobin 93.5 % THb (90.0-100.0); PCO2 ABG 54.1 mmHg (35.0-45.0); PO2 ABG 70.4 mmHg (80.0-100.0); Total Hemoglobin 13.6 g/dL (12.0-18.0); pH ABG 7.443 (7.350-7.450)
[2023-12-24 05:22] LABS: Expiratory Pressure 7 cmH2O; Fractional Inspired Oxygen 36 %; Inspiratory Pressure 20 cmH2O; Site Drawn RIGHT BRACHIAL
[2023-12-24 05:23] LABS: Device BIPAP
[2023-12-24] MEDS: LEVOTHYROXINE SODIUM 150 MCG TABLET PO (05:57)
[2023-12-24] MEDS: ARTIFICIAL TEARS OPHTH SOLN 15 ML BOTTLE 1 DROP EACH EYE (06:00)
[2023-12-24 06:10] LABS: Hematocrit 42.8 % (37.0-47.0); Hemoglobin 13.3 g/dL (12.0-15.0); Immature Platelet Fraction Pct 5.5 % (0.9-11.2); Mean Corpuscular HGB Conc 31.1 g/dl (32-36); Mean Corpuscular Hemoglobin 30.4 pg (26-34); Mean Corpuscular Volume 97.7 fl (80-100); Mean Platelet Volume 9.7 fl (7.4-10.4); Platelet Count Result 126 k/mm3 (150-375); Red Blood Count 4.38 M/mm3 (4.2-5.4); Red Cell Distribution Width 13.5 % (11.5-14.5); White Blood Count 8.3 K/mm3 (4.5-10.0)
[2023-12-24 06:16] LABS: Anion Gap 4 mmol/L (4-12); Blood Urea Nitrogen 19 mg/dL (7-17); Calcium 8.7 mg/dL (8.4-10.2); Carbon Dioxide 39 mmol/L (22-30); Chloride 93 mmol/L (98-107); Estimated CRCL calculation 73 ml/min; Estimated Glomerular Filt Rate > 60; Glucose 122 mg/dL (65-110); Sodium 136 mmol/L (137-145)
[2023-12-24 06:30] VITALS: BP 117/61; PULSE 80; RESP 16; TEMP 37; O2SAT 97
[2023-12-24] MEDS: HYDROcodone/acetaminophen (*CRX) 5-325 MG TABLET 1 TAB PO (07:08)
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
[2023-12-24 08:38] VITALS: BP 118/65; PULSE 74; RESP 14; O2SAT 97
[2023-12-24] MEDS: PANTOPRAZOLE 40 MG TABLET PO (08:41)
[2023-12-24] MEDS: LORATADINE 10 MG TABLET PO (08:41)
[2023-12-24] MEDS: dilTIAZem HCL CD 240 MG CAP.24HR PO (08:42)
[2023-12-24] MEDS: FERROUS SULFATE 325 MG TABLET DR PO (08:42)
[2023-12-24] MEDS: ATORVASTATIN 10 MG TABLET PO (08:42)
[2023-12-24] MEDS: POTASSIUM CHLORIDE 20 MEQ ER TABLET PO (08:42)
[2023-12-24] MEDS: FUROSEMIDE 40 MG TABLET PO (08:42)
[2023-12-24] MEDS: EMPAGLIFLOZIN 10 MG TABLET PO (08:42)
[2023-12-24] MEDS: TOLNAFTATE 1% POWDER 45 GM BTL 1 APPLIC TOPICAL (08:42)
[2023-12-24] MEDS: SACCHAROMYCES BOULARDII 250 MG CAPSULE PO ×2 (08:42→13:25)
[2023-12-24] MEDS: APIXABAN 5 MG TABLET PO (08:42)
[2023-12-24] MEDS: MULTIVITAMINS THERAPEUTIC TAB (*BKC) 1 TABLET PO (08:42)
[2023-12-24 08:45] VITALS: O2SAT 97
--- NOTE | 2023-12-24 09:57 | PM.DS ---
DS: Admitting Diagnosis Discharge Date 12/23 Admitting Diagnosis uti, sob, weakness DS: Discharge Diagnosis Discharge Diagnosis (1) Elevated hemidiaphragm: Code(s): J98.6 - Disorders of diaphragm Status: Acute Assessment and Plan: pt has chronic paralysis on her R diaphragm pulm consulted appreciate recommendations: - never had any chest surgeries - obesity could be a major contributing factor - CPAP- had been wearing it for awhile - adjustments based on ABG per pulm pco2 result for 12/[address] Mandujano - stable overnight- continue to minitor - will need to establish with pulm here when discharged - pulm repeating abg in am 12/19 12/20- pulm following with home cpap machine and adjusting setting based on abg/labs/clinical s/s 12/21 -optimizing BIPAP setting,pt to have apnea link test tonite unfortunately pt did not have bipap last night only her own Cpap machine 12/22 optimizing BIPAP setting, pt to have ABG in AM (2) Nausea: Code(s): R11.0 - Nausea Status: Acute Assessment and Plan: continue zofran prn stable (3) Atrial fibrillation: Code(s): I48.91 - Unspecified atrial fibrillation Status: Acute Assessment and Plan: will need to re establish with card when discharged - card was consulted- advised to stop dig and continue the diltiazem and eliquis on dc (4) Chronic anticoagulation: Code(s): Z79.01 - intermodal truck driver (current) use of anticoagulants Status: Acute Assessment and Plan: on eliquis (5) Diastolic congestive heart failure: Code(s): I50.30 - Unspecified diastolic (congestive) heart failure Status: Acute Assessment and Plan: - secondary pulm HTN - Right ventricular systolic pressure 58 mm Hg on echo completed on December 12- secondary to her cardiac dysfunction. The patient has diastolic dysfunction, moderate aortic stenosis, aortic insufficiency and biatrial enlargement. - she used to follow up with research & insights executive Dr Rivera at [facility] but her insurance not longer covers this provider 12/17- card consult placed. episodes of hypotension last night. her lasix was held. card consult will not prevent her from being discharged- if placement is found- she can go and have a close f/u with them after discharge if stable 12/18- card seen her- appreciate recommendations. Not sure if she would want to f/u with cardiology here- will give her resources. 12/19 stopped digoxin per card recommendations. monitor. will discuss starting jardiance- pt is agreeable- will start. hold lasix 12/20- sob- lasix iv was given with relief, will resume home oral lasix dose 12/21 pt stable on oral lasix ok to dc with lasix as per cardiology MD (6) Hypertension: Code(s): I10 - Essential (primary) hypertension Status: Acute Assessment and Plan: chronic and stable (7) Hyperlipidemia: Code(s): E78.5 - Hyperlipidemia, unspecified Status: Acute Assessment and Plan: stable (8) Hypothyroidism: Code(s): E03.9 - Hypothyroidism, unspecified Status: Acute Assessment and Plan: - tsh is nl (9) Obstructive sleep apnea on CPAP: Code(s): G47.33 - Obstructive sleep apnea (adult) (pediatric) Status: Acute Assessment and Plan: Pulmonology following Plan . diabetes: hga1c 5.9- she reports it better than 6 and higher in the past. discussed in details. pt started on Jardiance. will start 10 mg jardiance for chf which amita help with sugar control as well. DS: Summary Hospital Course Hospital Course: Interval history: 83-year-old female with atrial fibrillation on chronic anticoagulation, diastolic congestive heart failure, chronic obstructive pulmonary disease, chronic respiratory failure on 3 L home oxygen, obstructive sleep apnea on CPAP, hyperlipidemia, and hypothyroidism who presented to the emergency department via EMS from [facility] for evaluation of weakness, fatigue, a
== END 2023-12-24 14:17 | DRG 690 ==
LOC: ANHED 15:15 → ANH2MED 15:45
PROVIDERS: Family Medicine; Internal Medicine Critical Care Medicine; Internal Medicine Pulmonary Disease; Physician Assistant; Student in an Organized Health Care Education/Training Program; Admitting Provider Internal Medicine; Emergency Provider Student in an Organized Health Care Education/Training Program; PCP Internal Medicine Infectious Disease; Visit Provider Nurse Practitioner
DX: N39.0 Urinary tract infection, site not specified (principal); I50.32 Chronic diastolic (congestive) heart failure; J96.12 Chronic respiratory failure with hypercapnia; J96.11 Chronic respiratory failure with hypoxia; I48.20 Chronic atrial fibrillation, unspecified; I48.91 Unspecified atrial fibrillation; B96.20 Unspecified Escherichia coli [E. coli] as the cause of diseases classified elsewhere; E78.5 Hyperlipidemia, unspecified; E03.9 Hypothyroidism, unspecified; E11.9 Type 2 diabetes mellitus without complications; E66.01 Morbid (severe) obesity due to excess calories; G47.33 Obstructive sleep apnea (adult) (pediatric); I35.0 Nonrheumatic aortic (valve) stenosis; I11.0 Hypertensive heart disease with heart failure; I95.9 Hypotension, unspecified; J98.6 Disorders of diaphragm; J44.9 Chronic obstructive pulmonary disease, unspecified; W19.XXXA Unspecified fall, initial encounter; Z79.01 Long term (current) use of anticoagulants; Z99.81 Dependence on supplemental oxygen; Z99.89 Dependence on other enabling machines and devices
CPT/HCPCS: 36415; 36600; 70450; 71046; 71250; 76000; 80048; 80053; 80162; 81001; 82550; 82803; 82805; 83036; 83735; 83880; 84439; 84443; 84480; 85025; 85027; 85055; 87077; 87086; 87088; 87186; 87651; 92610; 93005; 93306; 94002; 94640; 94762; 96365; 96366; 96375; 96376; 97110; 97140; 97161; 97165; 97530; 97535; 99285; A9270; G0378; G0379; J0696; J1940; J2405; J7030; P9047

== ENCOUNTER 2024-02-06 17:19 | Observation (INO) | payer OTHER, SELFPAY ==
[2024-02-06] VITALS (7 sets, daily range): BP systolic 110–133; BP diastolic 51–97; PULSE 92–102; RESP 18–26; TEMP 36.6–37.7; O2SAT 94–98
--- NOTE | ~2024-02-06 | XR_ITS ---
Portable chest x-ray Comparison: 02/06/2024 Clinical History: Hypoxia Findings: Probable minimal right pleural effusion. Mild haziness left lung base noted. Cardiomedias tinal silhouette is stable, with loop recorder. Bones and soft tissues are unremarkable. Impression: Mild haziness left lung base, nonspecific. Correlate for atelectasis or pneumonia. Minimal right pleural effusion with stable elevation right hemidiaphragm. Stable cardiomegaly with loop recorder. Reviewed, dictated and finalized at location M. Impression: Mild haziness left lung base, nonspecific. Correlate for atelectasis or pneumon ia. Minimal right pleural effusion with stable elevation right hemidiaphragm. Stable cardiomegaly with loop recorder.
--- NOTE | ~2024-02-06 | XR_ITS ---
EXAMINATION: XR chest 1V portable Exam Date/Time: 02/06/2024 18:05 CDT HISTORY: shortness of breath, cough X 2-3 DAYS Comparison: 12/02/2023. RESULT: Lines, tubes, and devices: Loop recorder. Lungs and pleura: Low volumes with crowding. Right hemidiaphragm elevation. Mild right costophrenic angle blunting. Streaky bibasilar opacities. Cardiomediastinal silhouette: Stable. Other: No acute osseous or upper abdominal finding. IMPRESSION: Likely bibasilar scar/atelectasis. Infection not excluded. Possible small right pleural effusion. Reviewed, dictated and finalized at location K.
--- NOTE | 2024-02-06 17:58 | ECG_ITS ---
Test Date: 2024-02-06 19:04:05 Measurements Intervals [place] Rate: 92 P: 0 WI: 0 QRS: -71 QRSD: 158 T: -25 QT: 378 QTc: 470 Interpretive Statements ATRIAL FIBRILLATION RIGHT BUNDLE BRANCH BLOCK [120+ ms QRS DURATION, UPRIGHT V1, 40+ ms S IN I/aVL/V4/V5/V6] LEFT ANTERIOR FASCICULAR BLOCK [QRS AXIS <= -45, QR IN I, RS IN II] Poor R wave progression Compared to ECG 12/12/2023 14:38:20 NO CHANGES Electronically Signed On 02-06-2024 21:10:16 CDT by Cintia Yoon M.D.
--- NOTE | 2024-02-06 18:21 | ED.SOB ---
HPI - SOB/Dyspnea General Chief Complaint: Shortness of Breath/Dyspnea Stated Complaint: SOB x 2 days Time Seen by Provider: 02/06/24 17:22 Source: patient, EMS, RN notes reviewed and old records reviewed Mode of arrival: EMS Limitations: no limitations History of Present Illness HPI Narrative: This is an 83 year old female with history of CHF, COPD, chronic 3 L O2, right hemidiaphragm who presents for shortness of breath. She reports sore throat, cough, and congestion for 2 days. She also reports hoarseness. She lives in a nursing facility and she reports there are other residents with similar symptoms. She states that her temperature is higher than normal. Her normal temperature is 96 but she has been running 98F. She denies chest pain. She reports body aches. Related Data Home Medications Medication Instructions Recorded Confirmed atorvastatin 10 mg tablet 10 mg PO HS 10/10/20 02/06/24 furosemide 40 mg tablet (Lasix) 40 mg PO QAM 10/10/20 02/06/24 albuterol sulfate 2.5 mg/3 mL 2.5 mg inhalation Q8H PRN Wheezing 12/12/23 02/06/24 (0.083 %) solution for nebulization albuterol sulfate 90 mcg/actuation 2 puff inhalation Q6H PRN 12/12/23 02/06/24 aerosol inhaler (Ventolin HFA) Shortness Of Breath apixaban 5 mg tablet (Eliquis) 5 mg PO BID 12/12/23 02/06/24 clotrimazole 1 % topical cream 1 applic topical BID 12/12/23 02/06/24 cyanocobalamin (vitamin B-12) 1,000 mcg IM MONTHLY 12/12/23 02/06/24 1,000 mcg/mL injection solution diltiazem HCl 240 mg PO DAILY 12/12/23 02/06/24 ferrous sulfate 325 mg (65 mg 325 mg PO DAILY 12/12/23 02/06/24 iron) tablet (FeroSul) levothyroxine 150 mcg tablet 150 mcg PO DAILY 12/12/23 02/06/24 loratadine 10 mg tablet 10 mg PO DAILY 12/12/23 02/06/24 meclizine 25 mg tablet 25 mg PO Q8H PRN Dizziness 12/12/23 02/06/24 multivitamin with folic acid 400 1 tablet PO DAILY 12/12/23 02/06/24 mcg tablet (Tab-A-Mehran) potassium chloride 10 mEq 20 meq PO DAILY 12/12/23 02/06/24 capsule,extended release cyclobenzaprine 5 mg tablet 5 mg PO TID 02/06/24 02/06/24 metformin 500 mg tablet 500 mg PO BID 02/06/24 02/06/24 ondansetron 4 mg disintegrating 4 mg PO Q6H PRN nausea/vomiting 02/06/24 02/06/24 tablet pantoprazole 40 mg tablet,delayed 40 mg PO DAILY 02/06/24 02/06/24 release polyethylene glycol 3350 17 17 g PO DAILY PRN Constipation 02/06/24 02/06/24 gram/dose oral powder (Miralax) propylene glycol 1 %-glycerin 0.3 1 drp EACH EYE BID PRN Dry Eye(S) 02/06/24 02/06/24 % eye drops (Lubricant (propylene glycol-glycerin)) Allergies Allergy/AdvReac Type Severity Reaction Status Date / Time adhesive tape Allergy Unknown Unknown Verified 02/06/24 20:59 amitriptyline [From Elavil] Allergy Unknown Unknown Verified 02/06/24 20:59 procaine [From Novocain] Allergy Unknown Unknown Verified 02/06/24 20:59 propoxyphene [From Darvon] Allergy Unknown Unknown Verified 02/06/24 20:59 Review of Systems Constitutional: Constitutional: Reports fever(s) and Denies weakness ENT: Reports nasal congestion and Reports sore throat Cardiovascular: Cardiovascular: Denies syncope, Denies rapid heart rate, Denies irregular heart rhythm, Denies leg edema and Reports dyspnea Respiratory: Respiratory: Denies chest congestion, Reports cough, Denies hemoptysis, Reports excessive phlegm production and Reports dyspnea Gastrointestinal: Gastrointestinal: Denies abdominal pain, Denies hematochezia, Denies diarrhea and Denies vomiting Genitourinary: Genitourinary: Denies hematuria and Denies dysuria Musculoskeletal: Musculoskeletal: Reports myalgias, Denies joint swelling, Denies loss of height and Denies muscle weakness Neurologic: Denies syncope, Denies focal weakness and Denies weakness PMFSH Past Medical History Medical History Atrial fibrillation Chronic anticoagulation Diastolic congestive heart failure Hyperlipidemia Hypertension Hypothyroidism Obstr
[2024-02-06] MEDS: IPRATROPIUM 0.5 MG/ALBUTEROL SULFATE 2.5 MG AMPUL.NEB 3 ML INHALATION (18:32)
[2024-02-06 18:38] LABS: Alveolar/Arterial O2 Gradient 98.7 mmHg; Base Excess ABG 6.8 mEq/l (+/-2.0); Carboxyhemoglobin 1.2 % THb (0-2.0); Fractional Inspired Oxygen 32 %; HCO3 ABG 31.4 mEq/l (22.0-26.0); Methemoglobin ABG 0.1 %THb (0-1.5); Oxygen Content ABG 19.5 %vol (16.0-22.0); Oxygen Saturation ABG 96.1 % (95.0-100.0); Oxyhemoglobin 94.8 % THb (90.0-100.0); PCO2 ABG 44.4 mmHg (35.0-45.0); PO2 ABG 77.5 mmHg (80.0-100.0); PO2 FiO2 Ratio Arterial Blood 2.42 %; Reduced Hemoglobin 3.9 %THb (0-5.0); Total Hemoglobin 14.6 g/dL (12.0-18.0); pH ABG 7.467 (7.350-7.450)
[2024-02-06 18:39] LABS: Site Drawn LEFT RADIAL
[2024-02-06 18:40] LABS: Device NASAL CANNULA; Modified Allen's Test Pass
[2024-02-06] MEDS: SODIUM CHLORIDE 0.9% IV 500 ML 999 ML IV CONT (18:44)
[2024-02-06 18:53] LABS: Basophils Percent Auto 0.3 % (0.2-1.2); Eosinophils Absolute Auto 0.1 K/mm3 (0-0.3); Eosinophils Percent Auto 0.8 % (0-4.4); Hematocrit 42.5 % (37.0-47.0); Hemoglobin 13.9 g/dL (12.0-15.0); Immature Granulocyte Absolute 0.17 K/mm3 (0.00-0.031); Immature Granulocyte Percent A 1.4 % (0-0.5); Immature Platelet Fraction Pct 4.8 % (0.9-11.2); Lymphocytes Absolute Auto 1.25 K/mm3 (0.9-3.2); Mean Corpuscular HGB Conc 32.7 g/dl (32-36); Mean Corpuscular Hemoglobin 30.2 pg (26-34); Mean Corpuscular Volume 92.4 fl (80-100); Monocytes Absolute Auto 1.6 K/mm3 (0.1-0.6); Monocytes Percent Auto 12.6 % (2.6-8.5); Neutrophils Absolute Auto 9.4 K/mm3 (1.3-6.7); Neutrophils Percent Auto 74.9 % (45.5-73.1); Platelet Count Result 126 k/mm3 (150-375); Red Cell Distribution Width 13.4 % (11.5-14.5); White Blood Count 12.5 K/mm3 (4.5-10.0)
[2024-02-06 19:02] LABS: INR 1.4; Prothrombin Time 17.2 Seconds (11.1-14.7)
[2024-02-06 19:03] LABS: Partial Thromboplastin Time 34.9 Seconds (22.3-36.8)
[2024-02-06 19:05] LABS: Alanine Aminotransferase 23 U/L (6-35); Albumin Level 3.7 g/dL (3.5-5.1); Alkaline Phosphatase 94 U/L (38-126); Anion Gap 11 mmol/L (4-12); Aspartate Amino Transferase 30 U/L (14-36); Bilirubin,Total 1.2 mg/dL (0.2-1.3); Blood Urea Nitrogen 16 mg/dL (7-17); Calcium 8.7 mg/dL (8.4-10.2); Carbon Dioxide 32 mmol/L (22-30); Chloride 93 mmol/L (98-107); Estimated CRCL calculation 61 ml/min; Estimated Glomerular Filt Rate > 60; Glucose 117 mg/dL (65-110); Sodium 136 mmol/L (137-145)
[2024-02-06 19:05] LABS: Lactic Acid Reflex 2.8 mmol/L (0.7-2.0)
[2024-02-06 19:13] LABS: NT Pro B Type Natriuretic Pept 666 pg/mL (19.9-100)
[2024-02-06 19:27] LABS: Influenza A QL RT-PCR Negative (Negative); Influenza B QL RT-PCR Negative (Negative); SARS-CoV-2 RNA PCR Negative (Negative)
--- NOTE | 2024-02-06 19:49 | PM.IMHP ---
H&P: HPI History of Present Illness Date/Time: 02/06/24 19:49 Chief Complaint: shortness of breath Narrative: This is an 83-year-old female with past medical history significant for chronically hypoxic respiratory failure on supplemental oxygen by nasal cannula, atrial fibrillation, rate controlled anticoagulated, type diabetes mellitus, GERD, diastolic heart failure. patient presents from retirement where she resides at due to shortness of breath. patient also has had body aches and pains, poor appetite. EXAMINATION: XR chest 1V portable Exam Date/Time: 02/06/2024 18:05 CDT HISTORY: shortness of breath, cough X 2-3 DAYS Comparison: 12/02/2023. RESULT: Lines, tubes, and devices: Loop recorder. Lungs and pleura: Low volumes with crowding. Right hemidiaphragm elevation. Mild right costophrenic angle blunting. Streaky bibasilar opacities. Cardiomediastinal silhouette: Stable. Other: No acute osseous or upper abdominal finding. IMPRESSION: Likely bibasilar scar/atelectasis. Infection not excluded. Possible small right pleural effusion. Review of Systems Review of Systems: shortness of breath PMFSH Past Medical History Medical History Atrial fibrillation Chronic anticoagulation Diastolic congestive heart failure Hyperlipidemia Hypertension Hypothyroidism Obstructive sleep apnea on CPAP Surgical History Surgical History History of cataract extraction History of tonsillectomy and adenoidectomy Family History Family History Father Malignant neoplasm of prostate Hypertension Cerebrovascular accident Mother Depression Heart disease Grandparent Hypertension Heart disease Grandparent Alcoholism Social History Social History Social History: Surrogate medical decision maker: Marlenysheree Manzo, cousin. Code status: Full code. Smoking status: Unknown if ever smoked Alcohol intake: unknown Substance use: never Substance use type: does not use Do You Feel Safe in your Home?: Yes Lack of Transportation: No Lack of Food: Never True Current Housing: I Have Housing Concerned About Future Housing: No Difficulty Paying Gas/Electric Bills: No Difficulty Paying for Meds: No Currently Unemployed: No Education: Bachelor's Degree Difficulty w/ Childcare or Family Care: No Additional living arrangements comments: Assisted living at [facility]. 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 Spiritual care concerns: No Meds Home Medications and Allergies Home Medications Medication Instructions Recorded Confirmed Type atorvastatin 10 mg tablet 10 mg PO HS 10/10/20 02/06/24 History furosemide 40 mg tablet (Lasix) 40 mg PO QAM 10/10/20 02/06/24 History albuterol sulfate 2.5 mg/3 mL 2.5 mg inhalation Q8H PRN Wheezing 12/12/23 02/06/24 History (0.083 %) solution for nebulization albuterol sulfate 90 mcg/actuation 2 puff inhalation Q6H PRN 12/12/23 02/06/24 History aerosol inhaler (Ventolin HFA) Shortness Of Breath apixaban 5 mg tablet (Eliquis) 5 mg PO BID 12/12/23 02/06/24 History clotrimazole 1 % topical cream 1 applic topical BID 12/12/23 02/06/24 History cyanocobalamin (vitamin B-12) 1,000 mcg IM MONTHLY 12/12/23 02/06/24 History 1,000 mcg/mL injection solution diltiazem HCl 240 mg PO DAILY 12/12/23 02/06/24 History ferrous sulfate 325 mg (65 mg 325 mg PO DAILY 12/12/23 02/06/24 History iron) tablet (FeroSul) levothyroxine 150 mcg tablet 150 mcg PO DAILY 12/12/23 02/06/24 History loratadine 10 mg tablet 10 mg PO DAILY 12/12/23 02/06/24 History meclizine 25 mg tablet 25 mg PO Q8H PRN Dizziness 12/12/23 02/06/24 History multivitamin with folic acid 400 1 tablet PO DAILY 12/12/23 02/06/24 Histo
[2024-02-06] MEDS: SODIUM CHLORIDE 0.9% IV 1,000 ML 999 ML IV CONT (20:25)
--- NOTE | 2024-02-06 20:52 | PC.NURSE ---
RN asked patient admission questions; patient stated use the ambulance sheet that came in, it has all that on it already . Admission completed via recall and longterm papers.
[2024-02-06 21:49] LABS: Reflex Lactic Acid Yes or No Add Lactic
[2024-02-06] MEDS: AZITHROMYCIN 500 MG/NS 250 ML 500 MG/250 ML BAG 250 MG IVPB (22:11)
[2024-02-06 22:24] LABS: Lactic Acid 2.8 mmol/L (0.7-2.0)
[2024-02-07] VITALS (21 sets, daily range): BP systolic 99–117; BP diastolic 59–77; PULSE 82–95; RESP 16–20; TEMP 36.5–37.2; O2SAT 96–99
[2024-02-07] MEDS: guaiFENesin 200 MG/10 ML UDC PO ×2 (00:42→20:36)
[2024-02-07] MEDS: traMADol HCL (*CRX) 50 MG TABLET PO ×3 (00:42→23:46)
[2024-02-07 00:55] LABS: Add Urine Microscopic? YES; Appearance Urine Turbid (Clear); Bacteria Urine 3+ /hpf; Bilirubin Urine Negative (Negative); Blood Urine Non-Hemolyzed Trace (Negative); Color Urine Yellow (Yellow); Glucose Urine UA Negative (Negative); Ketones Urine Negative (Negative); Leukocyte Esterase Ur 3+ LEU/UL (Negative); Nitrate Urine Positive (Negative); Non Pathogenic Casts 0-2; Protein Urine Trace mg/dL (Negative); RBC Urine 0-2 /hpf (0-2); Specific Grav Ur 1.011 (1.001-1.035); Squamous Epithelial Cell Urine None Seen /hpf (Few); WBC Urine >100 /hpf (0-3)
[2024-02-07] MEDS: IPRATROPIUM 0.5 MG/ALBUTEROL SULFATE 2.5 MG AMPUL.NEB 3 ML INHALATION ×4 (02:06→19:16)
[2024-02-07] MEDS: LEVOTHYROXINE SODIUM 150 MCG TABLET PO (05:20)
[2024-02-07 06:29] LABS: Basophils Absolute Auto 0.1 K/mm3 (0.0-0.1); Basophils Percent Auto 0.5 % (0.2-1.2); Eosinophils Absolute Auto 0.2 K/mm3 (0-0.3); Eosinophils Percent Auto 1.8 % (0-4.4); Hematocrit 39.3 % (37.0-47.0); Hemoglobin 12.7 g/dL (12.0-15.0); Immature Granulocyte Absolute 0.15 K/mm3 (0.00-0.031); Immature Granulocyte Percent A 1.6 % (0-0.5); Immature Platelet Fraction Pct 4.9 % (0.9-11.2); Lymphocytes Absolute Auto 1.18 K/mm3 (0.9-3.2); Lymphocytes Percent Auto 12.5 % (18.3-44.2); Mean Corpuscular HGB Conc 32.3 g/dl (32-36); Mean Corpuscular Hemoglobin 30.5 pg (26-34); Mean Corpuscular Volume 94.2 fl (80-100); Mean Platelet Volume 10.2 fl (7.4-10.4); Monocytes Absolute Auto 1.4 K/mm3 (0.1-0.6); Monocytes Percent Auto 15.1 % (2.6-8.5); Neutrophils Absolute Auto 6.5 K/mm3 (1.3-6.7); Neutrophils Percent Auto 68.5 % (45.5-73.1); Platelet Count Result 116 k/mm3 (150-375); Red Blood Count 4.17 M/mm3 (4.2-5.4); Red Cell Distribution Width 13.5 % (11.5-14.5); White Blood Count 9.4 K/mm3 (4.5-10.0)
[2024-02-07 06:44] LABS: Alanine Aminotransferase 20 U/L (6-35); Albumin Level 3.2 g/dL (3.5-5.1); Alkaline Phosphatase 74 U/L (38-126); Anion Gap 5 mmol/L (4-12); Aspartate Amino Transferase 29 U/L (14-36); Blood Urea Nitrogen 14 mg/dL (7-17); Calcium 8.3 mg/dL (8.4-10.2); Carbon Dioxide 35 mmol/L (22-30); Chloride 95 mmol/L (98-107); Estimated CRCL calculation 71 ml/min; Estimated Glomerular Filt Rate > 60; Glucose 113 mg/dL (65-110); Sodium 135 mmol/L (137-145)
[2024-02-07] MEDS: APIXABAN 5 MG TABLET PO ×2 (09:48→20:35)
[2024-02-07] MEDS: FERROUS SULFATE 325 MG TABLET DR BY MOUTH (09:49)
[2024-02-07] MEDS: PANTOPRAZOLE 40 MG TABLET PO (09:49)
[2024-02-07] MEDS: LORATADINE 10 MG TABLET PO (09:49)
[2024-02-07] MEDS: dilTIAZem HCL CD 240 MG CAP.24HR PO (09:49)
[2024-02-07] MEDS: FUROSEMIDE INJ 40 MG/4 ML VIAL IV PUSH (09:49)
[2024-02-07] MEDS: AZITHROMYCIN 500 MG/NS 250 ML 500 MG/250 ML BAG 250 MG IVPB (10:26)
[2024-02-07] MEDS: ALBUTEROL SULFATE NEB 2.5 MG/3 ML INH INHALATION (10:35)
--- NOTE | 2024-02-07 11:09 | PM.IMPN ---
Progress Note: A&P Assessment and Plan (1) COPD (chronic obstructive pulmonary disease): Code(s): J44.9 - Chronic obstructive pulmonary disease, unspecified Status: Acute (2) Leukocytosis: Code(s): D72.829 - Elevated white blood cell count, unspecified Status: Acute Plan 83 year old female with history of CHF, COPD, chronic 3 L O2, right hemidiaphragm who presents for shortness of breath. Chest x-ray shows Likely bibasilar scar/atelectasis. Infection not excluded. Possible small right pleural effusion. 1. Acute on chronic respiratory failure: Continue with O2 support Likely pneumonia Possible CHF exacerbation(possible diastolic heart failure) Continue with ceftriaxone, azithromycin Continue with DuoNebs Will add Lasix 40 mg IV daily for 3 days Strict I's and O's No wheezing No need for steroids for now 2. Possible UTI: Follow-up urine culture Continue with ceftriaxone 3. History of AFib: Continue with Femi Pandeyis 4.Code status: DNR 5. DVT prophylaxis: On Eliquis 6. Disposition: Pending improvement Time Spent With Patient Time with patient: 25 - 35 minutes Subjective Date/time seen: 02/07/24 11:09 Interval history: No acute events overnight, feeling better Review of Systems Review of Systems: All systems reviewed & are unremarkable except as noted in HPI and below Exam Const: General: comfortable Other: On nasal cannula HENMT: Mouth: Yes moist mucous membranes Eyes: Sclera: sclerae normal Neck: Neck: supple Resp: Other: Decreased breath sounds bilaterally, few crackles Cardio: Rate: regular rate GI: GI Palp: Yes Soft to palpation Auscultation: normal bowel sounds Skin: General skin exam: normal color Extrem: General: normal to inspection Psych: Mental Status: mental status grossly normal Objective Data Vital Signs Vital Signs: Vital Signs - 24 hr 02/06/24 17:27 02/06/24 17:30 02/06/24 17:30 Temperature 99.9 F H Pulse Rate 92 94 Respiratory Rate 20 Blood Pressure 133/97 H Pulse Oximetry 96 94 Oxygen Delivery Nasal Cannula Nasal Cannula Oxygen Flow Rate 3 3 Fraction of Inspired Oxygen 02/06/24 18:35 02/06/24 18:36 02/06/24 18:42 Temperature Pulse Rate 97 98 Respiratory Rate 24 H Blood Pressure Pulse Oximetry 95 Oxygen Delivery Nasal Cannula Oxygen Flow Rate 3 Fraction of Inspired Oxygen 02/06/24 19:24 02/06/24 22:00 02/07/24 02:07 Temperature 97.9 F Pulse Rate 102 H 97 91 Respiratory Rate 26 H 18 19 Blood Pressure 132/51 L 110/62 Pulse Oximetry 98 96 Oxygen Delivery Oxygen Flow Rate Fraction of Inspired Oxygen 02/07/24 02:10 02/07/24 02:13 02/07/24 00:00 Temperature Pulse Rate 91 89 92 Respiratory Rate 19 Blood Pressure Pulse Oximetry 96 Oxygen Delivery Nasal Cannula Oxygen Flow Rate 3 Fraction of Inspired Oxygen 32 02/07/24 04:00 02/07/24 05:08 02/07/24 07:30 Temperature 97.7 F Pulse Rate 90 90 93 Respiratory Rate 16 18 Blood Pressure 103/59 L Pulse Oximetry 98 98 Oxygen Delivery Nasal Cannula Oxygen Flow Rate 3 Fraction of Inspired Oxygen 02/07/24 07:30 02/07/24 07:40 02/07/24 09:45 Temperature Pulse Rate 93 92 92 Respiratory Rate 18 18 Blood Pressure 99/65 L Pulse Oximetry 97 Oxygen Delivery Oxygen Flow Rate Fraction of Inspired Oxygen 02/07/24 08:00 Temperature Pulse Rate 88 Respiratory Rate Blood Pressure Pulse Oximetry Oxygen Delivery Oxygen Flow Rate Fraction of Inspired Oxygen Intake/Output Intake/Output: Intake & Output 02/04/24 02/05/24 02/06/24 02/07/24 23:59 23:59 23:59 23:59 Intake Total 800 690 Output Total 850 Balance 800 -160 Meds/Results Medications: Active Medications Generic Name Dose Route Start Last Admin Trade Name Freq PRN Reason Stop Dose Admin Albuterol 2.5 mg 02/07/24 00:10 Albuterol Sulfate Neb 2.5 Mg/3 Ml
[2024-02-07] MEDS: ATORVASTATIN 10 MG TABLET PO (20:35)
[2024-02-08] VITALS (11 sets, daily range): BP systolic 104–125; BP diastolic 62–68; PULSE 87–100; RESP 16–18; TEMP 36.1–36.8; O2SAT 98–99
[2024-02-08] MEDS: IPRATROPIUM 0.5 MG/ALBUTEROL SULFATE 2.5 MG AMPUL.NEB 3 ML INHALATION ×3 (02:44→13:15)
[2024-02-08 05:59] LABS: Basophils Percent Auto 0.5 % (0.2-1.2); Eosinophils Absolute Auto 0.2 K/mm3 (0-0.3); Eosinophils Percent Auto 2.9 % (0-4.4); Hematocrit 41.6 % (37.0-47.0); Hemoglobin 13.2 g/dL (12.0-15.0); Immature Granulocyte Absolute 0.14 K/mm3 (0.00-0.031); Immature Granulocyte Percent A 1.9 % (0-0.5); Lymphocytes Absolute Auto 0.86 K/mm3 (0.9-3.2); Lymphocytes Percent Auto 11.4 % (18.3-44.2); Mean Corpuscular HGB Conc 31.7 g/dl (32-36); Mean Corpuscular Hemoglobin 30.2 pg (26-34); Mean Corpuscular Volume 95.2 fl (80-100); Mean Platelet Volume 9.9 fl (7.4-10.4); Monocytes Absolute Auto 1.1 K/mm3 (0.1-0.6); Monocytes Percent Auto 14.6 % (2.6-8.5); Neutrophils Absolute Auto 5.2 K/mm3 (1.3-6.7); Neutrophils Percent Auto 68.7 % (45.5-73.1); Platelet Count Result 111 k/mm3 (150-375); Red Blood Count 4.37 M/mm3 (4.2-5.4); Red Cell Distribution Width 13.5 % (11.5-14.5); White Blood Count 7.6 K/mm3 (4.5-10.0)
[2024-02-08] MEDS: LEVOTHYROXINE SODIUM 150 MCG TABLET PO (06:04)
[2024-02-08 06:05] LABS: Anion Gap 2 mmol/L (4-12); Blood Urea Nitrogen 13 mg/dL (7-17); Calcium 8.9 mg/dL (8.4-10.2); Carbon Dioxide 39 mmol/L (22-30); Chloride 95 mmol/L (98-107); Estimated CRCL calculation 71 ml/min; Estimated Glomerular Filt Rate > 60; Glucose 137 mg/dL (65-110); Magnesium 1.7 mg/dL (1.6-2.3); Potassium 3.9 mmol/L (3.4-5.0); Sodium 136 mmol/L (137-145)
[2024-02-08] MEDS: FERROUS SULFATE 325 MG TABLET DR BY MOUTH (09:29)
[2024-02-08] MEDS: PANTOPRAZOLE 40 MG TABLET PO (09:29)
[2024-02-08] MEDS: dilTIAZem HCL CD 240 MG CAP.24HR PO (09:29)
[2024-02-08] MEDS: FUROSEMIDE INJ 40 MG/4 ML VIAL IV PUSH (09:30)
[2024-02-08] MEDS: LORATADINE 10 MG TABLET PO (09:30)
[2024-02-08] MEDS: APIXABAN 5 MG TABLET PO (09:30)
[2024-02-08] MEDS: AZITHROMYCIN 500 MG/NS 250 ML 500 MG/250 ML BAG 250 MG IVPB (09:30)
[2024-02-08] MEDS: polyethylene glycoL 3350 17 GM POWD.PACK PO (09:45)
[2024-02-08] MEDS: traMADol HCL (*CRX) 50 MG TABLET PO (09:45)
[2024-02-08 09:57] LABS: Procalcitonin 0.1 ng/mL
--- NOTE | 2024-02-08 10:53 | PM.DS ---
DS: Admitting Diagnosis Discharge Date 02/08/2024 Admitting Diagnosis pneumonia, COPD, atrial fibrillation, paralyzed hemidiaphragm, obstructive sleep apnea on CPAP, diastolic congestive heart failure, chronic respiratory failure with hypoxia, chronic GERD DS: Discharge Diagnosis Discharge Diagnosis (1) Pneumonia: Code(s): J18.9 - Pneumonia, unspecified organism Status: Acute (2) COPD (chronic obstructive pulmonary disease): Code(s): J44.9 - Chronic obstructive pulmonary disease, unspecified Status: Acute (3) Atrial fibrillation: Code(s): I48.91 - Unspecified atrial fibrillation Status: Acute (4) Paralyzed hemidiaphragm: Code(s): J98.6 - Disorders of diaphragm Status: Acute (5) Obstructive sleep apnea on CPAP: Code(s): G47.33 - Obstructive sleep apnea (adult) (pediatric) Status: Acute (6) Diastolic congestive heart failure: Code(s): I50.30 - Unspecified diastolic (congestive) heart failure Status: Acute (7) Chronic respiratory failure with hypoxia: Code(s): J96.11 - Chronic respiratory failure with hypoxia Status: Acute (8) Chronic GERD: Code(s): K21.9 - Gastro-esophageal reflux disease without esophagitis Status: Acute DS: Summary Hospital Course Hospital Course: This is an 83-year-old female patient 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 Patient was treated with antibiotics azithromycin and Rocephin. Urinalysis consistent with urinary tract infection, urine culture was never sent. Patient was treated for a urinary tract infection of E coli 2 months prior so her antibiotic choice was based on that prior sensitivity. Patient afebrile and tolerating normal diet, oxygen titrated down 3 liters/minute at rest 4 liters/minute with activity. custodial staff states that patient has oxygen at 4 liters/minute at facility as well as through CPAP at night. We will continue azithromycin treatment for total of 5 days. We will continue cephalosporin treatment with cefdinir total 7 days. COVID test negative for discharge. On day of discharge patient stated that she has not been able to stand since she started her respiratory illness. Prior providers had not ordered PT OT because patient is a alf resident. So on discharge, orders for outpatient PT and OT were placed. Status at Discharge Cognitive/behavioral status at discharge: Awake alert oriented very pleasant but anxious Functional status at discharge: wheelchair bound Overall status at discharge: patient is progressing back to baseline Time Spent with Patient Time attestation: Total time spent providing and/or coordinating discharge services: 45 minutes Time spent: Greater than 30 minutes Exam Const: General: comfortable Other: On nasal cannula HENMT: Mouth: Yes moist mucous membranes Eyes: Sclera: sclerae normal Neck: Neck: supple Resp: Other: Decreased breath sounds bilaterally, few crackles Cardio: Rate: regular rate GI: GI Palp: Yes Soft to palpation Auscultation: normal bowel sounds Skin: General skin exam: normal color Extrem: General: normal to inspection Psych: Mental Status: mental status grossly normal DS: Data Data Completed and Pending Labs on day of discharge: Labs from last 24 hours 02/08/24 02/08/24 08:38 05:35 WBC 7.6 RBC 4.37 Hgb 13.2 Hct 41.6 MCV 95.2 MCH 30.2 MCHC 31.7 L RDW 13.5 Plt Count 111 L MPV 9.9 Immature Gran % (Auto) 1.9 H Neut % (Auto) 68.7 Lymph % (Auto) 11.4 L [place] % (Auto) 14.6 H Eos % (Auto) 2.9 Baso % (Auto) 0.5 Lymph # (Auto) 0.86 L [place] # (Auto) 1.1 H Eos # (Auto) 0.2 Baso # (Auto) 0.0 Abs Immat Gran (auto) 0.14 H Absolute Neuts (auto) 5.2 Absolute Nucleated RBC 0.000 Nucleated RBC % 0.0 % Immature Plt Fraction 4.0 Sod
[2024-02-08] MEDS: AZITHROMYCIN 250 MG TABLET 500 MG PO (12:36)
[2024-02-08 17:34] LABS: SARS-CoV-2 RNA PCR Negative (Negative)
== END 2024-02-08 18:20 ==
LOC: ANHED 18:10 → ANH2MED 20:15
PROVIDERS: Internal Medicine; Nurse Practitioner; Admitting Provider Internal Medicine; Emergency Provider General Practice; PCP Internal Medicine Infectious Disease; Visit Provider Internal Medicine
DX: J18.9 Pneumonia, unspecified organism (principal); J44.0 Chronic obstructive pulmonary disease with (acute) lower respiratory infection; J44.1 Chronic obstructive pulmonary disease with (acute) exacerbation; J98.6 Disorders of diaphragm; E87.20 Acidosis, unspecified; J96.11 Chronic respiratory failure with hypoxia; Z99.81 Dependence on supplemental oxygen; R82.90 Unspecified abnormal findings in urine; I48.91 Unspecified atrial fibrillation; I11.0 Hypertensive heart disease with heart failure; I50.30 Unspecified diastolic (congestive) heart failure; E78.5 Hyperlipidemia, unspecified; E03.9 Hypothyroidism, unspecified; K21.9 Gastro-esophageal reflux disease without esophagitis; G47.33 Obstructive sleep apnea (adult) (pediatric); Z20.822 Contact with and (suspected) exposure to COVID-19; Z79.51 Long term (current) use of inhaled steroids; Z79.01 Long term (current) use of anticoagulants; Z79.84 Long term (current) use of oral hypoglycemic drugs; Z66 Do not resuscitate
CPT/HCPCS: 36415; 36600; 71045; 80048; 80053; 81001; 82375; 82805; 83050; 83605; 83735; 83880; 84145; 85018; 85025; 85055; 85610; 85730; 87040; 87635; 87636; 93005; 94640; 96361; 96365; 96366; 96367; 99285; A9270; G0378; J0456; J0696; J1940; J7030; J7040

== ENCOUNTER 2024-03-28 14:19 | Emergency (ER) | payer OTHER, SELFPAY ==
[2024-03-28 14:25] VITALS: BP 121/81; PULSE 91; RESP 18; TEMP 36.8; O2SAT 98
[2024-03-28 14:46] VITALS: BP 121/81; PULSE 91; RESP 18; TEMP 36.9; O2SAT 99
[2024-03-28 17:07] LABS: Basophils Percent Auto 0.4 % (0.2-1.2); Eosinophils Absolute Auto 0.1 K/mm3 (0-0.3); Eosinophils Percent Auto 1.3 % (0-4.4); Hemoglobin 11.5 g/dL (12.0-15.0); Immature Granulocyte Absolute 0.11 K/mm3 (0.00-0.031); Immature Granulocyte Percent A 1.2 % (0-0.5); Immature Platelet Fraction Pct 4.5 % (0.9-11.2); Lymphocytes Absolute Auto 1.16 K/mm3 (0.9-3.2); Lymphocytes Percent Auto 12.5 % (18.3-44.2); Mean Corpuscular HGB Conc 32.9 g/dl (32-36); Mean Corpuscular Hemoglobin 30.7 pg (26-34); Mean Corpuscular Volume 93.6 fl (80-100); Mean Platelet Volume 9.8 fl (7.4-10.4); Monocytes Absolute Auto 0.9 K/mm3 (0.1-0.6); Neutrophils Absolute Auto 6.9 K/mm3 (1.3-6.7); Neutrophils Percent Auto 74.6 % (45.5-73.1); Platelet Count Result 151 k/mm3 (150-375); Red Blood Count 3.74 M/mm3 (4.2-5.4); Red Cell Distribution Width 14.6 % (11.5-14.5); White Blood Count 9.3 K/mm3 (4.5-10.0)
[2024-03-28 17:15] LABS: Lactic Acid Reflex 1.5 mmol/L (0.7-2.0)
[2024-03-28 17:18] LABS: INR 1.2; Partial Thromboplastin Time 33.7 Seconds (22.3-36.8); Prothrombin Time 15.5 Seconds (11.1-14.7)
[2024-03-28 17:19] LABS: Alanine Aminotransferase 17 U/L (6-35); Albumin Level 3.4 g/dL (3.5-5.1); Alkaline Phosphatase 90 U/L (38-126); Anion Gap 4 mmol/L (4-12); Aspartate Amino Transferase 26 U/L (14-36); Bilirubin,Total 1.5 mg/dL (0.2-1.3); Blood Urea Nitrogen 21 mg/dL (7-17); Calcium 8.9 mg/dL (8.4-10.2); Carbon Dioxide 38 mmol/L (22-30); Chloride 96 mmol/L (98-107); Estimated CRCL calculation 51 ml/min; Estimated Glomerular Filt Rate 60; Glucose 152 mg/dL (65-110); Potassium 4.1 mmol/L (3.4-5.0); Sodium 138 mmol/L (137-145)
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
[2024-03-28] MEDS: MORPHINE SULFATE (*CRX) 2 MG/ML INJ IV PUSH (17:52)
[2024-03-28 19:26] LABS: Add Urine Microscopic? YES; Appearance Urine Cloudy (Clear); Bacteria Urine None Seen /hpf; Bilirubin Urine Negative (Negative); Blood Urine Negative (Negative); Color Urine Yellow (Yellow); Glucose Urine UA Negative (Negative); Ketones Urine Negative (Negative); Leukocyte Esterase Ur 3+ LEU/UL (Negative); Nitrate Urine Negative (Negative); Non Pathogenic Casts 0-2; Protein Urine Negative (Negative); RBC Urine 0-2 /hpf (0-2); Specific Grav Ur 1.012 (1.001-1.035); Squamous Epithelial Cell Urine None Seen /hpf (Few); WBC Urine >100 /hpf (0-3); pH Urine 6.5 (5.0-9.0)
[2024-03-28] MEDS: cefuroxime axetiL 250 MG TABLET 500 MG PO (20:07)
[2024-03-28 20:10] VITALS: BP 92/58; PULSE 90; RESP 20; TEMP 36.1; O2SAT 100
== END 2024-03-28 22:12 ==
PROVIDERS: Emergency Provider Emergency Medicine; PCP Internal Medicine Infectious Disease
DX: S80.11XA Contusion of right lower leg, initial encounter (principal); N39.0 Urinary tract infection, site not specified; I48.91 Unspecified atrial fibrillation; I50.30 Unspecified diastolic (congestive) heart failure; I11.0 Hypertensive heart disease with heart failure; E78.5 Hyperlipidemia, unspecified; E03.9 Hypothyroidism, unspecified; G47.33 Obstructive sleep apnea (adult) (pediatric); Z98.49 Cataract extraction status, unspecified eye; Z79.899 Other long term (current) drug therapy; Z79.84 Long term (current) use of oral hypoglycemic drugs; Z79.01 Long term (current) use of anticoagulants; W22.03XA Walked into furniture, initial encounter
CPT/HCPCS: 36415; 80053; 81001; 83605; 85025; 85055; 85610; 85730; 86140; 87077; 87086; 87186; 96374; 99284; A9270; J2270

== ENCOUNTER 2024-04-24 09:00 | Outpatient (RCR) | payer MEDICARE, OTHER, MEDICAID, SELFPAY ==
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
[2024-04-24 09:43] VITALS: BMI 41.6
== END 2024-07-07 13:50 | disposition home or self-care (01) ==
LOC: ANHWOC 09:00
PROVIDERS: PCP Internal Medicine; Visit Provider Surgery
DX: S81.801A Unspecified open wound, right lower leg, initial encounter (principal)
CPT/HCPCS: 99213; G0463

== ENCOUNTER 2024-07-17 14:41 | Inpatient (IN) | payer MEDICARE, MEDICAID, SELFPAY ==
[2024-07-17] VITALS (17 sets, daily range): BP systolic 78–112; BP diastolic 55–78; PULSE 51–94; RESP 14–24; TEMP 36.8; O2SAT 95–100
--- NOTE | ~2024-07-17 | XR_ITS ---
XR chest 2V 07/17/2024 16:04 Indication: Shortness of breath and cough Procedure: 2 view chest Comparison: 02/08/2024 Findings: Elevated right diaphragm. Cardiomegaly. There is atherosclerosis of the aorta. There are ca lcified granulomas of the right lung. No acute focal pneumonia, edema or effusion. No pneumothorax. Impression: 1: No acute cardiopulmonary disease. Reviewed, dictated and finalized at location B. Impression: 1: No acute cardiopulmonary disease.
--- NOTE | ~2024-07-17 | XR_ITS ---
XR abdomen/kub 1V DATE: 07/23/2024 11:32 INDICATION: Constipation TECHNIQUE: 4 portable supine AP views COMPARISON: None FINDINGS: There is a moderately prominent fecal material in the rectum and sigmoid colon and particul subha prominent amount of fecal material in the right colon including the transverse colon. No bowel obstruction is evident. No intraperitoneal free air is detected. One or more calcified uterine fibroids, measuring up to 2 cm. Degenerative change of the thoracic spine. There is levoscoliosis and multilevel degenerative disc di sease of the lumbar spine. Osteopenia. IMPRESSION: Prominent amount of fecal material in the rectum and sigmoid and right colon consistent w ith clinical presentation of constipation; no bowel obstruction is evident Reviewed, dictated and finalized at Location A. Reviewed, dictated and finalized at location A. IMPRESSION: Prominent amount of fecal material in the rectum and sigmoid and ri ght colon consistent with clinical presentation of constipation; no bowel obstr uction is evident
--- NOTE | ~2024-07-17 | MR_ITS ---
EXAMINATION: MR MRCP wo/w con/w 3D wo ind DATE: 07/26/2024 11:01 INDICATION: Transaminitis. Cholelithiasis. TECHNIQUE: Magnetic resonance imaging (MRI) of the abdomen was performed without and with 20 mL Multi Shayy intravenous contrast. Sequences included coronal T2-weighted FS FSE, coronal T2-weighted FSE, a xial T1-weighted LAVA, coronal FS FIESTA, axial dual-echo T1-weighted SPGR, coronal lava-FLEX, sagitt al T2-weighted FSE, axial T2-weighted FSE, and axial DWI. Thick-slab T2-weighted FSE images were obta ined for magnetic resonance cholangiopancreatography (MRCP). Maximum intensity projection 3-D reconst ructions of the volumetric data were created by the technologist. Postcontrast sequences included cor onal LAVA-flex and time course of axial T1-weighted LAVA. COMPARISON: Abdomen ultrasound 07/24/2024, chest CT 12/21/2023 FINDINGS: ABDOMEN MRI: There is a small right pleural effusion. There is elevation of right hemidiaphragm. The liver is normal. The gallbladder is distended and contains stones. The spleen is normal. There is a 7 mm cyst in the pancreas, likely benign. The adrenal glands are normal. There are cysts in the kidney s measuring up to 9 mm on the right. There are no dilated loops of bowel. ABDOMEN MRCP: The common duct is normal and measures 6 mm . No choledocholithiasis. IMPRESSION: 1. Cholelithiasis. Gallbladder distention may be secondary to fasting or acute cholecystitis. Conside r hepatobiliary scintigraphy. 2. Small right pleural effusion. Reviewed, dictated and finalized at location A. IMPRESSION: 1. Cholelithiasis. Gallbladder distention may be secondary to fasting or acute cholecystitis. Consider hepatobiliary scintigraphy. 2. Small right pleural effusion.
--- NOTE | ~2024-07-17 | US_ITS ---
EXAMINATION: US abdomen limited DATE: 07/24/2024 18:32 INDICATION: elevated lft TECHNIQUE: Multiple grayscale and Doppler ultrasound images of limited portions of the abdomen were o btained. COMPARISON: None available. FINDINGS: Pancreas poorly visualized The liver is normal with normal echogenicity and echotexture, al though visualization is somewhat limited. No surface nodularity. Normal hepatopetal flow in the main portal vein. The gallbladder wall is thickened to 5 mm. Multiple intraluminal echogenic foci likely r epresenting stones and sludge. No pericholecystic fluid. The common bile duct measures 4 mm. There wa s no sonographic Cuellar sign. IMPRESSION: Cholelithiasis and gallbladder sludge. Nonspecific gallbladder wall thickening. Reviewed, dictated and finalized at location K.
[2024-07-17 15:45] LABS: Influenza A QL RT-PCR Negative (Negative); Influenza B QL RT-PCR Negative (Negative); RSV RNA, RT-PCR Negative (Negative); SARS-CoV-2 RNA PCR Positive (Negative)
--- NOTE | 2024-07-17 15:57 | ED.GENADULT ---
HPI - General Adult General Chief complaint: Upper Respiratory Infection Stated complaint: prod cough Time Seen by Provider: 07/17/24 14:56 History of Present Illness HPI narrative: 84-year-old female history of COPD on 4 L of oxygen at all times presents to the emergency department complaining of increased shortness of breath cough and increased sputum production. Patient states symptoms have been ongoing for the last few days. Patient does have history of COPD but denies any prior history of smoking Related Data Home Medications ?Medication ?Instructions ?Recorded ?Confirmed ?Last Taken ?Type atorvastatin 10 mg tablet 10 mg PO HS 10/10/20 05/23/24 Unknown History furosemide 40 mg tablet (Lasix) 40 mg PO QAM 10/10/20 05/23/24 Unknown History albuterol sulfate 2.5 mg/3 mL 2.5 mg inhalation Q8H PRN Wheezing 12/12/23 05/23/24 Unknown History (0.083 %) solution for nebulization albuterol sulfate 90 mcg/actuation 2 puff inhalation Q6H PRN 12/12/23 05/23/24 Unknown History aerosol inhaler (Ventolin HFA) Shortness Of Breath apixaban 5 mg tablet (Eliquis) 5 mg PO BID 12/12/23 05/23/24 Unknown History clotrimazole 1 % topical cream 1 applic topical BID 12/12/23 05/23/24 Unknown History cyanocobalamin (vitamin B-12) 1,000 mcg IM MONTHLY 12/12/23 05/23/24 11/21/23 09:00 History 1,000 mcg/mL injection solution diltiazem HCl 240 mg PO DAILY 12/12/23 05/23/24 Unknown History ferrous sulfate 325 mg (65 mg 325 mg PO DAILY 12/12/23 05/23/24 Unknown History iron) tablet (FeroSul) levothyroxine 150 mcg tablet 150 mcg PO DAILY 12/12/23 05/23/24 Unknown History loratadine 10 mg tablet 10 mg PO DAILY 12/12/23 05/23/24 Unknown History meclizine 25 mg tablet 25 mg PO Q8H PRN Dizziness 12/12/23 05/23/24 Unknown History multivitamin with folic acid 400 1 tablet PO DAILY 12/12/23 05/23/24 Unknown History mcg tablet (Tab-A-Mehran) potassium chloride 10 mEq 20 meq PO DAILY 12/12/23 05/23/24 Unknown History capsule,extended release cyclobenzaprine 5 mg tablet 5 mg PO TID 02/06/24 05/23/24 Unknown History metformin 500 mg tablet 500 mg PO BID 02/06/24 05/23/24 Unknown History ondansetron 4 mg disintegrating 4 mg PO Q6H PRN nausea/vomiting 02/06/24 05/23/24 Unknown History tablet pantoprazole 40 mg tablet,delayed 40 mg PO DAILY 02/06/24 05/23/24 Unknown History release polyethylene glycol 3350 17 17 g PO DAILY PRN Constipation 02/06/24 05/23/24 Unknown History gram/dose oral powder (Miralax) propylene glycol 1 %-glycerin 0.3 1 drp EACH EYE BID PRN Dry Eye(S) 02/06/24 05/23/24 Unknown History % eye drops (Lubricant (propylene glycol-glycerin)) tizanidine 2 mg tablet 2 mg PO TID 04/24/24 05/23/24 04/24/24 History Allergies Allergy/AdvReac Type Severity Reaction Status Date / Time adhesive tape Allergy Unknown Unknown Verified 07/17/24 16:23 amitriptyline (From Elavil) Allergy Unknown Unknown Verified 07/17/24 16:23 procaine (From Novocain) Allergy Unknown Unknown Verified 07/17/24 16:23 propoxyphene (From Darvon) Allergy Unknown Unknown Verified 07/17/24 16:23 Review of Systems Review of Systems: All systems reviewed & are unremarkable except as noted in HPI and below PMFSH Past Medical History Medical History (Updated 07/17/24 @ 22:33 by Rex Champagne MD) Chronic diastolic (congestive) heart failure Hearing loss, 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 Coronary heart disease Allergic rhinitis Secondary pulmonary hypertension Chronic respiratory failure with hypoxia Acquired hemosiderosis Irritable bowel Chronic GERD Obstructive sleep apnea on CPAP Chronic anticoagulation Atrial fibrillation Hyperlipidemia Hypothyroidism Hypertension Surgical History Surgical History History of cataract extraction History of tonsillectomy and adenoidectomy Family History Family History Father Malignant neoplasm of prostate Hypertension Cerebrovascular accident Mother Depression Heart disease Grandparent Hypertension Heart disease Grandparent Alcoholism Social History Social History (Updated 07/17/24 @ 21:50 by Yecenia Ruff DO) Social History: The patient was at assisted living [facility] until hospitalization March 2024 and has since been transitioned ever care [facility]. Surrogate medical decision maker: Marleny Manzo, cousin. Code status: DNR/DNI Smoking status: Unknown if ever smoked Alcohol intake: unknown Substance use: never Substance use type: does not use Do You Feel Safe in your Home?: Yes Lack of Transportation: No Lack of Food: Never True Current Housing: I Have Housing Concerned About Future Housing: No Difficulty Paying Gas/Electric Bills: No Difficulty Paying for Meds: No Currently Unemployed: No Education: Bachelor's Degree Difficulty w/ Childcare or Family Care: No Additional living arrangements comments: Assisted living at [facility]. 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 Spiritual care concerns: No Exam Narrative: APPEARANCE: Ill-appearing HEAD: normocephalic, atraumatic. EYES: PERRLA/EOMI, conjunctivae clear. NOSE: Normal no drainage EARS:TMS clear with good light reflex. THROAT: Pharynx clear, no exudate. NECK: Supple. No adenopathy, no masses. RESPIRATORY: Congested lung sounds bilaterally CARDIOVASCULAR: Regular rate and rhythm without murmurs rubs or gallops. ABDOMINAL: Soft, nontender, nondistended, normal bowel sounds MUSCULOSKELETAL: Moves all extremities. Strength/ROM intact, No edema, No calf tenderness. NEURO: Alert. Cranial nerves II through XII intact. Grossly intact Course Vital Signs Vital signs: Vital Signs Pulse Rate 57 L 07/17/24 14:45 Respiratory Rate 22 H 07/17/24 14:45 Blood Pressure 89/68 L 07/17/24 14:45 Pulse Oximetry 100 07/17/24 14:45 Oxygen Delivery Nasal Cannula 07/17/24 14:45 Oxygen Flow Rate 4 07/17/24 14:45 Temperature 98.2 F 07/17/24 15:08 Pulse Rate 81 07/17/24 22:00 Respiratory Rate 24 H 07/17/24 22:00 Blood Pressure 100/61 07/17/24 22:00 Pulse Oximetry 100 07/17/24 22:00 Oxygen Delivery Nasal Cannula 07/17/24 16:05 Oxygen Flow Rate 4 07/17/24 16:05 Fraction of Inspired Oxygen 36 07/17/24 16:05 Medical Decision Making [facility] Narrative Medical decision making narrative: 84-year-old female history of COPD with 4 L of oxygen requirement at baseline present to the emergency department for evaluation for increased work of breathing worsening productive cough. Patient did test positive for COVID. Patient is afebrile but does have a leukocytosis of 13.1 hemoglobin 11.0. INR is 1.9. Patient has a creatinine of 1.76 which is higher than her baseline. Patient was treated with IV fluids. Due to patient's underlying respiratory issues and increased Peter production and leukocytosis patient is also being started on Rocephin and azithromycin. Case was discussed with hospitalist patient was accepted for admission. Differential Diagnosis Differential Diagnosis: COVID, RSV, influenza, pneumonia, COPD Vital Signs Vital Signs: Vital Signs Pulse Rate 57 L 07/17/24 14:45 Respiratory Rate 22 H 07/17/24 14:45 Blood Pressure 89/68 L 07/17/24 14:45 Pulse Oximetry 100 07/17/24 14:45 Oxygen Delivery Nasal Cannula 07/17/24 14:45 Oxygen Flow Rate 4 07/17/24 14:45 Temperature 98.2 F 07/17/24 15:08 Pulse Rate 81 07/17/24 22:00 Respiratory Rate 24 H 07/17/24 22:00 Blood Pressure 100/61 07/17/24 22:00 Pulse Oximetry 100 07/17/24 22:00 Oxygen Delivery Nasal Cannula 07/17/24 16:05 Oxygen Flow Rate 4 07/17/24 16:05 Fraction of Inspired Oxygen 36 07/17/24 16:05 Lab Data Lab results reviewed: Yes I reviewed the patient's lab results. 07/17/24 16:11 07/17/24 16:11 Labs: Lab Results 07/17/24 07/17/24 07/17/24 Range/Units 14:57 16:11 16:35 WBC 13.1 H (4.5-10.0) K/mm3 RBC 3.65 L (4.2-5.4) M/mm3 Hgb 11.0 L (12.0-15.0) g/dL Hct 34.2 L (37.0-47.0) % MCV 93.7 (80-100) fl MCH 30.1 (26-34) pg MCHC 32.2 (32-36) g/dl RDW 14.1 (11.5-14.5) % Plt Count 146 L (150-375) k/mm3 MPV 10.8 H (7.4-10.4) fl Immature Gran % (Auto) 1.1 H (0-0.5) % Neut % (Auto) 74.7 H (45.5-73.1) % Lymph % (Auto) 13.3 L (18.3-44.2) % [place] % (Auto) 9.5 H (2.6-8.5) % Eos % (Auto) 1.1 (0-4.4) % Baso % (Auto) 0.3 (0.2-1.2) % Lymph # (Auto) 1.74 (0.9-3.2) K/mm3 [place] # (Auto) 1.2 H (0.1-0.6) K/mm3 Eos # (Auto) 0.2 (0-0.3) K/mm3 Baso # (Auto) 0.0 (0.0-0.1) K/mm3 Abs Immat Gran (auto) 0.15 H (0.00-0.031) K/mm3 Absolute Neuts (auto) 9.8 H (1.3-6.7) K/mm3 Absolute Nucleated RBC 0.000 (0.0-0.012) K/mm3 Nucleated RBC % 0.0 (0.0-0.2) % PT 22.0 H (11.1-14.7) Seconds INR 1.9 APTT 38.1 H (22.3-36.8) Seconds Sodium 138 (137-145) mmol/L Potassium 4.3 (3.4-5.0) mmol/L Chloride 103 (98-107) mmol/L Carbon Dioxide 25 (22-30) mmol/L Anion Gap 10 (4-12) mmol/L BUN 39 H D (7-17) mg/dL Creatinine 1.76 H (0.7-1.0) mg/dL Estim Creat Clear Calc Not Reportable Estimated GFR 28 L (59 - ) Glucose 114 H (65-110) mg/dL Calcium 8.6 (8.4-10.2) mg/dL Total Bilirubin 0.9 (0.2-1.3) mg/dL AST 20 (14-36) U/L ALT 16 (6-35) U/L Alkaline Phosphatase 84 (38-126) U/L Total Protein 6.0 L (6.3-8.2) g/dL Albumin 3.1 L (3.5-5.1) g/dL Urine Color Yellow (Yellow) Urine Appearance Turbid H (Clear) Urine pH 5.0 (5.0-9.0) Ur Specific [place] 1.012 (1.001-1.035) Urine Protein Trace (Negative) mg/dL Urine Glucose (UA) Negative (Negative) mg/dL Urine Ketones Negative (Negative) mg/dL Ur Blood (Man) 1+ H (Negative) Urine Nitrate Negative (Negative) Urine Bilirubin Negative (Negative) Urine Urobilinogen 1.0 (<2.0) mg/dL Leukocyte Esterase Rfl 3+ H (Negative) CLAUDIA/UL Urine RBC 0-2 (0-2) /hpf Urine WBC >100 H (0-3) /hpf Ur Squamous Epith Cells None seen (Few) /hpf Urine Bacteria None seen /hpf Urine Casts 11-20 Hyaline Casts Present (None) /lpf Influenza A (RT-PCR) Negative (Negative) Influenza B (RT-PCR) Negative (Negative) RSV (RT-PCR) Negative (Negative) SARS-CoV-2 RNA (RT-PCR) Positive A (Negative) Imaging Data Radiologist's impression: Impressions Chest X-Ray 07/17/24 16:08 Impression: 1: No acute cardiopulmonary disease. Discharge Plan Discharge Clinical Impression: Pneumonia, COVID COPD (chronic obstructive pulmonary disease) Qualifiers: COPD type: COPD with acute lower respiratory infection Qualified Code(s): J44.0 - Chronic obstructive pulmonary disease with (acute) lower respiratory infection Patient Disposition: Still a Patient Condition: Serious
[2024-07-17] MEDS: ALBUTEROL SULFATE NEB 2.5 MG/3 ML INH 5 MG INHALATION (16:05)
[2024-07-17 16:19] LABS: Basophils Percent Auto 0.3 % (0.2-1.2); Eosinophils Absolute Auto 0.2 K/mm3 (0-0.3); Eosinophils Percent Auto 1.1 % (0-4.4); Hematocrit 34.2 % (37.0-47.0); Immature Granulocyte Absolute 0.15 K/mm3 (0.00-0.031); Immature Granulocyte Percent A 1.1 % (0-0.5); Lymphocytes Absolute Auto 1.74 K/mm3 (0.9-3.2); Lymphocytes Percent Auto 13.3 % (18.3-44.2); Mean Corpuscular HGB Conc 32.2 g/dl (32-36); Mean Corpuscular Hemoglobin 30.1 pg (26-34); Mean Corpuscular Volume 93.7 fl (80-100); Mean Platelet Volume 10.8 fl (7.4-10.4); Monocytes Absolute Auto 1.2 K/mm3 (0.1-0.6); Monocytes Percent Auto 9.5 % (2.6-8.5); Neutrophils Absolute Auto 9.8 K/mm3 (1.3-6.7); Neutrophils Percent Auto 74.7 % (45.5-73.1); Platelet Count Result 146 k/mm3 (150-375); Red Blood Count 3.65 M/mm3 (4.2-5.4); Red Cell Distribution Width 14.1 % (11.5-14.5); White Blood Count 13.1 K/mm3 (4.5-10.0)
[2024-07-17] MEDS: SODIUM CHLORIDE 0.9% IV 1,000 ML 999 ML IV CONT ×2 (16:26→18:16)
[2024-07-17 16:29] LABS: Alanine Aminotransferase 16 U/L (6-35); Albumin Level 3.1 g/dL (3.5-5.1); Alkaline Phosphatase 84 U/L (38-126); Anion Gap 10 mmol/L (4-12); Aspartate Amino Transferase 20 U/L (14-36); Bilirubin,Total 0.9 mg/dL (0.2-1.3); Blood Urea Nitrogen 39 mg/dL (7-17); Calcium 8.6 mg/dL (8.4-10.2); Carbon Dioxide 25 mmol/L (22-30); Chloride 103 mmol/L (98-107); Estimated Glomerular Filt Rate 28; Glucose 114 mg/dL (65-110); Potassium 4.3 mmol/L (3.4-5.0); Sodium 138 mmol/L (137-145)
[2024-07-17 16:32] LABS: INR 1.9
[2024-07-17 16:33] LABS: Partial Thromboplastin Time 38.1 Seconds (22.3-36.8)
[2024-07-17 17:10] LABS: Add Urine Microscopic? YES; Appearance Urine Turbid (Clear); Bacteria Urine None Seen /hpf; Bilirubin Urine Negative (Negative); Blood Urine 1+ (Negative); Color Urine Yellow (Yellow); Glucose Urine UA Negative (Negative); Hyaline Casts Urine Present /lpf; Ketones Urine Negative (Negative); Leukocyte Esterase Ur 3+ LEU/UL (Negative); Nitrate Urine Negative (Negative); Protein Urine Trace mg/dL (Negative); RBC Urine 0-2 /hpf (0-2); Specific Grav Ur 1.012 (1.001-1.035); Squamous Epithelial Cell Urine None Seen /hpf (Few); WBC Urine >100 /hpf (0-3)
[2024-07-17] MEDS: AZITHROMYCIN 500 MG/NS 250 ML 500 MG/250 ML BAG 250 MG IVPB (17:25)
--- OUTSIDE RECORDS SUMMARY | 2024-07-17 17:48 | XMS_ITS | Referral Summary ---
Author Organization [place] [id number] [facility] Address [address] [place] [address] Care Team Providers Care Extension Agent Name Role Phone Hernandez Segovia MD Primary Care Provider [phone] Allergies Active Allergy Reactions Criticality Noted Date Comments Adhesive Hives Medium 01/02/2021 Propoxyphene Hypotension High 01/02/2021 Amitriptyline Diarrhea Low 01/02/2021 Levothyroxine Dizziness Low 01/02/2021 brand Talwin Compound Dizziness Low 01/02/2021 Medications furosemide (LASIX) 40 mg tablet 1 Active potassium chloride ER 10 mEq CR tablet 1 Active atorvastatin (LIPITOR) 10 mg tablet 1 Active diltiazem (TIAZAC) 240 mg 24 hr capsule diltiazem CD 240 mg capsule,extended release 24 hr 6 Active traMADoL (ULTRAM) 50 mg tablet 1 Active polyethylene glycol (Miralax) 17 gram/dose powder Miralax 17 gram powder in packet 0 Active nystatin (Nyamyc) powder Nyamyc 100,000 unit/gram powder 9 Active levothyroxine (SYNTHROID) 175 mcg tablet 1 Active albuterol HFA (PROVENTIL HFA,VENTOLIN HFA,PROAIR HFA) 90 mcg/actuation inhaler albuterol sulfate HFA 90 mcg/actuation aerosol inhaler Active rj-sg-tvhp-FA- Ca carb-vit K 18 mg iron-400 mcg-500 mg tablet WOMENS MULTIVITAMIN PLUS ORAL TABLET 0 Active Eliquis 5 mg tablet Take 1 tablet (5 mg total) by mouth 2 (two) times a day 4 Active cyanocobalamin (Vitamin B-12) 1,000 mcg/mL injection cyanocobalamin (vitamin B-12) 1,000 mcg/mL solution Active cyclobenzaprin e (FLEXERIL) 5 mg tablet 4 Active ferrous sulfate 325 mg (65 mg of elemental iron) tablet daily 4 Active loratadine (CLARITIN) 10 mg tablet 4 Active metFORMIN (GLUCOPHAGE) 500 mg tablet 4 Active Active Problems Problem Noted Date Diagnosed Date Essential tremor 01/02/2021 Social History Tobacco Use Types Packs/Day Years Used Date Smoking Tobacco: Never Smokeless Tobacco: Never Tobacco Cessation:Counseling Given: Not Answered Personal Safety Answer Date Recorded Getting School Help Needed Not on file 06/26 Comments Unknown Sex and Gender Information Value Date Recorded Sex Assigned at Not on file 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 Gender Identity Not on file Sexual Orientation Not on file Last Filed Vital Signs Vital Sign Reading Time Taken Comments Blood Pressure 92/78 02/25/2024 10:09 AM CDT Pulse 101 02/25/2024 10:09 AM CDT Temperature - - Respiratory Rate - - Oxygen Saturation 97% 02/25/2024 10:09 AM CDT Inhaled Oxygen Concentration - - Weight 94.3 kg (208 lb) 02/25/2024 10:09 AM CDT Height 165.1 cm (5' 5 ) 02/25/2024 10:09 AM CDT Body Mass Index 34.61 02/25/2024 10:09 AM CDT Plan of Treatment [place] [address] [place] [address] [facility] Care Teams Extension Agent Relationship Specialty Start Date End Date Hernandez Segovia MD [address] [place] [address] PCP - General Internal Medicine 02/25/24
--- OUTSIDE RECORDS SUMMARY | 2024-07-17 17:48 | XMS_ITS | Clinical Summary ---
Author Organization [place] [id number] [facility] Address [address] [place] [address] Care Team Providers Care Car Packer Name Role Phone Hernandez Segovia MD Primary Care Provider [phone] Allergies Active Allergy Reactions Criticality Noted Date [...] sulfate HFA 90 mcg/actuation aerosol inhaler Active du-rd-lven-FA- Ca carb-vit K 18 mg iron-400 mcg-500 [...] Noted Date Diagnosed Date Essential tremor 01/02/2021 Surgical History Surgery Date Site/Laterality Comments ABLATION OF AFIB FLUTTER Medical History Medical History Date Comments Hyperlipidemia LDL goal <100 COPD (chronic obstructive pulmonary disease) (HC C) Diabetes mellitus (HCC) Hypothyroid Asthma Gallstones Family History Medical History Relation Name Comments Cancer Father Stroke Father Heart attack Mother Relation Name Status Comments Father Mother Social History Tobacco Use Types Packs/Day Years Used Date Smoking Tobacco: Never Smokeless Tobacco: Never Tobacco Cessation:Counseling Given: Not Answered Personal Safety Answer Date Recorded Getting School Help Needed Not on file 06/26 Comments Unknown Sex and Gender Information Value Date Recorded Sex Assigned at Not on file 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 Gender Identity Not on file Sexual Orientation Not on file Obstetrics History Last Filed Vital Signs Vital Sign Reading [...] 02/25/2024 10:09 AM CDT Plan of Treatment Health Maintenance Due Date Last Done Comments Depression Screening 1941 Fall Risk Assessment 1941 Osteoporosis Screening-Bone Density Scan 1941 Hepatitis B Screening 1959 Well Visit 65+ 2006 Zoster Vaccine (2 of 3) 09/04/2014 07/10/2014 Pneumococcal vaccine 65+ (3 of 3 - PCV20 or PCV21) 07/11/2019 07/10/2014, 05/03/2003 Covid-19 Vaccine (3 - 2023-2 5 season) 2024 08/08/2020, 07/11/2020 Influenza Vaccine (#1) 2024 9, 01/07/2018, 06/02/2017, Additional history exists DTaP/Tdap/Td Vaccine (3 - Td or Tdap) 10/17/2030 10/17/2020, 05/03/2009 Insurance MEDICARE [facility] [place] [address] [place] [address] Care Teams Car Packer Relationship Specialty Start Date End Date Hernandez Segovia MD [address] [place] [address] PCP - General Internal Medicine 02/25/24
--- OUTSIDE RECORDS SUMMARY | 2024-07-17 17:48 | XMS_ITS | CONTINUITY OF CARE DOCUMENT ---
Author Name adilene head Address Unknown Organization [facility] Address [address] [place] [address] Phone [phone] Care Team Providers Care Ic Engineer Name Role Phone Miguel PENN, Dexter Unavailable [phone] GYPSY PENN, REY Unavailable [phone] REY BETANCUR MD Unavailable [phone] PROBLEMS Condition Status Date Provider Notes Elevated hemoglobin A1c- 01/05/19 active Gurpreet Steen RN SHORTNESS OF BREATH - on O2 active Carlos dejesus POLYCYTHEMIA active ? Dexter Rivera MD CHEST PAIN-08/10 CATH MILD NO N OBS CAD EF 55 completed - Dexter Rivera MD OBESITY active ? Dexter Rivera MD Asthma- 10/13 Willian Mod Rest completed 1959 - Dexter Rivera MD ONYCHOMYCOSIS completed - Dexter Rivera MD HTN essential active Dexter Rivera MD Hypothyroidism active Dexter Rivera MD CHEST PAIN-11/12 NUC ABN completed - Dexter montes MD PALPITATIONS completed - Dexter Rivera MD Afib, chronic active Dexter Rivera MD LYMPHEDEMA- b/l uses lymphed lauren boots active Carlos Kyte Hyperlipidemia active Narendra Clements Medtr[employer] (MRI Safe) REVEAL/LinQ active Dexter Rivera MD Elevated troponin completed - Dexter Rivera MD CAD active Dexter Rivera MD Aortic stenosis, mild active Dexter Rivera MD Leg Edema active Dexter Rivera MD Cardiology examination active Dexter schwartz MD ENCOUNTERS Date Type Provider Location Encounter Diag nosis - In-person encounter Office Visit Dexter Rivera MD [facility] Cardiology examination - In-person encounter Office Visit Dexter Rivera MD [facility] Afib, chronicLeg Edema - In-person encounter Office Visit Dexter iRvera MD [facility] - In-person encounter Office Visit Dexter Rivera MD [facility] CADAortic stenosis, mild - In-person encounter Office Visit Dexter Rivera MD [facility] - In-person encounter Office Visit Dexter Rivera MD [facility] - In-person encounter Office Visit Dexter Rivera MD [facility] SHORTNESS OF BREATH - on [id number]- b/l uses lymphedema boots - In-person encounter Office Visit Dexter Rivera MD [facility] - In-person encounter Office Visit Dexter Rivera MD [facility] - In-person encounter Office Visit Dexter Rivera MD [facility] Asthma- 6/ [place] Mod RestONYCHOMYCOSISHTN essentialHypothyroidismCHEST PAIN-11/12 NUC ABNPALPITATIONSAfib, chronicElevated troponin - In-person encounter Office Visit Dexter Rivera MD [facility] - In-person encounter Office Visit Dexter Rivera MD [facility] [employer]tronic (MRI Safe) REVEAL/LinQ - In-person encounter Office Visit Dexter Rivera MD [facility] - In-person encounter Office Visit Dexter Rivera MD [facility] - In-person encounter Office Visit Dexter Rivera MD [facility] - In-person encounter Office Visit Dexter Rivera MD [facility] - In-person encounter Office Visit Dexter Rivera MD [facility] - In-person encounter Office Visit Dexter Rivera MD [facility] - In-person encounter Office Visit Dexter Rivera MD [facility] - In-person encounter Office Visit Dexter Rivera MD [facility] - In-person encounter Office Visit Adriana Ireland MD [facility] - In-person encounter Office Visit Dexter Rivera MD [facility] - In-person encounter Office Visit Dexter Rivera MD [facility] CHEST PAIN-08/10 CATH MILD NON OBS CAD EF 55Asthma- 10/13 Willian Mod RestAfib, chronicLYMPHEDEMA- b/l uses lymphedema bootsHyperlipidemia - In-person encounter Office Visit Dexter Rivera MD [facility] CHEST PAIN-11/12 NUC ABNAfib, chronic - In-person encounter Office Visit Dexter Rivera MD [facility] - In-person encounter Office Visit Dexter Rivera MD [facility] - In-person encounter Office Visit Dexter Rivera MD [facility] SHORTNESS OF BREATH - on [id number] PAIN-08/10 CATH MILD NON OBS CAD EF 55OBESITYAsthma- 10/13 [place] Mod RestHTN essentialHypothyroidism VITAL SIGNS Date Observation Value Provider blood pressure, diastolic 68 mm[Hg] Marilyn [facility] blood pressure, systolic 110 mm[Hg] Lynnette [facility] blood pressure, cuff size large Mario baig Bishop blood pressure, diastolic 68 mm[Hg] Mario baig Bishop blood pressure, systolic 110 mm[Hg] [facility] Bishop oxygen saturation, oximetry 94 % Mabel Bishop respiratory rate E&M 12 /[facility] 66 [facility] height E&M 64 [in_i] [facility] Body Mass Index (Ratio) 42.74 kg/m2 Aimee Rivera MD blood pressure, diastolic 90 mm[Hg] Marilyn Log blood pressure, systolic 118 mm[Hg] Lynnette pulse rate 76 /min [facility] Inhaled O2 3 L/min [facility] blood pressure, cuff size large Jorge [facility] blood pressure, diastolic 90 mm[Hg] Jorge et blood pressure, systolic 118 mm[Hg] Jar ret oxygen saturation, oximetry 95 % Panda respiratory rate E&M 16 /min Panda weight E&M 249 [lb_av] Panda height E&M 64 [in_i] Panda [facility] blood pressure, diastolic 84 mm[Hg] Marilyn Log blood pressure, systolic 130 mm[Hg] Lynnette [facility] blood pressure, cuff size regular Ke rri Gruenenfelder blood pressure, diastolic 84 mm[Hg] Ke rri Gruenenfelder blood pressure, systolic 130 mm[Hg] Tank ri Gruenenfelder Inhaled O2 2 L/min Alesha Josephe lder oxygen saturation, oximetry 94 % Alesha Gruenenfelder respiratory rate E&M 14 /min Alesha G ruenenfelder pulse rate 69 /min Alesha Grdavidnfe lder height E&M 64 [in_i] Alesha Gruenenfe lder blood pressure, cuff size large Ke rri Gruenenfelder blood pressure, diastolic 73 mm[Hg] Ke rri Gruenenfelder blood pressure, systolic 115 mm[Hg] Tank ri Gruenenfelder oxygen saturation, oximetry 96 % Alesha Brownnenfelder respiratory rate E&M 16 /min Alesha G ruenenfelder pulse rate 58 /min Alesha Malunfe lder height E&M 64 [in_i] Alesha Brownnenfe lder Body Mass Index (Ratio) 42.39 kg/m2 Aimee Rivera MD blood pressure, diastolic 76 mm[Hg] Marilyn nkLogic blood pressure, systolic 118 mm[Hg] Lynnette kLogic blood pressure, diastolic 76 mm[Hg] Sa ra Clancy blood pressure, systolic 118 mm[Hg] Agustin a Clancy oxygen saturation, oximetry 92 % Marisela Clancy respiratory rate E&M 16 /min Marisela Si ms pulse rate 88 /min Marisela Clancy weight E&M 247 [lb_av] Marisela Clancy blood pressure, cuff size large Sa ra Clancy height E&M 64 [in_i] Marisela Clancy Body Mass Index (Ratio) 43.77 kg/m2 Aimee Rivera MD blood pressure, diastolic 64 mm[Hg] Li nkLogic blood pressure, systolic 122 mm[Hg] Lynnette kLogic oxygen saturation, oximetry 98 % Bren Diaz pulse rate 77 /min Rben Campbel l respiratory rate E&M 16 /min Bren Diaz blood pressure, cuff size regular Cy yuni Diaz blood pressure, diastolic 64 mm[Hg] John morrissey Diaz blood pressure, systolic 122 mm[Hg] Monica dasilva Diaz weight E&M 255 [lb_av] Bren Campbel l height E&M 64 [in_i] Bren Campbel l Body Mass Index (Ratio) 48.06 kg/m2 Chong Camacho blood pressure, diastolic 68 mm[Hg] John morrissey Diaz blood pressure, systolic 122 mm[Hg] Monica dasilva Diaz blood pressure, cuff size regular Cy yuni Diaz pulse rate 60 /min Bren Campbel l respiratory rate E&M 16 /min Bren Diaz Inhaled O2 2 L/min Bren Campbel l oxygen saturation, oximetry 94 % Bren Diaz weight E&M 280 [lb_av] Bren Campbel l height E&M 64 [in_i] Bren Campbel l Body Mass Index (Ratio) 42.91 kg/m2 Aimee Rivera MD Inhaled O2 2 L/min Bren Campbel l blood pressure, diastolic 75 mm[Hg] Cy yuni Diaz blood pressure, systolic 119 mm[Hg] Monica Diaz blood pressure, cuff size regular Cy yuni Diaz weight E&M 250 [lb_av] Bren jackson respiratory rate E&M 16 /min Bren Diaz pulse rate 67 /min Bren jackson oxygen saturation, oximetry 95 % Bren Diaz height E&M 64 [in_i] Bren jackson height E&M 64 [in_i] Dexter Rivera MD Body Mass Index (Ratio) 41.71 kg/m2 Chong Camacho blood pressure, diastolic 60 mm[Hg] Erwin mira Capps blood pressure, systolic 108 mm[Hg] Malinda Capps oxygen saturation, oximetry 95 % Trinidad Capps pulse rate 62 /min Trinidad Elder weight E&M 243 [lb_av] Trinidad Elder height E&M 64 [in_i] Trinidad Elder Body Mass Index (Ratio) 43.25 kg/m2 Aimee Rivera MD blood pressure, diastolic 80 mm[Hg] [facility], systolic 118 mm[Hg] Sheila barton [facility] Inhaled O2 1 L/min [facility] oxygen saturation, oximetry 96 % [facility] E&M 16 /min [facility] 93 /min weight E&M 252 [lb_av] Travis Mcconnell height E&M 64 [in_i] [facility] Body Mass Index (Ratio) 44.11 kg/m2 Aimee Rivera MD blood pressure, cuff size regular Cy yuni Diaz blood pressure, diastolic 72 mm[Hg] Cy yuni Diaz blood pressure, systolic 122 mm[Hg] Monica Diaz oxygen saturation, oximetry 97 % Bren Diaz respiratory rate E&M 16 /min Bren Diaz pulse rate 63 /min Bren jackson weight E&M 257 [lb_av] Bren Nolasco l height E&M 64 [in_i] Bren Nolasco l Body Mass Index (Ratio) 44.97 kg/m2 Aimee Rivera MD blood pressure, cuff size large Ke rri Gavin blood pressure, diastolic 82 mm[Hg] Ke rri Gavin blood pressure, systolic 122 mm[Hg] Tank ri Gavin oxygen saturation, oximetry 96 % Alesha Alonso respiratory rate E&M 24 /min Alesha fox pulse rate 71 /min Alesha Damian er weight E&M 262 [lb_av] Alesha Josephe lder height E&M 64 [in_i] Alesha Damian er Body Mass Index (Ratio) 45.79 kg/m2 Abraham Stuart blood pressure, diastolic 75 mm[Hg] Harriet Leigh blood pressure, systolic 125 mm[Hg] Aziza Leigh Inhaled O2 2 L/min Kamilla de paz oxygen saturation, oximetry 97 % Kamilla Leigh respiratory rate E&M 20 /min Derick Leigh pulse rate 71 /min Kamilla de paz weight E&M 266.8 [lb_av] Kamilla ryder height E&M 64 [in_i] Kamilla Hirsch nsbenjamin Body Mass Index (Ratio) 47.03 kg/m2 Elia Medeiros blood pressure, diastolic 80 mm[Hg] Da chai Kale blood pressure, systolic 122 mm[Hg] Dac ia Kale Inhaled O2 2 L/min Sherrie Kale oxygen saturation, oximetry 95 % Sherrie Kale respiratory rate E&M 20 /min Sherrie V oss pulse rate 51 /min Sherrie Kale weight E&M 274 [lb_av] Malik Maeb erg height E&M 64 [in_i] Sherrie Kale Body Mass Index (Ratio) 45.48 kg/m2 Aimee Rivera MD blood pressure, cuff size large Ke rri Gavin blood pressure, diastolic 74 mm[Hg] Ke rri Gruenenfabdias blood pressure, systolic 130 mm[Hg] Tank ri Gavin oxygen saturation, oximetry 96 % Alesha Gavin respiratory rate E&M 20 /min Alesha fox pulse rate 65 /min Alesha Damian lder weight E&M 265 [lb_av] Alesha Damian lder height E&M 64 [in_i] Alesha Grbettynejackeline lder blood pressure, resting Yes Aimee Rivera MD Body Mass Index (Ratio) 48.06 kg/m2 Aimee Rivera MD blood pressure, cuff size regular Ke rri Grueashley blood pressure, diastolic 79 mm[Hg] Ke rri Gruenepaul blood pressure, systolic 158 mm[Hg] Ker ri Gavin oxygen saturation, oximetry 89 % Alesha Gavin respiratory rate E&M 20 /min Alesha G osmanulissesrafiaer pulse rate 67 /min Alesha Damian er weight E&M 280 [lb_av] Alesha Josephe er height E&M 64 [in_i] Alesha Josephe er blood pressure, diastolic 90 mm[Hg] Ke rri Brownnejackelinrafiaer blood pressure, systolic 152 mm[Hg] Tank ri Derekbettykrystlejackelinrafiaer pulse rate 68 /min Alesha Josephe er oxygen saturation, oximetry 90 % Alesha Derekedgar respiratory rate E&M 16 /min Alesha G osmandyannfelderwin Body Mass Index (Ratio) 48.91 kg/m2 Vergara celestnia Gavin weight E&M 285 [lb_av] Alesha Damian [facility][note 2] blood pressure, diastolic 86 mm[Hg] Sd marissa Banegas blood pressure, systolic 143 mm[Hg] Carol spaulding Banegas pulse rate 68 /min Astrid Banegas oxygen saturation, oximetry 94 % Astrid Banegas respiratory rate E&M 16 /min Astrid Banegas Body Mass Index (Ratio) 48.23 kg/m2 Ashia vega Banegas weight E&M 281 [lb_av] Astrid Banegas blood pressure, diastolic 70 mm[Hg] Ke rri Gavin blood pressure, systolic 112 mm[Hg] Tank ri Gavin pulse rate 79 /min Alesha Damian er oxygen saturation, oximetry 93 % Alesha Gavin respiratory rate E&M 16 /min Alesha G ruddy blood pressure, diastolic 76 mm[Hg] Ke rri Gavin blood pressure, systolic 132 mm[Hg] Tank Dasilvakrystlejackelinabdias pulse rate 85 /min Alesha Reedalvarado vazquez oxygen saturation, oximetry 93 % Alesha Reeddavidjackelinabdias respiratory rate E&M 16 /min Alesha Talley osmandyanpaul blood pressure, diastolic, left arm 54 mm [Hg] Cindy Stueber blood pressure, systolic, left arm 104 mm [Hg] Cindy Stueber blood pressure, diastolic, right arm 52 m m[Hg] Cindy Stueber blood pressure, systolic, right arm 98 mm [Hg] Cindy Stueber Body Mass Index (Ratio) 47.48 kg/m2 Loida [address] [facility] blood pressure, diastolic 54 mm[Hg] Mario randall St blood pressure, systolic 104 mm[Hg] Vic whitehead Stueber pulse rate 73 /min Cindy Stueber oxygen saturation, oximetry 96 % ue respiratory rate E&M 16 /min Cindy hanson weight E&M 275.6 [lb_av] Cindy Stueber blood pressure, diastolic 74 mm[Hg] Jorge Steen RN blood pressure, systolic 119 mm[Hg] Gurpreet Steen RN pulse rate 61 /min Gurpreet Steen RN oxygen saturation, oximetry 97 % Gurpreet Steen RN respiratory rate E&M 17 /min Gurpreet eason RN weight E&M 262 [lb_av] Gurpreet Steen RN blood pressure, diastolic, left arm 76 mm [Hg] Cindy Stueber blood pressure, systolic, left arm 128 mm [Hg] Cindy Stueber blood pressure, diastolic, right arm 72 m m[Hg] Cindy Stueber blood pressure, systolic, right arm 126 m m[Hg] Cindy Stue Body Mass Index (Ratio) 44.86 kg/m2 Loida Mcgraw blood pressure, diastolic 76 mm[Hg] Mario Sandoval blood pressure, systolic 128 mm[Hg] Vic Sandoval pulse rate 65 /min Cindy Sandoval oxygen saturation, oximetry 94 % Cindy Mcgraw respiratory rate E&M 18 /min Cindy hernandezeber weight E&M 260.4 [lb_av] Cindy Sandoval height E&M 64 [in_i] Cindy Sandoval blood pressure, diastolic 78 mm[Hg] Jorge Steen RN blood pressure, systolic 133 mm[Hg] Gurpreet Steen RN pulse rate 85 /min Gurpreet Steen RN oxygen saturation, oximetry 93 % Gurpreet Steen RN respiratory rate E&M 20 /min Gurpreet eason RN weight E&M 286 [lb_av] Gurpreet Steen RN blood pressure, diastolic 89 mm[Hg] Anton Hughes blood pressure, systolic 148 mm[Hg] Basim Hughes pulse rate 89 /min Meera Hughes oxygen saturation, oximetry 94 % Meera Hughes respiratory rate E&M 20 /min Gilbert Hughes weight E&M 289 [lb_av] Meera Hughes blood pressure, diastolic, left arm 67 mm [Hg] Richardson [place] blood pressure, systolic, left arm 114 mm [Hg] Richardson [place] blood pressure, diastolic 67 mm[Hg] Nilda justin [place] blood pressure, systolic 114 mm[Hg] Steve garcía [place] pulse rate 64 /min Richardson [place] oxygen saturation, oximetry 93 % Richardson [place] respiratory rate E&M 20 /min Richardson [place] weight E&M 290 [lb_av] Richardson Wooten ALLERGIES Allergy Name Onset Date Reaction Criticality Status ADHESIVE TAPE Low Criticality active SYNTHROID Low Criticality active NOVOCAIN Low Criticality active TALWIN Low Criticality active DARVON Low Criticality active ELAVIL Low Criticality active RESULTS Date Observation Value Provider Reference Range Interpretation Location triiodothyronine, free, serum 2.5 pg/mL [facility] 2.0-4.4 digoxin level, serum <0.4 ng/mL [facility] 0.5-0.9 Low thyroid stimulating hormone, serum 8.440 u[IU]/mL [facility] 0.450-4.500 High thyroxine, serum, free 1.22 ng/dL [facility] 0.82-1.77 hemoglobin A1C, blood, as % of total hemoglobin 6.2 % [facility] 4.8-5.6 High lipoprotein, beta, serum, point, quantitative, calculated 47 mg/dL [facility] 0-99 HDL cholesterol, serum 48 mg/dL [facility] >39 triglyceride, serum, random 133 mg/dL [facility] 0-149 cholesterol, serum 118 mg/dL [facility] [phone]/01 /15 calcium, serum 9.4 mg/dL [facility] 8.7-10.3 carbon dioxide, venous blood 26 mmol/L [facility] 20-29 chloride, serum 101 mmol/L [facility] 96-106 potassium, serum 4.3 mmol/L [facility] 3.5-5.2 sodium, serum 141 mmol/L [facility] [phone]/01 /15 urea nitrogen/creatinine ratio, serum 23 [facility] 12-28 eGFR if 56 mL/min/{1.7 3_m2} [facility] >59 Low eGFR if not 49 mL/min/{1.7 3_m2} [facility] >59 Low creatinine, serum 1.08 mg/dL [facility] 0.57-1.00 High urea nitrogen, blood 25 mg/dL [facility] 8-27 blood glucose, random 152 mg/dL [facility] 65-99 High platelet count 162 X10E3/UL [facility] 355-468 0565/01 /15 red blood cell distribution width 13.2 % [facility] 11.7-15.4 mean corpuscular hemoglobin concentration, RBC 32.9 G/DL [facility] 31.5-35.7 mean corpuscular hemoglobin, RBC 30.2 pg [facility] 26.6-33.0 mean corpuscular volume, RBC 92 fL [facility] 79-97 hematocrit, blood 42.5 % [facility] 34.0-46.6 hemoglobin, blood 14.0 g/dL [facility] 11.1-15.9 erythrocyte (RBC) count 4.64 X10E6/UL [facility] 3.77-5.28 leukocyte count, blood 10.1 X10E3/UL [facility] 3.4-10.8 red blood cell distribution width, size density 52.2 fL [facility] - immature granulocytes, percentage of total cells, blood 0.4 % [facility] - nucleated red blood cells as percent of blood leukocytes 0.0 % [facility] - red blood cell (erythrocyte) count, per high power field 0.0 10*3/UL [facility] - eosinophils as percent of blood leukocytes 1.6 % [facility] - neutrophils as percent of blood leukocytes 76.4 % [facility] - Absolute Neutrophils 7.1 CELLS/UL [facility] 1.5 - 7.8 basophils as percent of blood leukocytes 0.5 % [facility] - Absolute Basophils 0.1 CELLS/UL [facility] 0.0 - 0.2 monocytes as percent of blood leukocytes 7.9 % [facility] - Absolute Monocytes 0.7 CELLS/UL [facility] 0.2 - 1.0 lymphocytes as percent of blood leukocytes 13.2 % [facility] - Absolute Lymphocytes 1.2 CELLS/UL [facility] 0.9 - 3.9 mean platelet volume 10.3 (?) [facility] - platelet count 174.0 THOUSAND/UL [facility] 100.0 - 400.0 mean corpuscular hemoglobin concentration, RBC 31.0 G/DL [facility] 31.0 - 38.0 mean corpuscular hemoglobin, RBC 29.8 pg [facility] 25.0 - 35.0 mean corpuscular volume, RBC 96.2 fL [facility] 75.0 - 100.0 hematocrit, blood 48.4 % [facility] 35.[facility] - 55.0 hemoglobin, blood 15.0 g/dL [facility] 11.5 - 16.5 erythrocyte count, whole blood 5.0 MILLION/UL [facility] 3.5 - 5.5 platelet count 208 10*3/mm3 [facility] hematocrit, blood 42.2 % [facility] triglyceride, serum, fasting 163 mg/dL [facility] Total HDL-cholesterol direct 46 mg/dL [facility] lipoprotein, beta, serum, point, quantitative, calculated 71 mg/dL [facility] cholesterol, serum 150 mg/dL [facility] thyroid stimulating hormone, serum 10.250 u[IU]/mL [facility] alanine aminotransferase (SGPT), serum 23 1/L [facility] aspartate aminotransferase (SGOT), serum 22 1/L [facility] creatinine, serum 1.25 mg/dL [facility] potassium, serum 4.6 mmol/L [facility] sodium, serum 142 mmol/L [facility] very low density lipoproteins 18 mg/dL [facility] LDL/HDL ratio, serum 1.6 [facility] triglyceride, serum, fasting 88 mg/dL [facility] HDL cholesterol, serum 41 mg/dL [facility] LDL cholesterol, serum 67 mg/dL [facility] cholesterol, serum 126 mg/dL [facility] mucus on urinalysis Yes [facility] urine crystals, microscopic Present Abnormal [facility] epithelial cells, urine, per microscopy 0-10 [facility] WBC urine on microscopy 6-10 Abnormal [facility] bacteria, urine microscopy Few [facility] RBC urine by microscopy 0-3 [facility] leukocyte esterase, urine, by dipstick Trace abnormal [facility] urobilinogen, urine, semiquantitative (dipstick) 0.2 [facility] nitrite, urine, semiquantitative Negative [facility] RBC, urine, dipstick Negative [facility] bilirubin, urine Negative [facility] ketones, urine, by test strip M [facility] glucose, urine, semiquantitative Negative [facility] protein, urine, semiquantitative (dipstick) Trace [facility] pH, urine, semiquantitative 6.0 [facility] specific gravity, urine 1.023 [facility] urine color Yellow [facility] appearance, urine Clear [facility] globulins, serum, total 3.7 g/dL [facility] Estimated Glomerular Filtration Rate (calc) >59 [facility] albumin/globulin ratio, serum 1.1 [facility] protein, total, serum 7.7 g/dL [facility] albumin, serum 4.0 g/dL [facility] bilirubin, serum, total 0.5 mg/dL [facility] alkaline phosphatase, serum 67 1/L [facility] alanine aminotransferase (SGPT), serum 27 1/L [facility] aspartate aminotransferase (SGOT), serum 22 1/L [facility] calcium, serum 9.4 mg/dL [facility] blood glucose, fasting 89 mg/dL [facility] creatinine, serum 0.80 mg/dL [facility] urea nitrogen, blood 20 mg/dL [facility] carbon dioxide, serum, total 23 mmol/L [facility] chloride, serum 103 mmol/L [facility] potassium, serum 4.0 mmol/L [facility] sodium, serum 142 mmol/L [facility] platelet count 186 10*3/uL [facility] red blood cell distribution width 14.5 % [facility] mean corpuscular hemoglobin concentration, RBC 33.9 g/dL [facility] mean corpuscular hemoglobin, RBC 31.9 pg [facility] mean corpuscular volume, RBC 94 fL [facility] hematocrit, blood 45.9 % [facility] hemoglobin, blood 15.6 g/dL [facility] erythrocyte (RBC) count 4.87 10*6/mm3 [facility] monocyte count, blood 0.4 10*3/mm3 [facility] lymphocyte count, blood 1.0 10*3/mm3 [facility] monocytes as percent of blood leukocytes 5 % [facility] lymphocytes as percent of blood leukocytes 13 % [facility] leukocyte count, blood 7.4 10*3/mm3 [facility] hematocrit, blood 45.5 % Marc Ceja hemoglobin, blood 14.9 g/dL Marc Ceja B-type natriuretic peptide 10.5 pg/mL Marc Ceja international normalized ratio (INR) 1.2 Nilda Santana prothrombin time (patient) 11.7 s Nilda Santana HISTORY OF MEDICATION USE Medication Status Instructions Dates Provider Indications Com ments Eliquis 5 mg tablet active Dexter Rivera MD benzonatate 200 mg capsule active daily Danielle Guerra NP Calcium Antacid 200 mg calcium (500 mg) tablet,chewable active 24 tabs as needed for indigestion Danielle Guerra NP triamcinolone acetonide 0.1% cream active Danielle Guerra NP dabigatran etexilate 150 mg capsule completed - Danielle Guerra NP cyanocobalamin (vitamin B-12) 1,000 mcg/mL solution active every 2 weeks Danielle Guerra NP Daily-Mehran (with folic acid) 400 mcg tablet active daily Danielle Guerra NP digoxin 125 mcg (0.125 mg) tablet active 1/2 tablet as directed Take once a day M-F Dexter Rivera MD diltiazem HCl 240 mg capsule,extended release 24hr completed - Danielle Guerra NP FeroSul 325 mg (65 mg iron) tablet active daily Danielle Guerra NP fluticasone propionate 50 mcg/actuation spray,suspension active 1 spray each nostril daily Danielle Guerra NP furosemide 40 mg tablet completed - Danielle Guerra NP levothyroxine 175 mcg tablet completed - Danielle Guerra NP loratadine 10 mg tablet active daily Danielle Guerra NP meclizine 25 mg tablet active q8hrs as needed for dizziness Danielle Guerra NP nystatin 100,000 unit/gram powder active skin folds TID Danielle Guerra NP pantoprazole 40 mg tablet,delayed release (DR/EC) active daily Danielle Guerra NP polyethylene glycol 3350 17 gram/dose powder active as needed for constipation Danielle Guerra NP potassium chloride 10 mEq capsule, extended release completed - Danielle Guerra NP tramadol 50 mg tablet completed - Danielle Guerra NP Steven Aerosphere 160-9-4.8 mcg/actuation HFA aerosol inhaler completed - Danielle Guerra NP cephalexin 500 mg capsule completed TAKE 1 CAPSULE BY MOUTH 3 TIMES A DAY FOR 7 DAYS - Danielle Guerra NP atorvastatin 10 mg tablet active TAKE 1 TABLET BY MOUTH DAILY Danielle Guerra NP doxycycline hyclate 100 mg capsule completed - Danielle Guerra NP Miralax 17 gram powder in packet active Take as needed Bren Diaz Nasacort 55 mcg aerosol,spray active Take as needed Bren Diaz albuterol sulfate 2.5 mg/3 mL (0.083 %) solution for nebulization completed Take as directed - Danielle Guerra NP miconazole nitrate 2% cream active Apply as needed Bren Diaz tramadol 50 mg tablet completed Take 1 tablet twice a day - Mabel Bishop Nyamyc 100,000 unit/gram powder active Apply as needed Bren Diaz #60, 30 days supply, Filled 06/15/2018 furosemide 40 mg tablet active Take 1 tablet once a day Bren Diaz #180, 90 days supply, Filled 06/15/2018 levothyroxine 175 mcg tablet active Take 1 tablet once a day Bren Diaz #90, 90 days supply, Filled 07/08/2018 ANORO ELLIPTA 62.5-25 MCG/INH INHALATION AEROSOL POWDER BREATH ACTIVATED completed inhale 1 puff once daily - Bren Diaz #60, 30 days supply, Filled 07/08/2018 TRAMADOL HCL 50 MG ORAL TABLET completed take as needed - Dexter Rivera MD #30, 15 days supply, Filled 08/02/2018 ASPIRIN ADULT LOW DOSE 81 MG ORAL TABLET DELAYED RELEASE completed One Tab By Mouth Daily - Dexter Rivera MD ACID CONTROL 150 MG ORAL TABLET completed as needed - Bren Diaz MECLIZINE HCL TABLET completed as needed - Danielle Guerra NP MIRALAX ORAL PACKET completed as needed - Dexter Rivera MD MUCINEX FAST-MAX PACKET completed as needed - Dexter Rivera MD RANEXA 500 MG ORAL TABLET EXTENDED RELEASE 12 HOUR completed take one pill a day - Sherrie Kale PROTONIX 40 MG ORAL PACKET completed take one pill a day - Sherrie Kale digoxin 125 mcg (0.125 mg) tablet completed Take 0.5 tablet once a day - Danielle Guerra NP BACTRIM TABLET completed take one pill twice a day for 6 more days - Alesha Alonso clobetasol 0.05% cream completed Use twice a day - Danielle Guerra NP diltiazem HCl 240 mg capsule,ext.rel 24h degradable active Take 1 tablet once a day Dexter Rivera MD CARVEDILOL 3.125 MG ORAL TABLET completed One tab twice daily - Susanna Disla RN PANTOPRAZOLE SODIUM TABLET DELAYED RELEASE completed daily - Alesha Alonso AMBIEN 5 MG ORAL TABLET completed PRN HS - Alesha Alonso TYLENOL EXTRA STRENGTH 500 MG ORAL TABLET completed PRN - Alesha Alonso WOMENS MULTIVITAMIN PLUS ORAL TABLET completed 50 once a day - Dexter Rivera MD Pradaxa 150 mg capsule completed Take 1 tablet by mouth twice a day - Dexter Rivera MD Samples given LISINOPRIL 5 MG ORAL TABLET completed half tab daily - Alesha Alonso CLARITIN CAPSULE completed daily as needed - Cindy Mcgraw ALEVE 220 MG ORAL TABLET completed 1 tablet by mouth twice daily as needed - Dexter Rivear MD SOMA 350 MG ORAL TABLET completed 1 tab daily PRN - Bren Diaz NYSTATIN POWDER completed as needed - Dexter Rivera MD ANTIVERT 25 MG TABS completed 1 tab three times a day - Dexter Rivera MD Lipitor 10 mg tablet completed 1 tablet by mouth once a day - Danielle Guerra NP METOPROLOL 50MG completed 1 tablet by mouth daily - Cindy Mcgraw LEVOTHYROXINE SODIUM 150 MCG ORAL TABLET completed take one pill a day - Dexter Rivera MD ALBUTEROL completed as needed - Dexter Rivera MD MYLANTA TABLET completed as needed - Dexter Rivera MD TUSSIN SYRUP completed as needed - Dexter Rivera MD FUROSEMIDE 40 MG ORAL TABLET completed 2 pills once a day - Travis Mcconnell potassium chloride 10 mEq tablet extended release active 2 tablet once a day Dexter Rivera MD NITROSTAT TABLET SUBLINGUAL completed as needed - Cindy Mcgraw COQ10 200 MG ORAL CAPSULE completed 1 capsule by mouth daily - Cindy Mcgraw MOVE FREE completed 1 tablet by mouth three times daily - Cindy Mcgraw NASACORT AQ 55 MCG/ACT NASAL AEROSOL completed as needed - Dexter Rivera MD SOCIAL HISTORY Date Observation Value Provider drug use no Dexter Rivera MD alcohol use no Dexter Rivera MD passive cigarette sm jean pierre exposure no Dexter Rivera MD smoking status Never smoker Dexter schwartz MD social history reviewed E&M revi ewed - no changes required Dexter Rivera MD social history E&M Marital Statu s: Single L patrick with family/friends E thnicity: S moking History: Ara harper has never smoked. Dexter Rivera MD smoking status Never smoker Danielle Ronlina lerma NP social history E&M Marital Statu s: Single L patrick with family/friends E thnicity: Smoking History: Ara harper has never smoked. Dexter Rivera MD social history reviewed E&M revi ewed - no changes required Dexter Rivera MD physical exercise, f requency, days per week no Alesha Alonso caffeine use, averag e drinks per day 0 /d Alesha Alonso passive cigarette sm jean pierre exposure no Aleshamarlys Alonso smoking status Never smoker Alesha Dasilvaanum torres social history reviewed E&M revi ewed - no changes required Dexter Rivera MD smoking status Never smoker Dexter schwartz MD social history reviewed E&M revi ewed - no changes required Dexter Rivera MD physical exercise, f requency, days per week no Bren Diaz caffeine use, averag e drinks per day 0 /d Bren Diaz passive cigarette sm jean pierre exposure no Bren Diaz social history E&M Marital Statu s: Single L patrick with family/friends E thnicity: Smoking History: Ara harper has never smoked. Dexter Rivera MD social history reviewed E&M revi ewed - no changes required Dexter Rivera MD physical exercise, f requency, days per week no Bren Diaz caffeine use, averag e drinks per day 0 /d Bren Diaz passive cigarette sm jean pierre exposure no Bren Joe smoking status Never smoker Bren Jim gordon social history E&M Marital Statu s: Single L patrick with family/friends E thnicity: Smoking History: P meredith has never smoked. Dexter Rivera MD social history reviewed E&M revi ewed - no changes required Dexter Rivera MD physical exercise, f requency, days per week no Bren Diaz caffeine use, averag e drinks per day 0 /d Bren Diaz passive cigarette sm jean pierre exposure no Bren Joe smoking status Never smoker Bren Jim gordon social history E&M Marital Statu s: Single L patrick with family/friends E thnicity: Smoking History: P meredith has never smoked. Carlos Camacho social history reviewed E&M revi ewed - no changes required Carlos Camacho smoking status Never smoker Carlos Camacho social history E&M Marital Statu s: Single L patrick with family/friends E thnicity: Smoking History: P meredith has never smoked. Dexter Rivera MD physical exercise, f requency, days per week no Trinidad Capps caffeine use, averag e drinks per day 0 /d Trinidad Capps passive cigarette sm jean pierre exposure no Trinidad Capps smoking status Never smoker Trinidad Marte social history reviewed E&M revi ewed - no changes required Trinidad Capps social history E&M Marital Statu s: Single L patrick with family/friends E thnicity: Smoking History: P meredith has never smoked. Dexter Rivera MD social history reviewed E&M revi ewed - no changes required Dexter Rivera MD smoking status Never smoker Travis lundy physical exercise, f requency, days per week no [place] Mcconnell alcohol use, average drinks per day social basis only [place] Mcconnell alcohol use no Travis Mcconenll caffeine use, averag e drinks per day 0 /d [place] Mcconnell drug use no Travis Mcconnell passive cigarette sm jean pierre exposure no [place] Mcconnell caffeine use, averag e drinks per day 0 /d Olivia Culclager smoking status Never smoker Olivia Culclage r caffeine use, averag e drinks per day 0 /d Olivia Culclager smoking status Never smoker Olivia Culclage r caffeine use, averag e drinks per day 0 /d Olivia Culclager smoking status Never smoker Olivia Culclage r caffeine use, averag e drinks per day 0 /d Olivia Culclager smoking status Never smoker Olivia Culclage r social history reviewed E&M revi ewed - no changes required Dexter Rivera MD physical exercise, f requency, days per week no Bren Joe alcohol use, average drinks per day social basis only Bren Joe alcohol use no Bren Gaurav jackson caffeine use, averag e drinks per day 0 /d Bren Diaz drug use no Bren Gaurav jackson passive cigarette sm jean pierre exposure no Bren Joe smoking status Never smoker Bren Jim gordon social history reviewed E&M revi ewed - no changes required Dexter Rivera MD physical exercise, f requency, days per week no Alesha Alonso alcohol use, average drinks per day social basis only Alesha Alonso alcohol use no Alesha vazquez caffeine use, averag e drinks per day 0 /d Alesha Alonso drug use no Alesha Damian vazquez passive cigarette sm jean pierre exposure no Aleshamarlys Alonso smoking status Never smoker Alesha Reedrimma torres social history reviewed E&M revi ewed - no changes required Dexter Rivera MD physical exercise, f requency, days per week no Kamilla Leigh alcohol use, average drinks per day social basis only Kamilla Leigh alcohol use no Kamilla de paz caffeine use, averag e drinks per day 0 /d Kamilla Leigh drug use no Kamilla Hirsch nson passive cigarette sm jean pierre exposure no Kamilla Leigh smoking status Never smoker Kamilla Shi social history E&M Marital Statu s: Single L patrick with family/friends E thnicity: Smoking History: Ara harper has never smoked. Malik Medeiros social history reviewed E&M revi ewed - no changes required Malik Medeiros physical exercise, f requency, days per week no Sherrie Kale alcohol use, average drinks per day social basis only Sherrie Kale alcohol use no Sherrie Kale caffeine use, averag e drinks per day 0 /d Sherrie Kale drug use no Sherrie Kale passive cigarette sm jean pierre exposure no Sherrie Kale smoking status Never smoker Sherrie Kale smoking status Never smoker Dexter schwartz MD social history reviewed E&M revi ewed - no changes required Dexter Rivera MD number of grandchildren Dexter Rivera MD physical exercise, f requency, days per week no Alesha Alonso alcohol use, average drinks per day social basis only Alesha Alonso alcohol use no Alesha Salgado nirajer caffeine use, averag e drinks per day 0 /d Alesha Alonso drug use no Alesha Damian lder passive cigarette sm jean pierre exposure no Alesha Alonso social history E&M Marital Statu s: Single L patrick with family/friends E thnicity: Smoking History: P atbarbara has never smoked. Dexter Rivera MD social history reviewed E&M revi ewed - no changes required Dexter Rivera MD physical exercise, f requency, days per week no Alesha Ruizabdias alcohol use, average drinks per day social basis only Alesha Ruizabdias alcohol use no Alesha Salgado nirajer caffeine use, averag e drinks per day 0 /d Dexter Rivera MD drug use no Alesha Salgado nirajer passive cigarette sm jean pierre exposure no Alesha Ruizabdias smoking status Never smoker Alesha Reedrimma torres physical exercise, f requency, days per week no Dexter Rivera MD alcohol use, average drinks per day social basis only Dexter Rivera MD caffeine use, averag e drinks per day no Dexter Rivera MD drug use no Dexter Rivera MD passive cigarette sm jean pierre exposure no Dexter Rivera MD smoking status Never smoker Dexter schwartz MD social history E&M Marital Statu s: Single L patrick with family/friends E thnicity: Smoking History: P atbarbara has never smoked. Dexter Rivera MD social history reviewed E&M revi ewed - no changes required Dexter Rivera MD alcohol use no Alesha Malujackelinsue vazquez social history reviewed E&M revi ewed - no changes required Dexter Rivera MD physical exercise, f requency, days per week no Astrid Banegas alcohol use, average drinks per day social basis only Astrid Banegas alcohol use no Astrid Banegas caffeine use, averag e drinks per day no Astrid Banegas drug use no Astrid Banegas passive cigarette sm jean pierre exposure no Astrid Banegas smoking status Never smoker Astrid Carter cole physical exercise, f requency, days per week no Dexter Rivera MD alcohol use, average drinks per day social basis only Dexter Rivera MD caffeine use, averag e drinks per day no Dexter Rivera MD drug use no Dexter Rivera MD passive cigarette sm jean pierre exposure no Dexter Rivera MD smoking status Never smoker Dexter schwartz MD social history E&M Marital Statu s: Single L patrick with family/friends E thnicity: Smoking History: P atient has never smoked. Dexter Rivera MD social history reviewed E&M revi ewed - no changes required Dexter Rivera MD alcohol use no Alesha Salgado lder social history reviewed E&M revi ewed - no changes required Adriana Ireland MD alcohol use no Alesha Salgado lder smoking status Never smoker Alesha torres social history reviewed E&M reviewed Gurpreet Steen RN drug use no Gurpreet Steen RN passive cigarette sm jean pierre exposure no Gurpreet Steen RN social history reviewed E&M reviewed Gurpreet Steen RN social history reviewed E&M reviewed Gurpreet Steen RN smoking status never smoker Cindy Mcgraw social history reviewed E&M reviewed Gurpreet Steen RN drug use none Dexter Rivera MD social history reviewed E&M reviewed Dexter Rivera MD social history E&M Marital Statu s: Single L patrick with family/friends E thnicity: Gurpreet Steen RN social history reviewed E&M reviewed Gurpreet Steen RN physical exercise, f requency, days per week no [employer] caffeine use, averag e drinks per day no [employer] alcohol use, average drinks per day social basis only [employer] smoking status Non-smoker [employer] FUNCTIONAL STATUS Date Observation Value Provider HRA, CV Assess/Plan, Angina (inactive) Management Plan continue current therapy Dexter Rivera MD HRA, CV Assess/Plan, Angina (inactive) Management Plan continue current therapy Danielle Guerra HEAD BANQUET WAITRESS MENTAL STATUS Date Observation Value Provider assessment of judgme nt and insight E&M Alert and oriented to time, place and person. Mood and affect are normal. Gurpreet Steen RN assessment of judgme nt and insight E&M Alert and oriented to time, place and person. Mood and affect are normal. Gurpreet Steen RN assessment of judgme nt and insight E&M Alert and oriented to time, place and person. Mood and affect are normal. Gurpreet Steen RN assessment of judgme nt and insight E&M Alert and oriented to time, place and person. Mood and affect are normal. Gurpreet Steen RN assessment of judgme nt and insight E&M Alert and oriented to time, place and person. Mood and affect are normal. Dexter Rivera MD assessment of judgme nt and insight E&M Alert and oriented to time, place and person. Mood and affect are normal. Gurpreet Steen RN FAMILY HISTORY Family Member Condition Mother NM female <65 Father Family History of Ot her Cancer Mother Family History of Ford dden Cardiac : Father Family History of Hy pertension: Father Family History of CV A or Stroke: INSURANCE PROVIDERS Payer name Policy type / Coverage type [employer] party ID [employer] Medicaid [id number] [place] [employer] [place] Medicare 3000 [id number] ADVANCE DIRECTIVES Name Date DISCUSSED - NO DECISION MADE TREATMENT PLAN Date Name Performer [id number],C,L eft LE edema with large blister on the lateral aspect of the leg. She is following with podiatry. S he recently had doppler done with Joe and we will request results Dexter Rivera MD [id number],C,S he recently d/c Breztri inhaler with pulmonary and states her shakes and palpitations have improved since then. Contineus to wear o2 2L all the time. Dexter Rivera MD [id number],C,B lood pressure control is satisfactory. BP today: 118/90 P rior BP: 130/84 (09/10/2022) Her updated medication list for this problem includes: Diltiazem Hcl 240 Mg Capsule,ext.rel 24h Degradable (Diltiazem hcl) ..... Take 1 tablet once a day Furosemide 40 Mg Tablet (Furosemide) ..... Take 1 tablet once a day Dexter Rivera MD [id number],C,C ontinues on statin, aim for LDL less than 70 0 12/2021 LDL 66 S he had recent bloodwork with PCP that we will request Her updated medication list for this problem includes: Atorvastatin 10 Mg Tablet (Atorvastatin) ..... Take 1 tablet by mouth daily Dexter Rivera MD [id number],C,C hest pain free. 45% mid RCA stenosis on cath 10/2017. Dexter Rivera MD [id number],C,I n rate controlled afib on EKG. Continues on Pradaxa for alf OAC. Continues Diltiazem and Digoxin. S he had recent bloodwork with PCP that we will request. We will switch Digoxin to once a day M-F Dexter Rivera MD [id number],C,will request recent labs. Danielle Guerra NP [id number],C, W eight loss advised. Danielle Guerra DAE [id number],C, S table. Uses O2 2L continuous. Danielle Guerra DAE [id number],C, B P today: 130/84 P rior BP: 115/73 (03/12/2022) Labs Reviewed: C reat: 1.08 (05/17/2020) C hol: 118 (05/17/2020) HDL: 48 (05/17/2020) Her updated medication list for this problem includes: Diltiazem Hcl 240 Mg Capsule,extended Release 24hr (Diltiazem hcl) Furosemide 40 Mg Tablet (Furosemide) Diltiazem Hcl 240 Mg Capsule,ext.rel 24h Degradable (Diltiazem hcl) ..... Take 1 tablet once a day Furosemide 40 Mg Tablet (Furosemide) ..... Take 1 tablet once a day Danielle Guerra DAE [id number],C, L abs Reviewed: T SH: 8.440 (05/17/2020) H gBA1c: 6.2 (05/17/2020) C hol: 118 (05/17/2020) HDL: 48 (05/17/2020) Her updated medication list for this problem includes: Levothyroxine 175 Mcg Tablet (Levothyroxine) ..... Take 1 tablet once a day Danielle Wilkinslana PEARL [id number],C, I n rate controlled afib on EKG. Continues on Pradaxa for supervisor intermediates OAC. will request recent labs to assess Renal function. Continues Diltiazem and Digoxin. Danielle Guerra DAE [id number],C,C HOL: 118 (05/17/2020) HDL: 48 (05/17/2020) T he following medications were removed from the medication list: Lipitor 10 Mg Tablet (Atorvastatin) ..... 1 tablet by mouth once a day Her updated medication list for this problem includes: Atorvastatin 10 Mg Tablet (Atorvastatin) ..... Take 1 tablet by mouth daily Danielle Wilkinslana PEARL [id number],C, C hest pain free. 45% mid RCA stenosis on cath 10/2017. Danielle Guerra HEAD BANQUET WAITRESS [id number],C, S table. Will continue with routine monitoring. We will repeat her echo at the next visit. Danielle Wilkinslana HEAD BANQUET WAITRESS [id number],S, S table. Will continue with routine monitoring. We will repeat her echo at the next visit. Dexter Rivera MD [id number],S, S table. On inhalers. Uses O2 as needed. Dexter Rivera MD [id number],S, C hest pain free. 45% mid RCA stenosis on cath 10/2017. Dexter Rivera MD [id number],S, S table. Will continue with routine monitoring. Dexter Rivera MD [id number],S, C ontinues on Lipitor. Recent LDL is 66. Dexter Rivera MD [id number],S, I n rate controlled afib on EKG. Continues on Pradaxa for alf OAC. Renal function normal on most recent labs. Continues Diltiazem and Digoxin. Dexter Rivera MD [id number],S, R ecent A1c 6.4. Advised sugar and processed carbohydrate restriction. Dexter Rivera MD [id number],S, S table. On inhalers. Dexter Rivera MD [id number],S, W eight loss advised. Dexter Rivera MD [id number],S, B P control is satisfactory. Dexter Rivera MD [id number],S, C ontinues on Levothyroxine. Dexter Rivera MD [id number],C, C ontinues on Lipitor. Dexter Rivera MD [id number],C, H er CT chest from 12/17/2020 showed bilateral ground-glass pulmonary densities, atelectatic densities within both lung bases, cardiomegaly, coronary artery calcification.Currently on doxycycline. She reports she experiences intermittent cough which she 'has had all her life.' Continues on O2 via nasal cannula. Follows Dr. Breaux for pulmonology. Recent echo 01/2022 shows ventricular ejection fraction is measured at 65 %.Trace mitral valve regurgitation, Mild aortic stenosis. Moderate aortic valve regurgitation, Mild to moderate tricuspid regurgitation. Right ventricular systolic pressure is consistent with mild pulmonary hypertension. Dexter Rivera MD [id number],C, B P control is satisfactory. Dexter Rivera MD [id number],C, I n SR on EKG. Continues on Pradaxa for alf OAC. Renal function normal on most recent labs. Continues Diltiazem and Digoxin. Dexter Rivera MD [id number],C,S he had not been able to utilize her boots as she no longer has an aide to help her put them on. She has blisters on her bilateral legs. She has significant venous insufficiency of the left great saphenous vein. Dexter Rivera MD [id number],C,Weight loss a dvised. Dexter Rivera MD [id number],C,Continues on Levothyroxine. Dexter Rivera MD [id number],C,C ontinues on Lipitor. Most recent LDL 62 which is satisfactory. Dexter Rivera MD [id number],C,B P control is satisfactory. Dexter Rivera MD [id number],C,S ignificant improvement with lymphedema boots which she continues to use. Swelling of the RLE>LLE today with an ulcer and erythema anteriorly so will arrange for her to have a venous doppler BLE reflux. She continues to ambulate with a wheelchair. Dexter Rivera MD [id number],C,I n afib on EKG with rate controlled. QTC 440. Continues on Pradaxa for alf OAC. Renal function normal on most recent labs. Continues Diltiazem and Digoxin. Dexter Rivera MD [id number],C,H er CT chest from 12/17/2020 showed bilateral ground-glass pulmonary densities, atelectatic densities within both lung bases, cardiomegaly, coronary artery calcification.Currently on doxycycline. She reports she experiences intermittent cough which she 'has had all her life.' Continues on O2 via nasal cannula. Follows Dr. Breaux for pulmonology. Dexter Rivera MD Cardiology:Following with podiat ry Dexter Rivera MD Cardiology Dexter Brown Cardiology: S table. WIll continue with routine monitoring C P free Dexter Rivera MD Cardiology:Continues on atorvastatin 10mg once daily for primary prevention of cardiovascular disease Dexter Rivera MD Cardiology:Uses nebu lizer as needed. Contineus to wear o2 2L all the time. Dexter Rivera MD Cardiology: C hest pain free. 45% mid RCA stenosis on cath 10/2017. Dexter Rivera MD Cardiology: I n rate controlled afib on EKG. Continues on Eliquis for supervisor intermediates OAC. Pradaxa D/C by insurance company. Continues Diltiazem and Digoxin. S table and rate controlled Dexter Rivera MD Cardiology:Left LE e jami with large blister on the lateral aspect of the leg. She is following with podiatry. S he recently had doppler done with Joe and we will request results Dexter Rivera MD Cardiology:She recen tly d/c Breztri inhaler with pulmonary and states her shakes and palpitations have improved since then. Contineus to wear o2 2L all the time. Dexter Rivera MD Cardiology:Blood pre ssure control is satisfactory. BP today: 118/90 P rior BP: 130/84 (09/10/2022) Her updated medication list for this problem includes: Diltiazem Hcl 240 Mg Capsule,ext.rel 24h Degradable (Diltiazem hcl) ..... Take 1 tablet once a day Furosemide 40 Mg Tablet (Furosemide) ..... Take 1 tablet once a day Dexter Rivera MD Cardiology:Continues on statin, aim for LDL less than 70 0 12/2021 LDL 66 S he had recent bloodwork with PCP that we will request Her updated medication list for this problem includes: Atorvastatin 10 Mg Tablet (Atorvastatin) ..... Take 1 tablet by mouth daily Dexter Rivera MD Cardiology:Chest heber n free. 45% mid RCA stenosis on cath 10/2017. Dexter Rivera MD Cardiology:In rate c ontrolled afib on EKG. Continues on Pradaxa for supervisor intermediates OAC. Continues Diltiazem and Digoxin. S he had recent bloodwork with PCP that we will request. We will switch Digoxin to once a day M-F Dexter Rivera MD Cardiology:will request recent l abs. Danielle Guerra NP Cardiology: W eight loss advised. Danielle Guerra NP Cardiology: S table. Uses O2 2L continuous. Danielle Guerra NP Cardiology: B P today: 130/84 P rior BP: 115/73 (03/12/2022) Labs Reviewed: C reat: 1.08 (05/17/2020) C hol: 118 (05/17/2020) HDL: 48 (05/17/2020) Her updated medication list for this problem includes: Diltiazem Hcl 240 Mg Capsule,extended Release 24hr (Diltiazem hcl) Furosemide 40 Mg Tablet (Furosemide) Diltiazem Hcl 240 Mg Capsule,ext.rel 24h Degradable (Diltiazem hcl) ..... Take 1 tablet once a day Furosemide 40 Mg Tablet (Furosemide) ..... Take 1 tablet once a day Danielle Mari PEARL Cardiology: L abs Reviewed: T SH: 8.440 (05/17/2020) H gBA1c: 6.2 (05/17/2020) C hol: 118 (05/17/2020) HDL: 48 (05/17/2020) Her updated medication list for this problem includes: Levothyroxine 175 Mcg Tablet (Levothyroxine) ..... Take 1 tablet once a day Danielle Guerra NP Cardiology: I n rate controlled afib on EKG. Continues on Pradaxa for supervisor intermediates OAC. will request recent labs to assess Renal function. Continues Diltiazem and Digoxin. Danielle Mari PEARL Cardiology:CHOL: 118 (05/17/2020) HDL: 48 (05/17/2020) T he following medications were removed from the medication list: Lipitor 10 Mg Tablet (Atorvastatin) ..... 1 tablet by mouth once a day Her updated medication list for this problem includes: Atorvastatin 10 Mg Tablet (Atorvastatin) ..... Take 1 tablet by mouth daily Danielle Guerra NP Cardiology: C hest pain free. 45% mid RCA stenosis on cath 10/2017. Danielle Guerra NP Cardiology: S table. Will continue with routine monitoring. We will repeat her echo at the next visit. Danielle Guerra NP Cardiology: S table. Will continue with routine monitoring. We will repeat her echo at the next visit. Dexter Rivera MD Cardiology: S table. On inhalers. Uses O2 as needed. Dexter Rivera MD Cardiology: C hest pain free. 45% mid RCA stenosis on cath 10/2017. Dexter Rivera MD Cardiology: S table. Will continue with routine monitoring. Dexter Rivera MD Cardiology: C ontinues on Lipitor. Recent LDL is 66. Dexter Rivera MD Cardiology: I n rate controlled afib on EKG. Continues on Pradaxa for supervisor intermediates OAC. Renal function normal on most recent labs. Continues Diltiazem and Digoxin. Dexter Rivera MD Cardiology: R ecent A1c 6.4. Advised sugar and processed carbohydrate restriction. Dexter Rivera MD Cardiology: S table. On inhalers. Dexter Rivera MD Cardiology: W eight loss advised. Dexter Rivera MD Cardiology: B P control is satisfactory. Dexter Rivera MD Cardiology: C ontinues on Levothyroxine. Dexter Rivera MD Cardiology: C ontinues on Lipitor. Dexter Rivera MD Cardiology: H er CT chest from 12/17/2020 showed bilateral ground-glass pulmonary densities, atelectatic densities within both lung bases, cardiomegaly, coronary artery calcification.Currently on doxycycline. She reports she experiences intermittent cough which she 'has had all her life.' Continues on O2 via nasal cannula. Follows Dr. Breaux for pulmonology. Recent echo 01/2022 shows ventricular ejection fraction is measured at 65 %.Trace mitral valve regurgitation, Mild aortic stenosis. Moderate aortic valve regurgitation, Mild to moderate tricuspid regurgitation. Right ventricular systolic pressure is consistent with mild pulmonary hypertension. Dexter Rivera MD Cardiology: B P control is satisfactory. Dexter Rivera MD Cardiology: I n SR on EKG. Continues on Pradaxa for alf OAC. Renal function normal on most recent labs. Continues Diltiazem and Digoxin. Dexter Rivera MD Cardiology:She had n ot been able to utilize her boots as she no longer has an aide to help her put them on. She has blisters on her bilateral legs. She has significant venous insufficiency of the left great saphenous vein. Dexter Rivera MD Cardiology follow up :Weight los s advised. Dexter Rivera MD Cardiology follow up :Continues on Levothyroxine. Dexter Rivera MD Cardiology follow up :Continues on Lipitor. Most recent LDL 62 which is satisfactory. Dexter Rivera MD Cardiology follow up :BP control is satisfactory. Dexter Rivera MD Cardiology follow up :Significant improvement with lymphedema boots which she continues to use. Swelling of the RLE>LLE today with an ulcer and erythema anteriorly so will arrange for her to have a venous doppler BLE reflux. She continues to ambulate with a wheelchair. Dexter Rivera MD Cardiology follow up :In afib on EKG with rate controlled. QTC 440. Continues on Pradaxa for alf OAC. Renal function normal on most recent labs. Continues Diltiazem and Digoxin. Dexter Rivera MD Cardiology follow up :Her CT chest from 12/17/2020 showed bilateral ground-glass pulmonary densities, atelectatic densities within both lung bases, cardiomegaly, coronary artery calcification.Currently on doxycycline. She reports she experiences intermittent cough which she 'has had all her life.' Continues on O2 via nasal cannula. Follows Dr. Breaux for pulmonology. Dexter Rivera MD Cardiology follow up :Significant improvement with lymphedema boots which she continues to use. Carlos oleg Cardiology follow up :Continues on oxygen concentrator. Advised to increase to 2L at rest and 3 L on effort for SOB. Cardiology follow up :Weight susan s advised Carlos oleg Cardiology follow up :will check thyroid panel. Carlos oleg Cardiology follow up :Continues on Atorvastatin. Will check lipid panel. Carlos oleg Cardiology follow up :Blood pressure control is satisfactory. Carlos oleg Cardiology follow up :Continues to have intermittent episodes of palpitations. In afib on EKG with rate of 68 beats per minute. Will reduce Digoxin to every other day. QTC 482. Copntinues on Pradaxa for alf OAC. Continues on Diltiazem 240mg daily. Will check Digoxin level and renal function. Carlos Camacho Cardiology follow up :Weight susan s advised. Dexter Rivera MD Cardiology follow up :Persistent. She continues on bronchodilators and follows pulmonary. Dexter Rivera MD Cardiology follow up :Continues on Levothyroxine. Dexter Rivera MD Cardiology follow up :Continues on Atorvastatin. Dexter Rivera MD Cardiology follow up :Persits with venous stasis changes. Advised to use moisturizing cream to prevent cracking of the skin. Continues to use compression boots. Dexter Rivera MD Cardiology follow up :Blood pressure control is satisfactory. Dexter Rivera MD Cardiology follow up :In sinus rhythm on EKG. She does report episodes of palpitations. She continues on Digoxin and is on Pradaxa for supervisor intermediates anticoagulation. Will have her discontinue Aspirin. Dexter Rivera MD TeleHealth :Weight loss advised Carlos Camacho TeleHealth :Improved. Follows pu lmonary. Carlos oleg TeleHealth :Continues on Atorvas tatin. Carlos oleg TeleHealth :Continues on Levothy roxine. Carlos TeleHealth :Advised to monitor her blood pressure. She continues on Lasix and Diltiazem. Carlos TeleHealth :Denies o f any palpitations. She continues on Pradaxa for supervisor intermediates OAC. Carlos Cardiology:Weight loss advised Eduardo Camacho Cardiology:Persits w ith venous stasis changes. Advised to use moisturizing cream to prevent cracking of the skin. Continues to use compression boots. Carlos Cardiology:Continues on Levothyroxine. Will request labs from your office. Carlos Cardiology:Continues on Atorvastatin. Will request labs from your office. Carlos Cardiology:Blood pressure contro l is satisfactory. Carlos Cardiology:Paroxsmal afib on ILR persists. She continues on Pradaxa for supervisor intermediates anticoagulation. Carlos Camacho Cardiology:Weight loss advised. Dexter Rivera MD Cardiology:Chronic. On continuou s oxygen. Dexter Rivera MD Cardiology:Stable. Follows pulmo nary. Dexter Rivera MD Cardiology:On Lipito r. Dexter Rivera MD Cardiology:Blood pressure contro l is satisfactory. Dexter Rivera MD Cardiology:Paroxysma l. 20 episodes on ILR. She continues on Pradaxa for alf anticoagulation. Dexter Rivera MD Cardiology hospital follow up:Stable. Follows pulmonary. Dexter Rivera MD Cardiology hospital follow up:On Lipitor. Dexter Rivera MD Cardiology hospital follow up:Blood pressure control is satisfactory. Dexter Rivera MD Cardiology hospital follow up:Paroxysmal. The LinQ recorder interrogation shows pt to be in SR. EKG shows regular rhythm but because of baseline artifact, P waves are not very well visualized. She continues on Pradaxa for long-term anticoagulation and Diltiazem CD 240mg daily. Dexter Rivera MD Cardiology hospital follow up:Recent admission with sepsis was noted to have elevated troponin and she underwent a cath which showed normal epicardial coronary arteries. No chest pain since discharge. Minimally ambulatory because of SOB. Dexter Rivera MD Cardiology Follow up :Weight loss advised. Dexter Rivera MD Cardiology Follow up :TSH done a few months ago by Dr. Betancur had shown an elevated TSH. She does not appear to be compliant with her levothyroxine. Dexter Rivera MD Cardiology Follow up :On Lipitor. Dexter Rivera MD Cardiology Follow up :Stable. Dexter Rivera MD Cardiology Follow up : Rate controlled. Continues on Pradaxa 150mg BID and Diltiazem Hcl and Digoxin for rate control. Dexter Rivera MD Cardiology:TSH done two months ago by Dr. Betancur had shown an elevated TSH. She does not appear to be compliant with her levothyroxine. Rosa Stuart Cardiology:Much impr sheri. Very compliant with lymphedema boots. She feels that she has had them for many years and that they need to be replaced. Will try to get information and send in a request. Dexter Rivera MD Cardiology:Stable. Dexter schwartz MD Cardiology:TSH done two months ago by you had shown an elevated TSH. She does not appear to be compliant with her levothyroxine. Dexter Rivera MD Cardiology:On Lipitor. Dexter Rivera MD Cardiology:Chronic. Rate controlled. Continues on Pradaxa 150mg BID and Diltiazem Hcl and Digoxin for rate control. Dexter Rivera MD Cardiology:Clinicall y she seems to be in no distress and does not appear to be in heart failure. She did not feel any improvement of her SOB with the increase of dose of diuretic. Will await the BNP. I have advised her to continue on the present Lasix dose of 40mg daily and have increased the KCl to 20meq daily. Will check an echo. Dexter Rivera MD Cardiology follow up :She's wheelchair bound which she relates to her severe SOB and fatigue. She's on continuous O2. Dexter Rivera MD Cardiology follow up :Blood pressure control is satisfactory. Dexter Rivera MD Cardiology follow up:On replacem ent therapy. Dexter Rivera MD Cardiology follow up :Significantly improved since her last visit. Dexter Rivera MD Cardiology follow up :She is in atrial fibrillation with a controlled ventricular rate. She's on Diltiazem 240mg daily and Digoxin 625 mcg daily. She's on long-term anticoagulation with Pradaxa. Dexter Rivera MD Cardiology Follow up :Hypothyroidism - On replacement therapy Dexter Rivera MD Cardiology Follow up :No recurrence. Discontinue Ranexa. Dexter Rivera MD Cardiology Follow up :Pt today is in NSR. I have changed diltiazem CD to 240mg qD. Continues on Pradaxa. Dexter Rivera MD Cardiology Follow up :In sinus rhythm today. We will continue to monitor her symptoms via ILR. She continues on supervisor intermediates anticoagulation with Pradaxa. Dexter Rivera MD Cardiology Follow up:On replacem ent therapy. Dexter Rivera MD Cardiology Follow up:Continues o n Lipitor. Dexter Rivera MD Cardiology Follow up :Continues on her present medications. Dexter Rivera MD Cardiology Follow up :Remains symptomatic with palpitations. Her ILR did not show any arrhythmia. Cardizem did not improve her palpitations. Will start her on digoxin 62.5 mcg daily. Dexter Rivera MD Cardiology Wound Emerald ck :BP today was 152/90. Will continue to monitor the BP. Dexter Rivera MD Cardiology Wound Emerald ck :In sinus rythm today. As she is symptomatic with palpitations will increase Cardizem CD to 120 mg twice daily. We will continue to monitor her symptoms and download the information from the Linq recorder. She cotninues on alf anticoagulation with Pradaxa. Dexter Rivera MD Cardiology Wound Check :On repla cement therapy. Dexter Rivera MD Cardiology Wound Check :Continue s on Lipitor. Dexter Rivera MD Cardiology Wound Emerald ck :Recent trauma to the right big toe. She is now on anitbiotics and the wound is healing. Dexter Rivera MD Cardiology:On replacement therap y., Dexter Rivera MD Cardiology:Continues on Lipitor. Dexter Rivera MD Cardiology:Remains s ymptomatic with palpitations. The last holter did not correlate with these symptoms. The Cardizem did not improve her palpitations. I discussed with her a TeleSyntry monitor placement. The patient was concerned about the skin allergies associated with the electrodes. She did agree to have a LINQ recorder placed. She will hold her Pradaxa three days prior to placement. Dexter Rivera MD Cardiology:Blood pressure contro l satisfactory. Dexter Rivera MD Cardiology Follow up :No further recurrence. Dexter Rivera MD Cardiology Follow up :On repacem ent therapy. Dexter Rivera MD Cardiology Follow up :On Statins . Dexter Rivera MD Cardiology Follow up :Weight los s advised. Dexter Rivera MD Cardiology Follow up :When seen today, she was in sinus rhythm. She continues on Pradaxa for alf anticoagulation. Dexter Rivera MD Cardiology Follow up :Her symptoms of palpitations are inconsistent with the holter monitor findings. However, it seems her symptoms limits her daily activites. Will start her on Cardizem CD 120 mg once daily. Her symptoms were best controled on Toprol XL but this was discontinued because she experienced hair loss. Dexter Rivera MD Cardiology Follow up Adriana castillo MD Cardiology Follow up Adriana castillo MD Cardiology Follow up Adriana castillo MD Cardiology Follow up Adriana castillo MD Cardiology Follow up Adriana castillo MD f/u: H er updated medication list for this problem includes: Lasix Tabs (Furosemide tabs) ..... 60mg daily BP today: 148/89 Prior BP: 114/67 (07/31/2009) N uclear Stress Findings: 1. Regadenoson mediated myocardial perfusion study 2 . Normal left ventricular size and moderately reduced left ventricular systolic function with a calculated ejection fraction of 41%. 3 . Myocardial scintigraphy demonstrates a large reversible inferior wall defect consistent with ischemia. (07/31/2009) E chocardiogram: Normal left ventricularsize and systolic function. There is E to A wave reversal consistent with impaired LV relaxation. Left ventricular ejection fraction is estimated at 60%. There is mild enlargement of the left atrium. Mild aortic valve regurgitation. There is mild tricuspid regurgitation. Ascending aorta is dilated. Ascending Aorta is 4 cm. (07/31/2009) C ardiac Cath: Mild non obstructive CAD. Normal LV systolic function with an ejection fraction of 55%. CH (08/07/2009) H gb: 14.9 (07/17/2009) HCT: 45.5 (07/17/2009) RBC: 4.87 (06/11/2009) WBC: 7.4 (06/11/2009) B UN: 20 (06/11/2009) Creat: 0.80 (06/11/2009) Glucose: 89 (06/11/2009) N a+: 142 (06/11/2009) K+: 4.0 (06/11/2009) Cl: 103 (06/11/2009) SGOT (AST): 22 (06/11/2009) SGPT (ALT): 27 (06/11/2009) Dexter Rivera MD f/u Dexter Brown f/u: H er updated medication list for this problem includes: Levoxyl 150 Mcg Tabs (Levothyroxine sodium) ..... 1 tablet by mouth daily Labs Reviewed: C hol: 126 (06/11/2009) HDL: 41 (06/11/2009) LDL: 67 (06/11/2009) T (06/11/2009) Dexter Rivera MD f/u Dexter Brown f/u: H er updated medication list for this problem includes: Lasix Tabs (Furosemide tabs) ..... 60mg daily BP today: 148/89 P rior BP: 114/67 (07/31/2009) Labs Reviewed: Creat: 0.80 (06/11/2009) C hol: 126 (06/11/2009) HDL: 41 (06/11/2009) LDL: 67 (06/11/2009) T (06/11/2009) Dexter Rivera MD f/u: H er updated medication list for this problem includes: Nitrostat Subl (Nitroglycerin subl) ..... As needed BP today: 148/89 Prior BP: 114/67 (07/31/2009) N uclear Stress Findings: 1. Regadenoson mediated myocardial perfusion study 2 . Normal left ventricular size and moderately reduced left ventricular systolic function with a calculated ejection fraction of 41%. 3 . Myocardial scintigraphy demonstrates a large reversible inferior wall defect consistent with ischemia. GC (07/31/2009) C ardiac Cath: Mild non obstructive CAD. Normal LV systolic function with an ejection fraction of 55%. CH (08/07/2009) C HOL: 126 (06/11/2009) LDL: 67 (06/11/2009) HDL: 41 (06/11/2009) T (06/11/2009) H gb: 14.9 (07/17/2009) HCT: 45.5 (07/17/2009) RBC: 4.87 (06/11/2009) WBC: 7.4 (06/11/2009) B UN: 20 (06/11/2009) Creat: 0.80 (06/11/2009) Glucose: 89 (06/11/2009) N a+: 142 (06/11/2009) K+: 4.0 (06/11/2009) Cl: 103 (06/11/2009) PT: 11.7 (07/31/2009) INR: 1.2 (07/31/2009) E chocardiogram: Normal left ventricularsize and systolic function. There is E to A wave reversal consistent with impaired LV relaxation. Left ventricular ejection fraction is estimated at 60%. There is mild enlargement of the left atrium. Mild aortic valve regurgitation. There is mild tricuspid regurgitation. Ascending aorta is dilated. Ascending Aorta is 4 cm. GC (07/31/2009) Dexter Rivera MD Date Name Venous Doppler Bilat eral LE Complete Echo Complete Echo Venous Doppler Bilat eral LE - Reflux Complete Echo CBC (H/H, RBC, INDIC ES, WBC, PLT) HEMOGLOBIN A1c LIPID PANEL T3, FREE T-4, FREE TSH, 3RD GENERATION DIGOXIN BASIC METABOLIC PANE L W/EGFR Complete Echo CBC (INCLUDES DIFF/P LT) Spirometry STR - Adenosine Mobile Cardiac Tele Complete Echo Spirometry Cardiac Cath - GC Complete Echo Arterial Duplex Lowe r Extremity Bilateral HISTORY OF PROCEDURES Procedure Date Procedure Name Provider Procedure Notes S tatus EKG Dexter Rivera MD completed Schedule Followup Dexter Rivera MD [address] Rivera completed EKG Dexter Rivera MD completed EKG Dexter Rivera MD completed EKG Dexter Rivera MD completed EKG Dexter Rivera MD completed EKG Dexter Rivera MD completed EKG Dexter Rivera MD completed Loop Recorder Interrogation, Remote Dexter Rivera MD INTERROGATION EVALUATION REMOTE </30 D ILR SYS completed ICM Interrogation, Remote (Tech) Dexter Rivera MD INTERROGATION EVAL REMOTE </30 D TECH REVIEW completed Loop Recorder Interrogation, Remote Dexter Rivera MD INTERROGATION EVALUATION REMOTE </30 D ILR SYS completed ICM Interrogation, Remote (Tech) Dexter Rivera MD INTERROGATION EVAL REMOTE </30 D TECH REVIEW completed Loop Recorder Interrogation, Remote Dexter Rivera MD INTERROGATION EVALUATION REMOTE </30 D ILR SYS completed ICM Interrogation, Remote (Tech) Dexter Rivera MD INTERROGATION EVAL REMOTE </30 D TECH REVIEW completed EKG Dexter Rivera MD completed Loop Recorder Interrogation, Remote Dexter Rivera MD INTERROGATION EVALUATION REMOTE </30 D ILR SYS completed ICM Interrogation, Remote (Tech) Dexter Rivera MD INTERROGATION EVAL REMOTE </30 D TECH REVIEW completed Loop Recorder Interrogation, Remote Dexter Rivera MD INTERROGATION EVALUATION REMOTE </30 D ILR SYS completed ICM Interrogation, Remote (Tech) Dexter Rivera MD INTERROGATION EVAL REMOTE </30 D TECH REVIEW completed Loop Recorder Interrogation, Remote Dexter Rivera MD INTERROGATION EVALUATION REMOTE </30 D ILR SYS completed ICM Interrogation, Remote (Tech) Dexter Rivera MD INTERROGATION EVAL REMOTE </30 D TECH REVIEW completed Loop Recorder Interrogation, Remote Dexter Rivera MD INTERROGATION EVALUATION REMOTE </30 D ILR SYS completed ICM Interrogation, Remote (Tech) Dexter Rivera MD INTERROGATION EVAL REMOTE </30 D TECH REVIEW completed Loop Recorder Interrogation, Remote Dexter Rivera MD INTERROGATION EVALUATION REMOTE </30 D ILR SYS completed ICM Interrogation, Remote (Tech) Dexter Rivera MD INTERROGATION EVAL REMOTE </30 D TECH REVIEW completed Loop Recorder Interrogation, Remote Dexter Rivera MD INTERROGATION EVALUATION REMOTE </30 D ILR SYS completed ICM Interrogation, Remote (Tech) Dexter Rivera MD INTERROGATION EVAL REMOTE </30 D TECH REVIEW completed EKG Dexter Rivera MD completed Loop Recorder Interrogation, Remote Dexter Rivera MD INTERROGATION EVALUATION REMOTE </30 D ILR SYS completed ICM Interrogation, Remote (Tech) Dexter Rivera MD INTERROGATION EVAL REMOTE </30 D TECH REVIEW completed Loop Recorder Interrogation, Remote Dexter Rivera MD INTERROGATION EVALUATION REMOTE </30 D ILR SYS completed ICM Interrogation, Remote (Tech) Dexter Rivera MD INTERROGATION EVAL REMOTE </30 D TECH REVIEW completed Loop Recorder Interrogation, Remote Dexter Rivera MD INTERROGATION EVALUATION REMOTE </30 D ILR SYS completed ICM Interrogation, Remote (Tech) Dexter Rivera MD INTERROGATION EVAL REMOTE </30 D TECH REVIEW completed EKG Dexter Rivera MD completed Loop Recorder Interrogation, Remote Dexter Rivera MD INTERROGATION EVALUATION REMOTE </30 D ILR SYS completed ICM Interrogation, Remote (Tech) Dexter Rivera MD INTERROGATION EVAL REMOTE </30 D TECH REVIEW completed Loop Recorder Interrogation, Remote Dexter Rivera MD INTERROGATION EVALUATION REMOTE </30 D ILR SYS completed ICM Interrogation, Remote (Tech) Dexter Rivera MD INTERROGATION EVAL REMOTE </30 D TECH REVIEW completed EKG Dexter Rivera MD completed Loop Recorder Interrogation, Remote Dexter Rivera MD INTERROGATION EVALUATION REMOTE </30 D ILR SYS completed ICM Interrogation, Remote (Tech) Dexter Rivera MD INTERROGATION EVAL REMOTE </30 D TECH REVIEW completed Loop Recorder Interrogation, Remote Dexter Rivera MD INTERROGATION EVALUATION REMOTE </30 D ILR SYS completed ICM Interrogation, Remote (Tech) Dexter Rivera MD INTERROGATION EVAL REMOTE </30 D TECH REVIEW completed Loop Recorder Interrogation, Remote Dexter Rivera MD INTERROGATION EVALUATION REMOTE </30 D ILR SYS completed ICM Interrogation, Remote (Tech) Dexter Rivera MD INTERROGATION EVAL REMOTE </30 D TECH REVIEW completed Loop Recorder Interrogation, Remote Dexter Rivera MD INTERROGATION EVALUATION REMOTE </30 D ILR SYS completed ICM Interrogation, Remote (Tech) Dexter Rivera MD INTERROGATION EVAL REMOTE </30 D TECH REVIEW completed EKG Dexter Rivera MD completed SNOMED-CT: [id number] Current Medications Documented Dexter Rivera MD completed Loop Recorder Interrogation, Remote Dexter Rivera MD INTERROGATION EVALUATION REMOTE </30 D ILR SYS completed ICM Interrogation, Remote (Tech) Dexter Rivera MD INTERROGATION EVAL REMOTE </30 D TECH REVIEW completed Loop Recorder Interrogation, Remote Dexter Rivera MD INTERROGATION EVALUATION REMOTE </30 D ILR SYS completed ICM Interrogation, Remote (Tech) Dexter Rivera MD INTERROGATION EVAL REMOTE </30 D TECH REVIEW completed EKG Dexter Rivera MD completed SNOMED-CT: [id number] Current Medications Documented Dexter Rivera MD completed Loop Recorder Interrogation, Remote Dexter Rivera MD INTERROGATION EVALUATION REMOTE </30 D ILR SYS completed ICM Interrogation, Remote (Tech) Dexter Rivera MD INTERROGATION EVAL REMOTE </30 D TECH REVIEW completed Loop Recorder Interrogation, Remote Dexter Rivera MD INTERROGATION EVALUATION REMOTE </30 D ILR SYS completed ICM Interrogation, Remote (Tech) Dexter Rivera MD INTERROGATION EVAL REMOTE </30 D TECH REVIEW completed Loop Recorder Interrogation, Remote Dexter Rivera MD INTERROGATION EVALUATION REMOTE </30 D ILR SYS completed ICM Interrogation, Remote (Tech) Dexter Rivera MD INTERROGATION EVAL REMOTE </30 D TECH REVIEW completed Loop Recorder Interrogation, Remote Dexter Rivera MD INTERROGATION EVALUATION REMOTE </30 D ILR SYS completed ICM Interrogation, Remote (Tech) Dexter Rivera MD INTERROGATION EVAL REMOTE </30 D TECH REVIEW completed EKG Dexter Rivera MD completed SNOMED-CT: [id number] Current Medications Documented Dexter Rivera MD completed Loop Recorder Interrogation, Remote Dexter Rivera MD INTERROGATION EVALUATION REMOTE </30 D ILR SYS completed ICM Interrogation, Remote (Tech) Dexter Rivera MD INTERROGATION EVAL REMOTE </30 D TECH REVIEW completed Loop Recorder Interrogation, Remote Dexter Rivera MD INTERROGATION EVALUATION REMOTE </30 D ILR SYS completed ICM Interrogation, Remote (Tech) Dexter Rivera MD INTERROGATION EVAL REMOTE </30 D TECH REVIEW completed Loop Recorder Interrogation, Remote Dexter Rivera MD INTERROGATION EVALUATION REMOTE </30 D ILR SYS completed ICM Interrogation, Remote (Tech) Dexter Rivera MD INTERROGATION EVAL REMOTE </30 D TECH REVIEW completed Loop Recorder Interrogation, Remote Dexter Rivera MD INTERROGATION EVALUATION REMOTE </30 D ILR SYS completed ICM Interrogation, Remote (Tech) Dexter Rivera MD INTERROGATION EVAL REMOTE </30 D TECH REVIEW completed Loop Recorder Interrogation, Remote Dexter Rivera MD INTERROGATION EVALUATION REMOTE </30 D ILR SYS completed ICM Interrogation, Remote (Tech) Dexter Rivera MD INTERROGATION EVAL REMOTE </30 D TECH REVIEW completed SNOMED-CT: [id number] Current Medications Documented Dexter Rivera MD completed SNOMED-CT: 61708983 Physical Exam, Performed: Pulse Exam of Foot Dexter Rivera MD completed EKG Dexter Rivera MD completed SNOMED-CT: [id number] Current Medications Documented Dexter Rivera MD completed SNOMED-CT: 207433795 Smoking Cessation Counseling Dexter Rivera MD completed SNOMED-CT: 29757603 Physical Exam, Performed: Pulse Exam of Foot Dexter Rivera MD completed EKG Dexter Rivera MD completed SNOMED-CT: [id number] Current Medications Documented Dexter Rivera MD completed SNOMED-CT: 050117509 Smoking Cessation Counseling Dexter Rivera MD completed SNOMED-CT: 31976944 Physical Exam, Performed: Pulse Exam of Foot Dexter Rivera MD completed EKG Dexter Rivera MD completed SNOMED-CT: [id number] Current Medications Documented Dexter Rivera MD completed Stress EKG Darin Crook MD completed Regadenoson, 4 units Dexter gramajo MD completed Cardiolite, 2 units Dexter dyson MD completed SPECT Images Adriana Ireland MD complet ed Holter, 24 or 48 Dexter Rivera MD completed SNOMED-CT: 23713423 Physical Exam, Performed: Pulse Exam of Foot Adriana Ireland MD completed SNOMED-CT: 73455226 Physical Exam, Performed: Pulse Exam of Foot Adriana Ireland MD completed EKG Adriana Ireland MD completed SNOMED-CT: [id number] Current Medications Documented Adriana Ireland MD completed EKG Dexter Rivera MD completed EKG Dexter Rivera MD completed EKG Dexter Rivera MD completed
--- NOTE | 2024-07-17 18:15 | PC.NURSE ---
Pt. continuously bends both arms to cough. Pt. educated to keep arms straight as best as possible. Initial bag of fluids has not infused yet because of this. Fluids will be placed on a pump to speed up infusion.
[2024-07-17] MEDS: HYDROcodone/acetaminophen (*CRX) 5-325 MG TABLET 1 TAB PO (18:47)
[2024-07-17] MEDS: ONDANSETRON INJ 4 MG/2 ML VIAL IV PUSH (18:52)
[2024-07-17] MEDS: LACTATED RINGERS 1,000 ML 999 ML IV CONT (19:38)
--- NOTE | 2024-07-17 20:00 | PC.NURSE ---
Pt. had 1x wet depend. Dirty depend removed, iban care performed with soap and water. Pure wick accurately placed. Clean depend applied. Pt. given a popsicle and water, per pt. request.
[2024-07-17] MEDS: ALBUTEROL SULFATE NEB 2.5 MG/3 ML INH INHALATION (20:29)
--- NOTE | 2024-07-17 20:38 | PC.NURSE ---
Pharmacy called to tube remdesevir to bedside. Pharmacist michelle states they are working on it right now.
[2024-07-17] MEDS: REMDESIVIR 200 MG/NS 250 ML 200 MG/250 ML BAG 250 MG IVPB (21:08)
[2024-07-17] MEDS: SODIUM CHLORIDE 0.9% IV 1,000 ML 100 ML IV CONT (21:08)
--- NOTE | 2024-07-17 21:30 | PM.IMHP ---
H&P: HPI History of Present Illness Date/Time: 07/17/24 23:45 Chief Complaint: Cough congestion Narrative: 84-year-old female with a past medical history of COPD, moderate pulmonary hypertension, chronic hypoxic respiratory failure on 4 L nasal cannula CHF with preserved ejection fraction, obstructive sleep apnea on CPAP who presented to the ER from [facility] via EMS due to cough and congestion. Patient has had 3-4 days of increased cough with increased sputum production. She reports her sputum is usually clear to yellow in color intermittently and has been so for many years. However the amount of sputum production has increased significantly and has turned more green in color and is occasionally blood tinged. She denies any chest pain. She has not had any palpitations. She reported that she decided come into the ER when she does could not catch her breath this evening. She denies having any fevers or chills. She does have positive for COVID in the ER. She reports that the alf would not give her a COVID booster this past fall when she requested it. She did receive her flu and RSV vaccines. She reports irritable bowel with fluctuating constipation and diarrhea. She denies any dysuria or increased urinary frequency. On exam she is noted to have thick yellow drainage from her eyes. She states that this is been ongoing since she had her cataract surgeries done over a year ago. She does report increased id itching over recent weeks. She reports that her eyes burn after she removes the drainage from her eyes. She is requesting eyedrops. She reports that distant history of lymphedema and reports that her legs look like there usual. She has chronic skin changes from her lymphedema that is unchanged in has some chronic bilateral of foot swelling. She reports that her COPD is due to secondhand smoke exposure. She is a lifelong nonsmoker. Review of Systems Review of Systems: 12 systems were reviewed with pertinent positives and negatives per HPI. Except as documented in the HPI, all other systems were reviewed and are negative. 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 Coronary heart disease Allergic rhinitis Secondary pulmonary hypertension Chronic respiratory failure with hypoxia Acquired hemosiderosis Irritable bowel Chronic GERD Obstructive sleep apnea on CPAP Chronic anticoagulation Atrial fibrillation Hyperlipidemia Hypothyroidism Hypertension Surgical History Surgical History (Updated 07/18/24 @ 01:10 by Yecenia Ruff DO) Status post cataract extraction of both eyes with insertion of intraocular lens History of tonsillectomy and adenoidectomy Family History Family History Father Malignant neoplasm of prostate Hypertension Cerebrovascular accident Mother Depression Heart disease Grandparent Hypertension Heart disease Grandparent Alcoholism Social History Social History (Updated 07/18/24 @ 01:17 by Yecenia Ruff DO) Social History: The patient was at assisted living [facility] until hospitalization March 2024 and has since been transitioned [facility]. She is a lifelong nonsmoker. She does not drink alcohol and never drink alcohol to excess. She denies illicit substance use. She is a retired RN. Surrogate medical decision maker: Marleny Manzo, cousin. Code status: DNR/DNI Smoking status: Never smoker Alcohol intake: never Substance use: never Substance use type: does not use Do You Feel Safe in your Home?: Yes Lack of Transportation: No Lack of Food: Never True Current Housing: I Have Housing Concerned About Future Housing: No Difficulty Paying Gas/Electric Bills: No Difficulty Paying for Meds: No Currently Unemployed: No Education: Bachelor's Degree Difficulty w/ Childcare or Family Care: No Additional living arrangements comments: Assisted living at [facility]. 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 Spiritual care concerns: No Meds Home Medications and Allergies Home Medications ?Medication ?Instructions ?Recorded ?Confirmed ?Type atorvastatin 10 mg tablet 10 mg PO HS 10/10/20 05/23/24 History furosemide 40 mg tablet (Lasix) 40 mg PO QAM 10/10/20 05/23/24 History albuterol sulfate 2.5 mg/3 mL 2.5 mg inhalation Q8H PRN Wheezing 12/12/23 05/23/24 History (0.083 %) solution for nebulization albuterol sulfate 90 mcg/actuation 2 puff inhalation Q6H PRN 12/12/23 05/23/24 History aerosol inhaler (Ventolin HFA) Shortness Of Breath apixaban 5 mg tablet (Eliquis) 5 mg PO BID 12/12/23 05/23/24 History clotrimazole 1 % topical cream 1 applic topical BID 12/12/23 05/23/24 History cyanocobalamin (vitamin B-12) 1,000 mcg IM MONTHLY 12/12/23 05/23/24 History 1,000 mcg/mL injection solution diltiazem HCl 240 mg PO DAILY 12/12/23 05/23/24 History ferrous sulfate 325 mg (65 mg 325 mg PO DAILY 12/12/23 05/23/24 History iron) tablet (FeroSul) levothyroxine 150 mcg tablet 150 mcg PO DAILY 12/12/23 05/23/24 History loratadine 10 mg tablet 10 mg PO DAILY 12/12/23 05/23/24 History meclizine 25 mg tablet 25 mg PO Q8H PRN Dizziness 12/12/23 05/23/24 History multivitamin with folic acid 400 1 tablet PO DAILY 12/12/23 05/23/24 History mcg tablet (Tab-A-Mehran) potassium chloride 10 mEq 20 meq PO DAILY 12/12/23 05/23/24 History capsule,extended release tramadol 50 mg tablet 50 mg PO Q6H PRN Pain Rated 4-6 12/24/23 05/23/24 Rx #20 tabs cyclobenzaprine 5 mg tablet 5 mg PO TID 02/06/24 05/23/24 History metformin 500 mg tablet 500 mg PO BID 02/06/24 05/23/24 History ondansetron 4 mg disintegrating 4 mg PO Q6H PRN nausea/vomiting 02/06/24 05/23/24 History tablet pantoprazole 40 mg tablet,delayed 40 mg PO DAILY 02/06/24 05/23/24 History release polyethylene glycol 3350 17 17 g PO DAILY PRN Constipation 02/06/24 05/23/24 History gram/dose oral powder (Miralax) propylene glycol 1 %-glycerin 0.3 1 drp EACH EYE BID PRN Dry Eye(S) 02/06/24 05/23/24 History % eye drops (Lubricant (propylene glycol-glycerin)) azithromycin 500 mg tablet 500 mg PO DAILY 3 days #3 tabs 02/08/24 05/23/24 Rx cefdinir 300 mg capsule 300 mg PO Q12H 5 days #10 caps 02/08/24 05/23/24 Rx dextromethorphan-guaifenesin ER 60 1 tablet PO Q12H #30 tabs 02/08/24 05/23/24 Rx mg-1,200 mg tab,extend release,12hr (Mucinex DM) cefuroxime axetil 500 mg tablet 500 mg PO BID #14 tabs 03/28/24 05/23/24 Rx tizanidine 2 mg tablet 2 mg PO TID 04/24/24 05/23/24 History Allergies Allergy/AdvReac Type Severity Reaction Status Date / Time adhesive tape Allergy Unknown Unknown Verified 07/17/24 16:23 amitriptyline (From Elavil) Allergy Unknown Unknown Verified 07/17/24 16:23 procaine (From Novocain) Allergy Unknown Unknown Verified 07/17/24 16:23 propoxyphene (From Darvon) Allergy Unknown Unknown Verified 07/17/24 16:23 Vital Signs Vital Signs - 24 hr 07/17/24 14:45 07/17/24 14:49 07/17/24 14:52 Temperature Pulse Rate 57 L 59 L 55 L Respiratory Rate 22 H 14 Blood Pressure 89/68 L 89/68 L Pulse Oximetry 100 100 Oxygen Delivery Nasal Cannula Oxygen Flow Rate 4 Fraction of Inspired Oxygen 07/17/24 14:58 07/17/24 15:00 07/17/24 15:08 Temperature 98.2 F Pulse Rate 62 Respiratory Rate 20 Blood Pressure 89/68 L Pulse Oximetry 100 100 Oxygen Delivery Nasal Cannula Oxygen Flow Rate 4 Fraction of Inspired Oxygen 07/17/24 15:08 07/17/24 15:31 07/17/24 15:44 Temperature Pulse Rate 51 L 51 L 61 Respiratory Rate 18 19 21 H Blood Pressure 78/55 L 82/58 L 85/67 L Pulse Oximetry 100 100 100 Oxygen Delivery Oxygen Flow Rate Fraction of Inspired Oxygen 07/17/24 16:05 07/17/24 16:05 07/17/24 16:18 Temperature Pulse Rate 65 65 Respiratory Rate 20 22 H Blood Pressure Pulse Oximetry 95 Oxygen Delivery Nasal Cannula Oxygen Flow Rate 4 Fraction of Inspired Oxygen 36 07/17/24 17:35 07/17/24 19:00 07/17/24 20:00 Temperature Pulse Rate 79 76 94 Respiratory Rate 22 H 21 H 18 Blood Pressure 95/65 L 112/78 112/78 Pulse Oximetry 100 100 100 Oxygen Delivery Oxygen Flow Rate Fraction of Inspired Oxygen 07/17/24 20:30 07/17/24 20:37 Temperature Pulse Rate 76 74 Respiratory Rate 18 20 Blood Pressure Pulse Oximetry Oxygen Delivery Oxygen Flow Rate Fraction of Inspired Oxygen Exam Narrative: Weight 85.1 kg Const: Other: No acute distress, well-developed well-nourished, elderly, debilitated HENMT: Other: Mucous membranes are moist, no oral pharyngeal erythema, crowded posterior oropharynx Eyes: Other: Pupils are equal and reactive, significantly injected sclera bilaterally, mucoid drainage from both eyes left greater than right Neck: Other: No JVD, no lymphadenopathy Resp: Other: Decreased breath sounds bilaterally, crackles at the bases, frequent coughing Cardio: Other: Regular rate, irregular rhythm, 2+ bilateral radial pedal pulses GI: Other: Soft, nontender, significant redundant skin, normoactive bowel sounds : Other: Pure wick catheter in place Skin: Other: Generalized pallor, non jaundice, chronic darkened skin pink mentation to bilateral lower extremities consistent with patient's history of chronic venous stasis dermatitis/lymphedema in the past Neuro: Other: Alert orient x4, speech is clear, no facial asymmetry, moves all extremities equally, significant tremor Extrem: Other: 1+ edema to the tops of the feet bilaterally, generalized weakness Psych: Other: Pleasant and cooperative, fair judgment and insight H&P: Results Labs Labs: Laboratory Tests 07/17/24 16:11 07/17/24 16:11 07/17/24 07/17/24 07/17/24 14:57 16:11 16:35 WBC 13.1 H RBC 3.65 L Hgb 11.0 L Hct 34.2 L MCV 93.7 MCH 30.1 MCHC 32.2 RDW 14.1 Plt Count 146 L MPV 10.8 H Immature Gran % (Auto) 1.1 H Neut % (Auto) 74.7 H Lymph % (Auto) 13.3 L [place] % (Auto) 9.5 H Eos % (Auto) 1.1 Baso % (Auto) 0.3 Lymph # (Auto) 1.74 [place] # (Auto) 1.2 H Eos # (Auto) 0.2 Baso # (Auto) 0.0 Abs Immat Gran (auto) 0.15 H Absolute Neuts (auto) 9.8 H Absolute Nucleated RBC 0.000 Nucleated RBC % 0.0 PT 22.0 H INR 1.9 APTT 38.1 H Sodium 138 Potassium 4.3 Chloride 103 Carbon Dioxide 25 Anion Gap 10 BUN 39 H D Creatinine 1.76 H Estim Creat Clear Calc Not Reportable Estimated GFR 28 L Glucose 114 H Calcium 8.6 Total Bilirubin 0.9 AST 20 ALT 16 Alkaline Phosphatase 84 Total Protein 6.0 L Albumin 3.1 L Urine Color Yellow Urine Appearance Turbid H Urine pH 5.0 Ur Specific [place] 1.012 Urine Protein Trace Urine Glucose (UA) Negative Urine Ketones Negative Ur Blood (Man) 1+ H Urine Nitrate Negative Urine Bilirubin Negative Urine Urobilinogen 1.0 Leukocyte Esterase Rfl 3+ H Urine RBC 0-2 Urine WBC >100 H Ur Squamous Epith Cells None seen Urine Bacteria None seen Urine Casts 11-20 Hyaline Casts Present Influenza A (RT-PCR) Negative Influenza B (RT-PCR) Negative RSV (RT-PCR) Negative SARS-CoV-2 RNA (RT-PCR) Positive A Impressions Chest X-Ray 07/17/24 16:08 Impression: 1: No acute cardiopulmonary disease. EKG ordered will review All imaging and EKGs personally reviewed and interpreted. And unless stated otherwise agree with radiologic and cardiology interpretation. Assessment and Plan Assessment and plan (1) Acute hypotension: Code(s): I95.9 - Hypotension, unspecified Status: Acute (2) COPD (chronic obstructive pulmonary disease): Qualifiers: COPD type: COPD with acute lower respiratory infection Qualified Code(s): J44.0 - Chronic obstructive pulmonary disease with (acute) lower respiratory infection Code(s): J44.9 - Chronic obstructive pulmonary disease, unspecified Status: Acute (3) COVID-19: Code(s): U07.1 - COVID-19 Status: Acute (4) Chronic respiratory failure with hypoxia: Code(s): J96.11 - Chronic respiratory failure with hypoxia Status: Acute (5) Obstructive sleep apnea on CPAP: Code(s): G47.33 - Obstructive sleep apnea (adult) (pediatric) Status: Acute (6) Chronic diastolic (congestive) heart failure: Code(s): I50.32 - Chronic diastolic (congestive) heart failure Status: Acute (7) Atrial fibrillation: Qualifiers: Atrial fibrillation type: unspecified Qualified Code(s): I48.91 - Unspecified atrial fibrillation Code(s): I48.91 - Unspecified atrial fibrillation Status: Acute (8) Diabetes: Qualifiers: Diabetes mellitus complication status: without complication Diabetes mellitus correction insulin use: without director long term care use Diabetes mellitus type: type 2 Qualified Code(s): E11.9 - Type 2 diabetes mellitus without complications Code(s): E11.9 - Type 2 diabetes mellitus without complications Status: Acute (9) Hypothyroidism: Qualifiers: Hypothyroidism type: unspecified Qualified Code(s): E03.9 - Hypothyroidism, unspecified Code(s): E03.9 - Hypothyroidism, unspecified Status: Acute Plan The patient presented with hypotension. Hypotension likely due to hypovolemia. Patient had good response to volume resuscitation. Will hold the patient's home Lasix. Will continue IV fluid hydration and monitor strict I&O's. Patient had commented acute kidney injury likely due to hypotension from hypovolemia plan as discussed above. Will repeat electrolyte panel in a.m.. Dehydration is likely in part due to acute COVID infection and decreased oral intake. Given the patient's chronic respiratory failure she is high risk for complications COVID. Will place patient on Remdesivir per protocol. Will monitor LFTs and electrolyte panels at least every 48 hours while on medications. Will check inflammatory markers with a.m. labs including ferritin CRP and ESR. Her respiratory failure is stable on her home oxygen requirements. Will place patient on scheduled nebulizer treatments to treat for possible underlying COPD exacerbation due to her lower respiratory tract infection with COVID. However given her marked decreased breath sounds Given the patient's leukocytosis she was started on antibiotics in the ER but she has no localized infiltrate. Given history of AFib in cardiac arrhythmia will check EKG given azithromycin administration. If the patient develops worsening respiratory failure with increasing oxygen requirements will add steroid therapy at that time. Patient does have history of type 2 diabetes mellitus and is on metformin usually but this will be on hold given her acute kidney injury. Will place patient on low-dose sliding scale insulin as needed with hypoglycemia protocol. Patient does have obstructive sleep apnea auto titrating CPAP/BiPAP has been ordered. The remainder the patient's home medications will be reviewed and reconciled as appropriate. Patient has been admitted as observation status. Quality VTE Prophylaxis VTE prophylaxis: pharmacologic ordered (Continue home Eliquis.) Hospitalist [facility] Advance Care Plan I have confirmed that the patient's Advanced Care Plan is present, code status is documented, or surrogate decision maker is listed in patient medical record.: Yes Medication Reconciliation I have utilized all available resources to obtain, update and review the patients current medications (includes all prescriptions, OTC, herbals, cannabis, and nutritional supplements).: Yes
[2024-07-18] VITALS (18 sets, daily range): BP systolic 82–122; BP diastolic 53–74; PULSE 55–98; RESP 15–22; TEMP 36.3–37.1; O2SAT 95–100; BMI 33.5
--- NOTE | 2024-07-18 01:00 | ECG_ITS ---
Test Date: 2024-07-18 01:53:35 Measurements Intervals [place] Rate: 98 P: 0 RI: 0 QRS: -52 QRSD: 157 T: -22 QT: 366 QTc: 467 Interpretive Statements ATRIAL FIBRILLATION RIGHT BUNDLE BRANCH BLOCK [120+ ms QRS DURATION, UPRIGHT V1, 40+ ms S IN I/aVL/V4/V5/V6] INFERIOR MYOCARDIAL INFARCTION , OF INDETERMINATE AGE [40+ ms Q WAVE AND/OR ST/T ABNORMALITY IN II/aVF] Compared to ECG 02/06/2024 19:04:05 NO SIGNIFICANT CHANGES Electronically Signed On 07-18-2024 16:50:34 CDT by Stella Andrade M.D.
[2024-07-18] MEDS: dexAMETHasone SOD PHOS INJ 10 MG/ML 1 ML VIAL 6 MG IV PUSH ×2 (01:01→20:54)
--- NOTE | 2024-07-18 01:09 | ADMGEN ---
This patient, Monica Bishop, was admitted to [facility] Surg Room 313-01. Patient/family oriented to hospital policies and general routines including ID bracelet, bed and alarms, visiting hours, pain management, procedures, bathroom and other care routines, personal items, smoking policy, room service/diet, and visiting hours. Information on how to activate the Rapid Response Team has been discussed. Patient/Family are encouraged to report perceived risks to care and to ask questions if they do not understand what they are told or what they should do.
[2024-07-18] MEDS: IPRATROPIUM BR 0.02% INH SOLN 0.5 MG/2.5 ML VIAL INHALATION ×4 (01:59→20:20)
[2024-07-18] MEDS: LEVALBUTEROL NEB 1.25 MG/3 ML INHALATION ×4 (01:59→20:20)
[2024-07-18 02:14] LABS: Glucose Point of Care 92 mg/dl (65-105)
[2024-07-18] MEDS: HYDROcodone/acetaminophen (*CRX) 5-325 MG TABLET 1 TAB PO ×3 (02:26→21:06)
[2024-07-18] MEDS: LEVOTHYROXINE SODIUM 150 MCG TABLET PO (05:36)
[2024-07-18 06:28] LABS: CRP 3.1 mg/dL (<1.0)
[2024-07-18 06:56] LABS: Erythrocyte Sedimentation Rate 56 mm/hr (0-20)
[2024-07-18] MEDS: FLUTICASONE/SALMETEROL 45-21 MCG INHALER 1 PUFF 2 PUFF INHALATION ×2 (07:47→20:20)
--- NOTE | 2024-07-18 09:22 | P.PNIM_ITS ---
Progress Note: A&P Assessment and Plan (1) Acute hypotension: Code(s): I95.9 - Hypotension, unspecified Status: Acute (2) COPD (chronic obstructive pulmonary disease): Qualifiers: COPD type: COPD with acute lower respiratory infection Qualified Code(s): J44.0 - Chronic obstructive pulmonary disease with (acute) lower respiratory infection Code(s): J44.9 - Chronic obstructive pulmonary disease, unspecified Status: Acute (3) COVID-19: Code(s): U07.1 - COVID-19 Status: Acute (4) Chronic respiratory failure with hypoxia: Code(s): J96.11 - Chronic respiratory failure with hypoxia Status: Acute (5) Obstructive sleep apnea on CPAP: Code(s): G47.33 - Obstructive sleep apnea (adult) (pediatric) Status: Acute (6) Chronic diastolic (congestive) heart failure: Code(s): I50.32 - Chronic diastolic (congestive) heart failure Status: Acute (7) Atrial fibrillation: Qualifiers: Atrial fibrillation type: unspecified Qualified Code(s): I48.91 - Unspecified atrial fibrillation Code(s): I48.91 - Unspecified atrial fibrillation Status: Acute (8) Diabetes: Qualifiers: Diabetes mellitus complication status: without complication Diabetes mellitus halfway insulin use: without superintendent container terminal use Diabetes mellitus type: type 2 Qualified Code(s): E11.9 - Type 2 diabetes mellitus without complications Code(s): E11.9 - Type 2 diabetes mellitus without complications Status: Acute (9) Hypothyroidism: Qualifiers: Hypothyroidism type: unspecified Qualified Code(s): E03.9 - Hypothyroidism, unspecified Code(s): E03.9 - Hypothyroidism, unspecified Status: Acute Plan The patient presented with hypotension. Hypotension likely due to hypovolemia. Patient had good response to volume resuscitation. - holding patient's home Lasix- cr 1.76/bun 39 (baseline normal) -continue IV fluid hydration and monitor strict I&O's- close monitoring for fluid volume status. - continue Oxygent supplementation Dehydration is likely in part due to acute COVID infection and decreased oral intake Pt is high risk for complications COVID - started on Remdesivir per protocol monitor LFTs and electrolyte panels - respiratory failure is stable on her home oxygen requirements- monitor closely - start scheduled nebulizer treatments to treat for possible underlying COPD exacerbation due to her lower respiratory tract infection with COVID -given leukocytosis and decreased breathing sounds- she was started on antibiotics in the ER but she has no localized infiltrate. - If the patient develops worsening respiratory failure with increasing oxygen requirements will add steroid therapy at that time. - Hold metformin, start low-dose sliding scale insulin as needed with hypoglycemia protocol. Patient does have obstructive sleep apnea - continue home cpap Time Spent With Patient Time with patient: 25 - 35 minutes Subjective Date/time seen: 07/18/24 09:22 Interval history: 84-year-old female with a past medical history of COPD, moderate pulmonary hypertension, chronic hypoxic respiratory failure on 4 L nasal cannula CHF with preserved ejection fraction, obstructive sleep apnea on CPAP who presented to the ER from [facility] via EMS due to cough and congestion. Patient has had 3-4 days of increased cough with increased sputum production. Positive COVID. She did receive her flu and RSV vaccines. Chronic lymphedema. she is a smoker. pt is seen and examined. She is resting with eyes closed. in no resp distress. Review of Systems Review of Systems: 12 systems were reviewed with pertinent positives and negatives per HPI. Except as documented in the HPI, all other systems were reviewed and are negative. Exam Narrative: Weight 85.1 kg Const: General: comfortable Other: No acute distress, well-developed well-nourished, elderly, debilitated HENMT: Other: Mucous membranes are moist, no oral pharyngeal erythema, crowded posterior oropharynx Eyes: Other: Pupils are equal and reactive, significantly injected sclera bilaterally, mucoid drainage from both eyes left greater than right Neck: Other: No JVD, no lymphadenopathy Resp: Other: Decreased breath sounds bilaterally, crackles at the bases, frequent coughing Cardio: Other: Regular rate, irregular rhythm, 2+ bilateral radial pedal pulses GI: Other: Soft, nontender, significant redundant skin, normoactive bowel sounds : Other: Pure wick catheter in place Skin: Other: Generalized pallor, non jaundice, chronic darkened skin pink mentation to bilateral lower extremities consistent with patient's history of chronic venous stasis dermatitis/lymphedema in the past Neuro: Other: Alert orient x4, speech is clear, no facial asymmetry, moves all extremities equally, significant tremor Extrem: Other: 1+ edema to the tops of the feet bilater ally, generalized weakness Psych: Other: Pleasant and cooperative, fair judgment and insight Objective Data Vital Signs Vital Signs: Vital Signs - 24 hr 07/17/24 14:45 07/17/24 14:49 07/17/24 14:52 Temperature Pulse Rate 57 L 59 L 55 L Respiratory Rate 22 H 14 Blood Pressure 89/68 L 89/68 L Pulse Oximetry 100 100 Oxygen Delivery Nasal Cannula Oxygen Flow Rate 4 Fraction of Inspired Oxygen 07/17/24 14:58 07/17/24 15:00 07/17/24 15:08 Temperature 98.2 F Pulse Rate 62 Respiratory Rate 20 Blood Pressure 89/68 L Pulse Oximetry 100 100 Oxygen Delivery Nasal Cannula Oxygen Flow Rate 4 Fraction of Inspired Oxygen 07/17/24 15:08 07/17/24 15:31 07/17/24 15:44 Temperature Pulse Rate 51 L 51 L 61 Respiratory Rate 18 19 21 H Blood Pressure 78/55 L 82/58 L 85/67 L Pulse Oximetry 100 100 100 Oxygen Delivery Oxygen Flow Rate Fraction of Inspired Oxygen 07/17/24 16:05 07/17/24 16:05 07/17/24 16:18 Temperature Pulse Rate 65 65 Respiratory Rate 20 22 H Blood Pressure Pulse Oximetry 95 Oxygen Delivery Nasal Cannula Oxygen Flow Rate 4 Fraction of Inspired Oxygen 36 07/17/24 17:35 07/17/24 19:00 07/17/24 20:00 Temperature Pulse Rate 79 76 94 Respiratory Rate 22 H 21 H 18 Blood Pressure 95/65 L 112/78 112/78 Pulse Oximetry 100 100 100 Oxygen Delivery Oxygen Flow Rate Fraction of Inspired Oxygen 07/17/24 20:30 07/17/24 20:37 07/17/24 22:00 Temperature Pulse Rate 76 74 81 Respiratory Rate 18 20 24 H Blood Pressure 100/61 Pulse Oximetry 100 Oxygen Delivery Oxygen Flow Rate Fraction of Inspired Oxygen 07/17/24 22:34 07/18/24 00:30 07/18/24 00:59 Temperature 97.3 F L Pulse Rate 91 Respiratory Rate 20 22 H 18 Blood Pressure 100/61 122/74 Pulse Oximetry 96 96 Oxygen Delivery Oxygen Flow Rate Fraction of Inspired Oxygen 07/18/24 01:59 07/18/24 02:13 07/18/24 02:25 Temperature Pulse Rate 89 85 Respiratory Rate 20 20 Blood Pressure Pulse Oximetry 98 Oxygen Delivery CPAP Oxygen Flow Rate 4 Fraction of Inspired Oxygen 07/18/24 02:25 07/18/24 05:58 07/18/24 07:47 Temperature 98.8 F Pulse Rate 89 80 Respiratory Rate 20 Blood Pressure 120/67 Pulse Oximetry 98 97 98 Oxygen Delivery Nasal Cannula Oxygen Flow Rate 4 Fraction of Inspired Oxygen 07/18/24 07:47 07/18/24 07:59 Temperature Pulse Rate 86 82 Respiratory Rate 20 20 Blood Pressure Pulse Oximetry Oxygen Delivery Oxygen Flow Rate Fraction of Inspired Oxygen Intake/Output Intake/Output: Intake & Output 07/15/24 07/16/24 07/17/24 07/18/24 23:59 23:59 23:59 23:59 Intake Total 3550 250 Output Total 75 500 Balance 3475 -250 Meds/Results Medications: Active Medications Generic Name Dose Route Start Last Admin Trade Name Freq PRN Reason Stop Dose Admin Acetaminophen 650 mg 07/17/24 21:38 Acetaminophen 325 Mg Tablet PO Q4H PRN Mild Pain (1-3) or Fever Hydrocodone Bitart/Acetaminophen 1 tab 07/18/24 00:51 07/18/24 02:26 Hydrocodone/Acetaminophen (*Crx) 5-325 Mg Tablet PO 1 tab Q4H PRN Administration Pain Rated 7-10 Al Hydrox/Mg Hydrox/Simethicone 30 ml 07/17/24 21:38 Mag Hydrox/Al Hydrox/Simeth 30 Ml Udc PO Q6H PRN Indigestion Apixaban 5 mg 07/18/24 09:00 Apixaban 5 Mg Tablet PO Q12HR LYNN Artificial Tears 1 drop 07/18/24 00:25 Artificial Tears Ophth Soln 15 Ml Bottle EACH EYE QID PRN Dry Eye(s) Atorvastatin Calcium 10 mg 07/18/24 21:00 Atorvastatin 10 Mg Tablet PO HS LYNN Benzonatate 100 mg 07/18/24 02:39 Benzonatate 100 Mg Capsule PO TID PRN cough Dexamethasone Sodium Phosphate 6 mg 07/18/24 00:25 07/18/24 01:01 Dexamethasone Sod Phos Inj 10 Mg/Ml 1 Ml Vial IV PUSH 07/26/24 21:01 6 mg HS LYNN Administration Diclofenac Sodium 1 applic 07/18/24 02:39 Diclofenac Sodium 1% 100 Gm Gel (*Bkc) TOPICAL Q12H PRN arthritis pain Diltiazem HCl 240 mg 07/18/24 09:00 Diltiazem Hcl Cd 120 Mg Cap.24hr PO DAILY LYNN Ferrous Sulfate 325 mg 07/18/24 09:00 Ferrous Sulfate [address] BY MOUTH DAILY [facility] Guaifenesin/Dextromethorphan 1 tab 07/18/24 09:00 Guaifenesin 600 Mg/Dextromethorphan 30 Mg Sr Tab 12 Hr PO Q12HR [facility] Ceftriaxone Sodium 1 gm in 50 mls @ 100 mls/hr 07/18/24 12:00 Rocephin 1 Gm/Ns 50 Ml IVPB Q24H [facility] Azithromycin 500 mg in 250 mls @ 250 mls/hr 07/18/24 12:00 Zithromax IVPB Q24H [facility] Remdesivir 100 mg in 250 mls @ 250 mls/hr 07/18/24 22:00 IVPB 07/21/24 22:59 Q24H [facility] Ipratropium [place] 0.5 mg 07/18/24 02:00 07/18/24 07:47 Ipratropium Br 0.02% Inh Soln 0.5 Mg/2.5 Ml Vial INHALATION 0.5 mg Q6HRT [facility] Administration Levalbuterol HCl 1.25 mg 07/18/24 02:00 07/18/24 07:47 Levalbuterol Neb 1.25 Mg/3 Ml INHALATION 1.25 mg Q6HRT [facility] Administration Levothyroxine Sodium 150 mcg 07/18/24 06:30 07/18/24 05:36 Levothyroxine Sodium 150 Mcg Tablet PO 150 mcg DAILY@0630 [facility] Administration Lidocaine 1 patch 07/18/24 09:00 Lidocaine 5% Patch TOPICAL 08/17/24 08:59 DAILY [facility] Loratadine 10 mg 07/18/24 09:00 Loratadine 10 Mg Tablet PO DAILY [facility] Multivitamins Therapeutic 1 tablet 07/18/24 09:00 Multivitamins Therapeutic Tab (*Bkc) PO DAILY [facility] Olopatadine HCl 1 drop 07/18/24 09:00 Olopatadine 0.1% Ophth Soln 5 Ml Btl EACH EYE DAILY [facility] Polyethylene Glycol 17 gm 07/18/24 02:40 Polyethylene Glycol 3350 17 Gm Powd.Pack PO DAILY PRN Constipation Fluticasone/Salmeterol 2 puff 07/18/24 08:00 07/18/24 07:47 Fluticasone/Salmeterol 45-21 Mcg Inhaler 1 Puff INHALATION 2 puff Q12HRT [facility] Administration Tizanidine HCl 2 mg 07/18/24 09:00 Tizanidine Hcl 2 Mg Tablet PO TID [facility] Tramadol HCl 50 mg 07/18/24 00:53 Tramadol Hcl (*Crx) 50 Mg Tablet PO Q6H PRN Pain Rated 4-6 Radiology Results: ITS Impressions Chest X-Ray 07/17/24 16:08 Impression: 1: No acute cardiopulmonary disease. Labs Labs: Laboratory Results - last 24 hr 07/17/24 07/17/24 07/17/24 14:57 16:10 16:11 WBC 13.1 H RBC 3.65 L Hgb 11.0 L Hct 34.2 L MCV 93.7 MCH 30.1 MCHC 32.2 RDW 14.1 Plt Count 146 L MPV 10.8 H Immature Gran % (Auto) 1.1 H Neut % (Auto) 74.7 H Lymph % (Auto) 13.3 L [place] % (Auto) 9.5 H Eos % (Auto) 1.1 Baso % (Auto) 0.3 Lymph # (Auto) 1.74 [place] # (Auto) 1.2 H Eos # (Auto) 0.2 Baso # (Auto) 0.0 Abs Immat Gran (auto) 0.15 H Absolute Neuts (auto) 9.8 H Absolute Nucleated RBC 0.000 Nucleated RBC % 0.0 ESR PT 22.0 H INR 1.9 APTT 38.1 H Sodium 138 Potassium 4.3 Chloride 103 Carbon Dioxide 25 Anion Gap 10 BUN 39 H D Creatinine 1.76 H Estim Creat Clear Calc Not Reportable Estimated GFR 28 L Glucose 114 H POC Capillary Glucose Calcium 8.6 Ferritin 351.00 H Total Bilirubin 0.9 AST 20 ALT 16 Alkaline Phosphatase 84 C-Reactive Protein Total Protein 6.0 L Albumin 3.1 L Urine Color Urine Appearance Urine pH Ur Specific [place] Urine Protein Urine Glucose (UA) Urine Ketones Ur Blood (Man) Urine Nitrate Urine Bilirubin Urine Urobilinogen Leukocyte Esterase Rfl Urine RBC Urine WBC Ur Squamous Epith Cells Urine Bacteria Urine Casts Hyaline Casts Influenza A (RT-PCR) Negative Influenza B (RT-PCR) Negative RSV (RT-PCR) Negative SARS-CoV-2 RNA (RT-PCR) Positive A 07/17/24 07/18/24 07/18/24 16:35 00:36 05:40 WBC RBC Hgb Hct MCV MCH MCHC RDW Plt Count MPV Immature Gran % (Auto) Neut % (Auto) Lymph % (Auto) [place] % (Auto) Eos % (Auto) Baso % (Auto) Lymph # (Auto) [place] # (Auto) Eos # (Auto) Baso # (Auto) Abs Immat Gran (auto) Absolute Neuts (auto) Absolute Nucleated RBC Nucleated RBC % ESR 56 H PT INR APTT Sodium Potassium Chloride Carbon Dioxide Anion Gap BUN Creatinine Estim Creat Clear Calc Estimated GFR Glucose POC Capillary Glucose 92 Calcium Ferritin Total Bilirubin AST ALT Alkaline Phosphatase C-Reactive Protein 3.1 H Total Protein Albumin Urine Color Yellow Urine Appearance Turbid H Urine pH 5.0 Ur Specific [place] 1.012 Urine Protein Trace Urine Glucose (UA) Negative Urine Ketones Negative Ur Blood (Man) 1+ H Urine Nitrate Negative Urine Bilirubin Negative Urine Urobilinogen 1.0 Leukocyte Esterase Rfl 3+ H Urine RBC 0-2 Urine WBC >100 H Ur Squamous Epith Cells None seen Urine Bacteria None seen Urine Casts 11-20 Hyaline Casts Present Influenza A (RT-PCR) Influenza B (RT-PCR) RSV (RT-PCR) SARS-CoV-2 RNA (RT-PCR) Quality VTE Prophylaxis VTE prophylaxis: pharmacologic ordered (Continue home Eliquis.)
[2024-07-18] MEDS: OLOPATADINE 0.1% OPHTH SOLN 5 ML BTL 1 DROP EACH EYE (09:32)
[2024-07-18] MEDS: FERROUS SULFATE 325 MG TABLET DR BY MOUTH (09:32)
[2024-07-18] MEDS: dilTIAZem HCL CD 120 MG CAP.24HR 240 MG PO (09:32)
[2024-07-18] MEDS: guaiFENesin 600 MG/DEXTROMETHORPHAN 30 MG SR TAB 12 HR 1 TAB PO ×2 (09:32→20:56)
[2024-07-18] MEDS: TIZANIDINE HCL 2 MG TABLET PO ×3 (09:32→17:02)
[2024-07-18] MEDS: MULTIVITAMINS THERAPEUTIC TAB (*BKC) 1 TABLET PO (09:32)
[2024-07-18] MEDS: APIXABAN 5 MG TABLET PO ×2 (09:32→20:56)
[2024-07-18] MEDS: LORATADINE 10 MG TABLET PO (09:32)
[2024-07-18] MEDS: LIDOCAINE 5% PATCH 1 PATCH TOPICAL (09:33)
[2024-07-18] MEDS: AZITHROMYCIN 500 MG/NS 250 ML 500 MG/250 ML BAG 250 MG IVPB (12:20)
[2024-07-18 20:12] LABS: Anion Gap 11 mmol/L (4-12); Blood Urea Nitrogen 38 mg/dL (7-17); Calcium 8.1 mg/dL (8.4-10.2); Carbon Dioxide 20 mmol/L (22-30); Chloride 107 mmol/L (98-107); Estimated CRCL calculation 26 ml/min; Estimated Glomerular Filt Rate 31; Glucose 192 mg/dL (65-110); Potassium 4.3 mmol/L (3.4-5.0); Sodium 138 mmol/L (137-145)
--- NOTE | 2024-07-18 20:37 | PM.EVENT ---
Event Note Event Note Event Note: Nursing called stating patient blood pressures are running low 80/50-93/62. We will give 500ml bolus as she has been fluid responsive.
[2024-07-18] MEDS: SODIUM CHLORIDE 0.9% IV 500 ML 250 ML IV CONT (20:51)
[2024-07-18] MEDS: ATORVASTATIN 10 MG TABLET PO (20:56)
[2024-07-18] MEDS: ARTIFICIAL TEARS OPHTH SOLN 15 ML BOTTLE 1 DROP EACH EYE (20:59)
[2024-07-18] MEDS: REMDESIVIR 100 MG/NS 250 ML 100 MG/250 ML BAG 250 MG IVPB (22:56)
[2024-07-19] VITALS (13 sets, daily range): BP systolic 98–119; BP diastolic 60–96; PULSE 43–101; RESP 15–20; TEMP 36.6–36.8; O2SAT 95–100
[2024-07-19] MEDS: SODIUM CHLORIDE 0.9% IV 500 ML 250 ML IV CONT (01:00)
[2024-07-19] MEDS: IPRATROPIUM BR 0.02% INH SOLN 0.5 MG/2.5 ML VIAL INHALATION ×4 (02:11→20:43)
[2024-07-19] MEDS: LEVALBUTEROL NEB 1.25 MG/3 ML INHALATION ×4 (02:11→20:43)
[2024-07-19] MEDS: HYDROcodone/acetaminophen (*CRX) 5-325 MG TABLET 1 TAB PO ×3 (05:17→21:57)
[2024-07-19] MEDS: BENZONATATE 100 MG CAPSULE PO (05:25)
[2024-07-19] MEDS: LEVOTHYROXINE SODIUM 150 MCG TABLET PO (05:31)
[2024-07-19 06:25] LABS: Basophils Percent Auto 0.2 % (0.2-1.2); Hematocrit 31.2 % (37.0-47.0); Hemoglobin 9.9 g/dL (12.0-15.0); Immature Granulocyte Absolute 0.22 K/mm3 (0.00-0.031); Immature Granulocyte Percent A 1.8 % (0-0.5); Immature Platelet Fraction Pct 4.9 % (0.9-11.2); Lymphocytes Absolute Auto 0.52 K/mm3 (0.9-3.2); Lymphocytes Percent Auto 4.2 % (18.3-44.2); Mean Corpuscular HGB Conc 31.7 g/dl (32-36); Mean Corpuscular Hemoglobin 30.1 pg (26-34); Mean Corpuscular Volume 94.8 fl (80-100); Mean Platelet Volume 10.3 fl (7.4-10.4); Monocytes Absolute Auto 0.2 K/mm3 (0.1-0.6); Monocytes Percent Auto 1.4 % (2.6-8.5); Neutrophils Absolute Auto 11.4 K/mm3 (1.3-6.7); Neutrophils Percent Auto 92.4 % (45.5-73.1); Platelet Count Result 144 k/mm3 (150-375); Red Blood Count 3.29 M/mm3 (4.2-5.4); Red Cell Distribution Width 14.6 % (11.5-14.5); White Blood Count 12.4 K/mm3 (4.5-10.0)
[2024-07-19] MEDS: FLUTICASONE/SALMETEROL 45-21 MCG INHALER 1 PUFF 2 PUFF INHALATION ×2 (07:26→20:44)
[2024-07-19] MEDS: LIDOCAINE 5% PATCH 1 PATCH TOPICAL (09:32)
[2024-07-19] MEDS: TIZANIDINE HCL 2 MG TABLET PO ×3 (09:33→17:04)
[2024-07-19] MEDS: MULTIVITAMINS THERAPEUTIC TAB (*BKC) 1 TABLET PO (09:33)
[2024-07-19] MEDS: FERROUS SULFATE 325 MG TABLET DR BY MOUTH (09:33)
[2024-07-19] MEDS: LORATADINE 10 MG TABLET PO (09:33)
[2024-07-19] MEDS: guaiFENesin 600 MG/DEXTROMETHORPHAN 30 MG SR TAB 12 HR 1 TAB PO ×2 (09:33→21:42)
[2024-07-19] MEDS: dilTIAZem HCL CD 120 MG CAP.24HR 240 MG PO (09:33)
[2024-07-19] MEDS: APIXABAN 5 MG TABLET PO ×2 (09:34→21:42)
[2024-07-19] MEDS: ARTIFICIAL TEARS OPHTH SOLN 15 ML BOTTLE 1 DROP EACH EYE (09:35)
[2024-07-19] MEDS: OLOPATADINE 0.1% OPHTH SOLN 5 ML BTL 1 DROP EACH EYE (09:36)
--- NOTE | 2024-07-19 09:36 | P.PNIM_ITS ---
Progress Note: A&P Assessment and Plan (1) Acute hypotension: Code(s): I95.9 - Hypotension, unspecified Status: Acute Assessment and Plan: Hypotension likely due to hypovolemia. Patient had good response to volume resuscitation. Will hold the patient's home Lasix. Continue diltiazem for afib rate control. monitor strict I&O's. given 500 ml NS bolus @ 75 ml/hr (2) COVID-19: Code(s): U07.1 - COVID-19 Status: Acute Assessment and Plan: Viral panel: covid positive 07/17 Place in COVID19 isolation precautions, cardiac monitoring, and continuous pulse ox Monitor serum electrolytes, CRP, Lactic acid, troponin, CBC, WBC, temperature curve and follow cultures Remains on home oxygen via NC Pt is a candidate for Remdesivir and Dexamethasone, continue treatment according to suggested guidelines. Remdesivir 200 mg IV x1, then 100 mg IV x4 days, dexa methasone 6 mg IV daily x 10 days, or until discharge Received IV fluids for hypotension. (3) COPD (chronic obstructive pulmonary disease): Qualifiers: COPD type: COPD with acute lower respiratory infection Qualified Code(s): J44.0 - Chronic obstructive pulmonary disease with (acute) lower respiratory infection Code(s): J44.9 - Chronic obstructive pulmonary disease, unspecified Status: Acute Assessment and Plan: Respiratory failure is stable on her home oxygen requirements of 4L NC. Chest XR: No acute cardiopulmonary disease Given patients leukocytosis and decreased breath sounds she was started on abx in the ED though not noted infiltrate on xr azithromycin and rocephin started 07/18 Levalbuterol and atrovent Decadron 07/18-07/26 Monitor vital signs, I&Os, neuro status and patient is a fall risk Monitor serum electrolytes, cultures and CBC Monitor Oxygen saturation, Oxygen via NC; wean oxygen as tolerated, keep SpO2 greater than 88% (4) Chronic respiratory failure with hypoxia: Code(s): J96.11 - Chronic respiratory failure with hypoxia Status: Acute Assessment and Plan: Chronic, continue home oxygen of 4L NC (5) Urinary tract infection: Code(s): N39.0 - Urinary tract infection, site not specified Status: Acute Assessment and Plan: - UC: gram negative bacillil - previous micro reviewed 03/28/2024: Ecoli resistant to fluoroquinolones - started on rocephin on 07/18 (6) Acute kidney injury: Code(s): N17.9 - Acute kidney failure, unspecified Status: Acute Assessment and Plan: BUN/Cr 39/1.76 on admission. Baseline WNL. NEHA likely related to hypovolemia given cocurrent hypotension - BUN/Cr 36/1.56 on am labs following fluid bolus - Monitor I/O. UOP is decreased - NS 500 ml bolus @ 75 ml/hr - Avoid nephrotoxic medications - Renally dose medications (7) Chronic diastolic (congestive) heart failure: Code(s): I50.32 - Chronic diastolic (congestive) heart failure Status: Acute Assessment and Plan: Does not appear in acute exacerbation - Chest XR: No cardiopulmonary disease - Echo 12/13/23: LVEF 55-60% with mod pulmonary hypertension - Monitor vital signs, I&Os, BUN/creatinine, daily weights, neuro status and patient is a fall risk - Monitor serum electrolytes, Keep serum Potassium>4 and serum Magnesium>2 and CBC (8) Atrial fibrillation: Qualifiers: Atrial fibrillation type: unspecified Qualified Code(s): I48.91 - Unspecified atrial fibrillation Code(s): I48.91 - Unspecified atrial fibrillation Status: Acute Assessment and Plan: History of AFib EKG showing afib rate controlled with normal QTc, can continue azithromycin administration. Continue home eliquis 5 mg BID and diltiazem 240 mg daily (9) Diabetes: Qualifiers: Diabetes mellitus complication status: without complication Diabetes mellitus mold forms builder insulin use: without mold forms builder use Diabetes mellitus type: type 2 Qualified Code(s): E11.9 - Type 2 diabetes mellitus without c omplications Code(s): E11.9 - Type 2 diabetes mellitus without complications Status: Acute Assessment and Plan: - hypoglycemia protocol - POC blood glucose ACHS - home medication - metformin 500 mg BID agree - correct regimen ordered - low dose SSI - A1C 5 (10) Hypothyroidism: Qualifiers: Hypothyroidism type: unspecified Qualified Code(s): E03.9 - Hypothyroidism, unspecified Code(s): E03.9 - Hypothyroidism, unspecified Status: Acute Assessment and Plan: Chronic, continue Synthroid (11) Obstructive sleep apnea on CPAP: Code(s): G47.33 - Obstructive sleep apnea (adult) (pediatric) Status: Acute Assessment and Plan: auto titrating CPAP/BiPAP Time Spent With Patient Time with patient: 25 - 35 minutes Subjective Date/time seen: 07/19/24 09:36 Interval history: 84-year-old female with a past medical history of COPD, moderate pulmonary hypertension, chronic hypoxic respiratory failure on 4 L nasal cannula CHF with preserved ejection fraction, obstructive sleep apnea on CPAP who presented to the ER from [facility] via EMS due to cough and congestion. Patient is pleasant sitting up comfortably in bed. She continues to endorse shortness of breath, cough and congestion. Started on Pep therapy. She also endorses dysuria and burning with urination. UA concerning for infection and urine culture growing Gram-negative bacilli. Started on Rocephin overnight. Patient has other complaints denying chest pain, palpitations, nausea/vomiting, and abdominal pain. Review of Systems Review of Systems: All systems reviewed & are unremarkable except as noted in HPI and below Exam Narrative: AF HR 54 RR 18 SpO2 100 BP 98/60 General: female in no acute respiratory distress who is nontoxic appearing, lying semi recumbent in bed. HEENT: Normocephalic. Atraumatic. Extraocular movement intact. Sclera clear and anicteric. No facial asymmetry. Chest: Lungs are clear in the uppers with rhonchi in the bases to auscultation bilaterally. CV: Heart was regular rate and rhythm. Abd: Abdomen was soft. Nontender. Nondistended. Positive bowel sounds. No organomegaly or masses. Ext: No clubbing, cyanosis, or edema. DP pulses bilaterally. Neuro: Patient is alert and oriented x4. Speech is clear. Objective Data Vital Signs Vital Signs: Vital Signs - 24 hr 07/18/24 14:00 07/18/24 14:03 07/18/24 14:10 Temperature 97.5 F L Pulse Rate 98 72 65 Respiratory Rate 16 20 20 Blood Pressure 93/62 L Pulse Oximetry 99 Oxygen Delivery Oxygen Flow Rate 07/18/24 20:23 07/18/24 20:23 07/18/24 20:40 Temperature Pulse Rate 73 74 Respiratory Rate 15 15 Blood Pressure Pulse Oximetry 96 Oxygen Delivery Nasal Cannula Oxygen Flow Rate 4 07/18/24 20:51 07/18/24 20:55 07/18/24 22:11 Temperature 97.5 F L 97.7 F Pulse Rate 60 55 L Respiratory Rate 20 20 Blood Pressure 82/58 L 84/53 L Pulse Oximetry 95 100 100 Oxygen Delivery CPAP Oxygen Flow Rate 4 07/18/24 23:55 07/19/24 02:12 07/19/24 02:12 Temperature Pulse Rate 75 75 Respiratory Rate 15 Blood Pressure 90/58 L Pulse Oximetry 95 Oxygen Delivery CPAP Oxygen Flow Rate 07/19/24 02:23 07/19/24 06:00 07/19/24 07:28 Temperature 98.2 F Pulse Rate 79 63 Respiratory Rate 15 20 Blood Pressure 111/66 Pulse Oximetry 96 97 Oxygen Delivery Nasal Cannula Oxygen Flow Rate 4 07/19/24 07:28 07/19/24 07:45 Temperature Pulse Rate 69 68 Respiratory Rate 18 18 Blood Pressure Pulse Oximetry Oxygen Delivery Oxygen Flow Rate Intake/Output Intake/Output: Intake & Output 07/16/24 07/17/24 07/18/24 07/19/24 23:59 23:59 23:59 23:59 Intake Total 3550 1200 336 Output Total 75 850 100 Balance 3475 350 236 Meds/Results Medications: Active Medications Generic Name Dose Route Start Last Admin Trade Name Freq PRN Reason Stop Dose Admin Acetaminophen 650 mg 07/17/24 21:38 Acetaminophen 325 Mg Tablet PO Q4H PRN Mild Pain (1-3) or Fever Hydrocodone Bitart/Acetaminophen 1 tab 07/18/24 00:51 07/19/24 05:17 Hydrocodone/Acetaminophen (*Crx) 5-325 Mg Tablet PO 1 tab Q4H PRN Administration Pain Rated 7-10 Al Hydrox/Mg Hydrox/Simethicone 30 ml 07/17/24 21:38 Mag Hydrox/Al Hydrox/Simeth 30 Ml Udc PO Q6H PRN Indigestion Apixaban 5 mg 07/18/24 09:00 07/19/24 09:34 Apixaban 5 Mg Tablet PO 5 mg Q12HR LYNN Administration Artificial Tears 1 drop 07/18/24 00:25 07/19/24 09:35 Artificial Tears Ophth Soln 15 Ml Bottle EACH EYE 1 drop QID PRN Administration Dry Eye(s) Atorvastatin Calcium 10 mg 07/18/24 21:00 07/18/24 20:56 Atorvastatin 10 Mg Tablet PO 10 mg HS LYNN Administration Benzonatate 100 mg 07/18/24 02:39 07/19/24 05:25 Benzonatate 100 Mg Capsule PO 100 mg TID PRN Administration cough Dexamethasone Sodium Phosphate 6 mg 07/18/24 00:25 07/18/24 20:54 Dexamethasone Sod Phos Inj 10 Mg/Ml 1 Ml Vial IV PUSH 07/26/24 21:01 6 mg HS LYNN Administration Diclofenac Sodium 1 applic 07/18/24 02:39 Diclofenac Sodium 1% 100 Gm Gel (*Bkc) TOPICAL Q12H PRN arthritis pain Diltiazem HCl 240 mg 07/18/24 09:00 07/19/24 09:33 Diltiazem Hcl Cd 120 Mg Cap.24hr PO 240 mg DAILY LYNN Administration Ferrous Sulfate 325 mg 07/18/24 09:00 07/19/24 09:33 Ferrous Sulfate [address] BY MOUTH 325 mg DAILY LYNN Administration Guaifenesin/Dextromethorphan 1 tab 07/18/24 09:00 07/19/24 09:33 Guaifenesin 600 Mg/Dextromethorphan 30 Mg Sr Tab 12 Hr PO 1 tab Q12HR LYNN Administration Ceftriaxone Sodium 1 gm in 50 mls @ 100 mls/hr 07/18/24 12:00 07/18/24 11:31 Rocephin 1 Gm/Ns 50 Ml IVPB 100 mls/hr Q24H LYNN Administration Azithromycin 500 mg in 250 mls @ 250 mls/hr 07/18/24 12:00 07/18/24 12:20 Zithromax IVPB 250 mls/hr Q24H LYNN Administration Remdesivir 100 mg in 250 mls @ 250 mls/hr 07/18/24 22:00 07/18/24 23:56 IVPB 07/21/24 22:59 Infused Q24H LYNN Infusion Ipratropium [place] 0.5 mg 07/18/24 02:00 07/19/24 07:26 Ipratropium Br 0.02% Inh Soln 0.5 Mg/2.5 Ml Vial INHALATION 0.5 mg Q6HRT LYNN Administration Levalbuterol HCl 1.25 mg 07/18/24 02:00 07/19/24 07:26 Levalbuterol Neb 1.25 Mg/3 Ml INHALATION 1.25 mg Q6HRT LYNN Administration Levothyroxine Sodium 150 mcg 07/18/24 06:30 07/19/24 05:31 Levothyroxine Sodium 150 Mcg Tablet PO 150 mcg DAILY@0630 LYNN Administration Lidocaine 1 patch 07/18/24 09:00 07/19/24 09:32 Lidocaine 5% Patch TOPICAL 08/17/24 08:59 1 patch DAILY LYNN Administration Loratadine 10 mg 07/18/24 09:00 07/19/24 09:33 Loratadine 10 Mg Tablet PO 10 mg DAILY LYNN Administration Multivitamins Therapeutic 1 tablet 07/18/24 09:00 07/19/24 09:33 Multivitamins Therapeutic Tab (*Bkc) PO 1 tablet DAILY LYNN Administration Olopatadine HCl 1 drop 07/18/24 09:00 07/19/24 09:36 Olopatadine 0.1% Ophth Soln 5 Ml Btl EACH EYE 1 drop DAILY LYNN Administration Polyethylene Glycol 17 gm 07/18/24 02:40 Polyethylene Glycol 3350 17 Gm Powd.Pack PO DAILY PRN Constipation Fluticasone/Salmeterol 2 puff 07/18/24 08:00 07/19/24 07:26 Fluticasone/Salmeterol 45-21 Mcg Inhaler 1 Puff INHALATION 2 puff Q12HRT LYNN Administration Tizanidine HCl 2 mg 07/18/24 09:00 07/19/24 09:33 Tizanidine Hcl 2 Mg Tablet PO 2 mg TID LYNN Administration Tramadol HCl 50 mg 07/18/24 00:53 Tramadol Hcl (*Crx) 50 Mg Tablet PO Q6H PRN Pain Rated 4-6 Radiology Results: ITS Impressions Chest X-Ray 07/17/24 16:08 Impression: 1: No acute cardiopulmonary disease. Labs Labs: Laboratory Results - last 24 hr 07/18/24 07/19/24 19:54 06:03 WBC 12.4 H RBC 3.29 L Hgb 9.9 L Hct 31.2 L MCV 94.8 MCH 30.1 MCHC 31.7 L RDW 14.6 H Plt Count 144 L MPV 10.3 Immature Gran % (Auto) 1.8 H Neut % (Auto) 92.4 H Lymph % (Auto) 4.2 L [place] % (Auto) 1.4 L Eos % (Auto) 0.0 Baso % (Auto) 0.2 Lymph # (Auto) 0.52 L [place] # (Auto) 0.2 Eos # (Auto) 0.0 Baso # (Auto) 0.0 Abs Immat Gran (auto) 0.22 H Absolute Neuts (auto) 11.4 H Absolute Nucleated RBC 0.000 Nucleated RBC % 0.0 % Immature Plt Fraction 4.9 Sodium 138 Potassium 4.3 Chloride 107 Carbon Dioxide 20 L Anion Gap 11 BUN 38 H Creatinine 1.58 H Estim Creat Clear Calc 26 Estimated GFR 31 L Glucose 192 H Calcium 8.1 L ALT 28 Quality VTE Prophylaxis VTE prophylaxis: pharmacologic ordered
[2024-07-19] MEDS: AZITHROMYCIN 250 MG TABLET 500 MG PO (09:53)
[2024-07-19 10:09] LABS: Alkaline Phosphatase 79 U/L (38-126); Anion Gap 13 mmol/L (4-12); Aspartate Amino Transferase 22 U/L (14-36); Bilirubin,Total 0.3 mg/dL (0.2-1.3); Blood Urea Nitrogen 36 mg/dL (7-17); Calcium 8.2 mg/dL (8.4-10.2); Carbon Dioxide 18 mmol/L (22-30); Chloride 107 mmol/L (98-107); Estimated CRCL calculation 27 ml/min; Estimated Glomerular Filt Rate 32; Glucose 155 mg/dL (65-110); Potassium 4.1 mmol/L (3.4-5.0); Sodium 138 mmol/L (137-145)
[2024-07-19 10:21] LABS: Alanine Aminotransferase 27 U/L (6-35)
[2024-07-19 11:29] LABS: Glucose Point of Care 179 mg/dl (65-105)
[2024-07-19 16:41] LABS: Glucose Point of Care 179 mg/dl (65-105)
[2024-07-19] MEDS: SODIUM CHLORIDE 0.9% IV 500 ML 75 ML IV CONT (17:04)
[2024-07-19 20:47] LABS: Glucose Point of Care 203 mg/dl (65-105)
[2024-07-19] MEDS: ATORVASTATIN 10 MG TABLET PO (21:42)
[2024-07-19] MEDS: REMDESIVIR 100 MG/NS 250 ML 100 MG/250 ML BAG 250 MG IVPB (21:42)
[2024-07-19] MEDS: dexAMETHasone SOD PHOS INJ 10 MG/ML 1 ML VIAL 6 MG IV PUSH (21:43)
[2024-07-20] VITALS (10 sets, daily range): BP systolic 100–110; BP diastolic 67–71; PULSE 52–76; RESP 16–20; TEMP 36.2–36.4; O2SAT 96–99
[2024-07-20] MEDS: LEVALBUTEROL NEB 1.25 MG/3 ML INHALATION ×3 (02:00→22:10)
[2024-07-20] MEDS: IPRATROPIUM BR 0.02% INH SOLN 0.5 MG/2.5 ML VIAL INHALATION ×3 (02:00→22:10)
[2024-07-20] MEDS: HYDROcodone/acetaminophen (*CRX) 5-325 MG TABLET 1 TAB PO ×3 (02:15→16:13)
[2024-07-20] MEDS: LEVOTHYROXINE SODIUM 150 MCG TABLET PO (05:49)
[2024-07-20 08:10] LABS: Glucose Point of Care 180 mg/dl (65-105)
[2024-07-20] MEDS: FLUTICASONE/SALMETEROL 45-21 MCG INHALER 1 PUFF 2 PUFF INHALATION ×2 (08:21→22:10)
--- NOTE | 2024-07-20 08:38 | P.PNIM_ITS ---
Progress Note: A&P Assessment and Plan (1) Acute hypotension: Code(s): I95.9 - Hypotension, unspecified Status: Acute Assessment and Plan: Hypotension likely due to hypovolemia. Patient had good response to volume resuscitation. Will hold the patient's home Lasix. Continue diltiazem for afib rate control, dose decreased from 240 mg to 120 mg daily. monitor strict I&O's. (2) Atrial fibrillation: Qualifiers: Atrial fibrillation type: unspecified Qualified Code(s): I48.91 - Unspecified atrial fibrillation Code(s): I48.91 - Unspecified atrial fibrillation Status: Acute Assessment and Plan: History of AFib EKG showing afib rate controlled with normal QTc, can continue azithromycin administration. Continue home eliquis 5 mg BID Discussed diltiazem dose with Dr. Dominique given her bradycardia overnight and ongoing hypotension will decrease the 240 mg to 120 mg daily (3) COVID-19: Code(s): U07.1 - COVID-19 Status: Acute Assessment and Plan: Viral panel: covid positive 07/17 Place in COVID19 isolation precautions, cardiac monitoring, and continuous pulse ox Monitor serum electrolytes, CRP, Lactic acid, troponin, CBC, WBC, temperature curve and follow cultures Remains on home oxygen via NC Pt is a candidate for Remdesivir and Dexamethasone, continue treatment according to suggested guidelines. Remdesivir 200 mg IV x1, then 100 mg IV x4 days, dexamethasone 6 mg IV daily x 10 days, or until discharge Received IV fluids for hypotension. (4) COPD (chronic obstructive pulmonary disease): Qualifiers: COPD type: COPD with acute lower respiratory infection Qualified Code(s): J44.0 - Chronic obstructive pulmonary disease with (acute) lower respiratory infection Code(s): J44.9 - Chronic obstructive pulmonary disease, unspecified Status: Acute Assessment and Plan: Respiratory failure is stable on her home oxygen requirements of 4L NC. Chest XR: No acute cardiopulmonary disease Given patients leukocytosis and decreased breath sounds she was started on abx in the ED though not noted infiltrate on xr azithromycin and rocephin started 07/18, transitioned to oral azithromycin and augmentin on 07/20 Levalbuterol and atrovent Decadron 07/18-07/26 Monitor vital signs, I&Os, neuro status and patient is a fall risk Monitor serum electrolytes, cultures and CBC Monitor Oxygen saturation, Oxygen via NC; keep SpO2 greater than 88% (5) Chronic respiratory failure with hypoxia: Code(s): J96.11 - Chronic respiratory failure with hypoxia Status: Acute Assessment and Plan: Chronic, continue home oxygen of 4L NC (6) Urinary tract infection: Code(s): N39.0 - Urinary tract infection, site not specified Status: Acute Assessment and Plan: - UC: klebsiella pneumoniae intermediate response to fluoroquinolones and resistant to macrobid - previous micro reviewed 03/28/2024: Ecoli resistant to fluoroquinolones - started on rocephin on 07/18, transitioned to Augmentin on 07/20 (7) Acute kidney injury: Code(s): N17.9 - Acute kidney failure, unspecified Status: Acute Assessment and Plan: BUN/Cr 39/1.76 on admission. Baseline WNL. NEHA likely related to hypovolemia given cocurrent hypotension - BUN/Cr 38/1.49 on am labs following fluid bolus - Monitor I/O. UOP is decreased - Avoid nephrotoxic medications - Renally dose medications (8) Chronic diastolic (congestive) heart failure: Code(s): I50.32 - Chronic diastolic (congestive) heart failure Status: Acute Assessment and Plan: Does not appear in acute exacerbation - Chest XR: No cardiopulmonary disease - Echo 12/13/23: LVEF 55-60% with mod pulmonary hypertension - Monitor vital signs, I&Os, BUN/creatinine, daily weights, neuro status and patient is a fall risk - Monitor serum electrolytes, Keep serum Potassium>4 and serum Magnesium>2 and CBC (9) Diabetes: Qualifiers: Diabetes mellitus complication status: without complication Diabetes mellitus group home insulin use: without extermination supervisor use Diabetes mellitus type: type 2 Qualified Code(s): E11.9 - Type 2 diabetes mellitus without complications Code(s): E11.9 - Type 2 diabetes mellitus without complications Status: Acute Assessment and Plan: - hypoglycemia protocol - POC blood glucose ACHS - home medication - metformin 500 mg BID agree - correct regimen ordered - low dose SSI - A1C 5 (10) Hypothyroidism: Qualifiers: Hypothyroidism type: unspecified Qualified Code(s): E03.9 - Hypothyroidism, unspecified Code(s): E03.9 - Hypothyroidism, unspecified Status: Acute Assessment and Plan: Chronic, continue Synthroid (11) Obstructive sleep apnea on CPAP: Code(s): G47.33 - Obstructive sleep apnea (adult) (pediatric) Status: Acute Assessment and Plan: auto titrating CPAP/BiPAP Time Spent With Patient Time with patient: 25 - 35 minutes Subjective Date/time seen: 07/20/24 08:38 Interval history: 84-year-old female with a past medical history of COPD, moderate pulmonary hypertension, chronic hypoxic respiratory failure on 4 L nasal cannula CHF with preserved ejection fraction, obstructive sleep apnea on CPAP who presented to the ER from [facility] via EMS due to cough and congestion. Patient is pleasant lying comfortably in bed. She is endorsing a productive cough and intermittent shortness of breath she states has improved since admission. She was noted to have low heart rates into the 40s overnight, placed on telemetry and will continue to monitor. She has no other complaints denying chest pain, palpitations, nausea/vomiting, abdominal pain, dizziness and lightheadedness. Patient continues to be intermittently hypotensive with decent response to fluids. Discussed patient with Dr. DOMINIQUE and will decrease her diltiazem dose to 120 mg daily given her hypotension and noted bradycardia overnight. Review of Systems Review of Systems: All systems reviewed & are unremarkable except as noted in HPI and below Exam Narrative: AF HR 68 RR 20 SPO2 98 (4L NC baseline) BP 110/67 General: female in no acute respiratory distress who is nontoxic appearing, lying semi recumbent in bed. HEENT: Normocephalic. Atraumatic. Extraocular movement intact. Sclera clear and anicteric. No facial asymmetry. Chest: Lungs are clear in the uppers with rhonchi in the bases to auscultation bilaterally. CV: Heart was regular rate and rhythm. Abd: Abdomen was soft. Nontender. Nondistended. Positive bowel sounds. Ext: No clubbing, cyanosis, or edema. DP pulses bilaterally. Neuro: Patient is alert and oriented x4. Speech is clear. Objective Data Vital Signs Vital Signs: Vital Signs - 24 hr 07/19/24 14:00 07/19/24 14:40 07/19/24 14:57 Temperature 97.8 F Pulse Rate 54 L 72 76 Respiratory Rate 18 16 16 Blood Pressure 98/60 L Pulse Oximetry 100 Oxygen Delivery Oxygen Flow Rate 07/19/24 20:43 07/19/24 20:54 07/19/24 21:21 Temperature 97.9 F Pulse Rate 74 75 101 H Respiratory Rate 16 16 20 Blood Pressure 119/96 H Pulse Oximetry 98 Oxygen Delivery Oxygen Flow Rate 07/19/24 22:50 07/20/24 05:15 07/20/24 08:20 Temperature 97.2 F L Pulse Rate 43 L 59 L Respiratory Rate 20 Blood Pressure 110/67 Pulse Oximetry 100 98 96 Oxygen Delivery CPAP Nasal Cannula Oxygen Flow Rate 4 07/20/24 08:20 Temperature Pulse Rate 76 Respiratory Rate 16 Blood Pressure Pulse Oximetry Oxygen Delivery Oxygen Flow Rate Intake/Output Intake/Output: Intake & Output 07/17/24 07/18/24 07/19/24 07/20/24 23:59 23:59 23:59 23:59 Intake Total 3550 1250 1348 300 Output Total 75 850 415 450 Balance 3475 400 933 -150 Meds/Results Medications: Active Medications Generic Name Dose Route Start Last Admin Trade Name Freq PRN Reason Stop Dose Admin Acetaminophen 650 mg 07/17/24 21:38 Acetaminophen 325 Mg Tablet PO Q4H PRN Mild Pain (1-3) or Fever Hydrocodone Bitart/Acetaminophen 1 tab 07/18/24 00:51 07/20/24 02:15 Hydrocodone/Acetaminophen (*Crx) 5-325 Mg Tablet PO 1 tab Q4H PRN Administration Pain Rated 7-10 Al Hydrox/Mg Hydrox/Simethicone 30 ml 07/17/24 21:38 Mag Hydrox/Al Hydrox/Simeth 30 Ml Udc PO Q6H PRN Indigestion Apixaban 5 mg 07/18/24 09:00 07/19/24 21:42 Apixaban 5 Mg Tablet PO 5 mg Q12HR LYNN Administration Artificial Tears 1 drop 07/18/24 00:25 07/19/24 09:35 Artificial Tears Ophth Soln 15 Ml Bottle EACH EYE 1 drop QID PRN Administration Dry Eye(s) Atorvastatin Calcium 10 mg 07/18/24 21:00 07/19/24 21:42 Atorvastatin 10 Mg Tablet PO 10 mg HS LYNN Administration Azithromycin 500 mg 07/19/24 09:40 07/19/24 09:53 Azithromycin 250 Mg Tablet PO 07/21/24 09:01 500 mg DAILY LYNN Administration Benzonatate 100 mg 07/18/24 02:39 07/19/24 05:25 Benzonatate 100 Mg Capsule PO 100 mg TID PRN Administration cough Dexamethasone Sodium Phosphate 6 mg 07/18/24 00:25 07/19/24 21:43 Dexamethasone Sod Phos Inj 10 Mg/Ml 1 Ml Vial IV PUSH 07/26/24 21:01 6 mg HS LYNN Administration Dextrose 12.5 gm 07/19/24 09:53 Dextrose 50% 25 Gm/50 Ml Syringe IV PUSH PRN PRN Hypoglycemia Protocol Diclofenac Sodium 1 applic 07/18/24 02:39 Diclofenac Sodium 1% 100 Gm Gel (*Bkc) TOPICAL Q12H PRN arthritis pain Diltiazem HCl 240 mg 07/18/24 09:00 07/19/24 09:33 Diltiazem Hcl Cd 120 Mg Cap.24hr PO 240 mg DAILY LYNN Administration Ferrous Sulfate 325 mg 07/18/24 09:00 07/19/24 09:33 Ferrous Sulfate [address] BY MOUTH 325 mg DAILY LYNN Administration Guaifenesin/Dextromethorphan 1 tab 07/18/24 09:00 07/19/24 21:42 Guaifenesin 600 Mg/Dextromethorphan 30 Mg Sr Tab 12 Hr PO 1 tab Q12HR LYNN Administration Ceftriaxone Sodium 1 gm in 50 mls @ 100 mls/hr 07/18/24 12:00 07/19/24 12:10 Rocephin 1 Gm/Ns 50 Ml IVPB Infused Q24H LYNN Infusion Remdesivir 100 mg in 250 mls @ 250 mls/hr 07/18/24 22:00 07/19/24 22:42 IVPB 07/21/24 22:59 Infused Q24H LYNN Infusion Dextrose 1,000 mls @ 100 mls/hr 07/19/24 09:53 Dextrose 5% 1,000 Ml IVPB PRN PRN Hypoglycemia Protocol Insulin Aspart 2 - 5 units 07/19/24 12:00 07/19/24 16:47 Insulin Aspart (*Bkc) 100 Units/Ml SUB-Q Not Given TIDWM LYNN Protocol Ipratropium [place] 0.5 mg 07/18/24 02:00 07/20/24 08:21 Ipratropium Br 0.02% Inh Soln 0.5 Mg/2.5 Ml Vial INHALATION 0.5 mg Q6HRT LYNN Administration Levalbuterol HCl 1.25 mg 07/18/24 02:00 07/20/24 08:20 Levalbuterol Neb 1.25 Mg/3 Ml INHALATION 1.25 mg Q6HRT LYNN Administration Levothyroxine Sodium 150 mcg 07/18/24 06:30 07/20/24 05:49 Levothyroxine Sodium 150 Mcg Tablet PO 150 mcg DAILY@0630 LYNN Administration Lidocaine 1 patch 07/18/24 09:00 07/19/24 09:32 Lidocaine 5% Patch TOPICAL 08/17/24 08:59 1 patch DAILY LYNN Administration Loratadine 10 mg 07/18/24 09:00 07/19/24 09:33 Loratadine 10 Mg Tablet PO 10 mg DAILY LYNN Administration Multivitamins Therapeutic 1 tablet 07/18/24 09:00 07/19/24 09:33 Multivitamins Therapeutic Tab (*Bkc) PO 1 tablet DAILY LYNN Administration Olopatadine HCl 1 drop 07/18/24 09:00 07/19/24 09:36 Olopatadine 0.1% Ophth Soln 5 Ml Btl EACH EYE 1 drop DAILY LYNN Administration Polyethylene Glycol 17 gm 07/18/24 02:40 Polyethylene Glycol 3350 17 Gm Powd.Pack PO DAILY PRN Constipation Fluticasone/Salmeterol 2 puff 07/18/24 08:00 07/20/24 08:21 Fluticasone/Salmeterol 45-21 Mcg Inhaler 1 Puff INHALATION 2 puff Q12HRT LYNN Administration Tizanidine HCl 2 mg 07/18/24 09:00 07/19/24 17:04 Tizanidine Hcl 2 Mg Tablet PO 2 mg TID LYNN Administration Tramadol HCl 50 mg 07/18/24 00:53 Tramadol Hcl (*Crx) 50 Mg Tablet PO Q6H PRN Pain Rated 4-6 Radiology Results: ITS Impressions Chest X-Ray 07/17/24 16:08 Impression: 1: No acute cardiopulmonary disease. Labs Labs: Laboratory Results - last 24 hr 07/19/24 07/19/24 07/19/24 05:58 06:03 11:25 Sodium 138 Potassium 4.1 Chloride 107 Carbon Dioxide 18 L Anion Gap 13 H BUN 36 H Creatinine 1.56 H Estim Creat Clear Calc 27 Estimated GFR 32 L Glucose 155 H POC Capillary Glucose 179 H Hemoglobin A1c 5.0 Calcium 8.2 L Total Bilirubin 0.3 AST 22 ALT 27 Alkaline Phosphatase 79 Total Protein 6.0 L Albumin 3.0 L 07/19/24 07/19/24 07/20/24 16:38 19:50 08:03 Sodium Potassium Chloride Carbon Dioxide Anion Gap BUN Creatinine Estim Creat Clear Calc Estimated GFR Glucose POC Capillary Glucose 179 H 203 H 180 H Hemoglobin A1c Calcium Total Bilirubin AST ALT Alkaline Phosphatase Total Protein Albumin Quality VTE Prophylaxis VTE prophylaxis: pharmacologic ordered
[2024-07-20 09:38] LABS: Hematocrit 32.7 % (37.0-47.0); Hemoglobin 10.5 g/dL (12.0-15.0); Mean Corpuscular HGB Conc 32.1 g/dl (32-36); Mean Corpuscular Hemoglobin 29.7 pg (26-34); Mean Corpuscular Volume 92.6 fl (80-100); Mean Platelet Volume 10.4 fl (7.4-10.4); Platelet Count Result 168 k/mm3 (150-375); Red Blood Count 3.53 M/mm3 (4.2-5.4); Red Cell Distribution Width 14.8 % (11.5-14.5); White Blood Count 16.6 K/mm3 (4.5-10.0)
[2024-07-20 09:51] LABS: Alanine Aminotransferase 24 U/L (6-35); Albumin Level 3.3 g/dL (3.5-5.1); Alkaline Phosphatase 74 U/L (38-126); Anion Gap 12 mmol/L (4-12); Aspartate Amino Transferase 27 U/L (14-36); Bilirubin,Total 0.4 mg/dL (0.2-1.3); Blood Urea Nitrogen 38 mg/dL (7-17); Calcium 8.4 mg/dL (8.4-10.2); Carbon Dioxide 19 mmol/L (22-30); Chloride 106 mmol/L (98-107); Estimated CRCL calculation 28 ml/min; Estimated Glomerular Filt Rate 33; Glucose 146 mg/dL (65-110); Potassium 4.1 mmol/L (3.4-5.0); Sodium 137 mmol/L (137-145)
[2024-07-20] MEDS: TIZANIDINE HCL 2 MG TABLET PO ×3 (09:56→17:15)
[2024-07-20] MEDS: MULTIVITAMINS THERAPEUTIC TAB (*BKC) 1 TABLET PO (09:57)
[2024-07-20] MEDS: APIXABAN 5 MG TABLET PO ×2 (09:57→21:57)
[2024-07-20] MEDS: dilTIAZem HCL CD 120 MG CAP.24HR 240 MG PO (09:57)
[2024-07-20] MEDS: LORATADINE 10 MG TABLET PO (09:57)
[2024-07-20] MEDS: FERROUS SULFATE 325 MG TABLET DR BY MOUTH (09:57)
[2024-07-20] MEDS: LIDOCAINE 5% PATCH 1 PATCH TOPICAL (09:57)
[2024-07-20] MEDS: guaiFENesin 600 MG/DEXTROMETHORPHAN 30 MG SR TAB 12 HR 1 TAB PO ×2 (09:57→21:57)
[2024-07-20] MEDS: AMOXICILLIN/CLAVULANATE K 500-125 MG TAB 1 TABLET PO ×2 (09:59→21:57)
[2024-07-20] MEDS: AZITHROMYCIN 250 MG TABLET 500 MG PO (09:59)
[2024-07-20] MEDS: OLOPATADINE 0.1% OPHTH SOLN 5 ML BTL 1 DROP EACH EYE (10:00)
[2024-07-20 11:58] LABS: Glucose Point of Care 245 mg/dl (65-105)
[2024-07-20] MEDS: INSULIN ASPART (*BKC) 100 UNITS/ML SUB-Q (13:25)
--- NOTE | 2024-07-20 15:43 | PCRTNOTE ---
Window of time for administration has passed. See next scheduled administration.
[2024-07-20 16:58] LABS: Glucose Point of Care 176 mg/dl (65-105)
[2024-07-20 17:03] LABS: Pneumococcal Antigen Urine NOT DETECTED
--- NOTE | 2024-07-20 20:24 | ECG_ITS ---
Test Date: 2024-07-20 21:07:35 Measurements Intervals [place] Rate: 48 P: 0 CT: 0 QRS: -31 QRSD: 156 T: -15 QT: 433 QTc: 387 Interpretive Statements ATRIAL FIBRILLATION WITH SLOW VENTRICULAR RESPONSE LEFT AXIS DEVIATION [QRS AXIS < -30] RIGHT BUNDLE BRANCH BLOCK [120+ ms QRS DURATION, UPRIGHT V1, 40+ ms S IN I/aVL/V4/V5/V6] INFERIOR INFARCT, OLD Compared to ECG 07/18/2024 01:53:35 SLOW VENTRICULAR RESPONSE NOW PRESENT Electronically Signed On 07-21-2024 18:27:09 CDT by Stella Andrade M.D.
[2024-07-20 20:41] LABS: Glucose Point of Care 167 mg/dl (65-105)
[2024-07-20] MEDS: REMDESIVIR 100 MG/NS 250 ML 100 MG/250 ML BAG 250 MG IVPB (21:53)
[2024-07-20] MEDS: dexAMETHasone SOD PHOS INJ 10 MG/ML 1 ML VIAL 6 MG IV PUSH (21:57)
[2024-07-20] MEDS: ATORVASTATIN 10 MG TABLET PO (21:57)
[2024-07-21] VITALS (14 sets, daily range): BP systolic 90–120; BP diastolic 62–67; PULSE 45–98; RESP 13–20; TEMP 36.1–36.5; O2SAT 99–100
[2024-07-21] MEDS: HYDROcodone/acetaminophen (*CRX) 5-325 MG TABLET 1 TAB PO ×3 (01:43→20:50)
[2024-07-21] MEDS: LEVOTHYROXINE SODIUM 150 MCG TABLET PO (06:08)
[2024-07-21 06:18] LABS: Hematocrit 32.3 % (37.0-47.0); Hemoglobin 10.4 g/dL (12.0-15.0); Mean Corpuscular HGB Conc 32.2 g/dl (32-36); Mean Corpuscular Hemoglobin 30.1 pg (26-34); Mean Corpuscular Volume 93.4 fl (80-100); Mean Platelet Volume 10.4 fl (7.4-10.4); Platelet Count Result 155 k/mm3 (150-375); Red Blood Count 3.46 M/mm3 (4.2-5.4); White Blood Count 11.7 K/mm3 (4.5-10.0)
[2024-07-21 06:39] LABS: Alanine Aminotransferase 46 U/L (6-35); Albumin Level 3.2 g/dL (3.5-5.1); Alkaline Phosphatase 73 U/L (38-126); Anion Gap 13 mmol/L (4-12); Aspartate Amino Transferase 43 U/L (14-36); Bilirubin,Total 0.5 mg/dL (0.2-1.3); Blood Urea Nitrogen 41 mg/dL (7-17); Calcium 8.8 mg/dL (8.4-10.2); Carbon Dioxide 19 mmol/L (22-30); Chloride 105 mmol/L (98-107); Estimated CRCL calculation 30 ml/min; Estimated Glomerular Filt Rate 36; Glucose 183 mg/dL (65-110); Sodium 137 mmol/L (137-145)
[2024-07-21 07:39] LABS: Glucose Point of Care 161 mg/dl (65-105)
[2024-07-21] MEDS: FLUTICASONE/SALMETEROL 45-21 MCG INHALER 1 PUFF 2 PUFF INHALATION ×2 (08:24→21:31)
[2024-07-21] MEDS: LEVALBUTEROL NEB 1.25 MG/3 ML INHALATION ×2 (08:24→21:30)
[2024-07-21] MEDS: IPRATROPIUM BR 0.02% INH SOLN 0.5 MG/2.5 ML VIAL INHALATION ×2 (08:24→21:30)
[2024-07-21] MEDS: polyethylene glycoL 3350 17 GM POWD.PACK PO (08:51)
[2024-07-21] MEDS: dilTIAZem HCL CD 120 MG CAP.24HR PO (08:52)
[2024-07-21] MEDS: AMOXICILLIN/CLAVULANATE K 500-125 MG TAB 1 TABLET PO ×2 (08:52→20:51)
[2024-07-21] MEDS: APIXABAN 5 MG TABLET PO ×2 (08:52→20:51)
[2024-07-21] MEDS: TIZANIDINE HCL 2 MG TABLET PO ×3 (08:52→16:47)
[2024-07-21] MEDS: FERROUS SULFATE 325 MG TABLET DR BY MOUTH (08:52)
[2024-07-21] MEDS: LORATADINE 10 MG TABLET PO (08:52)
[2024-07-21] MEDS: guaiFENesin 600 MG/DEXTROMETHORPHAN 30 MG SR TAB 12 HR 1 TAB PO ×2 (08:52→20:51)
[2024-07-21] MEDS: AZITHROMYCIN 250 MG TABLET 500 MG PO (08:52)
[2024-07-21] MEDS: MULTIVITAMINS THERAPEUTIC TAB (*BKC) 1 TABLET PO (08:52)
[2024-07-21] MEDS: OLOPATADINE 0.1% OPHTH SOLN 5 ML BTL 1 DROP EACH EYE (08:58)
--- NOTE | 2024-07-21 09:31 | PM.IMPN ---
Progress Note: A&P Assessment and Plan (1) Acute hypotension: Code(s): I95.9 - Hypotension, unspecified Status: Acute Assessment and Plan: Hypotension likely due to hypovolemia. Patient had good response to volume resuscitation. Lasix 40 mg daily on hold Diltiazem placed on hold her cardiology, will need to be resumed prior to discharge if heart rate has improved. Blood pressures stable, continue to monitor (2) Atrial fibrillation: Qualifiers: Atrial fibrillation type: unspecified Qualified Code(s): I48.91 - Unspecified atrial fibrillation Code(s): I48.91 - Unspecified atrial fibrillation Status: Acute Assessment and Plan: History of AFib EKG showing afib rate controlled with normal QTc, can continue azithromycin administration. Continue home eliquis 5 mg BID Cardiology consulted for afib with bradycardia Most likely secondary to remdesivir administration with known adverse effect of bradycardia with this medication. Remdesivir to be completed 07/21 Hold diltiazem for now, but would resume prior to discharge if her heart rate has improved. TSH low, T4 and T3 ordered (3) COVID-19: Code(s): U07.1 - COVID-19 Status: Acute Assessment and Plan: Viral panel: covid positive 07/[address] in COVID19 isolation precautions, cardiac monitoring, and continuous pulse ox Monitor serum electrolytes, CRP, Lactic acid, troponin, CBC, WBC, temperature curve and follow cultures Remains on home oxygen via NC Pt is a candidate for Remdesivir and Dexamethasone, continue treatment according to suggested guidelines. Remdesivir 200 mg IV x1, then 100 mg IV x4 days (course to be completed today), dexamethasone 6 mg IV daily x 10 days, or until discharge Received IV fluids for hypotension. (4) COPD (chronic obstructive pulmonary disease): Qualifiers: COPD type: COPD with acute lower respiratory infection Qualified Code(s): J44.0 - Chronic obstructive pulmonary disease with (acute) lower respiratory infection Code(s): J44.9 - Chronic obstructive pulmonary disease, unspecified Status: Acute Assessment and Plan: Respiratory failure is stable on her home oxygen requirements of 4L NC. Chest XR: No acute cardiopulmonary disease Given patients leukocytosis and decreased breath sounds she was started on abx in the ED though not noted infiltrate on xr azithromycin and rocephin started 07/18, transitioned to oral azithromycin and augmentin on 07/20 Levalbuterol and atrovent Decadron 07/18-07/26 Monitor vital signs, I&Os, neuro status and patient is a fall risk Monitor serum electrolytes, cultures and CBC Monitor Oxygen saturation, Oxygen via NC; keep SpO2 greater than 88% (5) Chronic respiratory failure with hypoxia: Code(s): J96.11 - Chronic respiratory failure with hypoxia Status: Acute Assessment and Plan: Chronic, continue home oxygen of 4L NC (6) Urinary tract infection: Code(s): N39.0 - Urinary tract infection, site not specified Status: Acute Assessment and Plan: - UC: klebsiella pneumoniae intermediate response to fluoroquinolones and resistant to macrobid - previous micro reviewed 03/28/2024: Ecoli resistant to fluoroquinolones - started on rocephin on 07/18, transitioned to Augmentin on 07/20, course to be completed 07/23 (7) Acute kidney injury: Code(s): N17.9 - Acute kidney failure, unspecified Status: Acute Assessment and Plan: BUN/Cr 39/1.76 on admission. Baseline WNL. NEHA likely related to hypovolemia given cocurrent hypotension - BUN/Cr 41/1.41 on am. Continues to improve. - Monitor I/O. - Avoid nephrotoxic medications - Renally dose medications (8) Chronic diastolic (congestive) heart failure: Code(s): I50.32 - Chronic diastolic (congestive) heart failure Status: Acute Assessment and Plan: Does not appear in acute exacerbation - Chest XR: No cardiopulmonary disease - Echo 12/13/23: LVEF 55-60% with mod pulmonary hypertension - Monitor vital signs, I&Os, BUN/creatinine, daily weights, neuro status and patient is a fall risk - Monitor serum electrolytes, Keep serum Potassium>4 and serum Magnesium>2 and CBC (9) Diabetes: Qualifiers: Diabetes mellitus complication status: without complication Diabetes mellitus termite helper insulin use: without termite helper use Diabetes mellitus type: type 2 Qualified Code(s): E11.9 - Type 2 diabetes mellitus without complications Code(s): E11.9 - Type 2 diabetes mellitus without complications Status: Acute Assessment and Plan: - hypoglycemia protocol - POC blood glucose ACHS - home medication - metformin 500 mg BID agree - correct regimen ordered - low dose SSI - A1C 5 (10) Hypothyroidism: Qualifiers: Hypothyroidism type: unspecified Qualified Code(s): E03.9 - Hypothyroidism, unspecified Code(s): E03.9 - Hypothyroidism, unspecified Status: Acute Assessment and Plan: Chronic, continue Synthroid (11) Obstructive sleep apnea on CPAP: Code(s): G47.33 - Obstructive sleep apnea (adult) (pediatric) Status: Acute Assessment and Plan: auto titrating CPAP/BiPAP Subjective Date/time seen: 07/21/24 09:31 Interval history: 84-year-old female with a past medical history of COPD, moderate pulmonary hypertension, chronic hypoxic respiratory failure on 4 L nasal cannula CHF with preserved ejection fraction, obstructive sleep apnea on CPAP who presented to the ER from [facility] via EMS due to cough and congestion. Patient is pleasant lying comfortably in bed. She continues to have bradycardia despite the decrease diltiazem dose. Patient notes that she previously discussed pacemaker placement with her registered art therapist however this was never done and registered art therapist has since retired. Cardiology consulted. Per Cardiology bradycardia could be from remdesivir use and diltiazem has been placed on hold. Patient has no complaints denying chest pain, shortness a breath, palpitations, nausea/vomiting, no abdominal pain. Review of Systems Review of Systems: All systems reviewed & are unremarkable except as noted in HPI and below Exam Narrative: AF HR 51 RR 16 SpO2 100 BP 90/67 General: female in no acute respiratory distress who is nontoxic appearing, lying semi recumbent in bed. HEENT: Normocephalic. Atraumatic. Extraocular movement intact. Sclera clear and anicteric. No facial asymmetry. Chest: Lungs are clear in the uppers with rhonchi in the bases to auscultation bilaterally. CV: Heart was bradycardic with irregularly irregular rhythm. Abd: Abdomen was soft. Nontender. Nondistended. Positive bowel sounds. Ext: No clubbing, cyanosis, or edema. DP pulses bilaterally. Neuro: Patient is alert and oriented x4. Speech is clear. Objective Data Vital Signs Vital Signs: Vital Signs - 24 hr 07/20/24 14:00 07/20/24 20:03 07/20/24 21:31 Temperature 97.1 F L 97.6 F Pulse Rate 58 L 55 L 52 L Respiratory Rate 18 20 Blood Pressure 109/71 100/67 Pulse Oximetry 99 99 Oxygen Delivery Oxygen Flow Rate 07/20/24 21:53 07/20/24 22:10 07/20/24 22:10 Temperature Pulse Rate 53 L 53 L Respiratory Rate 20 20 Blood Pressure Pulse Oximetry 99 99 Oxygen Delivery Nasal Cannula Nasal Cannula Oxygen Flow Rate 4 4 07/20/24 22:28 07/21/24 00:02 07/21/24 04:02 Temperature Pulse Rate 53 L 58 L 56 L Respiratory Rate Blood Pressure Pulse Oximetry 99 Oxygen Delivery Autopap Oxygen Flow Rate 07/21/24 04:15 07/21/24 05:28 07/21/24 08:00 Temperature 97.7 F Pulse Rate 52 L 66 77 Respiratory Rate 18 Blood Pressure 120/62 Pulse Oximetry 99 100 Oxygen Delivery Autopap Oxygen Flow Rate 07/21/24 08:31 Temperature Pulse Rate Respiratory Rate 20 Blood Pressure Pulse Oximetry Oxygen Delivery Oxygen Flow Rate Intake/Output Intake/Output: Intake & Output 07/18/24 07/19/24 07/20/24 07/21/24 23:59 23:59 23:59 23:59 Intake Total 1250 1348 2368 500 Output Total 850 415 850 700 Balance 544 115 6516 -200 Meds/Results Medications: Active Medications Generic Name Dose Route Start Last Admin Trade Name Freq PRN Reason Stop Dose Admin Acetaminophen 650 mg 07/17/24 21:38 Acetaminophen 325 Mg Tablet PO Q4H PRN Mild Pain (1-3) or Fever Hydrocodone Bitart/Acetaminophen 1 tab 07/18/24 00:51 07/21/24 08:56 Hydrocodone/Acetaminophen (*Crx) 5-325 Mg Tablet PO 1 tab Q4H PRN Administration Pain Rated 7-10 Al Hydrox/Mg Hydrox/Simethicone 30 ml 07/17/24 21:38 Mag Hydrox/Al Hydrox/Simeth 30 Ml Udc PO Q6H PRN Indigestion Amoxicillin/Clavulanate Potassium 1 tablet 07/20/24 09:00 07/21/24 08:52 Amoxicillin/Clavulanate K 500-125 Mg Tab PO 07/23/24 21:01 1 tablet Q12HR LYNN Administration Apixaban 5 mg 07/18/24 09:00 07/21/24 08:52 Apixaban 5 Mg Tablet PO 5 mg Q12HR LYNN Administration Artificial Tears 1 drop 07/18/24 00:25 07/19/24 09:35 Artificial Tears Ophth Soln 15 Ml Bottle EACH EYE 1 drop QID PRN Administration Dry Eye(s) Atorvastatin Calcium 10 mg 07/18/24 21:00 07/20/24 21:57 Atorvastatin 10 Mg Tablet PO 10 mg HS LYNN Administration Benzonatate 100 mg 07/18/24 02:39 07/19/24 05:25 Benzonatate 100 Mg Capsule PO 100 mg TID PRN Administration cough Dexamethasone Sodium Phosphate 6 mg 07/18/24 00:25 07/20/24 21:57 Dexamethasone Sod Phos Inj 10 Mg/Ml 1 Ml Vial IV PUSH 07/26/24 21:01 6 mg HS LYNN Administration Dextrose 12.5 gm 07/19/24 09:53 Dextrose 50% 25 Gm/50 Ml Syringe IV PUSH PRN PRN Hypoglycemia Protocol Diclofenac Sodium 1 applic 07/18/24 02:39 Diclofenac Sodium 1% 100 Gm Gel (*Bkc) TOPICAL Q12H PRN arthritis pain Diltiazem HCl 120 mg 07/21/24 09:00 07/21/24 08:52 Diltiazem Hcl Cd 120 Mg Cap.24hr PO 120 mg DAILY LYNN Administration Ferrous Sulfate 325 mg 07/18/24 09:00 07/21/24 08:52 Ferrous Sulfate [address] BY MOUTH 325 mg DAILY LYNN Administration Guaifenesin/Dextromethorphan 1 tab 07/18/24 09:00 07/21/24 08:52 Guaifenesin 600 Mg/Dextromethorphan 30 Mg Sr Tab 12 Hr PO 1 tab Q12HR LYNN Administration Remdesivir 100 mg in 250 mls @ 250 mls/hr 07/18/24 22:00 07/20/24 22:53 IVPB 07/21/24 22:59 Infused Q24H LYNN Infusion Dextrose 1,000 mls @ 100 mls/hr 07/19/24 09:53 Dextrose 5% 1,000 Ml IVPB PRN PRN Hypoglycemia Protocol Insulin Aspart 2 - 5 units 07/19/24 12:00 07/21/24 08:30 Insulin Aspart (*Bkc) 100 Units/Ml SUB-Q Not Given TIDWM LYNN Protocol Ipratropium Wing 0.5 mg 07/18/24 02:00 07/21/24 08:24 Ipratropium Br 0.02% Inh Soln 0.5 Mg/2.5 Ml Vial INHALATION 0.5 mg Q6HRT LYNN Administration Levalbuterol HCl 1.25 mg 07/18/24 02:00 07/21/24 08:24 Levalbuterol Neb 1.25 Mg/3 Ml INHALATION 1.25 mg Q6HRT LYNN Administration Levothyroxine Sodium 150 mcg 07/18/24 06:30 07/21/24 06:08 Levothyroxine Sodium 150 Mcg Tablet PO 150 mcg DAILY@0630 LYNN Administration Lidocaine 1 patch 07/18/24 09:00 07/21/24 08:58 Lidocaine 5% Patch TOPICAL 08/17/24 08:59 1 patch DAILY LYNN Administration Loratadine 10 mg 07/18/24 09:00 07/21/24 08:52 Loratadine 10 Mg Tablet PO 10 mg DAILY LYNN Administration Multivitamins Therapeutic 1 tablet 07/18/24 09:00 07/21/24 08:52 Multivitamins Therapeutic Tab (*Bkc) PO 1 tablet DAILY LYNN Administration Olopatadine HCl 1 drop 07/18/24 09:00 07/21/24 08:58 Olopatadine 0.1% Ophth Soln 5 Ml Btl EACH EYE 1 drop DAILY LYNN Administration Polyethylene Glycol 17 gm 07/18/24 02:40 07/21/24 08:51 Polyethylene Glycol 3350 17 Gm Powd.Pack PO 17 gm DAILY PRN Administration Constipation Fluticasone/Salmeterol 2 puff 07/18/24 08:00 07/21/24 08:24 Fluticasone/Salmeterol 45-21 Mcg Inhaler 1 Puff INHALATION 2 puff Q12HRT LYNN Administration Tizanidine HCl 2 mg 07/18/24 09:00 07/21/24 08:52 Tizanidine Hcl 2 Mg Tablet PO 2 mg TID LYNN Administration Tramadol HCl 50 mg 07/18/24 00:53 Tramadol Hcl (*Crx) 50 Mg Tablet PO Q6H PRN Pain Rated 4-6 Radiology Results: ITS Impressions Chest X-Ray 07/17/24 16:08 Impression: 1: No acute cardiopulmonary disease. Labs Labs: Laboratory Results - last 24 hr 07/18/24 07/20/24 07/20/24 04:28 09:30 11:50 WBC 16.6 H RBC 3.53 L Hgb 10.5 L Hct 32.7 L MCV 92.6 MCH 29.7 MCHC 32.1 RDW 14.8 H Plt Count 168 MPV 10.4 Sodium 137 Potassium 4.1 Chloride 106 Carbon Dioxide 19 L Anion Gap 12 BUN 38 H Creatinine 1.49 H Estim Creat Clear Calc 28 Estimated GFR 33 L Glucose 146 H POC Capillary Glucose 245 H Calcium 8.4 Total Bilirubin 0.4 AST 27 ALT 24 Alkaline Phosphatase 74 Total Protein 7.0 Albumin 3.3 L Urine Pneumococcal Ag Not detected 07/20/24 07/20/24 07/21/24 16:54 20:02 06:10 WBC 11.7 H RBC 3.46 L Hgb 10.4 L Hct 32.3 L MCV 93.4 MCH 30.1 MCHC 32.2 RDW 15.0 H Plt Count 155 MPV 10.4 Sodium 137 Potassium 4.0 Chloride 105 Carbon Dioxide 19 L Anion Gap 13 H BUN 41 H Creatinine 1.41 H Estim Creat Clear Calc 30 Estimated GFR 36 L Glucose 183 H POC Capillary Glucose 176 H 167 H Calcium 8.8 Total Bilirubin 0.5 AST 43 H ALT 46 H Alkaline Phosphatase 73 Total Protein 7.0 Albumin 3.2 L Urine Pneumococcal Ag 07/21/24 07:36 WBC RBC Hgb Hct MCV MCH MCHC RDW Plt Count MPV Sodium Potassium Chloride Carbon Dioxide Anion Gap BUN Creatinine Estim Creat Clear Calc Estimated GFR Glucose POC Capillary Glucose 161 H Calcium Total Bilirubin AST ALT Alkaline Phosphatase Total Protein Albumin Urine Pneumococcal Ag Quality VTE Prophylaxis VTE prophylaxis: pharmacologic ordered
[2024-07-21 11:25] LABS: Glucose Point of Care 227 mg/dl (65-105)
[2024-07-21] MEDS: INSULIN ASPART (*BKC) 100 UNITS/ML SUB-Q ×2 (12:28→23:30)
--- NOTE | 2024-07-21 13:01 | P.CONCA_ITS ---
Assessment and Plan Assessment and plan (1) Atrial fibrillation: Qualifiers: Atrial fibrillation type: unspecified Qualified Code(s): I48.91 - Unspecified atrial fibrillation Code(s): I48.91 - Unspecified atrial fibrillation Status: Acute Assessment and Plan: Chronic atrial fibrillation managed with rate control and anticoagulation strategy. She is exhibiting atrial fibrillation with slow ventricular response on telemetry. This is most likely secondary to remdesivir administration with known adverse effect of bradycardia with this medication. * Can continue remdesivir unless she experiences significant, hemodynamically compromising bradycardia * Hold diltiazem for now, but would resume prior to discharge if her heart rate has improved. * Continue anticoagulation with apixaban * Check TSH (2) Chronic diastolic (congestive) heart failure: Code(s): I50.32 - Chronic diastolic (congestive) heart failure Status: Acute Assessment and Plan: Can resume home does of furosemide (3) Hypertension: Code(s): I10 - Essential (primary) hypertension Status: Acute Assessment and Plan: At goal (4) COVID-19: Code(s): U07.1 - COVID-19 Status: Acute Assessment and Plan: Treatment per hospitalist (5) Bradycardia: Code(s): R00.1 - Bradycardia, unspecified Status: Acute Assessment and Plan: See #1 History of Present Illness History of Present Illness Consult date/time: 07/21/24 13:01 Requesting physician: Mikayla Roca PA-C Consult reason: Other (bradyarrhythmia) Reason For Visit: COPD, RSV, Pneumonia, NEHA Narrative: Monica Bishop is an 84-year-old female with atrial fibrillation, mild aortic stenosis, chronic respiratory failure on supplemental oxygen, and sleep apnea. She presents to the hospital with complaints of cough and congestion and has been found to be COVID positive. Cardiology is consulted for bradyarrhythmia. This is a patient with chronic atrial fibrillation managed with diltiazem for rate control. she reports having some issues with intermittent slow heart rate in the past but has not required medication changes or pacemaker placement. Denies any syncope. She does not have any complaints at the time of my evaluation aside from fatigue. 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 Coronary heart disease Allergic rhinitis Secondary pulmonary hypertension Chronic respiratory failure with hypoxia Acquired hemosiderosis Irritable bowel Chronic GERD Obstructive sleep apnea on CPAP Chronic anticoagulation Atrial fibrillation Hyperlipidemia Hypothyroidism Hypertension Surgical History Surgical History Status post cataract extraction of both eyes with insertion of intraocular lens History of tonsillectomy and adenoidectomy Family History Family History Father Malignant neoplasm of prostate Hypertension Cerebrovascular accident Mother Depression Heart disease Grandparent Hypertension Heart disease Grandparent Alcoholism Social History Social History Social History: The patient was at assisted living [facility] until hospitalization March 2024 and has since been transitioned [facility]. She is a lifelong nonsmoker. She does not drink alcohol and never drink alcohol to excess. She denies illicit substance use. She is a retired RN. Surrogate medical decision maker: Marleny Carloslps, cousin. Code status: DNR/DNI Smoking status: Never smoker Alcohol intake: never Substance use: never Substance use type: does not use Do You Feel Safe in your Home?: Yes Lack of Transportation: No Lack of Food: Never True Current Housing: I Have Housing Concerned About Future Housing: No Difficulty Paying Gas/Electric Bills: No Difficulty Paying for Meds: No Currently Unemployed: No Education: Bachelor's Degree Difficulty w/ Childcare or Family Care: No Additional living arrangements comments: Assisted living at [facility]. 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 Spiritual care concerns: No Meds Home Medications and Allergies Home Medications ?Medication ?Instructions ?Recorded ?Confirmed ?Type atorvastatin 10 mg tablet 10 mg PO HS 10/10/20 07/18/24 History furosemide 40 mg tablet (Lasix) 40 mg PO QAM 10/10/20 07/18/24 History albuterol sulfate 2.5 mg/3 mL 2.5 mg inhalation Q8H PRN Wheezing 12/12/23 07/18/24 History (0.083 %) solution for nebulization albuterol sulfate 90 mcg/actuation 2 puff inhalation Q6H PRN 12/12/23 07/18/24 History aerosol inhaler (Ventolin HFA) Shortness Of Breath apixaban 5 mg tablet (Eliquis) 5 mg PO BID 12/12/23 07/18/24 History cyanocobalamin (vitamin B-12) 1,000 mcg IM MONTHLY 12/12/23 07/18/24 History 1,000 mcg/mL injection solution diltiazem HCl 240 mg PO DAILY 12/12/23 07/18/24 History ferrous sulfate 325 mg (65 mg 325 mg PO DAILY 12/12/23 07/18/24 History iron) tablet (FeroSul) levothyroxine 150 mcg tablet 150 mcg PO DAILY 12/12/23 07/18/24 History loratadine 10 mg tablet 10 mg PO DAILY 12/12/23 07/18/24 History multivitamin with folic acid 400 1 tablet PO DAILY 12/12/23 07/18/24 History mcg tablet (Tab-A-Mehran) potassium chloride 10 mEq 20 meq PO DAILY 12/12/23 07/18/24 History capsule,extended release metformin 500 mg tablet 500 mg PO BID 02/06/24 07/18/24 History ondansetron 4 mg disintegrating 4 mg PO Q6H PRN nausea/vomiting 02/06/24 07/18/24 History tablet polyethylene glycol 3350 17 17 g PO DAILY PRN Constipation 02/06/24 07/18/24 History gram/dose oral powder (Miralax) propylene glycol 1 %-glycerin 0.3 1 drp EACH EYE BID PRN Dry Eye(S) 02/06/24 07/18/24 History % eye drops (Lubricant (propylene glycol-glycerin)) tizanidine 2 mg tablet 2 mg PO TID 04/24/24 07/18/24 History acetaminophen 500 mg capsule 1,000 mg PO Q8H PRN pain 07/18/24 07/18/24 History benzonatate 100 mg capsule 100 mg PO TID PRN cough 07/18/24 07/18/24 History budesonide-formoterol HFA 80 2 puff inhalation Q12H 07/18/24 07/18/24 History mcg-4.5 mcg/actuation aerosol inhaler (Breyna) dextromethorphan-guaifenesin 20 1 tablet PO Q12H 07/18/24 07/18/24 History mg-400 mg tablet diclofenac sodium 1 % topical gel 2 g topical Q12H PRN arthritis pain 07/18/24 07/18/24 History (Arthritis Pain (diclofenac)) lidocaine 4 % topical patch 1 patch topical DAILY 07/18/24 07/18/24 History (Aspercreme (lidocaine)) tramadol 50 mg tablet 50 mg PO Q8H Pain Rated 4-6 07/18/24 07/18/24 History Allergies Allergy/AdvReac Type Severity Reaction Status Date / Time adhesive tape Allergy Unknown Unknown Verified 07/17/24 16:23 amitriptyline (From Elavil) Allergy Unknown Unknown Verified 07/17/24 16:23 procaine (From Novocain) Allergy Unknown Unknown Verified 07/17/24 16:23 propoxyphene (From Darvon) Allergy Unknown Unknown Verified 07/17/24 16:23 Vital Signs Vital Signs - 24 hr 07/20/24 14:00 07/20/24 20:03 07/20/24 21:31 Temperature 36.2 C L 36.4 C Pulse Rate 58 L 55 L 52 L Respiratory Rate 18 20 Blood Pressure 109/71 100/67 Pulse Oximetry 99 99 Oxygen Delivery Oxygen Flow Rate 07/20/24 21:53 07/20/24 22:10 07/20/24 22:10 Temperature Pulse Rate 53 L 53 L Respiratory Rate 20 20 Blood Pressure Pulse Oximetry 99 99 Oxygen Delivery Nasal Cannula Nasal Cannula Oxygen Flow Rate 4 4 07/20/24 22:28 07/21/24 00:02 07/21/24 04:02 Temperature Pulse Rate 53 L 58 L 56 L Respiratory Rate Blood Pressure Pulse Oximetry 99 Oxygen Delivery Autopap Oxygen Flow Rate 07/21/24 04:15 07/21/24 05:28 07/21/24 08:00 Temperature 36.5 C Pulse Rate 52 L 66 77 Respiratory Rate 18 Blood Pressure 120/62 Pulse Oximetry 99 100 Oxygen Delivery Autopap Oxygen Flow Rate 07/21/24 08:31 07/21/24 12:00 Temperature Pulse Rate 57 L Respiratory Rate 20 Blood Pressure Pulse Oximetry Oxygen Delivery Oxygen Flow Rate Exam 2 Const: General: comfortable, no acute distress, alert and awake O rientation/consciousness: patient oriented x3 HENMT: Head: normal to inspection Eyes: General: appearance normal, both eyes and all related structures P upils: Equal, round and reactive pupils present Neck: Neck: normal visual inspection, supple and no JVD Carotids: normal carotid upstroke Resp: Effort & Inspection: normal respiratory effort Other: on supplemental O2 Cardio: Rate: bradycardic Rhythm: abnormal rhythm irregularly irregular Heart sounds: S1 normal heart sound present, S2 normal heart sound present and no murmurs GI: Auscultation: normal bowel sounds Skin: General skin exam: normal color Neuro: General: patient oriented x3 Cranial nerves: Yes Equal, round and reactive pupils present Extrem: General: normal to inspection Psych: Appearance: grossly normal Mental Status: mental status grossly normal Results Labs and Meds 07/21/24 06:10 07/21/24 06:10 Lab results: Cardiac Enzymes 07/21/24 Range/Units 06:10 AST 43 H (14-36) U/L CBC 07/21/24 Range/Units 06:10 WBC 11.7 H (4.5-10.0) K/mm3 RBC 3.46 L (4.2-5.4) M/mm3 Hgb 10.4 L (12.0-15.0) g/dL Hct 32.3 L (37.0-47.0) % Plt Count 155 (150-375) k/mm3 Comprehensive Metabolic Panel 07/21/24 Range/Units 06:10 Sodium 137 (137-145) mmol/L Potassium 4.0 (3.4-5.0) mmol/L Chloride 105 (98-107) mmol/L Carbon Dioxide 19 L (22-30) mmol/L BUN 41 H (7-17) mg/dL Creatinine 1.41 H (0.7-1.0) mg/dL Glucose 183 H (65-110) mg/dL Calcium 8.8 (8.4-10.2) mg/dL AST 43 H (14-36) U/L ALT 46 H (6-35) U/L Alkaline Phosphatase 73 (38-126) U/L Total Protein 7.0 (6.3-8.2) g/dL Albumin 3.2 L (3.5-5.1) g/dL Intake and Output 03/20/25 03/21/25 03/21/25 23:59 07:59 15:59 Intake Total 1250 500 118 Output Total 400 700 Balance 850 -200 118 Intake: IV 250 Remdesivir 100 mg/Ns 250 ml 100 250 mg In 250 ml @ 250 mls/hr IVPB Q24H [facility] Rx#:[id number] Oral 1000 500 118 Output: Catheter Urine 400 700 External/Condom 400 700 Patient Weight 07/21/24 23:59 Weight 90.4 kg
[2024-07-21] MEDS: SODIUM CHLORIDE 0.9% IV 500 ML IV CONT (14:50)
[2024-07-21 15:05] LABS: Thyroid Stimulating Hormone < 0.015 uIU/mL (0.465-4.680)
[2024-07-21 16:14] LABS: T4 Thyroxine 9.55 ug/dL (5.53-11.0)
[2024-07-21 16:28] LABS: Total Triiodothyronine (T3) 0.56 NG/ML (0.97-1.69)
[2024-07-21 16:34] LABS: Glucose Point of Care 193 mg/dl (65-105)
[2024-07-21] MEDS: dexAMETHasone SOD PHOS INJ 10 MG/ML 1 ML VIAL 6 MG IV PUSH (20:51)
[2024-07-21] MEDS: ATORVASTATIN 10 MG TABLET PO (20:51)
[2024-07-21 21:23] LABS: Glucose Point of Care 240 mg/dl (65-105)
[2024-07-21] MEDS: REMDESIVIR 100 MG/NS 250 ML 100 MG/250 ML BAG 250 MG IVPB (22:21)
[2024-07-21 23:42] LABS: Glucose Point of Care 215 mg/dl (65-105)
[2024-07-22] VITALS (17 sets, daily range): BP systolic 100–122; BP diastolic 67–75; PULSE 43–112; RESP 14–20; TEMP 36.2; O2SAT 97–100
[2024-07-22] MEDS: IPRATROPIUM BR 0.02% INH SOLN 0.5 MG/2.5 ML VIAL INHALATION ×4 (02:18→20:21)
[2024-07-22] MEDS: LEVALBUTEROL NEB 1.25 MG/3 ML INHALATION ×4 (02:18→20:21)
[2024-07-22] MEDS: LEVOTHYROXINE SODIUM 150 MCG TABLET PO (05:49)
[2024-07-22 07:08] LABS: Hematocrit 30.3 % (37.0-47.0); Mean Corpuscular Hemoglobin 30.5 pg (26-34); Mean Corpuscular Volume 92.4 fl (80-100); Mean Platelet Volume 10.8 fl (7.4-10.4); Platelet Count Result 141 k/mm3 (150-375); Red Blood Count 3.28 M/mm3 (4.2-5.4); White Blood Count 10.1 K/mm3 (4.5-10.0)
[2024-07-22 07:17] LABS: Alanine Aminotransferase 44 U/L (6-35); Albumin Level 2.9 g/dL (3.5-5.1); Alkaline Phosphatase 61 U/L (38-126); Anion Gap 9 mmol/L (4-12); Aspartate Amino Transferase 35 U/L (14-36); Bilirubin,Total 0.5 mg/dL (0.2-1.3); Blood Urea Nitrogen 37 mg/dL (7-17); Calcium 8.8 mg/dL (8.4-10.2); Carbon Dioxide 21 mmol/L (22-30); Chloride 107 mmol/L (98-107); Estimated CRCL calculation 35 ml/min; Estimated Glomerular Filt Rate 41; Glucose 183 mg/dL (65-110); Potassium 4.3 mmol/L (3.4-5.0); Sodium 137 mmol/L (137-145)
[2024-07-22 07:53] LABS: Glucose Point of Care 182 mg/dl (65-105)
[2024-07-22] MEDS: FLUTICASONE/SALMETEROL 45-21 MCG INHALER 1 PUFF 2 PUFF INHALATION (08:21)
--- NOTE | 2024-07-22 08:49 | P.PNIM_ITS ---
Progress Note: A&P Assessment and Plan (1) Acute hypotension: Code(s): I95.9 - Hypotension, unspecified Status: Acute Assessment and Plan: Hypotension likely due to hypovolemia. Patient had good response to volume resuscitation. Lasix 40 mg daily to be resumed Diltiazem resumed at 120 mg daily, HR stable. Consider increase back to home dose of 240 mg daily however will continue to monitor tele at this time. Blood pressures reviewed and remain stable, continue to monitor (2) Atrial fibrillation: Qualifiers: Atrial fibrillation type: unspecified Qualified Code(s): I48.91 - Unspecified atrial fibrillation Code(s): I48.91 - Unspecified atrial fibrillation Status: Acute Assessment and Plan: History of AFib EKG showing afib rate controlled with normal QTc, can continue azithromycin administration. Continue home eliquis 5 mg BID Cardiology consulted for afib with bradycardia Most likely secondary to remdesivir administration with known adverse effect of bradycardia with this medication. Remdesivir completed 07/21 Resume diltiazem 120 mg daily, monitor HR. Consider increase back to home dose of 240 mg daily however will continue to monitor tele at this time. TSH low, T4 and T3 WNL (3) COVID-19: Code(s): U07.1 - COVID-19 Status: Acute Assessment and Plan: Viral panel: covid positive 07/[address] in COVID19 isolation precautions, cardiac monitoring, and continuous pulse ox Monitor serum electrolytes, CRP, Lactic acid, troponin, CBC, WBC, temperature curve and follow cultures Remains on home oxygen via NC Pt is a candidate for Remdesivir and Dexamethasone, continue treatment according to suggested guidelines. Remdesivir 200 mg IV x1, then 100 mg IV x4 days (course completed), dexamethasone 6 mg IV daily x 10 days, or until discharge (4) COPD (chronic obstructive pulmonary disease): Qualifiers: COPD type: COPD with acute lower respiratory infection Qualified Code(s): J44.0 - Chronic obstructive pulmonary disease with (acute) lower respiratory infection Code(s): J44.9 - Chronic obstructive pulmonary disease, unspecified Status: Acute Assessment and Plan: Respiratory failure is stable on her home oxygen requirements of 4L NC. Chest XR: No acute cardiopulmonary disease Given patients leukocytosis and decreased breath sounds she was started on abx in the ED though not noted infiltrate on xr azithromycin and rocephin started 07/18, transitioned to oral azithromycin and augmentin on 07/20 Levalbuterol and atrovent Decadron 07/18-07/26 Monitor vital signs, I&Os, neuro status and patient is a fall risk Monitor serum electrolytes, cultures and CBC Monitor Oxygen saturation, Oxygen via NC; keep SpO2 greater than 88% (5) Chronic respiratory failure with hypoxia: Code(s): J96.11 - Chronic respiratory failure with hypoxia Status: Acute Assessment and Plan: Chronic, continue home oxygen of 4L NC (6) Urinary tract infection: Code(s): N39.0 - Urinary tract infection, site not specified Status: Acute Assessment and Plan: - UC: klebsiella pneumoniae intermediate response to fluoroquinolones and resistant to macrobid - previous micro reviewed 03/28/2024: Ecoli resistant to fluoroquinolones - started on rocephin on 07/18, transitioned to Augmentin on 07/20, course to be completed 07/23 Denies urinary symptoms at time of assessment. (7) Acute kidney injury: Code(s): N17.9 - Acute kidney failure, unspecified Status: Acute Assessment and Plan: BUN/Cr 39/1.76 on admission. Baseline WNL. NEHA likely related to hypovolemia given cocurrent hypotension - BUN/Cr 37/1.25 on am. Continues to improve. - Monitor I/O. - Avoid nephrotoxic medications - Renally dose medications (8) Chronic diastolic (congestive) heart failure: Code(s): I50.32 - Chronic diastolic (congestive) heart failure Status: Acute Assessment and Plan: Does not appear in acute exacerbation - Chest XR: No cardiopulmonary disease - Echo 12/13/23: LVEF 55-60% with mod pulmonary hypertension - Monitor vital signs, I&Os, BUN/creatinine, daily weights, neuro status and patient is a fall risk - Monitor serum electrolytes, Keep serum Potassium>4 and serum Magnesium>2 and CBC (9) Diabetes: Qualifiers: Diabetes mellitus complication status: without complication Diabetes mellitus long term care social worker insulin use: without long term care social worker use Diabetes mellitus type: type 2 Qualified Code(s): E11.9 - Type 2 diabetes mellitus without complic ations Code(s): E11.9 - Type 2 diabetes mellitus without complications Status: Acute Assessment and Plan: - hypoglycemia protocol - POC blood glucose ACHS - home medication - metformin 500 mg BID agree - correct regimen ordered - low dose SSI - A1C 5 (10) Hypothyroidism: Qualifiers: Hypothyroidism type: unspecified Qualified Code(s): E03.9 - Hypothyroidism, unspecified Code(s): E03.9 - Hypothyroidism, unspecified Status: Acute Assessment and Plan: Chronic, continue Synthroid (11) Obstructive sleep apnea on CPAP: Code(s): G47.33 - Obstructive sleep apnea (adult) (pediatric) Status: Acute Assessment and Plan: auto titrating CPAP/BiPAP Time Spent With Patient Time with patient: 25 - 35 minutes Subjective Date/time seen: 07/22/24 08:49 Interval history: 84-year-old female with a past medical history of COPD, moderate pulmonary hypertension, chronic hypoxic respiratory failure on 4 L nasal cannula CHF with preserved ejection fraction, obstructive sleep apnea on CPAP who presented to the ER from [facility] via EMS due to cough and congestion. Patient is pleasant lying comfortably in bed. She states she is feeling better today and is less short of breath. She remains on her baseline oxygen supplementation. She denies chest pain, palpitations, nausea/vomiting and abdominal pain. HR remain stable on the diltiazem 120 mg daily since remdesivir completed. Blood pressures remain stable will resume lasix. Review of Systems Review of Systems: All systems reviewed & are unremarkable except as noted in HPI and below Exam Narrative: AF HR 80 RR 20 SpO2 99 BP 122/75 General: female in no acute respiratory distress who is nontoxic appearing, lying semi recumbent in bed. HEENT: Normocephalic. Atraumatic. Extraocular movement intact. Sclera clear and anicteric. No facial asymmetry. Chest: Lungs are clear in the uppers with slight rhonchi. CV: Heart with irregularly irregular rate and rhythm. Abd: Abdomen was soft. Nontender. Nondistended. Positive bowel sounds. Ext: No clubbing, cyanosis, or edema. DP pulses bilaterally. Neuro: Patient is alert and oriented x4. Speech is clear. Objective Data Vital Signs Vital Signs: Vital Signs - 24 hr 07/21/24 12:00 07/21/24 13:44 07/21/24 13:44 Temperature Pulse Rate 57 L 51 L 45 L Respiratory Rate 20 20 Blood Pressure Pulse Oximetry 99 Oxygen Delivery Nasal Cannula Oxygen Flow Rate 4 07/21/24 14:00 07/21/24 16:00 07/21/24 20:00 Temperature 97.3 F L Pulse Rate 51 L 51 L 50 L Respiratory Rate 16 Blood Pressure 90/67 L Pulse Oximetry 100 Oxygen Delivery Oxygen Flow Rate 07/21/24 21:30 07/21/24 21:44 07/21/24 21:50 Temperature 96.9 F L Pulse Rate 57 L 96 98 Respiratory Rate 18 13 18 Blood Pressure 114/63 Pulse Oximetry 100 Oxygen Delivery Oxygen Flow Rate 07/22/24 00:00 07/22/24 02:18 07/22/24 02:30 Temperature Pulse Rate 57 L 60 60 Respiratory Rate 14 Blood Pressure Pulse Oximetry Oxygen Delivery Oxygen Flow Rate 07/22/24 04:00 07/22/24 05:26 07/22/24 08:21 Temperature 97.1 F L Pulse Rate 71 72 Respiratory Rate 14 Blood Pressure 122/75 Pulse Oximetry 97 99 Oxygen Delivery Nasal Cannula Oxygen Flow Rate 3 07/22/24 08:21 07/22/24 08:36 Temperature Pulse Rate 72 80 Respiratory Rate 20 20 Blood Pressure Pulse Oximetry Oxygen Delivery Oxygen Flow Rate Intake/Output Intake/Output: Intake & Output 07/19/24 07/20/24 07/21/24 07/22/24 23:59 23:59 23:59 23:59 Intake Total 1348 2368 1258 500 Output Total 523 890 5212 900 Balance 933 1518 58 -400 Meds/Results Medications: Active Medications Generic Name Dose Route Start Last Admin Trade Name Freq PRN Reason Stop Dose Admin Acetaminophen 650 mg 07/17/24 21:38 Acetaminophen 325 Mg Tablet PO Q4H PRN Mild Pain (1-3) or Fever Hydrocodone Bitart/Acetaminophen 1 tab 07/18/24 00:51 07/21/24 20:50 Hydrocodone/Acetaminophen (*Crx) 5-325 Mg Tablet PO 1 tab Q4H PRN Administration Pain Rated 7-10 Al Hydrox/Mg Hydrox/Simethicone 30 ml 07/17/24 21:38 Mag Hydrox/Al Hydrox/Simeth 30 Ml Udc PO Q6H PRN Indigestion Amoxicillin/Clavulanate Potassium 1 tablet 07/20/24 09:00 07/21/24 20:51 Amoxicillin/Clavulanate K 500-125 Mg Tab PO 07/23/24 21:01 1 tablet Q12HR LYNN Administration Apixaban 5 mg 07/18/24 09:00 07/21/24 20:51 Apixaban 5 Mg Tablet PO 5 mg Q12HR LYNN Administration Artificial Tears 1 drop 07/18/24 00:25 07/19/24 09:35 Artificial Tears Ophth Soln 15 Ml Bottle EACH EYE 1 drop QID PRN Administration Dry Eye(s) Atorvastatin Calcium 10 mg 07/18/24 21:00 07/21/24 20:51 Atorvastatin 10 Mg Tablet PO 10 mg HS LYNN Administration Benzonatate 100 mg 07/18/24 02:39 07/19/24 05:25 Benzonatate 100 Mg Capsule PO 100 mg TID PRN Administration cough Dexamethasone Sodium Phosphate 6 mg 07/18/24 00:25 07/21/24 20:51 Dexamethasone Sod Phos Inj 10 Mg/Ml 1 Ml Vial IV PUSH 07/26/24 21:01 6 mg HS LYNN Administration Dextrose 12.5 gm 07/19/24 09:53 Dextrose 50% 25 Gm/50 Ml Syringe IV PUSH PRN PRN Hypoglycemia Protocol Diclofenac Sodium 1 applic 07/18/24 02:39 Diclofenac Sodium 1% 100 Gm Gel (*Bkc) TOPICAL Q12H PRN arthritis pain Diltiazem HCl 120 mg 07/21/24 09:00 07/21/24 08:52 Diltiazem Hcl Cd 120 Mg Cap.24hr PO 120 mg DAILY LYNN Administration Ferrous Sulfate 325 mg 07/18/24 09:00 07/21/24 08:52 Ferrous Sulfate [address] BY MOUTH 325 mg DAILY LYNN Administration Guaifenesin/Dextromethorphan 1 tab 07/18/24 09:00 07/21/24 20:51 Guaifenesin 600 Mg/Dextromethorphan 30 Mg Sr Tab 12 Hr PO 1 tab Q12HR LYNN Administration Dextrose 1,000 mls @ 100 mls/hr 07/19/24 09:53 Dextrose 5% 1,000 Ml IVPB PRN PRN Hypoglycemia Protocol Insulin Aspart 2 - 5 units 07/19/24 12:00 07/21/24 16:47 Insulin Aspart (*Bkc) 100 Units/Ml SUB-Q Not Given TIDWM LYNN Protocol Insulin Aspart 1 - 3 units 07/21/24 23:10 07/21/24 23:30 Insulin Aspart (*Bkc) 100 Units/Ml SUB-Q 1 units HS LYNN Administration Protocol Ipratropium [place] 0.5 mg 07/18/24 02:00 07/22/24 08:17 Ipratropium Br 0.02% Inh Soln 0.5 Mg/2.5 Ml Vial INHALATION 0.5 mg Q6HRT LYNN Administration Levalbuterol HCl 1.25 mg 07/18/24 02:00 07/22/24 08:17 Levalbuterol Neb 1.25 Mg/3 Ml INHALATION 1.25 mg Q6HRT LYNN Administration Levothyroxine Sodium 150 mcg 07/18/24 06:30 07/22/24 05:49 Levothyroxine Sodium 150 Mcg Tablet PO 150 mcg DAILY@0630 [facility] Administration Lidocaine 1 patch 07/18/24 09:00 07/21/24 08:45 Lidocaine 5% Patch TOPICAL 08/17/24 08:59 Not Given DAILY [facility] Loratadine 10 mg 07/18/24 09:00 07/21/24 08:52 Loratadine 10 Mg Tablet PO 10 mg DAILY LYNN Administration Multivitamins Therapeutic 1 tablet 07/18/24 09:00 07/21/24 08:52 Multivitamins Therapeutic Tab (*Bkc) PO 1 tablet DAILY [facility] Administration Olopatadine HCl 1 drop 07/18/24 09:00 07/21/24 08:58 Olopatadine 0.1% Ophth Soln 5 Ml Btl EACH EYE 1 drop DAILY [facility] Administration Polyethylene Glycol 17 gm 07/18/24 02:40 07/21/24 08:51 Polyethylene Glycol 3350 17 Gm Powd.Pack PO 17 gm DAILY PRN Administration Constipation Fluticasone/Salmeterol 2 puff 07/18/24 08:00 07/22/24 08:21 Fluticasone/Salmeterol 45-21 Mcg Inhaler 1 Puff INHALATION 2 puff Q12HRT [facility] Administration Tizanidine HCl 2 mg 07/18/24 09:00 07/21/24 16:47 Tizanidine Hcl 2 Mg Tablet PO 2 mg TID [facility] Administration Tramadol HCl 50 mg 07/18/24 00:53 Tramadol Hcl (*Crx) 50 Mg Tablet PO Q6H PRN Pain Rated 4-6 Radiology Results: ITS Impressions Chest X-Ray 07/17/24 16:08 Impression: 1: No acute cardiopulmonary disease. Labs Labs: Laboratory Results - last 24 hr 07/21/24 07/21/24 07/21/24 05:52 11:22 16:25 WBC RBC Hgb Hct MCV MCH MCHC RDW Plt Count MPV Sodium Potassium Chloride Carbon Dioxide Anion Gap BUN Creatinine Estim Creat Clear Calc Estimated GFR Glucose POC Capillary Glucose 227 H 193 H Calcium Total Bilirubin AST ALT Alkaline Phosphatase Total Protein Albumin TSH < 0.015 L Thyroxine (T4) 9.55 Total T3 0.56 L 07/21/24 07/21/24 07/22/24 19:53 23:29 07:02 WBC 10.1 H RBC 3.28 L Hgb 10.0 L Hct 30.3 L MCV 92.4 MCH 30.5 MCHC 33.0 RDW 15.0 H Plt Count 141 L MPV 10.8 H Sodium 137 Potassium 4.3 Chloride 107 Carbon Dioxide 21 L Anion Gap 9 BUN 37 H Creatinine 1.25 H Estim Creat Clear Calc 35 Estimated GFR 41 L Glucose 183 H POC Capillary Glucose 240 H 215 H Calcium 8.8 Total Bilirubin 0.5 AST 35 ALT 44 H Alkaline Phosphatase 61 Total Protein 6.0 L Albumin 2.9 L TSH Thyroxine (T4) Total T3 07/22/24 07:51 WBC RBC Hgb Hct MCV MCH MCHC RDW Plt Count MPV Sodium Potassium Chloride Carbon Dioxide Anion Gap BUN Creatinine Estim Creat Clear Calc Estimated GFR Glucose POC Capillary Glucose 182 H Calcium Total Bilirubin AST ALT Alkaline Phosphatase Total Protein Albumin TSH Thyroxine (T4) Total T3 Quality VTE Prophylaxis VTE prophylaxis: pharmacologic ordered
[2024-07-22] MEDS: AMOXICILLIN/CLAVULANATE K 500-125 MG TAB 1 TABLET PO ×2 (10:49→21:51)
[2024-07-22] MEDS: dilTIAZem HCL CD 120 MG CAP.24HR PO (10:49)
[2024-07-22] MEDS: guaiFENesin 600 MG/DEXTROMETHORPHAN 30 MG SR TAB 12 HR 1 TAB PO ×2 (10:50→21:51)
[2024-07-22] MEDS: MULTIVITAMINS THERAPEUTIC TAB (*BKC) 1 TABLET PO (10:50)
[2024-07-22] MEDS: LORATADINE 10 MG TABLET PO (10:50)
[2024-07-22] MEDS: APIXABAN 5 MG TABLET PO ×2 (10:50→21:51)
[2024-07-22] MEDS: TIZANIDINE HCL 2 MG TABLET PO ×3 (10:50→17:50)
[2024-07-22] MEDS: FERROUS SULFATE 325 MG TABLET DR BY MOUTH (10:50)
[2024-07-22] MEDS: LIDOCAINE 5% PATCH 1 PATCH TOPICAL (10:51)
[2024-07-22 12:08] LABS: Glucose Point of Care 186 mg/dl (65-105)
[2024-07-22] MEDS: OLOPATADINE 0.1% OPHTH SOLN 5 ML BTL 1 DROP EACH EYE (12:33)
[2024-07-22] MEDS: HYDROcodone/acetaminophen (*CRX) 5-325 MG TABLET 1 TAB PO ×2 (12:41→17:58)
[2024-07-22 16:41] LABS: Glucose Point of Care 220 mg/dl (65-105)
[2024-07-22] MEDS: INSULIN ASPART (*BKC) 100 UNITS/ML SUB-Q ×2 (17:49→21:52)
[2024-07-22 21:10] LABS: Glucose Point of Care 209 mg/dl (65-105)
[2024-07-22] MEDS: ATORVASTATIN 10 MG TABLET PO (21:51)
[2024-07-22] MEDS: dexAMETHasone SOD PHOS INJ 10 MG/ML 1 ML VIAL 6 MG IV PUSH (21:51)
[2024-07-23] VITALS (19 sets, daily range): BP systolic 114–122; BP diastolic 66–73; PULSE 52–80; RESP 13–20; TEMP 36.4–36.8; O2SAT 12–100
[2024-07-23] MEDS: IPRATROPIUM BR 0.02% INH SOLN 0.5 MG/2.5 ML VIAL INHALATION ×4 (02:21→19:42)
[2024-07-23] MEDS: LEVALBUTEROL NEB 1.25 MG/3 ML INHALATION ×4 (02:21→19:42)
[2024-07-23] MEDS: LEVOTHYROXINE SODIUM 150 MCG TABLET PO (05:31)
[2024-07-23 07:37] LABS: Hematocrit 31.4 % (37.0-47.0); Hemoglobin 10.3 g/dL (12.0-15.0); Mean Corpuscular HGB Conc 32.8 g/dl (32-36); Mean Corpuscular Hemoglobin 30.2 pg (26-34); Mean Corpuscular Volume 92.1 fl (80-100); Mean Platelet Volume 10.6 fl (7.4-10.4); Platelet Count Result 156 k/mm3 (150-375); Red Blood Count 3.41 M/mm3 (4.2-5.4); Red Cell Distribution Width 15.3 % (11.5-14.5); White Blood Count 10.9 K/mm3 (4.5-10.0)
[2024-07-23 07:51] LABS: Alanine Aminotransferase 76 U/L (6-35); Alkaline Phosphatase 61 U/L (38-126); Anion Gap 7 mmol/L (4-12); Aspartate Amino Transferase 53 U/L (14-36); Bilirubin,Total 0.7 mg/dL (0.2-1.3); Blood Urea Nitrogen 34 mg/dL (7-17); Carbon Dioxide 24 mmol/L (22-30); Chloride 105 mmol/L (98-107); Estimated CRCL calculation 36 ml/min; Estimated Glomerular Filt Rate 43; Glucose 171 mg/dL (65-110); Potassium 4.5 mmol/L (3.4-5.0); Sodium 136 mmol/L (137-145)
[2024-07-23] MEDS: FLUTICASONE/SALMETEROL 45-21 MCG INHALER 1 PUFF 2 PUFF INHALATION ×2 (07:54→19:44)
[2024-07-23] MEDS: APIXABAN 5 MG TABLET PO ×2 (08:04→21:19)
[2024-07-23] MEDS: TIZANIDINE HCL 2 MG TABLET PO ×3 (08:05→17:08)
[2024-07-23] MEDS: FUROSEMIDE 40 MG TABLET PO (08:05)
[2024-07-23] MEDS: AMOXICILLIN/CLAVULANATE K 500-125 MG TAB 1 TABLET PO ×2 (08:05→21:19)
[2024-07-23] MEDS: HYDROcodone/acetaminophen (*CRX) 5-325 MG TABLET 1 TAB PO ×2 (08:05→18:18)
[2024-07-23] MEDS: FERROUS SULFATE 325 MG TABLET DR BY MOUTH (08:05)
[2024-07-23] MEDS: MULTIVITAMINS THERAPEUTIC TAB (*BKC) 1 TABLET PO (08:05)
[2024-07-23] MEDS: guaiFENesin 600 MG/DEXTROMETHORPHAN 30 MG SR TAB 12 HR 1 TAB PO ×2 (08:05→21:19)
[2024-07-23] MEDS: LORATADINE 10 MG TABLET PO (08:05)
[2024-07-23] MEDS: dilTIAZem HCL CD 120 MG CAP.24HR PO (08:05)
[2024-07-23] MEDS: LIDOCAINE 5% PATCH 1 PATCH TOPICAL (08:06)
[2024-07-23] MEDS: polyethylene glycoL 3350 17 GM POWD.PACK PO (08:06)
[2024-07-23] MEDS: OLOPATADINE 0.1% OPHTH SOLN 5 ML BTL 1 DROP EACH EYE (08:06)
[2024-07-23] MEDS: BISACODYL 10 MG SUPPOSITORY RECTAL (11:32)
[2024-07-23 11:56] LABS: Glucose Point of Care 225 mg/dl (65-105)
[2024-07-23] MEDS: INSULIN ASPART (*BKC) 100 UNITS/ML SUB-Q ×2 (12:36→21:18)
--- NOTE | 2024-07-23 14:12 | P.PNIM_ITS ---
Progress Note: A&P Assessment and Plan (1) Acute hypotension: Code(s): I95.9 - Hypotension, unspecified Status: Acute Assessment and Plan: Hypotension likely due to hypovolemia. Patient had good response to volume resuscitation. Lasix 40 mg daily to be resumed Diltiazem placed on hold for ongoing bradycardia. Continue to monitor tele at this time. Blood pressures reviewed and remain stable, continue to monitor (2) Atrial fibrillation: Qualifiers: Atrial fibrillation type: unspecified Qualified Code(s): I48.91 - Unspecified atrial fibrillation Code(s): I48.91 - Unspecified atrial fibrillation Status: Acute Assessment and Plan: History of AFib EKG showing afib rate controlled with normal QTc, can continue azithromycin administration. Continue home eliquis 5 mg BID Cardiology consulted for afib with bradycardia Likely secondary to remdesivir administration with known adverse effect of bradycardia with this medication. Remdesivir completed 07/21 Patient continues to be bradycardic despite completion of remdesivir. Discussed patient with cardiology Dr. Andrade and will hold the diltiazem at this time and continue to monitor heart rate. TSH low, T4 and T3 WNL (3) COVID-19: Code(s): U07.1 - COVID-19 Status: Acute Assessment and Plan: Viral panel: covid positive 07/[address] in COVID19 isolation precautions, cardiac monitoring, and continuous pulse ox Monitor serum electrolytes, CRP, Lactic acid, troponin, CBC, WBC, temperature curve and follow cultures Remains on home oxygen via NC Pt is a candidate for Remdesivir and Dexamethasone, continue treatment according to suggested guidelines. Remdesivir 200 mg IV x1, then 100 mg IV x4 days (course completed), dexamethasone 6 mg IV daily x 10 days, or until discharge (4) COPD (chronic obstructive pulmonary disease): Qualifiers: COPD type: COPD with acute lower respiratory infection Qualified Code (s): J44.0 - Chronic obstructive pulmonary disease with (acute) lower respiratory infection Code(s): J44.9 - Chronic obstructive pulmonary disease, unspecified Status: Acute Assessment and Plan: Respiratory failure is stable on her home oxygen requirements of 4L NC. Chest XR: No acute cardiopulmonary disease Given patients leukocytosis and decreased breath sounds she was started on abx in the ED though not noted infiltrate on xr azithromycin and rocephin started 07/18, transitioned to oral azithromycin and augmentin on 07/20. Course completed 07/23. Levalbuterol and atrovent Decadron 07/18-07/26 Monitor vital signs, I&Os, neuro status and patient is a fall risk Monitor serum electrolytes, cultures and CBC Monitor Oxygen saturation, Oxygen via NC; keep SpO2 greater than 88% (5) Chronic respiratory failure with hypoxia: Code(s): J96.11 - Chronic respiratory failure with hypoxia Status: Acute Assessment and Plan: Chronic, continue home oxygen of 4L NC (6) Urinary tract infection: Code(s): N39.0 - Urinary tract infection, site not specified Status: Acute Assessment and Plan: - UC: klebsiella pneumoniae intermediate response to fluoroquinolones and resistant to macrobid - previous micro reviewed 03/28/2024: Ecoli resistant to fluoroquinolones - started on rocephin on 07/18, transitioned to Augmentin on 07/20, course completed 07/23 (7) Acute kidney injury: Code(s): N17.9 - Acute kidney failure, unspecified Status: Acute Assessment and Plan: BUN/Cr 39/1.76 on admission. Baseline WNL. NEHA likely related to hypovolemia given cocurrent hypotension - BUN/Cr 34/1.20 on am. Continues to improve. - Monitor I/O. - Avoid nephrotoxic medications - Renally dose medications (8) Chronic diastolic (congestive) heart failure: Code(s): I50.32 - Chronic diastolic (congestive) heart failure Status: Acute Assessment and Plan: Does not appear in acute exacerbation - Chest XR: No cardiopulmonary disease - Echo 12/13/23: LVEF 55-60% with mod pulmonary hypertension - Monitor vital signs, I&Os, BUN/creatinine, daily weights, neuro status and patient is a fall risk - Monitor serum electrolytes, Keep serum Potassium>4 and serum Magnesium>2 and CBC (9) Diabetes: Qualifiers: Diabetes mellitus type: type 2 Diabetes mellitus terminal superintendent insulin use: without terminal superintendent use Diabetes mellitus complication status: without complication Qualified Code(s): E11.9 - Type 2 diabetes mellitus without complications Code(s): E11.9 - Type 2 diabetes mellitus without complications Status: Acute Assessment and Plan: - hypoglycemia protocol - POC blood glucose ACHS - home medication - metformin 500 mg BID agree - correct regimen ordered - mod dose SSI - A1C 5 (10) Hypothyroidism: Qualifiers: Hypothyroidism type: unspecified Qualified Code(s): E03.9 - Hypothyroidism, unspecified Code(s): E03.9 - Hypothyroidism, unspecified Status: Acute Assessment and Plan: Chronic, continue Synthroid (11) Obstructive sleep apnea on CPAP: Code(s): G47.33 - Obstructive sleep apnea (adult) (pediatric) Status: Acute Assessment and Plan: auto titrating CPAP/BiPAP (12) Constipation: Code(s): K59.00 - Constipation, unspecified Status: Acute Assessment and Plan: Patient notes that she has not had a bowel movement since admission. Denies any nausea/vomiting or abdominal pain. KUB ordered Continue Senokot and MiraLax Given a suppository x1 If no bowel movement consider enema Time Spent With Patient Time with patient: 25 - 35 minutes Subjective Date/time seen: 07/23/24 14:12 Interval history: 84-year-old female with a past medical history of COPD, moderate pulmonary hypertension, chronic hypoxic respiratory failure on 4 L nasal cannula CHF with preserved ejection fraction, obstructive sleep apnea on CPAP who presented to the ER from [facility] via EMS due to cough and congestion. Patient is pleasant lying comfortably in bed. She continues to be bradycardic on the current diltiazem dose of 120 mg daily despite being off of the remdesivir. Discussed patient with cardiology Dr. Andrade and will hold the diltiazem at this time and continue to monitor heart rate. Patient endorsing weakness but has no other complaints denying chest pain, shortness of breath, palpitations, nausea/vomiting and abdominal pain. She notes that she has not had a bowel movement since admission. Review of Systems Review of Systems: All systems reviewed & are unremarkable except as noted in HPI and below Exam Narrative: AF HR 57 RR 20 Spo2 100 3L NC baseline BP 115/66 General: female in no acute respiratory distress who is nontoxic appearing, lying semi recumbent in bed. HEENT: Normocephalic. Atraumatic. Extraocular movement intact. Sclera clear and anicteric. No facial asymmetry. Chest: Lungs are clear in the uppers with slight rhonchi. CV: Heart with irregularly irregular rate and rhythm. Abd: Abdomen was soft. Nontender. Nondistended. Positive bowel sounds. Ext: No clubbing, cyanosis, or edema. DP pulses bilaterally. Neuro: Patient is alert and oriented x4. Speech is clear. Objective Data Vital Signs Vital Signs: Vital Signs - 24 hr 07/22/24 14:13 07/22/24 14:22 07/22/24 16:00 Temperature 97.2 F L Pulse Rate 63 65 58 L Respiratory Rate 20 16 Blood Pressure 105/68 Pulse Oximetry 100 Oxygen Delivery Oxygen Flow Rate 07/22/24 20:00 07/22/24 20:00 07/22/24 20:21 Temperature Pulse Rate 43 L 58 L Respiratory Rate Blood Pressure Pulse Oximetry 100 100 Oxygen Delivery Nasal Cannula Nasal Cannula Oxygen Flow Rate 3 3 07/22/24 20:21 07/22/24 20:31 07/22/24 21:30 Temperature 97.1 F L Pulse Rate 58 L 58 L 112 H Respiratory Rate 16 16 19 Blood Pressure 100/67 Pulse Oximetry 100 Oxygen Delivery Oxygen Flow Rate 07/22/24 23:30 07/23/24 00:00 07/23/24 02:21 Temperature Pulse Rate 72 52 L 58 L Respiratory Rate 16 Blood Pressure Pulse Oximetry 99 Oxygen Delivery Autopap Oxygen Flow Rate 07/23/24 02:22 07/23/24 02:31 07/23/24 04:00 Temperature Pulse Rate 72 58 L 59 L Respiratory Rate 16 Blood Pressure Pulse Oximetry 99 Oxygen Delivery Autopap Oxygen Flow Rate 07/23/24 05:20 07/23/24 07:55 07/23/24 07:55 Temperature 97.5 F L Pulse Rate 68 74 Respiratory Rate 13 20 Blood Pressure 115/66 Pulse Oximetry 98 99 Oxygen Delivery Nasal Cannula Oxygen Flow Rate 3 07/23/24 08:00 07/23/24 08:09 07/23/24 09:35 Temperature Pulse Rate 57 L 68 Respiratory Rate 20 Blood Pressure Pulse Oximetry 100 Oxygen Delivery Nasal Cannula Oxygen Flow Rate 3 07/23/24 12:00 Temperature Pulse Rate 57 L Respiratory Rate Blood Pressure Pulse Oximetry Oxygen Delivery Oxygen Flow Rate Intake/Output Intake/Output: Intake & Output 07/20/24 07/21/24 07/22/24 07/23/24 23:59 23:59 23:59 23:59 Intake Total 2368 1258 1150 960 Output Total 850 1200 1800 1100 Balance 1516 58 -650 -140 Meds/Results Medications: Active Medications Generic Name Dose Route Start Last Admin Trade Name Reji PRN Reason Stop Dose Admin Acetaminophen 650 mg 07/17/24 21:38 Acetaminophen 325 Mg Tablet PO Q4H PRN Mild Pain (1-3) or Fever Hydrocodone Bitart/Acetaminophen 1 tab 07/18/24 00:51 07/23/24 08:05 Hydrocodone/Acetaminophen (*Crx) 5-325 Mg Tablet PO 1 tab Q4H PRN Administration Pain Rated 7-10 Al Hydrox/Mg Hydrox/Simethicone 30 ml 07/17/24 21:38 Mag Hydrox/Al Hydrox/Simeth 30 Ml Udc PO Q6H PRN Indigestion Amoxicillin/Clavulanate Potassium 1 tablet 07/20/24 09:00 07/23/24 08:05 Amoxicillin/Clavulanate K 500-125 Mg Tab PO 07/23/24 21:01 1 tablet Q12HR LYNN Administration Apixaban 5 mg 07/18/24 09:00 07/23/24 08:04 Apixaban 5 Mg Tablet PO 5 mg Q12HR LYNN Administration Artificial Tears 1 drop 07/18/24 00:25 07/19/24 09:35 Artificial Tears Ophth Soln 15 Ml Bottle EACH EYE 1 drop QID PRN Administration Dry Eye(s) Atorvastatin Calcium 10 mg 07/18/24 21:00 07/22/24 21:51 Atorvastatin 10 Mg Tablet PO 10 mg HS LYNN Administration Benzonatate 100 mg 07/18/24 02:39 07/19/24 05:25 Benzonatate 100 Mg Capsule PO 100 mg TID PRN Administration cough Dexamethasone Sodium Phosphate 6 mg 07/18/24 00:25 07/22/24 21:51 Dexamethasone Sod Phos Inj 10 Mg/Ml 1 Ml Vial IV PUSH 07/26/24 21:01 6 mg HS LYNN Administration Dextrose 12.5 gm 07/19/24 09:53 Dextrose 50% 25 Gm/50 Ml Syringe IV PUSH PRN PRN Hypoglycemia Protocol Diclofenac Sodium 1 applic 07/18/24 02:39 Diclofenac Sodium 1% 100 Gm Gel (*Bkc) TOPICAL Q12H PRN arthritis pain Diltiazem HCl 120 mg 07/21/24 09:00 07/23/24 08:05 Diltiazem Hcl Cd 120 Mg Cap.24hr PO 120 mg DAILY LYNN Administration Ferrous Sulfate 325 mg 07/18/24 09:00 07/23/24 08:05 Ferrous Sulfate [address] BY MOUTH 325 mg DAILY LYNN Administration Furosemide 40 mg 07/23/24 09:00 07/23/24 08:05 Furosemide 40 Mg Tablet PO 40 mg QAM LYNN Administration Guaifenesin/Dextromethorphan 1 tab 07/18/24 09:00 07/23/24 08:05 Guaifenesin 600 Mg/Dextromethorphan 30 Mg Sr Tab 12 Hr PO 1 tab Q12HR LYNN Administration Dextrose 1,000 mls @ 100 mls/hr 07/19/24 09:53 Dextrose 5% 1,000 Ml IVPB PRN PRN Hypoglycemia Protocol Insulin Aspart 2 - 5 units 07/19/24 12:00 07/23/24 12:36 Insulin Aspart (*Bkc) 100 Units/Ml SUB-Q 2 units TIDWM LYNN Administration Protocol Insulin Aspart 1 - 3 units 07/21/24 23:10 07/22/24 21:52 Insulin Aspart (*Bkc) 100 Units/Ml SUB-Q 1 units HS LYNN Administration Protocol Ipratropium [place] 0.5 mg 07/18/24 02:00 07/23/24 08:07 Ipratropium Br 0.02% Inh Soln 0.5 Mg/2.5 Ml Vial INHALATION Not Given Q6HRT LYNN Levalbuterol HCl 1.25 mg 07/18/24 02:00 07/23/24 08:07 Levalbuterol Neb 1.25 Mg/3 Ml INHALATION Not Given Q6HRT LYNN Levothyroxine Sodium 150 mcg 07/18/24 06:30 07/23/24 05:31 Levothyroxine Sodium 150 Mcg Tablet PO 150 mcg DAILY@0630 LYNN Administration Lidocaine 1 patch 07/18/24 09:00 07/23/24 08:06 Lidocaine 5% Patch TOPICAL 08/17/24 08:59 1 patch DAILY LYNN Administration Loratadine 10 mg 07/18/24 09:00 07/23/24 08:05 Loratadine 10 Mg Tablet PO 10 mg DAILY LYNN Administration Multivitamins Therapeutic 1 tablet 07/18/24 09:00 07/23/24 08:05 Multivitamins Therapeutic Tab (*Bkc) PO 1 tablet DAILY LYNN Administration Olopatadine HCl 1 drop 07/18/24 09:00 07/23/24 08:06 Olopatadine 0.1% Ophth Soln 5 Ml Btl EACH EYE 1 drop DAILY LYNN Administration Polyethylene Glycol 17 gm 07/18/24 02:40 07/23/24 08:06 Polyethylene Glycol 3350 17 Gm Powd.Pack PO 17 gm DAILY PRN Administration Constipation Fluticasone/Salmeterol 2 puff 07/18/24 08:00 07/23/24 08:08 Fluticasone/Salmeterol 45-21 Mcg Inhaler 1 Puff INHALATION Not Given Q12HRT LYNN Tizanidine HCl 2 mg 07/18/24 09:00 07/23/24 12:36 Tizanidine Hcl 2 Mg Tablet PO 2 mg TID LYNN Administration Tramadol HCl 50 mg 07/18/24 00:53 Tramadol Hcl (*Crx) 50 Mg Tablet PO Q6H PRN Pain Rated 4-6 Radiology Results: ITS Impressions Chest X-Ray 07/17/24 16:08 Impression: 1: No acute cardiopulmonary disease. Labs Labs: Laboratory Results - last 24 hr 07/22/24 07/22/24 07/23/24 16:38 20:12 07:09 WBC 10.9 H RBC 3.41 L Hgb 10.3 L Hct 31.4 L MCV 92.1 MCH 30.2 MCHC 32.8 RDW 15.3 H Plt Count 156 MPV 10.6 H Sodium 136 L Potassium 4.5 Chloride 105 Carbon Dioxide 24 Anion Gap 7 BUN 34 H Creatinine 1.20 H Estim Creat Clear Calc 36 Estimated GFR 43 L Glucose 171 H POC Capillary Glucose 220 H 209 H Calcium 9.0 Total Bilirubin 0.7 AST 53 H ALT 76 H Alkaline Phosphatase 61 Total Protein 6.0 L Albumin 3.0 L 07/23/24 11:52 WBC RBC Hgb Hct MCV MCH MCHC RDW Plt Count MPV Sodium Potassium Chloride Carbon Dioxide Anion Gap BUN Creatinine Estim Creat Clear Calc Estimated GFR Glucose POC Capillary Glucose 225 H Calcium Total Bilirubin AST ALT Alkaline Phosphatase Total Protein Albumin Quality VTE Prophylaxis VTE prophylaxis: pharmacologic ordered
[2024-07-23 17:05] LABS: Glucose Point of Care 191 mg/dl (65-105)
[2024-07-23] MEDS: dexAMETHasone SOD PHOS INJ 10 MG/ML 1 ML VIAL 6 MG IV PUSH (21:18)
[2024-07-23] MEDS: ATORVASTATIN 10 MG TABLET PO (21:19)
[2024-07-23] MEDS: SENNA/DOCUSATE SODIUM TABLET 1 TAB PO (21:19)
[2024-07-23 21:28] LABS: Glucose Point of Care 207 mg/dl (65-105)
[2024-07-24] VITALS (19 sets, daily range): BP systolic 97–134; BP diastolic 55–88; PULSE 57–87; RESP 18–20; TEMP 36.2–36.7; O2SAT 96–100
[2024-07-24] MEDS: IPRATROPIUM BR 0.02% INH SOLN 0.5 MG/2.5 ML VIAL INHALATION ×4 (01:39→20:10)
[2024-07-24] MEDS: LEVALBUTEROL NEB 1.25 MG/3 ML INHALATION ×4 (01:39→20:11)
[2024-07-24] MEDS: HYDROcodone/acetaminophen (*CRX) 5-325 MG TABLET 1 TAB PO ×2 (05:41→09:15)
[2024-07-24] MEDS: LEVOTHYROXINE SODIUM 150 MCG TABLET PO (05:41)
[2024-07-24 06:28] LABS: Hematocrit 31.9 % (37.0-47.0); Hemoglobin 10.4 g/dL (12.0-15.0); Mean Corpuscular HGB Conc 32.6 g/dl (32-36); Mean Corpuscular Hemoglobin 29.8 pg (26-34); Mean Corpuscular Volume 91.4 fl (80-100); Mean Platelet Volume 10.4 fl (7.4-10.4); Platelet Count Result 155 k/mm3 (150-375); Red Blood Count 3.49 M/mm3 (4.2-5.4); Red Cell Distribution Width 15.3 % (11.5-14.5); White Blood Count 14.1 K/mm3 (4.5-10.0)
[2024-07-24 06:40] LABS: Alanine Aminotransferase 417 U/L (6-35); Albumin Level 2.8 g/dL (3.5-5.1); Alkaline Phosphatase 68 U/L (38-126); Anion Gap 9 mmol/L (4-12); Aspartate Amino Transferase 459 U/L (14-36); Blood Urea Nitrogen 31 mg/dL (7-17); Calcium 9.1 mg/dL (8.4-10.2); Carbon Dioxide 23 mmol/L (22-30); Chloride 103 mmol/L (98-107); Estimated CRCL calculation 35 ml/min; Estimated Glomerular Filt Rate 42; Glucose 192 mg/dL (65-110); Sodium 135 mmol/L (137-145)
[2024-07-24 07:45] LABS: Glucose Point of Care 188 mg/dl (65-105)
[2024-07-24] MEDS: polyethylene glycoL 3350 17 GM POWD.PACK PO (09:15)
[2024-07-24] MEDS: guaiFENesin 600 MG/DEXTROMETHORPHAN 30 MG SR TAB 12 HR 1 TAB PO ×2 (09:15→20:35)
[2024-07-24] MEDS: OLOPATADINE 0.1% OPHTH SOLN 5 ML BTL 1 DROP EACH EYE (09:15)
[2024-07-24] MEDS: FUROSEMIDE 40 MG TABLET PO (09:15)
[2024-07-24] MEDS: FERROUS SULFATE 325 MG TABLET DR BY MOUTH (09:15)
[2024-07-24] MEDS: APIXABAN 5 MG TABLET PO ×2 (09:15→20:35)
[2024-07-24] MEDS: LORATADINE 10 MG TABLET PO (09:15)
[2024-07-24] MEDS: TIZANIDINE HCL 2 MG TABLET PO ×3 (09:15→18:43)
[2024-07-24] MEDS: MULTIVITAMINS THERAPEUTIC TAB (*BKC) 1 TABLET PO (09:15)
[2024-07-24] MEDS: LIDOCAINE 5% PATCH 1 PATCH TOPICAL (09:20)
[2024-07-24 11:38] LABS: Glucose Point of Care 228 mg/dl (65-105)
[2024-07-24] MEDS: INSULIN ASPART (*BKC) 100 UNITS/ML SUB-Q (12:16)
--- NOTE | 2024-07-24 13:33 | P.PNIM_ITS ---
Progress Note: A&P Assessment and Plan (1) Transaminitis: Code(s): R74.01 - Elevation of levels of liver transaminase levels Status: Acute Assessment and Plan: LFTs tot bili 3, AST 459, ALT 417, alk phos 68 on 07/24. Previously WNL. Likely secondary to remdesivir use which was completed on 07/23. Hepatitis panel negative RUQ US ordered Monitor (2) Acute hypotension: Code(s): I95.9 - Hypotension, unspecified Status: Acute Assessment and Plan: Hypotension likely due to hypovolemia. Patient had good response to volume resuscitation. Lasix 40 mg daily to be resumed Diltiazem placed on hold for ongoing bradycardia. Continue to monitor tele at this time. HR remaining stable 60-70s. Blood pressures reviewed and remain stable, continue to monitor (3) Atrial fibrillation: Qualifiers: Atrial fibrillation type: unspecified Qualified Code(s): I48.91 - Unspecified atrial fibrillation Code(s): I48.91 - Unspecified atrial fibrillation Status: Acute Assessment and Plan: History of AFib EKG showing afib rate controlled with normal QTc, can continue azithromycin administration. Continue home eliquis 5 mg BID Cardiology consulted for afib with bradycardia Possibly due to remdesivir administration with known adverse effect of bradycardia with this medication. Remdesivir completed 07/21 TSH low, T4 and T3 WNL Diltiazem remains on hold per cardiology recommendations. HR improved, stable 60-70s on tele. (4) COVID-19: Code(s): U07.1 - COVID-19 Status: Acute Assessment and Plan: Viral panel: covid positive 07/[address] in COVID19 isolation precautions, cardiac monitoring, and continuous pulse ox Monitor serum electrolytes, CRP, Lactic acid, troponin, CBC, WBC, temperature curve and follow cultures Remains on home oxygen via NC Pt is a candidate for Remdesivir and Dexamethasone, continue treatment according to suggested guidelines. Remdesivir 200 mg IV x1, then 100 mg IV x4 days (course completed), dexamethasone 6 mg IV daily x 10 days, or until discharge (5) COPD (chronic obstructive pulmonary disease): Qualifiers: COPD type: COPD with acute lower respiratory infection Qualified Code(s): J44.0 - Chronic obstructive pulmonary disease with (acute) lower respiratory infection Code(s): J44.9 - Chronic obstructive pulmonary disease, unspecified Status: Acute Assessment and Plan: Respiratory failure is stable on her home oxygen requirements of 4L NC. Chest XR: No acute cardiopulmonary disease Given patients leukocytosis and decreased breath sounds she was started on abx in the ED though not noted infiltrate on xr azithromycin and rocephin started 07/18, transitioned to oral azithromycin and augmentin on 07/20. Course completed 07/23. Levalbuterol and atrovent Decadron 07/18-07/26 Monitor vital signs, I&Os, neuro status and patient is a fall risk Monitor serum electrolytes, cultures and CBC Monitor Oxygen saturation, Oxygen via NC; keep SpO2 greater than 88% (6) Chronic respiratory failure with hypoxia: Code(s): J96.11 - Chronic respiratory failure with hypoxia Status: Acute Assessment and Plan: Chronic, continue home oxygen of 4L NC (7) Urinary tract infection: Code(s): N39.0 - Urinary tract infection, site not specified Status: Acute Assessment and Plan: - UC: klebsiella pneumoniae intermediate response to fluoroquinolones and resistant to macrobid - previous micro reviewed 03/28/2024: Ecoli resistant to fluoroquinolones - started on rocephin on 07/18, transitioned to Augmentin on 07/20, course completed 07/23 (8) Acute kidney injury: Code(s): N17.9 - Acute kidney failure, unspecified Status: Acute Assessment and Plan: BUN/Cr 39/1.76 on admission. Baseline WNL. NEHA likely related to hypovolemia given cocurrent hypotension - BUN/Cr 31/1.23 on am. - Monitor I/O. - Avoid nephrotoxic medications - Renally dose medications (9) Chronic diastolic (congestive) heart failure: Code(s): I50.32 - Chronic diastolic (congestive) heart failure Status: Acute Assessment and Plan: Does not appear in acute exacerbation - Chest XR: No cardiopulmonary disease - Echo 12/13/23: LVEF 55-60% with mod pulmonary hypertension - Monitor vital signs, I&Os, BUN/creatinine, daily weights, neuro status and patient is a fall risk - Monitor serum electrolytes, Keep serum Potassium>4 and serum Magnesium>2 and CBC (10) Diabetes: Qualifiers: Diabetes mellitus complication status: without complication Diabetes mellitus assisted insulin use: without assisted use Diabetes mellitus type: type 2 Qualified Code(s): E11.9 - Type 2 diabetes mellitus without complications Code(s): E11.9 - Type 2 diabetes mellitus without complications Status: Acute Assessment and Plan: - hypoglycemia protocol - POC blood glucose ACHS - home medication - metformin 500 mg BID agree - correct regimen ordered - mod dose SSI - A1C 5 (11) Hypothyroidism: Qualifiers: Hypothyroidism type: unspecified Qualified Code(s): E03.9 - Hypothyroidism, unspecified Code(s): E03.9 - Hypothyroidism, unspecified Status: Acute Assessment and Plan: Chronic, continue Synthroid (12) Obstructive sleep apnea on CPAP: Code(s): G47.33 - Obstructive sleep apnea (adult) (pediatric) Status: Acute Assessment and Plan: auto titrating CPAP/BiPAP (13) Constipation: Code(s): K59.00 - Constipation, unspecified Status: Acute Assessment and Plan: Patient notes that she has not had a bowel movement since admission. Denies any nausea/vomiting or abdominal pain. KUB: Prominent amount of fecal material in the rectum and sigmoid and right colon consistent with clinical presentation of constipation; no bowel obstruction is evident Continue Senokot and MiraLax Given a suppository x1 Resolved. Patient has had several bowel movements. Time Spent With Patient Time with patient: 25 - 35 minutes Subjective Date/time seen: 07/24/24 13:33 Interval history: 84-year-old female with a past medical history of COPD, moderate pulmonary hypertension, chronic hypoxic respiratory failure on 4 L nasal cannula CHF with preserved ejection fraction, obstructive sleep apnea on CPAP who presented to the ER from [facility] home via EMS due to cough and congestion. Patient is pleasant lying comfortably in bed. She remains on her home oxygen supplementation and denies any shortness of breath. Patient's diltiazem has been placed on hold and heart rate have improved. She has no complaints at this time denying chest pain, palpitations, nausea/vomiting, and abdominal pain. Was planning to discharge patient however she had a spike in her LFTs on am labs. Likely related to remdesivir but will obtain ruq us for further evaluation. Review of Systems Review of Systems: All systems reviewed & are unremarkable except as noted in HPI and below Exam Narrative: AF HR 68 RR 20 Spo2 100 2L NC baseline BP 106/55 General: female in no acute respiratory distress who is nontoxic appearing, lying semi recumbent in bed. HEENT: Normocephalic. Atraumatic. Extraocular movement intact. Sclera clear and anicteric. No facial asymmetry. Chest: Lungs are clear in the uppers with slight rhonchi. CV: Heart with irregularly irregular rate and rhythm. Abd: Abdomen was soft. Nontender. Nondistended. Positive bowel sounds. Ext: No clubbing, cyanosis, or edema. DP pulses bilaterally. Neuro: Patient is alert and oriented x4. Speech is clear. Objective Data Vital Signs Vital Signs: Vital Signs - 24 hr 07/23/24 14:33 07/23/24 14:43 07/23/24 16:00 Temperature 98.3 F Pulse Rate 80 60 61 Respiratory Rate 20 16 Blood Pressure 114/73 Pulse Oximetry 100 Oxygen Delivery Oxygen Flow Rate Fraction of Inspired Oxygen 07/23/24 19:42 07/23/24 19:42 07/23/24 19:52 Temperature Pulse Rate 67 69 Respiratory Rate 20 20 Blood Pressure Pulse Oximetry 12 L Oxygen Delivery Nasal Cannula Oxygen Flow Rate 3 Fraction of Inspired Oxygen 32 07/23/24 20:00 07/23/24 20:00 07/23/24 21:19 Temperature 97.6 F Pulse Rate 67 61 67 Respiratory Rate 20 20 Blood Pressure 122/67 Pulse Oximetry 100 100 Oxygen Delivery Nasal Cannula Oxygen Flow Rate 3 Fraction of Inspired Oxygen 32 07/23/24 22:34 07/24/24 00:00 07/24/24 01:39 Temperature Pulse Rate 67 57 L 64 Respiratory Rate Blood Pressure Pulse Oximetry 98 96 Oxygen Delivery Autopap Autopap Oxygen Flow Rate Fraction of Inspired Oxygen 07/24/24 01:39 07/24/24 01:48 07/24/24 04:00 Temperature Pulse Rate 67 59 L 69 Respiratory Rate 18 18 Blood Pressure Pulse Oximetry Oxygen Delivery Oxygen Flow Rate Fraction of Inspired Oxygen 07/24/24 06:00 07/24/24 08:00 07/24/24 08:00 Temperature 98.0 F Pulse Rate 70 72 Respiratory Rate 18 Blood Pressure 134/88 Pulse Oximetry 100 98 Oxygen Delivery Nasal Cannula Oxygen Flow Rate 4 Fraction of Inspired Oxygen 07/24/24 09:17 07/24/24 09:17 07/24/24 09:33 Temperature Pulse Rate 67 67 78 Respiratory Rate 20 20 20 Blood Pressure Pulse Oximetry 98 Oxygen Delivery Nasal Cannula Oxygen Flow Rate 2 Fraction of Inspired Oxygen 07/24/24 11:29 Temperature 97.2 F L Pulse Rate 64 Respiratory Rate 18 Blood Pressure 106/55 L Pulse Oximetry 99 Oxygen Delivery Oxygen Flow Rate Fraction of Inspired Oxygen Intake/Output Intake/Output: Intake & Output 07/21/24 07/22/24 07/23/24 07/24/24 23:59 23:59 23:59 23:59 Intake Total 1258 1150 1600 668 Output Total 1200 1800 2200 600 Balance 58 -650 -600 68 Meds/Results Medications: Active Medications Generic Name Dose Route Start Last Admin Trade Name Freq PRN Reason Stop Dose Admin Acetaminophen 650 mg 07/17/24 21:38 Acetaminophen 325 Mg Tablet PO Q4H PRN Mild Pain (1-3) or Fever Hydrocodone Bitart/Acetaminophen 1 tab 07/18/24 00:51 07/24/24 09:15 Hydrocodone/Acetaminophen (*Crx) 5-325 Mg Tablet PO 1 tab Q4H PRN Administration Pain Rated 7-10 Al Hydrox/Mg Hydrox/Simethicone 30 ml 07/17/24 21:38 Mag Hydrox/Al Hydrox/Simeth 30 Ml Udc PO Q6H PRN Indigestion Apixaban 5 mg 07/18/24 09:00 07/24/24 09:15 Apixaban 5 Mg Tablet PO 5 mg Q12HR LYNN Administration Artificial Tears 1 drop 07/18/24 00:25 07/19/24 09:35 Artificial Tears Ophth Soln 15 Ml Bottle EACH EYE 1 drop QID PRN Administration Dry Eye(s) Atorvastatin Calcium 10 mg 07/18/24 21:00 07/23/24 21:19 Atorvastatin 10 Mg Tablet PO 10 mg HS LYNN Administration Benzonatate 100 mg 07/18/24 02:39 07/19/24 05:25 Benzonatate 100 Mg Capsule PO 100 mg TID PRN Administration cough Dexamethasone Sodium Phosphate 6 mg 07/18/24 00:25 07/23/24 21:18 Dexamethasone Sod Phos Inj 10 Mg/Ml 1 Ml Vial IV PUSH 07/26/24 21:01 6 mg HS LYNN Administration Dextrose 12.5 gm 07/19/24 09:53 Dextrose 50% 25 Gm/50 Ml Syringe IV PUSH PRN PRN Hypoglycemia Protocol Diclofenac Sodium 1 applic 07/18/24 02:39 Diclofenac Sodium 1% 100 Gm Gel (*Bkc) TOPICAL Q12H PRN arthritis pain Diltiazem HCl 120 mg 07/21/24 09:00 07/23/24 08:05 Diltiazem Hcl Cd 120 Mg Cap.24hr PO 120 mg DAILY LYNN Administration Ferrous Sulfate 325 mg 07/18/24 09:00 07/24/24 09:15 Ferrous Sulfate [address] BY MOUTH 325 mg DAILY LYNN Administration Furosemide 40 mg 07/23/24 09:00 07/24/24 09:15 Furosemide 40 Mg Tablet PO 40 mg QAM LYNN Administration Guaifenesin/Dextromethorphan 1 tab 07/18/24 09:00 07/24/24 09:15 Guaifenesin 600 Mg/Dextromethorphan 30 Mg Sr Tab 12 Hr PO 1 tab Q12HR LYNN Administration Dextrose 1,000 mls @ 100 mls/hr 07/19/24 09:53 Dextrose 5% 1,000 Ml IVPB PRN PRN Hypoglycemia Protocol Insulin Aspart 2 - 5 units 07/19/24 12:00 07/24/24 12:16 Insulin Aspart (*Bkc) 100 Units/Ml SUB-Q 2 units TIDWM LYNN Administration Protocol Insulin Aspart 1 - 3 units 07/21/24 23:10 07/23/24 21:18 Insulin Aspart (*Bkc) 100 Units/Ml SUB-Q 1 units HS LYNN Administration Protocol Ipratropium [place] 0.5 mg 07/18/24 02:00 07/24/24 09:16 Ipratropium Br 0.02% Inh Soln 0.5 Mg/2.5 Ml Vial INHALATION 0.5 mg Q6HRT LYNN Administration Levalbuterol HCl 1.25 mg 07/18/24 02:00 07/24/24 09:16 Levalbuterol Neb 1.25 Mg/3 Ml INHALATION 1.25 mg Q6HRT LYNN Administration Levothyroxine Sodium 150 mcg 07/18/24 06:30 07/24/24 05:41 Levothyroxine Sodium 150 Mcg Tablet PO 150 mcg DAILY@0630 LYNN Administration Lidocaine 1 patch 07/18/24 09:00 07/24/24 09:20 Lidocaine 5% Patch TOPICAL 08/17/24 08:59 1 patch DAILY LYNN Administration Loratadine 10 mg 07/18/24 09:00 07/24/24 09:15 Loratadine 10 Mg Tablet PO 10 mg DAILY LYNN Administration Multivitamins Therapeutic 1 tablet 07/18/24 09:00 07/24/24 09:15 Multivitamins Therapeutic Tab (*Bkc) PO 1 tablet DAILY LYNN Administration Olopatadine HCl 1 drop 07/18/24 09:00 07/24/24 09:15 Olopatadine 0.1% Ophth Soln 5 Ml Btl EACH EYE 1 drop DAILY LYNN Administration Polyethylene Glycol 17 gm 07/18/24 02:40 07/23/24 08:06 Polyethylene Glycol 3350 17 Gm Powd.Pack PO 17 gm DAILY PRN Administration Constipation Polyethylene Glycol 17 gm 07/24/24 09:00 07/24/24 09:15 Polyethylene Glycol 3350 17 Gm Powd.Pack PO 17 gm QAM LYNN Administration Fluticasone/Salmeterol 2 puff 07/18/24 08:00 07/23/24 19:44 Fluticasone/Salmeterol 45-21 Mcg Inhaler 1 Puff INHALATION 2 puff Q12HRT LYNN Administration Senna/Docusate Sodium 1 tab 07/23/24 21:00 07/23/24 21:19 Senna/Docusate Sodium Tablet PO 1 tab HS LYNN Administration Tizanidine HCl 2 mg 07/18/24 09:00 07/24/24 09:15 Tizanidine Hcl 2 Mg Tablet PO 2 mg TID LYNN Administration Tramadol HCl 50 mg 07/18/24 00:53 Tramadol Hcl (*Crx) 50 Mg Tablet PO Q6H PRN Pain Rated 4-6 Radiology Results: ITS Impressions Chest X-Ray 07/17/24 16:08 Impression: 1: No acute cardiopulmonary disease. Abdomen X-Ray 07/23/24 15:15 IMPRESSION: Prominent amount of fecal material in the rectum and sigmoid and right colon consistent with clinical presentation of constipation; no bowel obstruction is evident Labs Labs: Laboratory Results - last 24 hr 07/23/24 07/23/24 07/24/24 17:01 20:16 06:10 WBC 14.1 H RBC 3.49 L Hgb 10.4 L Hct 31.9 L MCV 91.4 MCH 29.8 MCHC 32.6 RDW 15.3 H Plt Count 155 MPV 10.4 Sodium 135 L Potassium 4.0 Chloride 103 Carbon Dioxide 23 Anion Gap 9 BUN 31 H Creatinine 1.23 H Estim Creat Clear Calc 35 Estimated GFR 42 L Glucose 192 H POC Capillary Glucose 191 H 207 H Calcium 9.1 Total Bilirubin 3.0 H AST 459 H ALT 417 H Alkaline Phosphatase 68 Total Protein 6.0 L Albumin 2.8 L 07/24/24 07/24/24 07:43 11:36 WBC RBC Hgb Hct MCV MCH MCHC RDW Plt Count MPV Sodium Potassium Chloride Carbon Dioxide Anion Gap BUN Creatinine Estim Creat Clear Calc Estimated GFR Glucose POC Capillary Glucose 188 H 228 H Calcium Total Bilirubin AST ALT Alkaline Phosphatase Total Protein Albumin Quality VTE Prophylaxis VTE prophylaxis: pharmacologic ordered
[2024-07-24 14:45] LABS: Hepatitis B Surface Antigen Negative (Negative)
[2024-07-24 14:50] LABS: HAV RESULT Negative (Negative); Hepatitis B Core IgM Result Negative (Negative)
[2024-07-24 15:02] LABS: Hepatitis C Virus Antibody Negative (Negative)
[2024-07-24 16:07] LABS: Alanine Aminotransferase 507 U/L (6-35); Albumin Level 2.9 g/dL (3.5-5.1); Alkaline Phosphatase 65 U/L (38-126); Anion Gap 10 mmol/L (4-12); Aspartate Amino Transferase 425 U/L (14-36); Bilirubin,Total 3.6 mg/dL (0.2-1.3); Blood Urea Nitrogen 33 mg/dL (7-17); Calcium 8.9 mg/dL (8.4-10.2); Carbon Dioxide 23 mmol/L (22-30); Chloride 103 mmol/L (98-107); Estimated CRCL calculation 39 ml/min; Estimated Glomerular Filt Rate 46; Glucose 223 mg/dL (65-110); Potassium 4.3 mmol/L (3.4-5.0); Sodium 136 mmol/L (137-145)
[2024-07-24 16:29] LABS: Glucose Point of Care 226 mg/dl (65-105)
[2024-07-24] MEDS: FLUTICASONE/SALMETEROL 45-21 MCG INHALER 1 PUFF 2 PUFF INHALATION (20:11)
[2024-07-24] MEDS: SENNA/DOCUSATE SODIUM TABLET 1 TAB PO (20:35)
[2024-07-24] MEDS: dexAMETHasone SOD PHOS INJ 10 MG/ML 1 ML VIAL 6 MG IV PUSH (20:35)
[2024-07-24] MEDS: ATORVASTATIN 10 MG TABLET PO (20:35)
[2024-07-24 21:03] LABS: Glucose Point of Care 200 mg/dl (65-105)
[2024-07-25] VITALS (16 sets, daily range): BP systolic 98–138; BP diastolic 62–78; PULSE 62–79; RESP 18–20; TEMP 36.3–36.4; O2SAT 97–100
[2024-07-25] MEDS: IPRATROPIUM BR 0.02% INH SOLN 0.5 MG/2.5 ML VIAL INHALATION ×4 (02:10→19:34)
[2024-07-25] MEDS: LEVALBUTEROL NEB 1.25 MG/3 ML INHALATION ×4 (02:10→19:34)
[2024-07-25] MEDS: LEVOTHYROXINE SODIUM 150 MCG TABLET PO (05:35)
[2024-07-25 06:15] LABS: Hematocrit 32.7 % (37.0-47.0); Hemoglobin 10.6 g/dL (12.0-15.0); Mean Corpuscular HGB Conc 32.4 g/dl (32-36); Mean Corpuscular Hemoglobin 29.9 pg (26-34); Mean Corpuscular Volume 92.4 fl (80-100); Mean Platelet Volume 10.6 fl (7.4-10.4); Platelet Count Result 145 k/mm3 (150-375); Red Blood Count 3.54 M/mm3 (4.2-5.4); Red Cell Distribution Width 15.5 % (11.5-14.5); White Blood Count 14.2 K/mm3 (4.5-10.0)
[2024-07-25 06:28] LABS: Alanine Aminotransferase 581 U/L (6-35); Albumin Level 2.8 g/dL (3.5-5.1); Alkaline Phosphatase 81 U/L (38-126); Anion Gap 10 mmol/L (4-12); Aspartate Amino Transferase 372 U/L (14-36); Bilirubin,Total 3.3 mg/dL (0.2-1.3); Blood Urea Nitrogen 33 mg/dL (7-17); Calcium 8.9 mg/dL (8.4-10.2); Carbon Dioxide 25 mmol/L (22-30); Chloride 101 mmol/L (98-107); Estimated CRCL calculation 38 ml/min; Estimated Glomerular Filt Rate 46; Glucose 202 mg/dL (65-110); Sodium 136 mmol/L (137-145)
[2024-07-25 07:55] LABS: Glucose Point of Care 215 mg/dl (65-105)
[2024-07-25] MEDS: FLUTICASONE/SALMETEROL 45-21 MCG INHALER 1 PUFF 2 PUFF INHALATION ×2 (08:04→19:35)
[2024-07-25] MEDS: HYDROcodone/acetaminophen (*CRX) 5-325 MG TABLET 1 TAB PO (09:19)
[2024-07-25] MEDS: guaiFENesin 600 MG/DEXTROMETHORPHAN 30 MG SR TAB 12 HR 1 TAB PO ×2 (09:20→20:21)
[2024-07-25] MEDS: MULTIVITAMINS THERAPEUTIC TAB (*BKC) 1 TABLET PO (09:20)
[2024-07-25] MEDS: APIXABAN 5 MG TABLET PO ×2 (09:20→20:21)
[2024-07-25] MEDS: polyethylene glycoL 3350 17 GM POWD.PACK PO (09:20)
[2024-07-25] MEDS: TIZANIDINE HCL 2 MG TABLET PO ×3 (09:20→17:21)
[2024-07-25] MEDS: FUROSEMIDE 40 MG TABLET PO (09:21)
[2024-07-25] MEDS: LORATADINE 10 MG TABLET PO (09:21)
[2024-07-25] MEDS: FERROUS SULFATE 325 MG TABLET DR BY MOUTH (09:21)
[2024-07-25] MEDS: OLOPATADINE 0.1% OPHTH SOLN 5 ML BTL 1 DROP EACH EYE (09:21)
[2024-07-25] MEDS: INSULIN ASPART (*BKC) 100 UNITS/ML SUB-Q ×2 (09:24→13:01)
--- NOTE | 2024-07-25 09:47 | PM.IMPN ---
Progress Note: A&P Assessment and Plan (1) Transaminitis: Code(s): R74.01 - Elevation of levels of liver transaminase levels Status: Acute Assessment and Plan: LFTs tot bili 3, AST 459, ALT 417, alk phos 68 on 07/24. Previously WNL. Likely secondary to remdesivir use which was completed on 07/23. Hepatitis panel negative RUQ US: Cholelithiasis and gallbladder sludge. Nonspecific gallbladder wall thickening. (2) Cholelithiasis: Code(s): K80.20 - Calculus of gallbladder without cholecystitis without obstruction Status: Acute Assessment and Plan: LFTs tot bili 3, AST 459, ALT 417, alk phos 68 on 07/24. Previously WNL. RUQ US: Cholelithiasis and gallbladder sludge. Nonspecific gallbladder wall thickening. MRCP ordered GI consulted, appreciate recommendations (3) Acute hypotension: Code(s): I95.9 - Hypotension, unspecified Status: Acute Assessment and Plan: Hypotension likely due to hypovolemia. Patient had good response to volume resuscitation. Lasix 40 mg daily to be resumed Diltiazem placed on hold for ongoing bradycardia. Continue to monitor tele at this time. HR remaining stable 60-70s. Blood pressures reviewed and remain stable, continue to monitor (4) Atrial fibrillation: Qualifiers: Atrial fibrillation type: unspecified Qualified Code(s): I48.91 - Unspecified atrial fibrillation Code(s): I48.91 - Unspecified atrial fibrillation Status: Acute Assessment and Plan: History of AFib EKG showing afib rate controlled with normal QTc, can continue azithromycin administration. Continue home eliquis 5 mg BID Cardiology consulted for afib with bradycardia Possibly due to remdesivir administration with known adverse effect of bradycardia with this medication. Remdesivir completed 07/21 TSH low, T4 and T3 WNL Diltiazem remains on hold per cardiology recommendations. HR improved, stable 60-70s on tele. (5) COVID-19: Code(s): U07.1 - COVID-19 Status: Acute Assessment and Plan: Viral panel: covid positive 07/[address] in COVID19 isolation precautions, cardiac monitoring, and continuous pulse ox Monitor serum electrolytes, CRP, Lactic acid, troponin, CBC, WBC, temperature curve and follow cultures Remains on home oxygen via NC Pt is a candidate for Remdesivir and Dexamethasone, continue treatment according to suggested guidelines. Remdesivir 200 mg IV x1, then 100 mg IV x4 days (course completed), dexamethasone 6 mg IV daily x 10 days, or until discharge (6) COPD (chronic obstructive pulmonary disease): Qualifiers: COPD type: COPD with acute lower respiratory infection Qualified Code(s): J44.0 - Chronic obstructive pulmonary disease with (acute) lower respiratory infection Code(s): J44.9 - Chronic obstructive pulmonary disease, unspecified Status: Acute Assessment and Plan: Respiratory failure is stable on her home oxygen requirements of 4L NC. Chest XR: No acute cardiopulmonary disease Given patients leukocytosis and decreased breath sounds she was started on abx in the ED though not noted infiltrate on xr azithromycin and rocephin started 07/18, transitioned to oral azithromycin and augmentin on 07/20. Course completed 07/23. Levalbuterol and atrovent Decadron 07/18-07/26 Monitor vital signs, I&Os, neuro status and patient is a fall risk Monitor serum electrolytes, cultures and CBC Monitor Oxygen saturation, Oxygen via NC; keep SpO2 greater than 88% (7) Chronic respiratory failure with hypoxia: Code(s): J96.11 - Chronic respiratory failure with hypoxia Status: Acute Assessment and Plan: Chronic, continue home oxygen of 4L NC (8) Urinary tract infection: Code(s): N39.0 - Urinary tract infection, site not specified Status: Acute Assessment and Plan: - UC: klebsiella pneumoniae intermediate response to fluoroquinolones and resistant to macrobid - previous micro reviewed 03/28/2024: Ecoli resistant to fluoroquinolones - started on rocephin on 07/18, transitioned to Augmentin on 07/20, course completed 07/23 (9) Acute kidney injury: Code(s): N17.9 - Acute kidney failure, unspecified Status: Acute Assessment and Plan: BUN/Cr 39/1.76 on admission. Baseline WNL. NEHA likely related to hypovolemia given cocurrent hypotension - BUN/Cr 33/1.13 on am. - Monitor I/O. - Avoid nephrotoxic medications - Renally dose medications (10) Chronic diastolic (congestive) heart failure: Code(s): I50.32 - Chronic diastolic (congestive) heart failure Status: Acute Assessment and Plan: Does not appear in acute exacerbation - Chest XR: No cardiopulmonary disease - Echo 12/13/23: LVEF 55-60% with mod pulmonary hypertension - Monitor vital signs, I&Os, BUN/creatinine, daily weights, neuro status and patient is a fall risk - Monitor serum electrolytes, Keep serum Potassium>4 and serum Magnesium>2 and CBC (11) Diabetes: Qualifiers: Diabetes mellitus complication status: without complication Diabetes mellitus predatory animal exterminator insulin use: without predatory animal exterminator use Diabetes mellitus type: type 2 Qualified Code(s): E11.9 - Type 2 diabetes mellitus without complications Code(s): E11.9 - Type 2 diabetes mellitus without complications Status: Acute Assessment and Plan: - hypoglycemia protocol - POC blood glucose ACHS - home medication - metformin 500 mg BID agree - correct regimen ordered - mod dose SSI - A1C 5 (12) Hypothyroidism: Qualifiers: Hypothyroidism type: unspecified Qualified Code(s): E03.9 - Hypothyroidism, unspecified Code(s): E03.9 - Hypothyroidism, unspecified Status: Acute Assessment and Plan: Chronic, continue Synthroid (13) Obstructive sleep apnea on CPAP: Code(s): G47.33 - Obstructive sleep apnea (adult) (pediatric) Status: Acute Assessment and Plan: auto titrating CPAP/BiPAP (14) Constipation: Code(s): K59.00 - Constipation, unspecified Status: Acute Assessment and Plan: Patient notes that she has not had a bowel movement since admission. Denies any nausea/vomiting or abdominal pain. KUB: Prominent amount of fecal material in the rectum and sigmoid and right colon consistent with clinical presentation of constipation; no bowel obstruction is evident Continue Senokot and MiraLax Given a suppository x1 Resolved. Patient has had several bowel movements. Time Spent With Patient Time with patient: 25 - 35 minutes Subjective Date/time seen: 07/25/24 09:47 Interval history: 84-year-old female with a past medical history of COPD, moderate pulmonary hypertension, chronic hypoxic respiratory failure on 4 L nasal cannula CHF with preserved ejection fraction, obstructive sleep apnea on CPAP who presented to the ER from [facility] via EMS due to cough and congestion. Patient is pleasant lying comfortably in bed. She remains on her home oxygen and denies chest pain, palpitations, or shortness of breath. She was noted to have elevated LFTs yesterday and a right upper quadrant ultrasound showing cholelithiasis and gallbladder sludge. Patient states she has history of cholelithiasis but does know slight right upper quadrant pain. Since LFTs have drastically increased will consult GI and make patient NPO at midnight for MRCP in the morning. Patient has been tolerating her diet denying nausea/vomiting. Review of Systems Review of Systems: All systems reviewed & are unremarkable except as noted in HPI and below Exam Narrative: AF HR 72 RR 18 SpO2 99 on 3 L NC BP 138/78 General: female in no acute respiratory distress who is nontoxic appearing, sitting up in bed HEENT: Normocephalic. Atraumatic. Extraocular movement intact. Sclera clear and anicteric. No facial asymmetry. Chest: Lungs are clear in the uppers with slight rhonchi in the lower bases. CV: Heart with irregularly irregular rate and rhythm. Abd: Abdomen was soft. Nondistended. Positive bowel sounds. Ext: No clubbing, cyanosis, or edema. DP pulses bilaterally. Neuro: Patient is alert and oriented x3. Speech is clear. Objective Data Vital Signs Vital Signs: Vital Signs - 24 hr 07/24/24 11:29 07/24/24 12:00 07/24/24 14:31 Temperature 97.2 F L Pulse Rate 64 67 64 Respiratory Rate 18 20 Blood Pressure 106/55 L Pulse Oximetry 99 100 Oxygen Delivery Nasal Cannula Oxygen Flow Rate 2 07/24/24 14:31 07/24/24 14:45 07/24/24 16:00 Temperature Pulse Rate 64 68 87 Respiratory Rate 20 20 Blood Pressure Pulse Oximetry Oxygen Delivery Oxygen Flow Rate 07/24/24 20:03 07/24/24 20:11 07/24/24 20:21 Temperature Pulse Rate 67 74 Respiratory Rate 20 Blood Pressure Pulse Oximetry 99 Oxygen Delivery Nasal Cannula Oxygen Flow Rate 3 07/24/24 20:22 07/24/24 20:35 07/24/24 21:47 Temperature 97.6 F Pulse Rate 71 71 Respiratory Rate 20 18 Blood Pressure 97/64 L Pulse Oximetry 100 100 Oxygen Delivery Nasal Cannula Oxygen Flow Rate 4 07/25/24 00:02 07/25/24 02:10 07/25/24 02:10 Temperature Pulse Rate 65 65 65 Respiratory Rate 18 Blood Pressure Pulse Oximetry 99 Oxygen Delivery Autopap Oxygen Flow Rate 07/25/24 02:22 07/25/24 04:02 07/25/24 06:00 Temperature 97.4 F L Pulse Rate 68 77 69 Respiratory Rate 18 20 Blood Pressure 138/78 Pulse Oximetry 98 Oxygen Delivery Oxygen Flow Rate 07/25/24 08:06 07/25/24 08:06 07/25/24 08:29 Temperature Pulse Rate 72 78 Respiratory Rate 18 18 Blood Pressure Pulse Oximetry 99 Oxygen Delivery Nasal Cannula Oxygen Flow Rate 3 Intake/Output Intake/Output: Intake & Output 07/22/24 07/23/24 07/24/24 07/25/24 23:59 23:59 23:59 23:59 Intake Total 1150 1600 1408 275 Output Total 1800 2200 1800 500 Balance -650 -600 -392 -225 Meds/Results Medications: Active Medications Generic Name Dose Route Start Last Admin Trade Name Freq PRN Reason Stop Dose Admin Acetaminophen 650 mg 07/17/24 21:38 Acetaminophen 325 Mg Tablet PO Q4H PRN Mild Pain (1-3) or Fever Hydrocodone Bitart/Acetaminophen 1 tab 07/18/24 00:51 07/25/24 09:19 Hydrocodone/Acetaminophen (*Crx) 5-325 Mg Tablet PO 1 tab Q4H PRN Administration Pain Rated 7-10 Al Hydrox/Mg Hydrox/Simethicone 30 ml 07/17/24 21:38 Mag Hydrox/Al Hydrox/Simeth 30 Ml Udc PO Q6H PRN Indigestion Apixaban 5 mg 07/18/24 09:00 07/25/24 09:20 Apixaban 5 Mg Tablet PO 5 mg Q12HR LYNN Administration Artificial Tears 1 drop 07/18/24 00:25 07/19/24 09:35 Artificial Tears Ophth Soln 15 Ml Bottle EACH EYE 1 drop QID PRN Administration Dry Eye(s) Atorvastatin Calcium 10 mg 07/18/24 21:00 07/24/24 20:35 Atorvastatin 10 Mg Tablet PO 10 mg HS LYNN Administration Benzonatate 100 mg 07/18/24 02:39 07/19/24 05:25 Benzonatate 100 Mg Capsule PO 100 mg TID PRN Administration cough Dexamethasone Sodium Phosphate 6 mg 07/18/24 00:25 07/24/24 20:35 Dexamethasone Sod Phos Inj 10 Mg/Ml 1 Ml Vial IV PUSH 07/26/24 21:01 6 mg HS LYNN Administration Dextrose 12.5 gm 07/19/24 09:53 Dextrose 50% 25 Gm/50 Ml Syringe IV PUSH PRN PRN Hypoglycemia Protocol Diclofenac Sodium 1 applic 07/18/24 02:39 Diclofenac Sodium 1% 100 Gm Gel (*Bkc) TOPICAL Q12H PRN arthritis pain Diltiazem HCl 120 mg 07/21/24 09:00 07/23/24 08:05 Diltiazem Hcl Cd 120 Mg Cap.24hr PO 120 mg DAILY LYNN Administration Ferrous Sulfate 325 mg 07/18/24 09:00 07/25/24 09:21 Ferrous Sulfate [address] BY MOUTH 325 mg DAILY LYNN Administration Furosemide 40 mg 07/23/24 09:00 07/25/24 09:21 Furosemide 40 Mg Tablet PO 40 mg QAM LYNN Administration Guaifenesin/Dextromethorphan 1 tab 07/18/24 09:00 07/25/24 09:20 Guaifenesin 600 Mg/Dextromethorphan 30 Mg Sr Tab 12 Hr PO 1 tab Q12HR LYNN Administration Dextrose 1,000 mls @ 100 mls/hr 07/19/24 09:53 Dextrose 5% 1,000 Ml IVPB PRN PRN Hypoglycemia Protocol Insulin Aspart 2 - 5 units 07/19/24 12:00 07/25/24 09:24 Insulin Aspart (*Bkc) 100 Units/Ml SUB-Q 2 units TIDWM LYNN Administration Protocol Insulin Aspart 1 - 3 units 07/21/24 23:10 07/24/24 20:36 Insulin Aspart (*Bkc) 100 Units/Ml SUB-Q Not Given HS LYNN Protocol Ipratropium Isabela 0.5 mg 07/18/24 02:00 07/25/24 08:05 Ipratropium Br 0.02% Inh Soln 0.5 Mg/2.5 Ml Vial INHALATION 0.5 mg Q6HRT LYNN Administration Levalbuterol HCl 1.25 mg 07/18/24 02:00 07/25/24 08:05 Levalbuterol Neb 1.25 Mg/3 Ml INHALATION 1.25 mg Q6HRT LYNN Administration Levothyroxine Sodium 150 mcg 07/18/24 06:30 07/25/24 05:35 Levothyroxine Sodium 150 Mcg Tablet PO 150 mcg DAILY@0630 LYNN Administration Lidocaine 1 patch 07/18/24 09:00 07/24/24 09:20 Lidocaine 5% Patch TOPICAL 08/17/24 08:59 1 patch DAILY LYNN Administration Loratadine 10 mg 07/18/24 09:00 07/25/24 09:21 Loratadine 10 Mg Tablet PO 10 mg DAILY LYNN Administration Multivitamins Therapeutic 1 tablet 07/18/24 09:00 07/25/24 09:20 Multivitamins Therapeutic Tab (*Bkc) PO 1 tablet DAILY LYNN Administration Olopatadine HCl 1 drop 07/18/24 09:00 07/25/24 09:21 Olopatadine 0.1% Ophth Soln 5 Ml Btl EACH EYE 1 drop DAILY LYNN Administration Polyethylene Glycol 17 gm 07/18/24 02:40 07/23/24 08:06 Polyethylene Glycol 3350 17 Gm Powd.Pack PO 17 gm DAILY PRN Administration Constipation Polyethylene Glycol 17 gm 07/24/24 09:00 07/25/24 09:20 Polyethylene Glycol 3350 17 Gm Powd.Pack PO 17 gm QAM LYNN Administration Fluticasone/Salmeterol 2 puff 07/18/24 08:00 07/25/24 08:04 Fluticasone/Salmeterol 45-21 Mcg Inhaler 1 Puff INHALATION 2 puff Q12HRT LYNN Administration Senna/Docusate Sodium 1 tab 07/23/24 21:00 07/24/24 20:35 Senna/Docusate Sodium Tablet PO 1 tab HS LYNN Administration Tizanidine HCl 2 mg 07/18/24 09:00 07/25/24 09:20 Tizanidine Hcl 2 Mg Tablet PO 2 mg TID LYNN Administration Tramadol HCl 50 mg 07/18/24 00:53 Tramadol Hcl (*Crx) 50 Mg Tablet PO Q6H PRN Pain Rated 4-6 Radiology Results: ITS Impressions Chest X-Ray 07/17/24 16:08 Impression: 1: No acute cardiopulmonary disease. Abdomen X-Ray 07/23/24 15:15 IMPRESSION: Prominent amount of fecal material in the rectum and sigmoid and right colon consistent with clinical presentation of constipation; no bowel obstruction is evident Abdomen Ultrasound 07/24/24 22:34 IMPRESSION: Cholelithiasis and gallbladder sludge. Nonspecific gallbladder wall thickening. Labs Labs: Laboratory Results - last 24 hr 07/24/24 07/24/24 07/24/24 06:10 11:36 15:45 WBC RBC Hgb Hct MCV MCH MCHC RDW Plt Count MPV Sodium 136 L Potassium 4.3 Chloride 103 Carbon Dioxide 23 Anion Gap 10 BUN 33 H Creatinine 1.12 H Estim Creat Clear Calc 39 Estimated GFR 46 L Glucose 223 H POC Capillary Glucose 228 H Calcium 8.9 Total Bilirubin 3.6 H AST 425 H ALT 507 H Alkaline Phosphatase 65 Total Protein 6.0 L Albumin 2.9 L Hepatitis A IgM Ab Negative Hep Bs Antigen Negative Hep B Core IgM Ab Negative Hepatitis C Ab Screen Negative 07/24/24 07/24/24 07/25/24 16:21 20:32 06:02 WBC 14.2 H RBC 3.54 L Hgb 10.6 L Hct 32.7 L MCV 92.4 MCH 29.9 MCHC 32.4 RDW 15.5 H Plt Count 145 L MPV 10.6 H Sodium 136 L Potassium 4.0 Chloride 101 Carbon Dioxide 25 Anion Gap 10 BUN 33 H Creatinine 1.13 H Estim Creat Clear Calc 38 Estimated GFR 46 L Glucose 202 H POC Capillary Glucose 226 H 200 H Calcium 8.9 Total Bilirubin 3.3 H AST 372 H ALT 581 H Alkaline Phosphatase 81 Total Protein 6.0 L Albumin 2.8 L Hepatitis A IgM Ab Hep Bs Antigen Hep B Core IgM Ab Hepatitis C Ab Screen 07/25/24 07:46 WBC RBC Hgb Hct MCV MCH MCHC RDW Plt Count MPV Sodium Potassium Chloride Carbon Dioxide Anion Gap BUN Creatinine Estim Creat Clear Calc Estimated GFR Glucose POC Capillary Glucose 215 H Calcium Total Bilirubin AST ALT Alkaline Phosphatase Total Protein Albumin Hepatitis A IgM Ab Hep Bs Antigen Hep B Core IgM Ab Hepatitis C Ab Screen Quality VTE Prophylaxis VTE prophylaxis: pharmacologic ordered
[2024-07-25 11:35] LABS: Glucose Point of Care 211 mg/dl (65-105)
[2024-07-25 17:07] LABS: Glucose Point of Care 200 mg/dl (65-105)
--- NOTE | 2024-07-25 19:04 | P.CONGI_ITS ---
Assessment and Plan Assessment and plan (1) Gallbladder disorder: Code(s): K82.9 - Disease of gallbladder, unspecified Status: Acute (2) Elevated transaminase level: Code(s): R74.01 - Elevation of levels of liver transaminase levels Status: Acute Assessment and Plan: The most probable etiology for the patient's acute and significant transaminase elevation is drug-induced hepatotoxicity, likely related to remdesivir. On consultation with the [employer] website, however, this degree of elevation is quite uncommon with remdesivir, but still reported. While she denies recent abdominal pain suggestive of biliary colic or choledocholithiasis, an MRCP is warranted to exclude these possibilities. Given her history of claustrophobia and prior difficulties with MRCP, mild sedation will be administered prior to the procedure. As contrast is not required, the examination should be relatively brief. Daily monitoring of her liver function tests, particularly bilirubin levels, is essential. Bilirubin is a crucial prognostic indicator in drug- induced liver injury. GI Consult Note Consult date/time: 07/25/24 19:04 Reason for consult: Increased transaminases HPI: Monica Bishop, an 84-year-old female with a history of atrial fibrillation and COPD, was admitted on July 17 for acute exacerbation of shortness of breath. She subsequently tested positive for COVID-19 and received three doses of remdesivir, initiated on July 18. This consultation is requested due to a significant elevation in liver function tests: AST 459, ALT 417, and total bilirubin 3.3 mg/dL (down from 3.6 mg/dL yesterday). Notably, her transaminases were within normal limits prior to remdesivir administration. The patient has a known history of cholelithiasis, with prior episodes of right upper quadrant pain radiating to the right shoulder, for which she did not seek medical attention. Abdominal ultrasound during this admission confirmed the presence of cholelithiasis. 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 Coronary heart disease Allergic rhinitis Secondary pulmonary hypertension Chronic respiratory failure with hypoxia Acquired hemosiderosis Irritable bowel Chronic GERD Obstructive sleep apnea on CPAP Chronic anticoagulation Atrial fibrillation Hyperlipidemia Hypothyroidism Hypertension Surgical History Surgical History Status post cataract extraction of both eyes with insertion of intraocular lens History of tonsillectomy and adenoidectomy Family History Family History Father Malignant neoplasm of prostate Hypertension Cerebrovascular accident Mother Depression Heart disease Grandparent Hypertension Heart disease Grandparent Alcoholism Social History Social History Social History: The patient was at assisted living [facility] until hospitalization March 2024 and has since been transitioned [facility]. She is a lifelong nonsmoker. She does not drink alcohol and never drink alcohol to excess. She denies illicit substance use. She is a retired RN. Surrogate medical decision maker: Marleny Manzo, cousin. Code status: DNR/DNI Smoking status: Never smoker Alcohol intake: never Substance use: never Substance use type: does not use Do You Feel Safe in your Home?: Yes Lack of Transportation: No Lack of Food: Never True Current Housing: I Have Housing Concerned About Future Housing: No Difficulty Paying Gas/Electric Bills: No Difficulty Paying for Meds: No Currently Unemployed: No Education: Bachelor's Degree Difficulty w/ Childcare or Family Care: No Additional living arrangements comments: Assisted living at [facility]. 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 Spiritual care concerns: No Meds Home Medications and Allergies Home Medications ?Medication ?Instructions ?Recorded ?Confirmed ?Type atorvastatin 10 mg tablet 10 mg PO HS 10/10/20 07/18/24 History furosemide 40 mg tablet (Lasix) 40 mg PO QAM 10/10/20 07/18/24 History albuterol sulfate 2.5 mg/3 mL 2.5 mg inhalation Q8H PRN Wheezing 12/12/23 07/18/24 History (0.083 %) solution for nebulization albuterol sulfate 90 mcg/actuation 2 puff inhalation Q6H PRN 12/12/23 07/18/24 History aerosol inhaler (Ventolin HFA) Shortness Of Breath apixaban 5 mg tablet (Eliquis) 5 mg PO BID 12/12/23 07/18/24 History cyanocobalamin (vitamin B-12) 1,000 mcg IM MONTHLY 12/12/23 07/18/24 History 1,000 mcg/mL injection solution diltiazem HCl 240 mg PO DAILY 12/12/23 07/18/24 History ferrous sulfate 325 mg (65 mg 325 mg PO DAILY 12/12/23 07/18/24 History iron) tablet (FeroSul) levothyroxine 150 mcg tablet 150 mcg PO DAILY 12/12/23 07/18/24 History loratadine 10 mg tablet 10 mg PO DAILY 12/12/23 07/18/24 History multivitamin with folic acid 400 1 tablet PO DAILY 12/12/23 07/18/24 History mcg tablet (Tab-A-Mehran) potassium chloride 10 mEq 20 meq PO DAILY 12/12/23 07/18/24 History capsule,extended release metformin 500 mg tablet 500 mg PO BID 02/06/24 07/18/24 History ondansetron 4 mg disintegrating 4 mg PO Q6H PRN nausea/vomiting 02/06/24 07/18/24 History tablet polyethylene glycol 3350 17 17 g PO DAILY PRN Constipation 02/06/24 07/18/24 History gram/dose oral powder (Miralax) propylene glycol 1 %-glycerin 0.3 1 drp EACH EYE BID PRN Dry Eye(S) 02/06/24 07/18/24 History % eye drops (Lubricant (propylene glycol-glycerin)) tizanidine 2 mg tablet 2 mg PO TID 04/24/24 07/18/24 History acetaminophen 500 mg capsule 1,000 mg PO Q8H PRN pain 07/18/24 07/18/24 History benzonatate 100 mg capsule 100 mg PO TID PRN cough 07/18/24 07/18/24 History budesonide-formoterol HFA 80 2 puff inhalation Q12H 07/18/24 07/18/24 History mcg-4.5 mcg/actuation aerosol inhaler (Breyna) dextromethorphan-guaifenesin 20 1 tablet PO Q12H 07/18/24 07/18/24 History mg-400 mg tablet diclofenac sodium 1 % topical gel 2 g topical Q12H PRN arthritis pain 07/18/24 07/18/24 History (Arthritis Pain (diclofenac)) lidocaine 4 % topical patch 1 patch topical DAILY 07/18/24 07/18/24 History (Aspercreme (lidocaine)) tramadol 50 mg tablet 50 mg PO Q8H Pain Rated 4-6 07/18/24 07/18/24 History Allergies Allergy/AdvReac Type Severity Reaction Status Date / Time adhesive tape Allergy Unknown Unknown Verified 07/17/24 16:23 amitriptyline (From Elavil) Allergy Unknown Unknown Verified 07/17/24 16:23 procaine (From Novocain) Allergy Unknown Unknown Verified 07/17/24 16:23 propoxyphene (From Darvon) Allergy Unknown Unknown Verified 07/17/24 16:23 Vital Signs Vital Signs - 24 hr 07/24/24 20:03 07/24/24 20:11 07/24/24 20:21 Temperature Pulse Rate 67 74 Respiratory Rate 20 Blood Pressure Pulse Oximetry 99 Oxygen Delivery Nasal Cannula Oxygen Flow Rate 3 07/24/24 20:22 07/24/24 20:35 07/24/24 21:47 Temperature 97.6 F Pulse Rate 71 71 Respiratory Rate 20 18 Blood Pressure 97/64 L Pulse Oximetry 100 100 Oxygen Delivery Nasal Cannula Oxygen Flow Rate 4 07/25/24 00:02 07/25/24 02:10 07/25/24 02:10 Temperature Pulse Rate 65 65 65 Respiratory Rate 18 Blood Pressure Pulse Oximetry 99 Oxygen Delivery Autopap Oxygen Flow Rate 07/25/24 02:22 07/25/24 04:02 07/25/24 06:00 Temperature 97.4 F L Pulse Rate 68 77 69 Respiratory Rate 18 20 Blood Pressure 138/78 Pulse Oximetry 98 Oxygen Delivery Oxygen Flow Rate 07/25/24 08:00 07/25/24 08:06 07/25/24 08:06 Temperature Pulse Rate 74 72 Respiratory Rate 18 Blood Pressure Pulse Oximetry 99 Oxygen Delivery Nasal Cannula Oxygen Flow Rate 3 07/25/24 08:29 07/25/24 12:00 07/25/24 13:46 Temperature Pulse Rate 78 73 78 Respiratory Rate 18 18 Blood Pressure Pulse Oximetry Oxygen Delivery Oxygen Flow Rate 07/25/24 14:00 07/25/24 14:03 07/25/24 16:00 Temperature 97.3 F L Pulse Rate 79 72 70 Respiratory Rate 18 18 Blood Pressure 123/62 Pulse Oximetry 100 Oxygen Delivery Oxygen Flow Rate Exam 2 Narrative: Alert and oriented x3, cooperative, with O2 nasal cannula. Lungs: Bilateral crackles. Abdomen: Soft, nontender, nondistended, no hepatosplenomegaly. Results Labs 07/25/24 06:02 07/25/24 06:02 Labs: Short CBC 07/25/24 Range/Units 06:02 WBC 14.2 H (4.5-10.0) K/mm3 Hgb 10.6 L (12.0-15.0) g/dL Hct 32.7 L (37.0-47.0) % Plt Count 145 L (150-375) k/mm3 BMP 07/25/24 06:02 Sodium 136 L Potassium 4.0 Chloride 101 Carbon Dioxide 25 BUN 33 H Creatinine 1.13 H Glucose 202 H Calcium 8.9 Liver Function 07/25/24 Range/Units 06:02 Total Bilirubin 3.3 H (0.2-1.3) mg/dL AST 372 H (14-36) U/L ALT 581 H (6-35) U/L Alkaline Phosphatase 81 (38-126) U/L Albumin 2.8 L (3.5-5.1) g/dL
[2024-07-25] MEDS: ATORVASTATIN 10 MG TABLET PO (20:21)
[2024-07-25] MEDS: SENNA/DOCUSATE SODIUM TABLET 1 TAB PO (20:21)
[2024-07-25] MEDS: dexAMETHasone SOD PHOS INJ 10 MG/ML 1 ML VIAL 6 MG IV PUSH (20:21)
[2024-07-25 20:34] LABS: Glucose Point of Care 190 mg/dl (65-105)
[2024-07-25 20:54] LABS: Alanine Aminotransferase 602 U/L (6-35); Albumin Level 2.7 g/dL (3.5-5.1); Alkaline Phosphatase 85 U/L (38-126); Anion Gap 5 mmol/L (4-12); Aspartate Amino Transferase 306 U/L (14-36); Bilirubin,Total 2.1 mg/dL (0.2-1.3); Blood Urea Nitrogen 31 mg/dL (7-17); Calcium 8.7 mg/dL (8.4-10.2); Carbon Dioxide 29 mmol/L (22-30); Chloride 101 mmol/L (98-107); Estimated CRCL calculation 37 ml/min; Estimated Glomerular Filt Rate 44; Glucose 183 mg/dL (65-110); Potassium 3.9 mmol/L (3.4-5.0); Sodium 135 mmol/L (137-145)
[2024-07-26] VITALS (15 sets, daily range): BP systolic 93–150; BP diastolic 50–97; PULSE 64–91; RESP 14–24; TEMP 36.2–36.3; O2SAT 94–100; BMI 37.1
[2024-07-26] MEDS: HYDROcodone/acetaminophen (*CRX) 5-325 MG TABLET 1 TAB PO ×3 (01:27→22:37)
[2024-07-26] MEDS: IPRATROPIUM BR 0.02% INH SOLN 0.5 MG/2.5 ML VIAL INHALATION ×4 (02:45→19:39)
[2024-07-26] MEDS: LEVALBUTEROL NEB 1.25 MG/3 ML INHALATION ×4 (02:45→19:39)
[2024-07-26] MEDS: LEVOTHYROXINE SODIUM 150 MCG TABLET PO (05:31)
[2024-07-26 05:54] LABS: Hematocrit 34.2 % (37.0-47.0); Hemoglobin 11.1 g/dL (12.0-15.0); Mean Corpuscular HGB Conc 32.5 g/dl (32-36); Mean Corpuscular Hemoglobin 30.2 pg (26-34); Mean Corpuscular Volume 92.9 fl (80-100); Mean Platelet Volume 9.7 fl (7.4-10.4); Platelet Count Result 125 k/mm3 (150-375); Red Blood Count 3.68 M/mm3 (4.2-5.4); Red Cell Distribution Width 15.7 % (11.5-14.5); White Blood Count 13.5 K/mm3 (4.5-10.0)
[2024-07-26 06:26] LABS: Alanine Aminotransferase 612 U/L (6-35); Alkaline Phosphatase 83 U/L (38-126); Anion Gap 10 mmol/L (4-12); Aspartate Amino Transferase 302 U/L (14-36); Bilirubin,Total 1.9 mg/dL (0.2-1.3); Blood Urea Nitrogen 32 mg/dL (7-17); Calcium 8.8 mg/dL (8.4-10.2); Carbon Dioxide 26 mmol/L (22-30); Chloride 100 mmol/L (98-107); Estimated CRCL calculation 39 ml/min; Estimated Glomerular Filt Rate 47; Glucose 185 mg/dL (65-110); Potassium 3.8 mmol/L (3.4-5.0); Sodium 136 mmol/L (137-145)
--- NOTE | 2024-07-26 06:46 | PC.NURSE ---
Spoke with [facility] r/t loop recorder information. Nurse will look through patient's digital record and will also have medical records look through her paper chart. Will notify day nurse if able to find and fax information to floor.
[2024-07-26 07:56] LABS: Glucose Point of Care 166 mg/dl (65-105)
[2024-07-26] MEDS: LIDOCAINE 5% PATCH 1 PATCH TOPICAL (09:21)
[2024-07-26] MEDS: OLOPATADINE 0.1% OPHTH SOLN 5 ML BTL 1 DROP EACH EYE (09:21)
[2024-07-26] MEDS: FLUTICASONE/SALMETEROL 45-21 MCG INHALER 1 PUFF 2 PUFF INHALATION ×2 (09:28→19:39)
[2024-07-26 11:29] LABS: Glucose Point of Care 151 mg/dl (65-105)
[2024-07-26] MEDS: MULTIVITAMINS THERAPEUTIC TAB (*BKC) 1 TABLET PO (13:01)
[2024-07-26] MEDS: FUROSEMIDE 40 MG TABLET PO (13:01)
[2024-07-26] MEDS: LORATADINE 10 MG TABLET PO (13:01)
[2024-07-26] MEDS: FERROUS SULFATE 325 MG TABLET DR BY MOUTH (13:01)
[2024-07-26] MEDS: APIXABAN 5 MG TABLET PO ×2 (13:01→20:35)
[2024-07-26] MEDS: TIZANIDINE HCL 2 MG TABLET PO ×2 (13:01→16:20)
[2024-07-26] MEDS: guaiFENesin 600 MG/DEXTROMETHORPHAN 30 MG SR TAB 12 HR 1 TAB PO ×2 (13:01→20:34)
--- NOTE | 2024-07-26 15:33 | P.PNIM_ITS ---
Progress Note: A&P Assessment and Plan (1) Transaminitis: Code(s): R74.01 - Elevation of levels of liver transaminase levels Status: Deleted Assessment and Plan: LFTs tot bili 3, AST 459, ALT 417, alk phos 68 on 07/24. Previously WNL. Likely secondary to remdesivir use which was completed on 07/23. Hepatitis panel negative RUQ US: Cholelithiasis and gallbladder sludge. Nonspecific gallbladder wall thickening. GI consulted. (2) Cholelithiasis: Code(s): K80.20 - Calculus of gallbladder without cholecystitis without obstruction Status: Acute Assessment and Plan: LFTs tot bili 3, AST 459, ALT 417, alk phos 68 on 07/24. Previously WNL. RUQ US: Cholelithiasis and gallbladder sludge. Nonspecific gallbladder wall thickening. MRCP ordered GI consulted, appreciate recommendations (3) Acute hypotension: Code(s): I95.9 - Hypotension, unspecified Status: Acute Assessment and Plan: Hypotension likely due to hypovolemia. Patient had good response to volume resuscitation. Lasix 40 mg daily to be resumed Diltiazem placed on hold for ongoing bradycardia. Continue to monitor tele at this time. HR remaining stable 60-70s. Blood pressures reviewed and remain stable, continue to monitor (4) Atrial fibrillation: Qualifiers: Atrial fibrillation type: unspecified Qualified Code(s): I48.91 - Unspecified atrial fibrillation Code(s): I48.91 - Unspecified atrial fibrillation Status: Acute Assessment and Plan: History of AFib EKG showing afib rate controlled with normal QTc, can continue azithromycin administration. Continue home eliquis 5 mg BID Cardiology consulted for afib with bradycardia Possibly due to remdesivir administration with known adverse effect of bradycardia with this medication. Remdesivir completed 07/21 TSH low, T4 and T3 WNL Diltiazem remains on hold per cardiology recommendations. HR improved, stable 60-70s on tele. (5) COVID-19: Code(s): U07.1 - COVID-19 Status: Acute Assessment and Plan: Viral panel: covid positive 07/[address] in COVID19 isolation precautions, cardiac monitoring, and continuous pulse ox Monitor serum electrolytes, CRP, Lactic acid, troponin, CBC, WBC, temperature curve and follow cultures Remains on home oxygen via NC Pt is a candidate for Remdesivir and Dexamethasone, continue treatment according to suggested guidelines. Remdesivir 200 mg IV x1, then 100 mg IV x4 days (course completed), dexamethasone 6 mg IV daily x 10 days, or until discharge (6) COPD (chronic obstructive pulmonary disease): Qualifiers: COPD type: COPD with acute lower respiratory infection Qualified Code(s): J44.0 - Chronic obstructive pulmonary disease with (acute) lower respiratory infection Code(s): J44.9 - Chronic obstructive pulmonary disease, unspecified Status: Acute Assessment and Plan: Respiratory failure is stable on her home oxygen requirements of 4L NC. Chest XR: No acute cardiopulmonary disease Given patients leukocytosis and decreased breath sounds she was started on abx in the ED though not noted infiltrate on xr azithromycin and rocephin started 07/18, transitioned to oral azithromycin and augmentin on 07/20. Course completed 07/23. Levalbuterol and atrovent Decadron 07/18-07/26 Monitor vital signs, I&Os, neuro status and patient is a fall risk Monitor serum electrolytes, cultures and CBC Monitor Oxygen saturation, Oxygen via NC; keep SpO2 greater than 88% (7) Chronic respiratory failure with hypoxia: Code(s): J96.11 - Chronic respiratory failure with hypoxia Status: Acute Assessment and Plan: Chronic, continue home oxygen of 4L NC (8) Urinary tract infection: Code(s): N39.0 - Urinary tract infection, site not specified Status: Acute Assessment and Plan: - UC: klebsiella pneumoniae intermediate response to fluoroquinolones and resi stant to macrobid - previous micro reviewed 03/28/2024: Ecoli resistant to fluoroquinolones - started on rocephin on 07/18, transitioned to Augmentin on 07/20, course completed 07/23 (9) Acute kidney injury: Code(s): N17.9 - Acute kidney failure, unspecified Status: Acute Assessment and Plan: BUN/Cr 39/1.76 on admission. Baseline WNL. NEHA likely related to hypovolemia given cocurrent hypotension - BUN/Cr 33/1.13 on am. - Monitor I/O. - Avoid nephrotoxic medications - Renally dose medications (10) Chronic diastolic (congestive) heart failure: Code(s): I50.32 - Chronic diastolic (congestive) heart failure Status: Acute Assessment and Plan: Does not appear in acute exacerbation - Chest XR: No cardiopulmonary disease - Echo 12/13/23: LVEF 55-60% with mod pulmonary hypertension - Monitor vital signs, I&Os, BUN/creatinine, daily weights, neuro status and patient is a fall risk - Monitor serum electrolytes, Keep serum Potassium>4 and serum Magnesium>2 and CBC (11) Diabetes: Qualifiers: Diabetes mellitus type: type 2 Diabetes mellitus fci insulin use: without fci use Diabetes mellitus complication status: without co mplication Qualified Code(s): E11.9 - Type 2 diabetes mellitus without complications Code(s): E11.9 - Type 2 diabetes mellitus without complications Status: Acute Assessment and Plan: - hypoglycemia protocol - POC blood glucose ACHS - home medication - metformin 500 mg BID agree - correct regimen ordered - mod dose SSI - A1C 5 (12) Hypothyroidism: Qualifiers: Hypothyroidism type: unspecified Qualified Code(s): E03.9 - Hypothyroidism, unspecified Code(s): E03.9 - Hypothyroidism, unspecified Status: Acute Assessment and Plan: Chronic, continue Synthroid (13) Obstructive sleep apnea on CPAP: Code(s): G47.33 - Obstructive sleep apnea (adult) (pediatric) Status: Acute Assessment and Plan: auto titrating CPAP/BiPAP (14) Constipation: Code(s): K59.00 - Constipation, unspecified Status: Acute Assessment and Plan: Patient notes that she has not had a bowel movement since admission. Denies any nausea/vomiting or abdominal pain. KUB: Prominent amount of fecal material in the rectum and sigmoid and right colon consistent with clinical presentation of constipation; no bowel obstruction is evident Continue Senokot and MiraLax Given a suppository x1 Resolved. Patient has had several bowel movements. Time Spent With Patient Time with patient: 25 - 35 minutes Subjective Date/time seen: 07/26/24 15:33 Interval history: 84-year-old female with a past medical history of COPD, moderate pulmonary hypertension, chronic hypoxic respiratory failure on 4 L nasal cannula CHF with preserved ejection fraction, obstructive sleep apnea on CPAP who presented to the ER from [facility] via EMS due to cough and congestion. Patient is seen and examined. She remains on her home oxygen and denies chest pain, palpitations, or shortness of breath. She was noted to have elevated LFTs yesterday and a right upper quadrant ultrasound showing cholelithiasis and gallbladder sludge. Patient states she has history of cholelithiasis but does know slight right upper quadrant pain. Since LFTs have drastically increased- GI was consulted and MRCP ordered in the morning.. Review of Systems Review of Systems: 12 systems were reviewed with pertinent positives and negatives per HPI. Except as documented in the HPI, all other systems were reviewed and are negative. All systems reviewed & are unremarkable except as noted in HPI and below Exam Narrative: General: female in no acute respiratory distress who is nontoxic appearing, sitting up in bed HEENT: Normocephalic. Atraumatic. Extraocular movement intact. Sclera clear and anicteric. No facial asymmetry. Chest: Lungs are clear in the uppers with slight rhonchi in the lower bases. CV: Heart with irregularly irregular rate and rhythm. Abd: Abdomen was soft. Nondistended. Positive bowel sounds. Ext: No clubbing, cyanosis, or edema. DP pulses bilaterally. Neuro: Patient is alert and oriented x3. Speech is clear. Const: General: comfortable Other: No acute distress, well-developed well-nourished, elderly, debilitated HENMT: Other: Mucous membranes are moist, no oral pharyngeal erythema, crowded posterior oropharynx Eyes: Other: Pupils are equal and reactive, significantly injected sclera bilaterally, mucoid drainage from both eyes left greater than right Neck: Other: No JVD, no lymphadenopathy Resp: Other: Decreased breath sounds bilaterally, crackles at the bases, frequent coughing Cardio: Other: Regular rate, irregular rhythm, 2+ bilateral radial pedal pulses GI: Other: Soft, nontender, significant redundant skin, normoactive bowel sounds : Other: Pure wick catheter in place Skin: Other: Generalized pallor, non jaundice, chronic darkened skin pink mentation to bilateral lower extremities consistent with patient's history of chronic venous stasis dermatitis/lymphedema in the past Neuro: Other: Alert orient x4, speech is clear, no facial asymmetry, moves all extremities equally, significant tremor Extrem: Other: 1+ edema to the tops of the feet bilater ally, generalized weakness Psych: Other: Pleasant and cooperative, fair judgment and insight Objective Data Vital Signs Vital Signs: Vital Signs - 24 hr 07/25/24 16:00 07/25/24 19:35 07/25/24 20:00 Temperature Pulse Rate 70 73 Respiratory Rate 18 Blood Pressure Pulse Oximetry 97 Oxygen Delivery Nasal Cannula Oxygen Flow Rate 3 07/25/24 20:00 07/25/24 21:39 07/26/24 00:00 Temperature 97.6 F Pulse Rate 71 62 74 Respiratory Rate 18 Blood Pressure 98/62 L Pulse Oximetry 100 Oxygen Delivery Oxygen Flow Rate 07/26/24 02:45 07/26/24 02:57 07/26/24 04:00 Temperature Pulse Rate 71 73 86 Respiratory Rate 14 14 Blood Pressure Pulse Oximetry Oxygen Delivery Oxygen Flow Rate 07/26/24 05:41 07/26/24 08:00 07/26/24 09:05 Temperature 97.4 F L Pulse Rate 78 71 Respiratory Rate 20 20 Blood Pressure 131/82 Pulse Oximetry 100 96 98 Oxygen Delivery Nasal Cannula Nasal Cannula Oxygen Flow Rate 3 3 07/26/24 09:05 07/26/24 09:27 07/26/24 13:57 Temperature 97.1 F L Pulse Rate 81 84 91 Respiratory Rate 20 20 18 Blood Pressure 150/97 H Pulse Oximetry 100 Oxygen Delivery Oxygen Flow Rate 07/26/24 14:25 07/26/24 14:25 Temperature Pulse Rate 81 81 Respiratory Rate 20 24 H Blood Pressure Pulse Oximetry 94 Oxygen Delivery Nasal Cannula Oxygen Flow Rate 3 Intake/Output Intake/Output: Intake & Output 07/23/24 07/24/24 07/25/24 07/26/24 23:59 23:59 23:59 23:59 Intake Total 1600 1408 791 200 Output Total 2200 1800 1200 1100 Balance -600 -392 -409 -900 Meds/Results Medications: Active Medications Generic Name Dose Route Start Last Admin Trade Name Ankitq PRN Reason Stop Dose Admin Acetaminophen 650 mg 07/17/24 21:38 Acetaminophen 325 Mg Tablet PO Q4H PRN Mild Pain (1-3) or Fever Hydrocodone Bitart/Acetaminophen 1 tab 07/18/24 00:51 07/26/24 01:27 Hydrocodone/Acetaminophen (*Crx) 5-325 Mg Tablet PO 1 tab Q4H PRN Administration Pain Rated 7-10 Al Hydrox/Mg Hydrox/Simethicone 30 ml 07/17/24 21:38 Mag Hydrox/Al Hydrox/Simeth 30 Ml Udc PO Q6H PRN Indigestion Apixaban 5 mg 07/18/24 09:00 07/26/24 13:01 Apixaban 5 Mg Tablet PO 5 mg Q12HR LYNN Administration Artificial Tears 1 drop 07/18/24 00:25 07/19/24 09:35 Artificial Tears Ophth Soln 15 Ml Bottle EACH EYE 1 drop QID PRN Administration Dry Eye(s) Atorvastatin Calcium 10 mg 07/18/24 21:00 07/25/24 20:21 Atorvastatin 10 Mg Tablet PO 10 mg HS LYNN Administration Benzonatate 100 mg 07/18/24 02:39 07/19/24 05:25 Benzonatate 100 Mg Capsule PO 100 mg TID PRN Administration cough Dexamethasone Sodium Phosphate 6 mg 07/18/24 00:25 07/25/24 20:21 Dexamethasone Sod Phos Inj 10 Mg/Ml 1 Ml Vial IV PUSH 07/26/24 21:01 6 mg HS LYNN Administration Dextrose 12.5 gm 07/19/24 09:53 Dextrose 50% 25 Gm/50 Ml Syringe IV PUSH PRN PRN Hypoglycemia Protocol Diclofenac Sodium 1 applic 07/18/24 02:39 Diclofenac Sodium 1% 100 Gm Gel (*Bkc) TOPICAL Q12H PRN arthritis pain Diltiazem HCl 120 mg 07/21/24 09:00 07/23/24 08:05 Diltiazem Hcl Cd 120 Mg Cap.24hr PO 120 mg DAILY LYNN Administration Ferrous Sulfate 325 mg 07/18/24 09:00 07/26/24 13:01 Ferrous Sulfate [address] BY MOUTH 325 mg DAILY LYNN Administration Furosemide 40 mg 07/23/24 09:00 07/26/24 13:01 Furosemide 40 Mg Tablet PO 40 mg QAM LYNN Administration Guaifenesin/Dextromethorphan 1 tab 07/18/24 09:00 07/26/24 13:01 Guaifenesin 600 Mg/Dextromethorphan 30 Mg Sr Tab 12 Hr PO 1 tab Q12HR LYNN Administration Dextrose 1,000 mls @ 100 mls/hr 07/19/24 09:53 Dextrose 5% 1,000 Ml IVPB PRN PRN Hypoglycemia Protocol Insulin Aspart 2 - 5 units 07/19/24 12:00 07/26/24 12:21 Insulin Aspart (*Bkc) 100 Units/Ml SUB-Q Not Given TIDWM LYNN Protocol Insulin Aspart 1 - 3 units 07/21/24 23:10 07/25/24 20:21 Insulin Aspart (*Bkc) 100 Units/Ml SUB-Q Not Given HS LYNN Protocol Ipratropium [place] 0.5 mg 07/18/24 02:00 07/26/24 14:24 Ipratropium Br 0.02% Inh Soln 0.5 Mg/2.5 Ml Vial INHALATION 0.5 mg Q6HRT LYNN Administration Levalbuterol HCl 1.25 mg 07/18/24 02:00 07/26/24 14:24 Levalbuterol Neb 1.25 Mg/3 Ml INHALATION 1.25 mg Q6HRT LYNN Administration Levothyroxine Sodium 150 mcg 07/18/24 06:30 07/26/24 05:31 Levothyroxine Sodium 150 Mcg Tablet PO 150 mcg DAILY@0630 LYNN Administration Lidocaine 1 patch 07/18/24 09:00 07/26/24 09:21 Lidocaine 5% Patch TOPICAL 08/17/24 08:59 1 patch DAILY LYNN Administration Loratadine 10 mg 07/18/24 09:00 07/26/24 13:01 Loratadine 10 Mg Tablet PO 10 mg DAILY LYNN Administration Multivitamins Therapeutic 1 tablet 07/18/24 09:00 07/26/24 13:01 Multivitamins Therapeutic Tab (*Bkc) PO 1 tablet DAILY LYNN Administration Olopatadine HCl 1 drop 07/18/24 09:00 07/26/24 09:21 Olopatadine 0.1% Ophth Soln 5 Ml Btl EACH EYE 1 drop DAILY LYNN Administration Polyethylene Glycol 17 gm 07/18/24 02:40 07/23/24 08:06 Polyethylene Glycol 3350 17 Gm Powd.Pack PO 17 gm DAILY PRN Administration Constipation Polyethylene Glycol 17 gm 07/24/24 09:00 07/26/24 09:00 Polyethylene Glycol 3350 17 Gm Powd.Pack PO Not Given QAM LYNN Fluticasone/Salmeterol 2 puff 07/18/24 08:00 07/26/24 09:28 Fluticasone/Salmeterol 45-21 Mcg Inhaler 1 Puff INHALATION 2 puff Q12HRT LYNN Administration Senna/Docusate Sodium 1 tab 07/23/24 21:00 07/25/24 20:21 Senna/Docusate Sodium Tablet PO 1 tab HS LYNN Administration Tizanidine HCl 2 mg 07/18/24 09:00 07/26/24 13:01 Tizanidine Hcl 2 Mg Tablet PO 2 mg TID LYNN Administration Tramadol HCl 50 mg 07/18/24 00:53 Tramadol Hcl (*Crx) 50 Mg Tablet PO Q6H PRN Pain Rated 4-6 Radiology Results: ITS Impressions Chest X-Ray 07/17/24 16:08 Impression: 1: No acute cardiopulmonary disease. Abdomen X-Ray 07/23/24 15:15 IMPRESSION: Prominent amount of fecal material in the rectum and sigmoid and right colon consistent with clinical presentation of constipation; no bowel obstruction is evident Abdomen Ultrasound 07/24/24 22:34 IMPRESSION: Cholelithiasis and gallbladder sludge. Nonspecific gallbladder wall thickening. MRCP 07/26/24 11:58 IMPRESSION: 1. Cholelithiasis. Gallbladder distention may be secondary to fasting or acute cholecystitis. Consider hepatobiliary scintigraphy. 2. Small right pleural effusion. Labs Labs: Laboratory Results - last 24 hr 07/25/24 07/25/24 07/25/24 16:52 20:17 20:35 WBC RBC Hgb Hct MCV MCH MCHC RDW Plt Count MPV Sodium 135 L Potassium 3.9 Chloride 101 Carbon Dioxide 29 Anion Gap 5 BUN 31 H Creatinine 1.18 H Estim Creat Clear Calc 37 Estimated GFR 44 L Glucose 183 H POC Capillary Glucose 200 H 190 H Calcium 8.7 Total Bilirubin 2.1 H AST 306 H ALT 602 H Alkaline Phosphatase 85 Total Protein 6.0 L Albumin 2.7 L 07/26/24 07/26/24 07/26/24 05:45 07:46 11:26 WBC 13.5 H RBC 3.68 L Hgb 11.1 L Hct 34.2 L MCV 92.9 MCH 30.2 MCHC 32.5 RDW 15.7 H Plt Count 125 L MPV 9.7 Sodium 136 L Potassium 3.8 Chloride 100 Carbon Dioxide 26 Anion Gap 10 BUN 32 H Creatinine 1.10 H Estim Creat Clear Calc 39 Estimated GFR 47 L Glucose 185 H POC Capillary Glucose 166 H 151 H Calcium 8.8 Total Bilirubin 1.9 H AST 302 H ALT 612 H Alkaline Phosphatase 83 Total Protein 6.0 L Albumin 3.0 L Quality VTE Prophylaxis VTE prophylaxis: pharmacologic ordered
--- NOTE | 2024-07-26 16:29 | P.PNGI_ITS ---
Progress Note: A&P Assessment and Plan (1) Elevated transaminase level: Code(s): R74.01 - Elevation of levels of liver transaminase levels Status: Acute Assessment and Plan: The patient's transaminase levels have remained essentially unchanged. However, there is a positive trend with decreasing bilirubin levels. Today's MRCP ruled out choledocholithiasis and mechanical biliary obstruction. Given this, remdesivir-induced hepatotoxicity is the most probable etiology for the current biochemical abnormalities, consistent with our discussion yesterday. We will continue to monitor her liver function closely. Discharge can be considered if the favorable trend in bilirubin reduction persists. Subjective Date/time seen: 07/26/24 16:29 Interval history: The patient feels better, no abdominal pain, no fever. MRCP today, normal common bile duct caliber, no evidence of obstruction. Exam Narrative: Abdomen: Soft, nontender, nondistended, no hepatosplenomegaly. rest of the exam unchang Objective Data Vital Signs Vital Signs: Vital Signs - 24 hr 07/25/24 19:35 07/25/24 20:00 07/25/24 20:00 Temperature Pulse Rate 73 71 Respiratory Rate 18 Blood Pressure Pulse Oximetry 97 Oxygen Delivery Nasal Cannula Oxygen Flow Rate 3 07/25/24 21:39 07/26/24 00:00 07/26/24 02:45 Temperature 97.6 F Pulse Rate 62 74 71 Respiratory Rate 18 14 Blood Pressure 98/62 L Pulse Oximetry 100 Oxygen Delivery Oxygen Flow Rate 07/26/24 02:57 07/26/24 04:00 07/26/24 05:41 Temperature 97.4 F L Pulse Rate 73 86 78 Respiratory Rate 14 20 Blood Pressure 131/82 Pulse Oximetry 100 Oxygen Delivery Oxygen Flow Rate 07/26/24 08:00 07/26/24 09:05 07/26/24 09:05 Temperature Pulse Rate 71 81 Respiratory Rate 20 20 Blood Pressure Pulse Oximetry 96 98 Oxygen Delivery Nasal Cannula Nasal Cannula Oxygen Flow Rate 3 3 07/26/24 09:27 07/26/24 13:57 07/26/24 14:25 Temperature 97.1 F L Pulse Rate 84 91 81 Respiratory Rate 20 18 20 Blood Pressure 150/97 H Pulse Oximetry 100 94 Oxygen Delivery Nasal Cannula Oxygen Flow Rate 3 07/26/24 14:25 Temperature Pulse Rate 81 Respiratory Rate 24 H Blood Pressure Pulse Oximetry Oxygen Delivery Oxygen Flow Rate Intake/Output Intake/Output: Intake & Output 07/23/24 07/24/24 07/25/24 07/26/24 23:59 23:59 23:59 23:59 Intake Total 1600 1408 791 440 Output Total 2200 1800 1200 1100 [facility] -600 -392 -409 -660 Meds/Results Medications: Active Medications Generic Name Dose Route Start Last Admin Trade Name Freq PRN Reason Stop Dose Admin Acetaminophen 650 mg 07/17/24 21:38 Acetaminophen 325 Mg Tablet PO Q4H PRN Mild Pain (1-3) or Fever Hydrocodone Bitart/Acetaminophen 1 tab 07/18/24 00:51 07/26/24 01:27 Hydrocodone/Acetaminophen (*Crx) 5-325 Mg Tablet PO 1 tab Q4H PRN Administration Pain Rated 7-10 Al Hydrox/Mg Hydrox/Simethicone 30 ml 07/17/24 21:38 Mag Hydrox/Al Hydrox/Simeth 30 Ml Udc PO Q6H PRN Indigestion Apixaban 5 mg 07/18/24 09:00 07/26/24 13:01 Apixaban 5 Mg Tablet PO 5 mg Q12HR LYNN Administration Artificial Tears 1 drop 07/18/24 00:25 07/19/24 09:35 Artificial Tears Ophth Soln 15 Ml Bottle EACH EYE 1 drop QID PRN Administration Dry Eye(s) Atorvastatin Calcium 10 mg 07/18/24 21:00 07/25/24 20:21 Atorvastatin 10 Mg Tablet PO 10 mg HS LYNN Administration Benzonatate 100 mg 07/18/24 02:39 07/19/24 05:25 Benzonatate 100 Mg Capsule PO 100 mg TID PRN Administration cough Dexamethasone Sodium Phosphate 6 mg 07/18/24 00:25 07/25/24 20:21 Dexamethasone Sod Phos Inj 10 Mg/Ml 1 Ml Vial IV PUSH 07/26/24 21:01 6 mg HS LYNN Administration Dextrose 12.5 gm 07/19/24 09:53 Dextrose 50% 25 Gm/50 Ml Syringe IV PUSH PRN PRN Hypoglycemia Protocol Diclofenac Sodium 1 applic 07/18/24 02:39 Diclofenac Sodium 1% 100 Gm Gel (*Bkc) TOPICAL Q12H PRN arthritis pain Diltiazem HCl 120 mg 07/21/24 09:00 07/23/24 08:05 Diltiazem Hcl Cd 120 Mg Cap.24hr PO 120 mg DAILY LYNN Administration Ferrous Sulfate 325 mg 07/18/24 09:00 07/26/24 13:01 Ferrous Sulfate [address] BY MOUTH 325 mg DAILY LYNN Administration Furosemide 40 mg 07/23/24 09:00 07/26/24 13:01 Furosemide 40 Mg Tablet PO 40 mg QAM LYNN Administration Guaifenesin/Dextromethorphan 1 tab 07/18/24 09:00 07/26/24 13:01 Guaifenesin 600 Mg/Dextromethorphan 30 Mg Sr Tab 12 Hr PO 1 tab Q12HR LYNN Administration Dextrose 1,000 mls @ 100 mls/hr 07/19/24 09:53 Dextrose 5% 1,000 Ml IVPB PRN PRN Hypoglycemia Protocol Insulin Aspart 2 - 5 units 07/19/24 12:00 07/26/24 12:21 Insulin Aspart (*Bkc) 100 Units/Ml SUB-Q Not Given TIDWM LYNN Protocol Insulin Aspart 1 - 3 units 07/21/24 23:10 07/25/24 20:21 Insulin Aspart (*Bkc) 100 Units/Ml SUB-Q Not Given HS LYNN Protocol Ipratropium [place] 0.5 mg 07/18/24 02:00 07/26/24 14:24 Ipratropium Br 0.02% Inh Soln 0.5 Mg/2.5 Ml Vial INHALATION 0.5 mg Q6HRT LYNN Administration Levalbuterol HCl 1.25 mg 07/18/24 02:00 07/26/24 14:24 Levalbuterol Neb 1.25 Mg/3 Ml INHALATION 1.25 mg Q6HRT LYNN Administration Levothyroxine Sodium 150 mcg 07/18/24 06:30 07/26/24 05:31 Levothyroxine Sodium 150 Mcg Tablet PO 150 mcg DAILY@0630 LYNN Administration Lidocaine 1 patch 07/18/24 09:00 07/26/24 09:21 Lidocaine 5% Patch TOPICAL 08/17/24 08:59 1 patch DAILY LYNN Administration Loratadine 10 mg 07/18/24 09:00 07/26/24 13:01 Loratadine 10 Mg Tablet PO 10 mg DAILY LYNN Administration Multivitamins Therapeutic 1 tablet 07/18/24 09:00 07/26/24 13:01 Multivitamins Therapeutic Tab (*Bkc) PO 1 tablet DAILY LYNN Administration Olopatadine HCl 1 drop 07/18/24 09:00 07/26/24 09:21 Olopatadine 0.1% Ophth Soln 5 Ml Btl EACH EYE 1 drop DAILY LYNN Administration Polyethylene Glycol 17 gm 07/18/24 02:40 07/23/24 08:06 Polyethylene Glycol 3350 17 Gm Powd.Pack PO 17 gm DAILY PRN Administration Constipation Polyethylene Glycol 17 gm 07/24/24 09:00 07/26/24 09:00 Polyethylene Glycol 3350 17 Gm Powd.Pack PO Not Given QAM LYNN Fluticasone/Salmeterol 2 puff 07/18/24 08:00 07/26/24 09:28 Fluticasone/Salmeterol 45-21 Mcg Inhaler 1 Puff INHALATION 2 puff Q12HRT LYNN Administration Senna/Docusate Sodium 1 tab 07/23/24 21:00 07/25/24 20:21 Senna/Docusate Sodium Tablet PO 1 tab HS LYNN Administration Tizanidine HCl 2 mg 07/18/24 09:00 07/26/24 13:01 Tizanidine Hcl 2 Mg Tablet PO 2 mg TID LYNN Administration Tramadol HCl 50 mg 07/18/24 00:53 Tramadol Hcl (*Crx) 50 Mg Tablet PO Q6H PRN Pain Rated 4-6 Radiology Results: ITS Impressions Chest X-Ray 07/17/24 16:08 Impression: 1: No acute cardiopulmonary disease. Abdomen X-Ray 07/23/24 15:15 IMPRESSION: Prominent amount of fecal material in the rectum and sigmoid and right colon consistent with clinical presentation of constipation; no bowel obstruction is evident Abdomen Ultrasound 07/24/24 22:34 IMPRESSION: Cholelithiasis and gallbladder sludge. Nonspecific gallbladder wall thickening. MRCP 07/26/24 11:58 IMPRESSION: 1. Cholelithiasis. Gallbladder distention may be secondary to fasting or acute cholecystitis. Consider hepatobiliary scintigraphy. 2. Small right pleural effusion. Labs Labs: Laboratory Results - last 24 hr 07/25/24 07/25/24 07/25/24 16:52 20:17 20:35 WBC RBC Hgb Hct MCV MCH MCHC RDW Plt Count MPV Sodium 135 L Potassium 3.9 Chloride 101 Carbon Dioxide 29 Anion Gap 5 BUN 31 H Creatinine 1.18 H Estim Creat Clear Calc 37 Estimated GFR 44 L Glucose 183 H POC Capillary Glucose 200 H 190 H Calcium 8.7 Total Bilirubin 2.1 H AST 306 H ALT 602 H Alkaline Phosphatase 85 Total Protein 6.0 L Albumin 2.7 L 07/26/24 07/26/24 07/26/24 05:45 07:46 11:26 WBC 13.5 H RBC 3.68 L Hgb 11.1 L Hct 34.2 L MCV 92.9 MCH 30.2 MCHC 32.5 RDW 15.7 H Plt Count 125 L MPV 9.7 Sodium 136 L Potassium 3.8 Chloride 100 Carbon Dioxide 26 Anion Gap 10 BUN 32 H Creatinine 1.10 H Estim Creat Clear Calc 39 Estimated GFR 47 L Glucose 185 H POC Capillary Glucose 166 H 151 H Calcium 8.8 Total Bilirubin 1.9 H AST 302 H ALT 612 H Alkaline Phosphatase 83 Total Protein 6.0 L Albumin 3.0 L
[2024-07-26 17:17] LABS: Glucose Point of Care 203 mg/dl (65-105)
[2024-07-26 19:51] LABS: Alanine Aminotransferase 482 U/L (6-35); Albumin Level 2.6 g/dL (3.5-5.1); Alkaline Phosphatase 77 U/L (38-126); Anion Gap 8 mmol/L (4-12); Aspartate Amino Transferase 152 U/L (14-36); Bilirubin,Total 1.3 mg/dL (0.2-1.3); Blood Urea Nitrogen 34 mg/dL (7-17); Calcium 8.7 mg/dL (8.4-10.2); Carbon Dioxide 27 mmol/L (22-30); Chloride 102 mmol/L (98-107); Estimated CRCL calculation 34 ml/min; Estimated Glomerular Filt Rate 40; Glucose 217 mg/dL (65-110); Potassium 3.9 mmol/L (3.4-5.0); Sodium 137 mmol/L (137-145)
[2024-07-26] MEDS: ATORVASTATIN 10 MG TABLET PO (20:35)
[2024-07-26] MEDS: SENNA/DOCUSATE SODIUM TABLET 1 TAB PO (20:35)
[2024-07-26] MEDS: dexAMETHasone SOD PHOS INJ 10 MG/ML 1 ML VIAL 6 MG IV PUSH (20:35)
[2024-07-26] MEDS: INSULIN ASPART (*BKC) 100 UNITS/ML SUB-Q (20:36)
[2024-07-26 20:51] LABS: Glucose Point of Care 234 mg/dl (65-105)
[2024-07-27] VITALS (19 sets, daily range): BP systolic 102–151; BP diastolic 58–89; PULSE 70–90; RESP 14–20; TEMP 36.1–36.5; O2SAT 97–100
[2024-07-27] MEDS: IPRATROPIUM BR 0.02% INH SOLN 0.5 MG/2.5 ML VIAL INHALATION ×4 (01:43→19:51)
[2024-07-27] MEDS: LEVALBUTEROL NEB 1.25 MG/3 ML INHALATION ×4 (01:44→19:51)
[2024-07-27 06:04] LABS: Hematocrit 32.3 % (37.0-47.0); Hemoglobin 10.6 g/dL (12.0-15.0); Mean Corpuscular HGB Conc 32.8 g/dl (32-36); Mean Corpuscular Hemoglobin 30.7 pg (26-34); Mean Corpuscular Volume 93.6 fl (80-100); Mean Platelet Volume 10.1 fl (7.4-10.4); Platelet Count Result 110 k/mm3 (150-375); Red Blood Count 3.45 M/mm3 (4.2-5.4); Red Cell Distribution Width 15.9 % (11.5-14.5); White Blood Count 12.7 K/mm3 (4.5-10.0)
[2024-07-27 06:13] LABS: Alanine Aminotransferase 482 U/L (6-35); Albumin Level 2.9 g/dL (3.5-5.1); Alkaline Phosphatase 84 U/L (38-126); Anion Gap 6 mmol/L (4-12); Aspartate Amino Transferase 121 U/L (14-36); Bilirubin,Total 1.4 mg/dL (0.2-1.3); Blood Urea Nitrogen 32 mg/dL (7-17); Calcium 8.9 mg/dL (8.4-10.2); Carbon Dioxide 29 mmol/L (22-30); Chloride 99 mmol/L (98-107); Estimated CRCL calculation 36 ml/min; Estimated Glomerular Filt Rate 45; Glucose 197 mg/dL (65-110); Potassium 3.9 mmol/L (3.4-5.0); Sodium 134 mmol/L (137-145)
[2024-07-27] MEDS: LEVOTHYROXINE SODIUM 150 MCG TABLET PO (06:21)
[2024-07-27] MEDS: HYDROcodone/acetaminophen (*CRX) 5-325 MG TABLET 1 TAB PO (06:24)
[2024-07-27 07:55] LABS: Glucose Point of Care 196 mg/dl (65-105)
[2024-07-27] MEDS: FLUTICASONE/SALMETEROL 45-21 MCG INHALER 1 PUFF 2 PUFF INHALATION ×2 (08:26→19:52)
[2024-07-27] MEDS: FERROUS SULFATE 325 MG TABLET DR BY MOUTH (08:47)
[2024-07-27] MEDS: polyethylene glycoL 3350 17 GM POWD.PACK PO (08:47)
[2024-07-27] MEDS: LIDOCAINE 5% PATCH 1 PATCH TOPICAL (08:47)
[2024-07-27] MEDS: MULTIVITAMINS THERAPEUTIC TAB (*BKC) 1 TABLET PO (08:47)
[2024-07-27] MEDS: TIZANIDINE HCL 2 MG TABLET PO ×3 (08:47→17:13)
[2024-07-27] MEDS: LORATADINE 10 MG TABLET PO (08:48)
[2024-07-27] MEDS: guaiFENesin 600 MG/DEXTROMETHORPHAN 30 MG SR TAB 12 HR 1 TAB PO ×2 (08:48→20:19)
[2024-07-27] MEDS: OLOPATADINE 0.1% OPHTH SOLN 5 ML BTL 1 DROP EACH EYE (08:48)
[2024-07-27] MEDS: FUROSEMIDE 40 MG TABLET PO (08:48)
[2024-07-27] MEDS: APIXABAN 5 MG TABLET PO ×2 (08:48→20:19)
[2024-07-27 11:35] LABS: Glucose Point of Care 162 mg/dl (65-105)
--- NOTE | 2024-07-27 15:06 | PM.IMPN ---
Progress Note: A&P Assessment and Plan (1) Transaminitis: Code(s): R74.01 - Elevation of levels of liver transaminase levels Status: Deleted Assessment and Plan: LFTs tot bili 3, AST 459, ALT 417, alk phos 68 on 07/24. Previously WNL. Likely secondary to remdesivir use which was completed on 07/23. Hepatitis panel negative RUQ US: Cholelithiasis and gallbladder sludge. Nonspecific gallbladder wall thickening. GI consulted: The patient's transaminase levels have remained essentially unchanged. However, there is a positive trend with decreasing bilirubin levels. Today's MRCP ruled out choledocholithiasis and mechanical biliary obstruction. Given this, remdesivir-induced hepatotoxicity is the most probable etiology for the current biochemical abnormalities, consistent with our discussion yesterday. We will continue to monitor her liver function closely. Discharge can be considered if the favorable trend in bilirubin reduction persists. (2) Cholelithiasis: Code(s): K80.20 - Calculus of gallbladder without cholecystitis without obstruction Status: Acute Assessment and Plan: LFTs tot bili 3, AST 459, ALT 417, alk phos 68 on 07/24. Previously WNL. RUQ US: Cholelithiasis and gallbladder sludge. Nonspecific gallbladder wall thickening. MRCP ordered GI consulted, appreciate recommendations see above (3) Acute hypotension: Code(s): I95.9 - Hypotension, unspecified Status: Acute Assessment and Plan: Hypotension likely due to hypovolemia. Patient had good response to volume resuscitation. Lasix 40 mg daily to be resumed Diltiazem placed on hold for ongoing bradycardia. Continue to monitor tele at this time. HR remaining stable 60-70s. Blood pressures reviewed and remain stable, continue to monitor (4) Atrial fibrillation: Qualifiers: Atrial fibrillation type: unspecified Qualified Code(s): I48.91 - Unspecified atrial fibrillation Code(s): I48.91 - Unspecified atrial fibrillation Status: Acute Assessment and Plan: History of AFib EKG showing afib rate controlled with normal QTc, can continue azithromycin administration. Continue home eliquis 5 mg BID Cardiology consulted for afib with bradycardia Possibly due to remdesivir administration with known adverse effect of bradycardia with this medication. Remdesivir completed 07/21 TSH low, T4 and T3 WNL Diltiazem remains on hold per cardiology recommendations. HR improved, stable 60-70s on tele. (5) COVID-19: Code(s): U07.1 - COVID-19 Status: Acute Assessment and Plan: Viral panel: covid positive 07/[address] in COVID19 isolation precautions, cardiac monitoring, and continuous pulse ox Monitor serum electrolytes, CRP, Lactic acid, troponin, CBC, WBC, temperature curve and follow cultures Remains on home oxygen via NC Pt is a candidate for Remdesivir and Dexamethasone, continue treatment according to suggested guidelines. Remdesivir 200 mg IV x1, then 100 mg IV x4 days (course completed), dexamethasone 6 mg IV daily x 10 days, or until discharge (6) COPD (chronic obstructive pulmonary disease): Qualifiers: COPD type: COPD with acute lower respiratory infection Qualified Code(s): J44.0 - Chronic obstructive pulmonary disease with (acute) lower respiratory infection Code(s): J44.9 - Chronic obstructive pulmonary disease, unspecified Status: Acute Assessment and Plan: Respiratory failure is stable on her home oxygen requirements of 4L NC. Chest XR: No acute cardiopulmonary disease Given patients leukocytosis and decreased breath sounds she was started on abx in the ED though not noted infiltrate on xr azithromycin and rocephin started 07/18, transitioned to oral azithromycin and augmentin on 07/20. Course completed 07/23. Levalbuterol and atrovent Decadron 07/18-07/26 Monitor vital signs, I&Os, neuro status and patient is a fall risk Monitor serum electrolytes, cultures and CBC Monitor Oxygen saturation, Oxygen via NC; keep SpO2 greater than 88% (7) Chronic respiratory failure with hypoxia: Code(s): J96.11 - Chronic respiratory failure with hypoxia Status: Acute Assessment and Plan: Chronic, continue home oxygen of 4L NC stable (8) Urinary tract infection: Code(s): N39.0 - Urinary tract infection, site not specified Status: Acute Assessment and Plan: - UC: klebsiella pneumoniae intermediate response to fluoroquinolones and resistant to macrobid - previous micro reviewed 03/28/2024: Ecoli resistant to fluoroquinolones - started on rocephin on 07/18, transitioned to Augmentin on 07/20, course completed 07/23 (9) Acute kidney injury: Code(s): N17.9 - Acute kidney failure, unspecified Status: Acute Assessment and Plan: BUN/Cr 39/1.76 on admission. Baseline WNL. NEHA likely related to hypovolemia given cocurrent hypotension - BUN/Cr 33/1.13 on am. - Monitor I/O. - Avoid nephrotoxic medications - Renally dose medications (10) Chronic diastolic (congestive) heart failure: Code(s): I50.32 - Chronic diastolic (congestive) heart failure Status: Acute Assessment and Plan: Does not appear in acute exacerbation - Chest XR: No cardiopulmonary disease - Echo 12/13/23: LVEF 55-60% with mod pulmonary hypertension - Monitor vital signs, I&Os, BUN/creatinine, daily weights, neuro status and patient is a fall risk - Monitor serum electrolytes, Keep serum Potassium>4 and serum Magnesium>2 and CBC (11) Diabetes: Qualifiers: Diabetes mellitus type: type 2 Diabetes mellitus snf insulin use: without director long term care use Diabetes mellitus complication status: without complication Qualified Code(s): E11.9 - Type 2 diabetes mellitus without complications Code(s): E11.9 - Type 2 diabetes mellitus without complications Status: Acute Assessment and Plan: - hypoglycemia protocol - POC blood glucose ACHS - home medication - metformin 500 mg BID agree - correct regimen ordered - mod dose SSI - A1C 5 (12) Hypothyroidism: Qualifiers: Hypothyroidism type: unspecified Qualified Code(s): E03.9 - Hypothyroidism, unspecified Code(s): E03.9 - Hypothyroidism, unspecified Status: Acute Assessment and Plan: Chronic, continue Synthroid (13) Obstructive sleep apnea on CPAP: Code(s): G47.33 - Obstructive sleep apnea (adult) (pediatric) Status: Acute Assessment and Plan: auto titrating CPAP/BiPAP (14) Constipation: Code(s): K59.00 - Constipation, unspecified Status: Acute Assessment and Plan: Patient notes that she has not had a bowel movement since admission. Denies any nausea/vomiting or abdominal pain. KUB: Prominent amount of fecal material in the rectum and sigmoid and right colon consistent with clinical presentation of constipation; no bowel obstruction is evident Continue Senokot and MiraLax Given a suppository x1 Resolved. Patient has had several bowel movements. Subjective Date/time seen: 07/27/24 15:06 Interval history: The patient feels better, no abdominal pain, no fever. MRCP yesterday GI is following: The patient's transaminase levels have remained essentially unchanged. However, there is a positive trend with decreasing bilirubin levels. Today's MRCP ruled out choledocholithiasis and mechanical biliary obstruction. Given this, remdesivir-induced hepatotoxicity is the most probable etiology for the current biochemical abnormalities, consistent with our discussion yesterday. We will continue to monitor her liver function closely. Discharge can be considered if the favorable trend in bilirubin reduction persists. Review of Systems Review of Systems: 12 systems were reviewed with pertinent positives and negatives per HPI. Except as documented in the HPI, all other systems were reviewed and are negative. All systems reviewed & are unremarkable except as noted in HPI and below Exam Narrative: General: female in no acute respiratory distress who is nontoxic appearing, sitting up in bed HEENT: Normocephalic. Atraumatic. Extraocular movement intact. Sclera clear and anicteric. No facial asymmetry. Chest: Lungs are clear in the uppers with slight rhonchi in the lower bases. CV: Heart with irregularly irregular rate and rhythm. Abd: Abdomen was soft. Nondistended. Positive bowel sounds. Ext: No clubbing, cyanosis, or edema. DP pulses bilaterally. Neuro: Patient is alert and oriented x3. Speech is clear. Const: General: comfortable Other: No acute distress, well-developed well-nourished, elderly, debilitated HENMT: Other: Mucous membranes are moist, no oral pharyngeal erythema, crowded posterior oropharynx Eyes: Other: Pupils are equal and reactive, significantly injected sclera bilaterally, mucoid drainage from both eyes left greater than right Neck: Other: No JVD, no lymphadenopathy Resp: Other: Decreased breath sounds bilaterally, crackles at the bases, frequent coughing Cardio: Other: Regular rate, irregular rhythm, 2+ bilateral radial pedal pulses GI: Other: Soft, nontender, significant redundant skin, normoactive bowel sounds : Other: Pure wick catheter in place Skin: Other: Generalized pallor, non jaundice, chronic darkened skin pink mentation to bilateral lower extremities consistent with patient's history of chronic venous stasis dermatitis/lymphedema in the past Neuro: Other: Alert orient x4, speech is clear, no facial asymmetry, moves all extremities equally, significant tremor Extrem: Other: 1+ edema to the tops of the feet bilaterally, generalized weakness Psych: Other: Pleasant and cooperative, fair judgment and insight Objective Data Vital Signs Vital Signs: Vital Signs - 24 hr 07/26/24 19:39 07/26/24 19:39 07/26/24 19:50 Temperature Pulse Rate 80 76 Respiratory Rate 20 20 Blood Pressure Pulse Oximetry 99 Oxygen Delivery Nasal Cannula Oxygen Flow Rate 3 Fraction of Inspired Oxygen 32 07/26/24 20:00 07/26/24 20:00 07/26/24 21:07 Temperature 97.1 F L Pulse Rate 78 64 Respiratory Rate 14 Blood Pressure 93/50 L Pulse Oximetry 100 100 Oxygen Delivery Nasal Cannula Oxygen Flow Rate 3 Fraction of Inspired Oxygen 07/26/24 22:18 07/27/24 00:00 07/27/24 01:43 Temperature Pulse Rate 81 77 88 Respiratory Rate Blood Pressure Pulse Oximetry 99 99 Oxygen Delivery Autopap Autopap Oxygen Flow Rate Fraction of Inspired Oxygen 07/27/24 01:44 07/27/24 01:53 07/27/24 04:00 Temperature Pulse Rate 88 82 83 Respiratory Rate 20 20 Blood Pressure Pulse Oximetry Oxygen Delivery Oxygen Flow Rate Fraction of Inspired Oxygen 07/27/24 05:34 07/27/24 08:27 07/27/24 08:27 Temperature 97.1 F L Pulse Rate 81 78 78 Respiratory Rate 14 20 20 Blood Pressure 151/89 H Pulse Oximetry 100 98 Oxygen Delivery Nasal Cannula Oxygen Flow Rate 3 Fraction of Inspired Oxygen 07/27/24 08:41 07/27/24 13:54 Temperature 97.7 F Pulse Rate 78 79 Respiratory Rate 20 20 Blood Pressure 102/58 L Pulse Oximetry 100 Oxygen Delivery Oxygen Flow Rate Fraction of Inspired Oxygen Intake/Output Intake/Output: Intake & Output 07/24/24 07/25/24 07/26/24 07/27/24 23:59 23:59 23:59 23:59 Intake Total 1408 612 502 6502 Output Total 1800 1200 1750 1200 Balance -392 -409 -1190 650 Meds/Results Medications: Active Medications Generic Name Dose Route Start Last Admin Trade Name Freq PRN Reason Stop Dose Admin Acetaminophen 650 mg 07/17/24 21:38 Acetaminophen 325 Mg Tablet PO Q4H PRN Mild Pain (1-3) or Fever Hydrocodone Bitart/Acetaminophen 1 tab 07/18/24 00:51 07/27/24 06:24 Hydrocodone/Acetaminophen (*Crx) 5-325 Mg Tablet PO 1 tab Q4H PRN Administration Pain Rated 7-10 Al Hydrox/Mg Hydrox/Simethicone 30 ml 07/17/24 21:38 Mag Hydrox/Al Hydrox/Simeth 30 Ml Udc PO Q6H PRN Indigestion Apixaban 5 mg 07/18/24 09:00 07/27/24 08:48 Apixaban 5 Mg Tablet PO 5 mg Q12HR LYNN Administration Artificial Tears 1 drop 07/18/24 00:25 07/19/24 09:35 Artificial Tears Ophth Soln 15 Ml Bottle EACH EYE 1 drop QID PRN Administration Dry Eye(s) Atorvastatin Calcium 10 mg 07/18/24 21:00 07/26/24 20:35 Atorvastatin 10 Mg Tablet PO 10 mg HS LYNN Administration Benzonatate 100 mg 07/18/24 02:39 07/19/24 05:25 Benzonatate 100 Mg Capsule PO 100 mg TID PRN Administration cough Dextrose 12.5 gm 07/19/24 09:53 Dextrose 50% 25 Gm/50 Ml Syringe IV PUSH PRN PRN Hypoglycemia Protocol Diclofenac Sodium 1 applic 07/18/24 02:39 Diclofenac Sodium 1% 100 Gm Gel (*Bkc) TOPICAL Q12H PRN arthritis pain Diltiazem HCl 120 mg 07/21/24 09:00 07/23/24 08:05 Diltiazem Hcl Cd 120 Mg Cap.24hr PO 120 mg DAILY LYNN Administration Ferrous Sulfate 325 mg 07/18/24 09:00 07/27/24 08:47 Ferrous Sulfate [address] BY MOUTH 325 mg DAILY LYNN Administration Furosemide 40 mg 07/23/24 09:00 07/27/24 08:48 Furosemide 40 Mg Tablet PO 40 mg QAM LYNN Administration Guaifenesin/Dextromethorphan 1 tab 07/18/24 09:00 07/27/24 08:48 Guaifenesin 600 Mg/Dextromethorphan 30 Mg Sr Tab 12 Hr PO 1 tab Q12HR LYNN Administration Dextrose 1,000 mls @ 100 mls/hr 07/19/24 09:53 Dextrose 5% 1,000 Ml IVPB PRN PRN Hypoglycemia Protocol Insulin Aspart 2 - 5 units 07/19/24 12:00 07/27/24 12:00 Insulin Aspart (*Bkc) 100 Units/Ml SUB-Q Not Given TIDWM LYNN Protocol Insulin Aspart 1 - 3 units 07/21/24 23:10 07/26/24 20:36 Insulin Aspart (*Bkc) 100 Units/Ml SUB-Q 1 units HS LYNN Administration Protocol Ipratropium [place] 0.5 mg 07/18/24 02:00 07/27/24 08:26 Ipratropium Br 0.02% Inh Soln 0.5 Mg/2.5 Ml Vial INHALATION 0.5 mg Q6HRT LYNN Administration Levalbuterol HCl 1.25 mg 07/18/24 02:00 07/27/24 08:26 Levalbuterol Neb 1.25 Mg/3 Ml INHALATION 1.25 mg Q6HRT LYNN Administration Levothyroxine Sodium 150 mcg 07/18/24 06:30 07/27/24 06:21 Levothyroxine Sodium 150 Mcg Tablet PO 150 mcg DAILY@0630 LYNN Administration Lidocaine 1 patch 07/18/24 09:00 07/27/24 08:47 Lidocaine 5% Patch TOPICAL 08/17/24 08:59 1 patch DAILY LYNN Administration Loratadine 10 mg 07/18/24 09:00 07/27/24 08:48 Loratadine 10 Mg Tablet PO 10 mg DAILY LYNN Administration Miscellaneous Information 0 each 07/27/24 00:01 [place] And Tramadol Renew If Still Needs Or Will Auto D/C XX 08/26/24 00:00 CLARIFY LYNN Multivitamins Therapeutic 1 tablet 07/18/24 09:00 07/27/24 08:47 Multivitamins Therapeutic Tab (*Bkc) PO 1 tablet DAILY LYNN Administration Olopatadine HCl 1 drop 07/18/24 09:00 07/27/24 08:48 Olopatadine 0.1% Ophth Soln 5 Ml Btl EACH EYE 1 drop DAILY LYNN Administration Phenyleph/Shark Oil/Min Oil/Petrol 1 applic 07/28/24 09:00 Phenyleph/Shark Oil/Mo/Petrol Cream 26 Gm RECTAL DAILY LYNN Polyethylene Glycol 17 gm 07/18/24 02:40 07/23/24 08:06 Polyethylene Glycol 3350 17 Gm Powd.Pack PO 17 gm DAILY PRN Administration Constipation Polyethylene Glycol 17 gm 07/24/24 09:00 07/27/24 08:47 Polyethylene Glycol 3350 17 Gm Powd.Pack PO 17 gm QAM LYNN Administration Fluticasone/Salmeterol 2 puff 07/18/24 08:00 07/27/24 08:26 Fluticasone/Salmeterol 45-21 Mcg Inhaler 1 Puff INHALATION 2 puff Q12HRT LYNN Administration Senna/Docusate Sodium 1 tab 07/23/24 21:00 07/26/24 20:35 Senna/Docusate Sodium Tablet PO 1 tab HS LYNN Administration Tizanidine HCl 2 mg 07/18/24 09:00 07/27/24 13:47 Tizanidine Hcl 2 Mg Tablet PO 2 mg TID LYNN Administration Tramadol HCl 50 mg 07/18/24 00:53 Tramadol Hcl (*Crx) 50 Mg Tablet PO Q6H PRN Pain Rated 4-6 Radiology Results: ITS Impressions Chest X-Ray 07/17/24 16:08 Impression: 1: No acute cardiopulmonary disease. Abdomen X-Ray 07/23/24 15:15 IMPRESSION: Prominent amount of fecal material in the rectum and sigmoid and right colon consistent with clinical presentation of constipation; no bowel obstruction is evident Abdomen Ultrasound 07/24/24 22:34 IMPRESSION: Cholelithiasis and gallbladder sludge. Nonspecific gallbladder wall thickening. MRCP 07/26/24 11:58 IMPRESSION: 1. Cholelithiasis. Gallbladder distention may be secondary to fasting or acute cholecystitis. Consider hepatobiliary scintigraphy. 2. Small right pleural effusion. Labs Labs: Laboratory Results - last 24 hr 07/26/24 07/26/24 07/26/24 17:05 19:22 19:48 WBC RBC Hgb Hct MCV MCH MCHC RDW Plt Count MPV % Immature Plt Fraction Sodium 137 Potassium 3.9 Chloride 102 Carbon Dioxide 27 Anion Gap 8 BUN 34 H Creatinine 1.27 H Estim Creat Clear Calc 34 Estimated GFR 40 L Glucose 217 H POC Capillary Glucose 203 H 234 H Calcium 8.7 Total Bilirubin 1.3 AST 152 H ALT 482 H Alkaline Phosphatase 77 Total Protein 5.0 L Albumin 2.6 L 07/27/24 07/27/24 07/27/24 05:42 07:44 11:32 WBC 12.7 H RBC 3.45 L Hgb 10.6 L Hct 32.3 L MCV 93.6 MCH 30.7 MCHC 32.8 RDW 15.9 H Plt Count 110 L MPV 10.1 % Immature Plt Fraction 5.0 Sodium 134 L Potassium 3.9 Chloride 99 Carbon Dioxide 29 Anion Gap 6 BUN 32 H Creatinine 1.16 H Estim Creat Clear Calc 36 Estimated GFR 45 L Glucose 197 H POC Capillary Glucose 196 H 162 H Calcium 8.9 Total Bilirubin 1.4 H AST 121 H ALT 482 H Alkaline Phosphatase 84 Total Protein 6.0 L Albumin 2.9 L Quality VTE Prophylaxis VTE prophylaxis: pharmacologic ordered
--- NOTE | 2024-07-27 15:59 | PM.IMPN ---
Progress Note: A&P Assessment and Plan (1) Transaminitis: Code(s): R74.01 - Elevation of levels of liver transaminase levels Status: Deleted Assessment and Plan: LFTs tot bili 3, AST 459, ALT 417, alk phos 68 on 07/24. Previously WNL. Likely secondary to remdesivir use which was completed on 07/23. Hepatitis panel negative RUQ US: Cholelithiasis and gallbladder sludge. Nonspecific gallbladder wall thickening. GI consulted: The patient's transaminase levels have remained essentially unchanged. However, there is a positive trend with decreasing bilirubin levels. Today's MRCP ruled out choledocholithiasis and mechanical biliary obstruction. Given this, remdesivir-induced hepatotoxicity is the most probable etiology for the current biochemical abnormalities, consistent with our discussion yesterday. We will continue to monitor her liver function closely. Discharge can be considered if the favorable trend in bilirubin reduction persists. (2) Cholelithiasis: Code(s): K80.20 - Calculus of gallbladder without cholecystitis without obstruction Status: Acute Assessment and Plan: LFTs tot bili 3, AST 459, ALT 417, alk phos 68 on 07/24. Previously WNL. RUQ US: Cholelithiasis and gallbladder sludge. Nonspecific gallbladder wall thickening. MRCP ordered GI consulted, appreciate recommendations see above (3) Acute hypotension: Code(s): I95.9 - Hypotension, unspecified Status: Acute Assessment and Plan: Hypotension likely due to hypovolemia. Patient had good response to volume resuscitation. Lasix 40 mg daily to be resumed Diltiazem placed on hold for ongoing bradycardia. Continue to monitor tele at this time. HR remaining stable 60-70s. Blood pressures reviewed and remain stable, continue to monitor (4) Atrial fibrillation: Qualifiers: Atrial fibrillation type: unspecified Qualified Code(s): I48.91 - Unspecified atrial fibrillation Code(s): I48.91 - Unspecified atrial fibrillation Status: Acute Assessment and Plan: History of AFib EKG showing afib rate controlled with normal QTc, can continue azithromycin administration. Continue home eliquis 5 mg BID Cardiology consulted for afib with bradycardia Possibly due to remdesivir administration with known adverse effect of bradycardia with this medication. Remdesivir completed 07/21 TSH low, T4 and T3 WNL Diltiazem remains on hold per cardiology recommendations. HR improved, stable 60-70s on tele. (5) COVID-19: Code(s): U07.1 - COVID-19 Status: Acute Assessment and Plan: Viral panel: covid positive 07/[address] in COVID19 isolation precautions, cardiac monitoring, and continuous pulse ox Monitor serum electrolytes, CRP, Lactic acid, troponin, CBC, WBC, temperature curve and follow cultures Remains on home oxygen via NC Pt is a candidate for Remdesivir and Dexamethasone, continue treatment according to suggested guidelines. Remdesivir 200 mg IV x1, then 100 mg IV x4 days (course completed), dexamethasone 6 mg IV daily x 10 days, or until discharge (6) COPD (chronic obstructive pulmonary disease): Qualifiers: COPD type: COPD with acute lower respiratory infection Qualified Code(s): J44.0 - Chronic obstructive pulmonary disease with (acute) lower respiratory infection Code(s): J44.9 - Chronic obstructive pulmonary disease, unspecified Status: Acute Assessment and Plan: Respiratory failure is stable on her home oxygen requirements of 4L NC. Chest XR: No acute cardiopulmonary disease Given patients leukocytosis and decreased breath sounds she was started on abx in the ED though not noted infiltrate on xr azithromycin and rocephin started 07/18, transitioned to oral azithromycin and augmentin on 07/20. Course completed 07/23. Levalbuterol and atrovent Decadron 07/18-07/26 Monitor vital signs, I&Os, neuro status and patient is a fall risk Monitor serum electrolytes, cultures and CBC Monitor Oxygen saturation, Oxygen via NC; keep SpO2 greater than 88% (7) Chronic respiratory failure with hypoxia: Code(s): J96.11 - Chronic respiratory failure with hypoxia Status: Acute Assessment and Plan: Chronic, continue home oxygen of 4L NC stable (8) Urinary tract infection: Code(s): N39.0 - Urinary tract infection, site not specified Status: Acute Assessment and Plan: - UC: klebsiella pneumoniae intermediate response to fluoroquinolones and resistant to macrobid - previous micro reviewed 03/28/2024: Ecoli resistant to fluoroquinolones - started on rocephin on 07/18, transitioned to Augmentin on 07/20, course completed 07/23 (9) Acute kidney injury: Code(s): N17.9 - Acute kidney failure, unspecified Status: Acute Assessment and Plan: BUN/Cr 39/1.76 on admission. Baseline WNL. NEHA likely related to hypovolemia given cocurrent hypotension - BUN/Cr 33/1.13 on am. - Monitor I/O. - Avoid nephrotoxic medications - Renally dose medications (10) Chronic diastolic (congestive) heart failure: Code(s): I50.32 - Chronic diastolic (congestive) heart failure Status: Acute Assessment and Plan: Does not appear in acute exacerbation - Chest XR: No cardiopulmonary disease - Echo 12/13/23: LVEF 55-60% with mod pulmonary hypertension - Monitor vital signs, I&Os, BUN/creatinine, daily weights, neuro status and patient is a fall risk - Monitor serum electrolytes, Keep serum Potassium>4 and serum Magnesium>2 and CBC (11) Diabetes: Qualifiers: Diabetes mellitus type: type 2 Diabetes mellitus mcfp insulin use: without terminologist use Diabetes mellitus complication status: without complication Qualified Code(s): E11.9 - Type 2 diabetes mellitus without complications Code(s): E11.9 - Type 2 diabetes mellitus without complications Status: Acute Assessment and Plan: - hypoglycemia protocol - POC blood glucose ACHS - home medication - metformin 500 mg BID agree - correct regimen ordered - mod dose SSI - A1C 5 (12) Hypothyroidism: Qualifiers: Hypothyroidism type: unspecified Qualified Code(s): E03.9 - Hypothyroidism, unspecified Code(s): E03.9 - Hypothyroidism, unspecified Status: Acute Assessment and Plan: Chronic, continue Synthroid (13) Obstructive sleep apnea on CPAP: Code(s): G47.33 - Obstructive sleep apnea (adult) (pediatric) Status: Acute Assessment and Plan: auto titrating CPAP/BiPAP (14) Constipation: Code(s): K59.00 - Constipation, unspecified Status: Acute Assessment and Plan: Patient notes that she has not had a bowel movement since admission. Denies any nausea/vomiting or abdominal pain. KUB: Prominent amount of fecal material in the rectum and sigmoid and right colon consistent with clinical presentation of constipation; no bowel obstruction is evident Continue Senokot and MiraLax Given a suppository x1 Resolved. Patient has had several bowel movements. Time Spent With Patient Time with patient: 25 - 35 minutes Subjective Date/time seen: 07/27/24 15:59 Interval history: The patient feels better, no abdominal pain, no fever. MRCP yesterday. GI is following: The patient's transaminase levels have remained essentially unchanged. However, there is a positive trend with decreasing bilirubin levels. Today's MRCP ruled out choledocholithiasis and mechanical biliary obstruction. Given this, remdesivir-induced hepatotoxicity is the most probable etiology for the current biochemical abnormalities, consistent with our discussion yesterday. We will continue to monitor her liver function closely. Discharge can be considered if the favorable trend in bilirubin reduction persists. Pt is feeling well. GI is following. Anticipate discharge tomorrow. Review of Systems Review of Systems: 12 systems were reviewed with pertinent positives and negatives per HPI. Except as documented in the HPI, all other systems were reviewed and are negative. All systems reviewed & are unremarkable except as noted in HPI and below Exam Narrative: General: female in no acute respiratory distress who is nontoxic appearing, sitting up in bed HEENT: Normocephalic. Atraumatic. Extraocular movement intact. Sclera clear and anicteric. No facial asymmetry. Chest: Lungs are clear in the uppers with slight rhonchi in the lower bases. CV: Heart with irregularly irregular rate and rhythm. Abd: Abdomen was soft. Nondistended. Positive bowel sounds. Ext: No clubbing, cyanosis, or edema. DP pulses bilaterally. Neuro: Patient is alert and oriented x3. Speech is clear. Const: General: comfortable Other: No acute distress, well-developed well-nourished, elderly, debilitated HENMT: Other: Mucous membranes are moist, no oral pharyngeal erythema, crowded posterior oropharynx Eyes: Other: Pupils are equal and reactive, significantly injected sclera bilaterally, mucoid drainage from both eyes left greater than right Neck: Other: No JVD, no lymphadenopathy Resp: Other: Decreased breath sounds bilaterally, crackles at the bases, frequent coughing Cardio: Other: Regular rate, irregular rhythm, 2+ bilateral radial pedal pulses GI: Other: Soft, nontender, significant redundant skin, normoactive bowel sounds : Other: Pure wick catheter in place Skin: Other: Generalized pallor, non jaundice, chronic darkened skin pink mentation to bilateral lower extremities consistent with patient's history of chronic venous stasis dermatitis/lymphedema in the past Neuro: Other: Alert orient x4, speech is clear, no facial asymmetry, moves all extremities equally, significant tremor Extrem: Other: 1+ edema to the tops of the feet bilaterally, generalized weakness Psych: Other: Pleasant and cooperative, fair judgment and insight Objective Data Vital Signs Vital Signs: Vital Signs - 24 hr 07/26/24 19:39 07/26/24 19:39 07/26/24 19:50 Temperature Pulse Rate 80 76 Respiratory Rate 20 20 Blood Pressure Pulse Oximetry 99 Oxygen Delivery Nasal Cannula Oxygen Flow Rate 3 Fraction of Inspired Oxygen 32 07/26/24 20:00 07/26/24 20:00 07/26/24 21:07 Temperature 97.1 F L Pulse Rate 78 64 Respiratory Rate 14 Blood Pressure 93/50 L Pulse Oximetry 100 100 Oxygen Delivery Nasal Cannula Oxygen Flow Rate 3 Fraction of Inspired Oxygen 07/26/24 22:18 07/27/24 00:00 07/27/24 01:43 Temperature Pulse Rate 81 77 88 Respiratory Rate Blood Pressure Pulse Oximetry 99 99 Oxygen Delivery Autopap Autopap Oxygen Flow Rate Fraction of Inspired Oxygen 07/27/24 01:44 07/27/24 01:53 07/27/24 04:00 Temperature Pulse Rate 88 82 83 Respiratory Rate 20 20 Blood Pressure Pulse Oximetry Oxygen Delivery Oxygen Flow Rate Fraction of Inspired Oxygen 07/27/24 05:34 07/27/24 08:27 07/27/24 08:27 Temperature 97.1 F L Pulse Rate 81 78 78 Respiratory Rate 14 20 20 Blood Pressure 151/89 H Pulse Oximetry 100 98 Oxygen Delivery Nasal Cannula Oxygen Flow Rate 3 Fraction of Inspired Oxygen 07/27/24 08:41 07/27/24 13:54 07/27/24 15:12 Temperature 97.7 F Pulse Rate 78 79 79 Respiratory Rate 20 20 20 Blood Pressure 102/58 L Pulse Oximetry 100 Oxygen Delivery Oxygen Flow Rate Fraction of Inspired Oxygen 07/27/24 15:33 Temperature Pulse Rate 81 Respiratory Rate 20 Blood Pressure Pulse Oximetry Oxygen Delivery Oxygen Flow Rate Fraction of Inspired Oxygen Intake/Output Intake/Output: Intake & Output 07/24/24 07/25/24 07/26/24 07/27/24 23:59 23:59 23:59 23:59 Intake Total 1408 981 978 0754 Output Total 1800 1200 1750 1200 Balance -392 -409 -1190 650 Meds/Results Medications: Active Medications Generic Name Dose Route Start Last Admin Trade Name Freq PRN Reason Stop Dose Admin Acetaminophen 650 mg 07/17/24 21:38 Acetaminophen 325 Mg Tablet PO Q4H PRN Mild Pain (1-3) or Fever Hydrocodone Bitart/Acetaminophen 1 tab 07/18/24 00:51 07/27/24 06:24 Hydrocodone/Acetaminophen (*Crx) 5-325 Mg Tablet PO 1 tab Q4H PRN Administration Pain Rated 7-10 Al Hydrox/Mg Hydrox/Simethicone 30 ml 07/17/24 21:38 Mag Hydrox/Al Hydrox/Simeth 30 Ml Udc PO Q6H PRN Indigestion Apixaban 5 mg 07/18/24 09:00 07/27/24 08:48 Apixaban 5 Mg Tablet PO 5 mg Q12HR LYNN Administration Artificial Tears 1 drop 07/18/24 00:25 07/19/24 09:35 Artificial Tears Ophth Soln 15 Ml Bottle EACH EYE 1 drop QID PRN Administration Dry Eye(s) Atorvastatin Calcium 10 mg 07/18/24 21:00 07/26/24 20:35 Atorvastatin 10 Mg Tablet PO 10 mg HS LYNN Administration Benzonatate 100 mg 07/18/24 02:39 07/19/24 05:25 Benzonatate 100 Mg Capsule PO 100 mg TID PRN Administration cough Dextrose 12.5 gm 07/19/24 09:53 Dextrose 50% 25 Gm/50 Ml Syringe IV PUSH PRN PRN Hypoglycemia Protocol Diclofenac Sodium 1 applic 07/18/24 02:39 Diclofenac Sodium 1% 100 Gm Gel (*Bkc) TOPICAL Q12H PRN arthritis pain Diltiazem HCl 120 mg 07/21/24 09:00 07/23/24 08:05 Diltiazem Hcl Cd 120 Mg Cap.24hr PO 120 mg DAILY LYNN Administration Ferrous Sulfate 325 mg 07/18/24 09:00 07/27/24 08:47 Ferrous Sulfate [address] BY MOUTH 325 mg DAILY LYNN Administration Furosemide 40 mg 07/23/24 09:00 07/27/24 08:48 Furosemide 40 Mg Tablet PO 40 mg QAM LYNN Administration Guaifenesin/Dextromethorphan 1 tab 07/18/24 09:00 07/27/24 08:48 Guaifenesin 600 Mg/Dextromethorphan 30 Mg Sr Tab 12 Hr PO 1 tab Q12HR LYNN Administration Dextrose 1,000 mls @ 100 mls/hr 07/19/24 09:53 Dextrose 5% 1,000 Ml IVPB PRN PRN Hypoglycemia Protocol Insulin Aspart 2 - 5 units 07/19/24 12:00 07/27/24 12:00 Insulin Aspart (*Bkc) 100 Units/Ml SUB-Q Not Given TIDWM LYNN Protocol Insulin Aspart 1 - 3 units 07/21/24 23:10 07/26/24 20:36 Insulin Aspart (*Bkc) 100 Units/Ml SUB-Q 1 units HS LYNN Administration Protocol Ipratropium Schneider 0.5 mg 07/18/24 02:00 07/27/24 15:11 Ipratropium Br 0.02% Inh Soln 0.5 Mg/2.5 Ml Vial INHALATION 0.5 mg Q6HRT LYNN Administration Levalbuterol HCl 1.25 mg 07/18/24 02:00 07/27/24 15:11 Levalbuterol Neb 1.25 Mg/3 Ml INHALATION 1.25 mg Q6HRT LYNN Administration Levothyroxine Sodium 150 mcg 07/18/24 06:30 07/27/24 06:21 Levothyroxine Sodium 150 Mcg Tablet PO 150 mcg DAILY@0630 LYNN Administration Lidocaine 1 patch 07/18/24 09:00 07/27/24 08:47 Lidocaine 5% Patch TOPICAL 08/17/24 08:59 1 patch DAILY [facility] Administration Loratadine 10 mg 07/18/24 09:00 07/27/24 08:48 Loratadine 10 Mg Tablet PO 10 mg DAILY LYNN Administration Miscellaneous Information 0 each 07/27/24 00:01 [place] And Tramadol Renew If Still Needs Or Will Auto D/C XX 08/26/24 00:00 CLARIFY [facility] Multivitamins Therapeutic 1 tablet 07/18/24 09:00 07/27/24 08:47 Multivitamins Therapeutic Tab (*Bkc) PO 1 tablet DAILY LYNN Administration Olopatadine HCl 1 drop 07/18/24 09:00 07/27/24 08:48 Olopatadine 0.1% Ophth Soln 5 Ml Btl EACH EYE 1 drop DAILY LYNN Administration Phenyleph/Shark Oil/Min Oil/Petrol 1 applic 07/28/24 09:00 Phenyleph/Shark Oil/Mo/Petrol Cream 26 Gm RECTAL DAILY LYNN Polyethylene Glycol 17 gm 07/18/24 02:40 07/23/24 08:06 Polyethylene Glycol 3350 17 Gm Powd.Pack PO 17 gm DAILY PRN Administration Constipation Polyethylene Glycol 17 gm 07/24/24 09:00 07/27/24 08:47 Polyethylene Glycol 3350 17 Gm Powd.Pack PO 17 gm QAM LYNN Administration Fluticasone/Salmeterol 2 puff 07/18/24 08:00 07/27/24 08:26 Fluticasone/Salmeterol 45-21 Mcg Inhaler 1 Puff INHALATION 2 puff Q12HRT LYNN Administration Senna/Docusate Sodium 1 tab 07/23/24 21:00 07/26/24 20:35 Senna/Docusate Sodium Tablet PO 1 tab HS LYNN Administration Tizanidine HCl 2 mg 07/18/24 09:00 07/27/24 13:47 Tizanidine Hcl 2 Mg Tablet PO 2 mg TID LYNN Administration Tramadol HCl 50 mg 07/18/24 00:53 Tramadol Hcl (*Crx) 50 Mg Tablet PO Q6H PRN Pain Rated 4-6 Radiology Results: ITS Impressions Chest X-Ray 07/17/24 16:08 Impression: 1: No acute cardiopulmonary disease. Abdomen X-Ray 07/23/24 15:15 IMPRESSION: Prominent amount of fecal material in the rectum and sigmoid and right colon consistent with clinical presentation of constipation; no bowel obstruction is evident Abdomen Ultrasound 07/24/24 22:34 IMPRESSION: Cholelithiasis and gallbladder sludge. Nonspecific gallbladder wall thickening. MRCP 07/26/24 11:58 IMPRESSION: 1. Cholelithiasis. Gallbladder distention may be secondary to fasting or acute cholecystitis. Consider hepatobiliary scintigraphy. 2. Small right pleural effusion. Labs Labs: Laboratory Results - last 24 hr 07/26/24 07/26/24 07/26/24 17:05 19:22 19:48 WBC RBC Hgb Hct MCV MCH MCHC RDW Plt Count MPV % Immature Plt Fraction Sodium 137 Potassium 3.9 Chloride 102 Carbon Dioxide 27 Anion Gap 8 BUN 34 H Creatinine 1.27 H Estim Creat Clear Calc 34 Estimated GFR 40 L Glucose 217 H POC Capillary Glucose 203 H 234 H Calcium 8.7 Total Bilirubin 1.3 AST 152 H ALT 482 H Alkaline Phosphatase 77 Total Protein 5.0 L Albumin 2.6 L 07/27/24 07/27/24 07/27/24 05:42 07:44 11:32 WBC 12.7 H RBC 3.45 L Hgb 10.6 L Hct 32.3 L MCV 93.6 MCH 30.7 MCHC 32.8 RDW 15.9 H Plt Count 110 L MPV 10.1 % Immature Plt Fraction 5.0 Sodium 134 L Potassium 3.9 Chloride 99 Carbon Dioxide 29 Anion Gap 6 BUN 32 H Creatinine 1.16 H Estim Creat Clear Calc 36 Estimated GFR 45 L Glucose 197 H POC Capillary Glucose 196 H 162 H Calcium 8.9 Total Bilirubin 1.4 H AST 121 H ALT 482 H Alkaline Phosphatase 84 Total Protein 6.0 L Albumin 2.9 L Quality VTE Prophylaxis VTE prophylaxis: pharmacologic ordered
[2024-07-27 17:07] LABS: Glucose Point of Care 156 mg/dl (65-105)
--- NOTE | 2024-07-27 19:20 | WPDGIPROGNO ---
Progress Note: A&P Assessment and Plan (1) Elevated transaminase level: Code(s): R74.01 - Elevation of levels of liver transaminase levels Status: Acute Assessment and Plan: As previously discussed, her transaminase elevation is most likely due to remdesivir. She will be discharged tomorrow and instructed to follow up in GI clinic in 4 weeks. She should get a weekly liver profile ordered by her primary care provider and communicate it to us via portal. Subjective Date/time seen: 07/27/24 19:20 Interval history: patient's status in general improved, now off COVID isolation. Exam Narrative: No changes from baseline. Objective Data Vital Signs Vital Signs: Vital Signs - 24 hr 07/26/24 19:39 07/26/24 19:39 07/26/24 19:50 Temperature Pulse Rate 80 76 Respiratory Rate 20 20 Blood Pressure Pulse Oximetry 99 Oxygen Delivery Nasal Cannula Oxygen Flow Rate 3 Fraction of Inspired Oxygen 32 07/26/24 20:00 07/26/24 20:00 07/26/24 21:07 Temperature 97.1 F L Pulse Rate 78 64 Respiratory Rate 14 Blood Pressure 93/50 L Pulse Oximetry 100 100 Oxygen Delivery Nasal Cannula Oxygen Flow Rate 3 Fraction of Inspired Oxygen 07/26/24 22:18 07/27/24 00:00 07/27/24 01:43 Temperature Pulse Rate 81 77 88 Respiratory Rate Blood Pressure Pulse Oximetry 99 99 Oxygen Delivery Autopap Autopap Oxygen Flow Rate Fraction of Inspired Oxygen 07/27/24 01:44 07/27/24 01:53 07/27/24 04:00 Temperature Pulse Rate 88 82 83 Respiratory Rate 20 20 Blood Pressure Pulse Oximetry Oxygen Delivery Oxygen Flow Rate Fraction of Inspired Oxygen 07/27/24 05:34 07/27/24 08:00 07/27/24 08:00 Temperature 97.1 F L Pulse Rate 81 76 Respiratory Rate 14 Blood Pressure 151/89 H Pulse Oximetry 100 97 Oxygen Delivery Nasal Cannula Oxygen Flow Rate 3 Fraction of Inspired Oxygen 07/27/24 08:27 07/27/24 08:27 07/27/24 08:41 Temperature Pulse Rate 78 78 78 Respiratory Rate 20 20 20 Blood Pressure Pulse Oximetry 98 Oxygen Delivery Nasal Cannula Oxygen Flow Rate 3 Fraction of Inspired Oxygen 07/27/24 12:00 07/27/24 13:54 07/27/24 15:12 Temperature 97.7 F Pulse Rate 90 79 79 Respiratory Rate 20 20 Blood Pressure 102/58 L Pulse Oximetry 100 Oxygen Delivery Oxygen Flow Rate Fraction of Inspired Oxygen 07/27/24 15:33 07/27/24 16:00 Temperature Pulse Rate 81 84 Respiratory Rate 20 Blood Pressure Pulse Oximetry Oxygen Delivery Oxygen Flow Rate Fraction of Inspired Oxygen Intake/Output Intake/Output: Intake & Output 07/24/24 07/25/24 07/26/24 07/27/24 23:59 23:59 23:59 23:59 Intake Total 1408 181 808 4176 Output Total 1800 1200 1750 1900 Balance -392 -409 -1190 -50 Meds/Results Medications: Active Medications Generic Name Dose Route Start Last Admin Trade Name Freq PRN Reason Stop Dose Admin Acetaminophen 650 mg 07/17/24 21:38 Acetaminophen 325 Mg Tablet PO Q4H PRN Mild Pain (1-3) or Fever Hydrocodone Bitart/Acetaminophen 1 tab 07/18/24 00:51 07/27/24 06:24 Hydrocodone/Acetaminophen (*Crx) 5-325 Mg Tablet PO 1 tab Q4H PRN Administration Pain Rated 7-10 Al Hydrox/Mg Hydrox/Simethicone 30 ml 07/17/24 21:38 Mag Hydrox/Al Hydrox/Simeth 30 Ml Udc PO Q6H PRN Indigestion Apixaban 5 mg 07/18/24 09:00 07/27/24 08:48 Apixaban 5 Mg Tablet PO 5 mg Q12HR LYNN Administration Artificial Tears 1 drop 07/18/24 00:25 07/19/24 09:35 Artificial Tears Ophth Soln 15 Ml Bottle EACH EYE 1 drop QID PRN Administration Dry Eye(s) Atorvastatin Calcium 10 mg 07/18/24 21:00 07/26/24 20:35 Atorvastatin 10 Mg Tablet PO 10 mg HS LYNN Administration Benzonatate 100 mg 07/18/24 02:39 07/19/24 05:25 Benzonatate 100 Mg Capsule PO 100 mg TID PRN Administration cough Dextrose 12.5 gm 07/19/24 09:53 Dextrose 50% 25 Gm/50 Ml Syringe IV PUSH PRN PRN Hypoglycemia Protocol Diclofenac Sodium 1 applic 07/18/24 02:39 Diclofenac Sodium 1% 100 Gm Gel (*Bkc) TOPICAL Q12H PRN arthritis pain Diltiazem HCl 120 mg 07/21/24 09:00 07/23/24 08:05 Diltiazem Hcl Cd 120 Mg Cap.24hr PO 120 mg DAILY LYNN Administration Ferrous Sulfate 325 mg 07/18/24 09:00 07/27/24 08:47 Ferrous Sulfate [address] BY MOUTH 325 mg DAILY LYNN Administration Furosemide 40 mg 07/23/24 09:00 07/27/24 08:48 Furosemide 40 Mg Tablet PO 40 mg QAM LYNN Administration Guaifenesin/Dextromethorphan 1 tab 07/18/24 09:00 07/27/24 08:48 Guaifenesin 600 Mg/Dextromethorphan 30 Mg Sr Tab 12 Hr PO 1 tab Q12HR LYNN Administration Dextrose 1,000 mls @ 100 mls/hr 07/19/24 09:53 Dextrose 5% 1,000 Ml IVPB PRN PRN Hypoglycemia Protocol Insulin Aspart 2 - 5 units 07/19/24 12:00 07/27/24 17:11 Insulin Aspart (*Bkc) 100 Units/Ml SUB-Q Not Given TIDWM LYNN Protocol Insulin Aspart 1 - 3 units 07/21/24 23:10 07/26/24 20:36 Insulin Aspart (*Bkc) 100 Units/Ml SUB-Q 1 units HS LYNN Administration Protocol Ipratropium [place] 0.5 mg 07/18/24 02:00 07/27/24 15:11 Ipratropium Br 0.02% Inh Soln 0.5 Mg/2.5 Ml Vial INHALATION 0.5 mg Q6HRT LYNN Administration Levalbuterol HCl 1.25 mg 07/18/24 02:00 07/27/24 15:11 Levalbuterol Neb 1.25 Mg/3 Ml INHALATION 1.25 mg Q6HRT LYNN Administration Levothyroxine Sodium 150 mcg 07/18/24 06:30 07/27/24 06:21 Levothyroxine Sodium 150 Mcg Tablet PO 150 mcg DAILY@0630 LYNN Administration Lidocaine 1 patch 07/18/24 09:00 07/27/24 08:47 Lidocaine 5% Patch TOPICAL 08/17/24 08:59 1 patch DAILY LYNN Administration Loratadine 10 mg 07/18/24 09:00 07/27/24 08:48 Loratadine 10 Mg Tablet PO 10 mg DAILY LYNN Administration Miscellaneous Information 0 each 07/27/24 00:01 [place] And Tramadol Renew If Still Needs Or Will Auto D/C XX 08/26/24 00:00 CLARIFY LYNN Multivitamins Therapeutic 1 tablet 07/18/24 09:00 07/27/24 08:47 Multivitamins Therapeutic Tab (*Bkc) PO 1 tablet DAILY LYNN Administration Olopatadine HCl 1 drop 07/18/24 09:00 07/27/24 08:48 Olopatadine 0.1% Ophth Soln 5 Ml Btl EACH EYE 1 drop DAILY LYNN Administration Phenyleph/Shark Oil/Min Oil/Petrol 1 applic 07/28/24 09:00 Phenyleph/Shark Oil/Mo/Petrol Cream 26 Gm RECTAL DAILY LYNN Polyethylene Glycol 17 gm 07/18/24 02:40 07/23/24 08:06 Polyethylene Glycol 3350 17 Gm Powd.Pack PO 17 gm DAILY PRN Administration Constipation Polyethylene Glycol 17 gm 07/24/24 09:00 07/27/24 08:47 Polyethylene Glycol 3350 17 Gm Powd.Pack PO 17 gm QAM LYNN Administration Fluticasone/Salmeterol 2 puff 07/18/24 08:00 07/27/24 08:26 Fluticasone/Salmeterol 45-21 Mcg Inhaler 1 Puff INHALATION 2 puff Q12HRT LYNN Administration Senna/Docusate Sodium 1 tab 07/23/24 21:00 07/26/24 20:35 Senna/Docusate Sodium Tablet PO 1 tab HS LYNN Administration Tizanidine HCl 2 mg 07/18/24 09:00 07/27/24 17:13 Tizanidine Hcl 2 Mg Tablet PO 2 mg TID LYNN Administration Tramadol HCl 50 mg 07/18/24 00:53 Tramadol Hcl (*Crx) 50 Mg Tablet PO Q6H PRN Pain Rated 4-6 Radiology Results: ITS Impressions Chest X-Ray 07/17/24 16:08 Impression: 1: No acute cardiopulmonary disease. Abdomen X-Ray 07/23/24 15:15 IMPRESSION: Prominent amount of fecal material in the rectum and sigmoid and right colon consistent with clinical presentation of constipation; no bowel obstruction is evident Abdomen Ultrasound 07/24/24 22:34 IMPRESSION: Cholelithiasis and gallbladder sludge. Nonspecific gallbladder wall thickening. MRCP 07/26/24 11:58 IMPRESSION: 1. Cholelithiasis. Gallbladder distention may be secondary to fasting or acute cholecystitis. Consider hepatobiliary scintigraphy. 2. Small right pleural effusion. Labs Labs: Laboratory Results - last 24 hr 07/26/24 07/26/24 07/27/24 19:22 19:48 05:42 WBC 12.7 H RBC 3.45 L Hgb 10.6 L Hct 32.3 L MCV 93.6 MCH 30.7 MCHC 32.8 RDW 15.9 H Plt Count 110 L MPV 10.1 % Immature Plt Fraction 5.0 Sodium 137 134 L Potassium 3.9 3.9 Chloride 102 99 Carbon Dioxide 27 29 Anion Gap 8 6 BUN 34 H 32 H Creatinine 1.27 H 1.16 H Estim Creat Clear Calc 34 36 Estimated GFR 40 L 45 L Glucose 217 H 197 H POC Capillary Glucose 234 H Calcium 8.7 8.9 Total Bilirubin 1.3 1.4 H AST 152 H 121 H ALT 482 H 482 H Alkaline Phosphatase 77 84 Total Protein 5.0 L 6.0 L Albumin 2.6 L 2.9 L 07/27/24 07/27/24 07/27/24 07:44 11:32 17:05 WBC RBC Hgb Hct MCV MCH MCHC RDW Plt Count MPV % Immature Plt Fraction Sodium Potassium Chloride Carbon Dioxide Anion Gap BUN Creatinine Estim Creat Clear Calc Estimated GFR Glucose POC Capillary Glucose 196 H 162 H 156 H Calcium Total Bilirubin AST ALT Alkaline Phosphatase Total Protein Albumin
[2024-07-27 20:03] LABS: Alanine Aminotransferase 375 U/L (6-35); Albumin Level 2.7 g/dL (3.5-5.1); Alkaline Phosphatase 84 U/L (38-126); Anion Gap 7 mmol/L (4-12); Aspartate Amino Transferase 76 U/L (14-36); Bilirubin,Total 1.3 mg/dL (0.2-1.3); Blood Urea Nitrogen 34 mg/dL (7-17); Calcium 8.8 mg/dL (8.4-10.2); Carbon Dioxide 29 mmol/L (22-30); Chloride 100 mmol/L (98-107); Estimated CRCL calculation 39 ml/min; Estimated Glomerular Filt Rate 48; Glucose 172 mg/dL (65-110); Sodium 136 mmol/L (137-145)
[2024-07-27 20:13] LABS: Glucose Point of Care 189 mg/dl (65-105)
[2024-07-27] MEDS: SENNA/DOCUSATE SODIUM TABLET 1 TAB PO (20:19)
[2024-07-27] MEDS: ATORVASTATIN 10 MG TABLET PO (20:19)
[2024-07-28] VITALS (9 sets, daily range): BP systolic 102–131; BP diastolic 65–80; PULSE 71–86; RESP 12–20; TEMP 36.2–36.4; O2SAT 97–100
[2024-07-28] MEDS: LEVALBUTEROL NEB 1.25 MG/3 ML INHALATION ×2 (01:43→09:08)
[2024-07-28] MEDS: IPRATROPIUM BR 0.02% INH SOLN 0.5 MG/2.5 ML VIAL INHALATION ×2 (01:43→09:08)
[2024-07-28 05:26] LABS: Hematocrit 33.8 % (37.0-47.0); Hemoglobin 11.1 g/dL (12.0-15.0); Mean Corpuscular HGB Conc 32.8 g/dl (32-36); Mean Corpuscular Hemoglobin 30.7 pg (26-34); Mean Corpuscular Volume 93.6 fl (80-100); Mean Platelet Volume 9.9 fl (7.4-10.4); Platelet Count Result 103 k/mm3 (150-375); Red Blood Count 3.61 M/mm3 (4.2-5.4); Red Cell Distribution Width 16.2 % (11.5-14.5); White Blood Count 16.3 K/mm3 (4.5-10.0)
[2024-07-28 05:41] LABS: Alanine Aminotransferase 377 U/L (6-35); Alkaline Phosphatase 84 U/L (38-126); Anion Gap 9 mmol/L (4-12); Aspartate Amino Transferase 72 U/L (14-36); Bilirubin,Total 1.4 mg/dL (0.2-1.3); Blood Urea Nitrogen 32 mg/dL (7-17); Calcium 9.2 mg/dL (8.4-10.2); Carbon Dioxide 30 mmol/L (22-30); Chloride 98 mmol/L (98-107); Estimated CRCL calculation 39 ml/min; Estimated Glomerular Filt Rate 49; Glucose 125 mg/dL (65-110); Potassium 3.7 mmol/L (3.4-5.0); Sodium 137 mmol/L (137-145)
[2024-07-28] MEDS: HYDROcodone/acetaminophen (*CRX) 5-325 MG TABLET 1 TAB PO (06:16)
[2024-07-28] MEDS: LEVOTHYROXINE SODIUM 150 MCG TABLET PO (06:16)
--- NOTE | 2024-07-28 08:01 | P.DS_ITS ---
DS: Admitting Diagnosis Discharge Date 07/28 Admitting Diagnosis sob DS: Discharge Diagnosis Discharge Diagnosis (1) Transaminitis: Code(s): R74.01 - Elevation of levels of liver transaminase levels Status: Deleted Assessment and Plan: LFTs tot bili 3, AST 459, ALT 417, alk phos 68 on 07/24. Previously WNL. Likely secondary to remdesivir use which was completed on 07/23. Hepatitis panel negative RUQ US: Cholelithiasis and gallbladder sludge. Nonspecific gallbladder wall thickening. GI consulted: The patient's transaminase levels have remained essentially unchanged. However, there is a positive trend with decreasing bilirubin levels. Today's MRCP ruled out choledocholithiasis and mechanical biliary obstruction. Given this, remdesivir-induced hepatotoxicity is the most probable etiology for the current biochemical abnormalities, consistent with our discussion yesterday. We will continue to monitor her liver function closely. Discharge can be considered if the favorable trend in bilirubin reduction persists. (2) Cholelithiasis: Code(s): K80.20 - Calculus of gallbladder without cholecystitis without obstruction Status: Acute Assessment and Plan: LFTs tot bili 3, AST 459, ALT 417, alk phos 68 on 07/24. Previously WNL. RUQ US: Cholelithiasis and gallbladder sludge. Nonspecific gallbladder wall thickening. MRCP ordered GI consulted, appreciate recommendations see above (3) Acute hypotension: Code(s): I95.9 - Hypotension, unspecified Status: Acute Assessment and Plan: Hypotension likely due to hypovolemia. Patient had good response to volume resuscitation. Lasix 40 mg daily to be resumed Diltiazem placed on hold for ongoing bradycardia. Continue to monitor tele at this time. HR remaining stable 60-70s. Blood pressures reviewed and remain stable, continue to monitor (4) Atrial fibrillation: Qualifiers: Atrial fibrillation type: unspecified Qualified Code(s): I48.91 - Unspecified atrial fibrillation Code(s): I48.91 - Unspecified atrial fibrillation Status: Acute Assessment and Plan: History of AFib EKG showing afib rate controlled with normal QTc, can continue azithromycin administration. Continue home eliquis 5 mg BID Cardiology consulted for afib with bradycardia Possibly due to remdesivir administration with known adverse effect of bradycardia with this medication. Remdesivir completed 07/21 TSH low, T4 and T3 WNL Diltiazem remains on hold per cardiology recommendations. HR improved, stable 60-70s on tele. (5) COVID-19: Code(s): U07.1 - COVID-19 Status: Acute Assessment and Plan: Viral panel: covid positive 07/[address] in COVID19 isolation precautions, cardiac monitoring, and continuous pulse ox Monitor serum electrolytes, CRP, Lactic acid, troponin, CBC, WBC, temperature curve and follow cultures Remains on home oxygen via NC Pt is a candidate for Remdesivir and Dexamethasone, continue treatment according to suggested guidelines. Remdesivir 200 mg IV x1, then 100 mg IV x4 days (course completed), dexamethasone 6 mg IV daily x 10 days, or until discharge (6) COPD (chronic obstructive pulmonary disease): Qualifiers: COPD type: COPD with acute lower respiratory infection Qualified Code(s): J44.0 - Chronic obstructive pulmonary disease with (acute) lower respiratory infection Code(s): J44.9 - Chronic obstructive pulmonary disease, unspecified Status: Acute Assessment and Plan: Respiratory failure is stable on her home oxygen requirements of 4L NC. Chest XR: No acute cardiopulmonary disease Given patients leukocytosis and decreased breath sounds she was started on abx in the ED though not noted infiltrate on xr azithromycin and rocephin started 07/18, transitioned to oral azithromycin and augmentin on 07/20. Course completed 07/23. Levalbuterol and atrovent Decadron 07/18-07/26 Monitor vital signs, I&Os, neuro status and patient is a fall risk Monitor serum electrolytes, cultures and CBC Monitor Oxygen saturation, Oxygen via NC; keep SpO2 greater than 88% (7) Chronic respiratory failure with hypoxia: Code(s): J96.11 - Chronic respiratory failure with hypoxia Status: Acute Assessment and Plan: Chronic, continue home oxygen of 4L NC stable (8) Urinary tract infection: Code(s): N39.0 - Urinary tract infection, site not specified Status: Acute Assessment and Plan: - UC: klebsiella pneumoniae intermediate response to fluoroquinolones and resistant to macrobid - previous micro reviewed 03/28/2024: Ecoli resistant to fluoroquinolones - started on rocephin on 07/18, transitioned to Augmentin on 07/20, course completed 07/23 (9) Acute kidney injury: Code(s): N17.9 - Acute kidney failure, unspecified Status: Acute Assessment and Plan: BUN/Cr 39/1.76 on admission. Baseline WNL. NEHA likely related to hypovolemia given cocurrent hypotension - BUN/Cr 33/1.13 on am. - Monitor I/O. - Avoid nephrotoxic medications - Renally dose medications (10) Chronic diastolic (congestive) heart failure: Code(s): I50.32 - Chronic diastolic (congestive) heart failure Status: Acute Assessment and Plan: Does not appear in acute exacerbation - Chest XR: No cardiopulmonary disease - Echo 12/13/23: LVEF 55-60% with mod pulmonary hypertension - Monitor vital signs, I&Os, BUN/creatinine, daily weights, neuro status and patient is a fall risk - Monitor serum electrolytes, Keep serum Potassium>4 and serum Magnesium>2 and CBC (11) Diabetes: Qualifiers: Diabetes mellitus complication status: without complication Diabetes mellitus chcf insulin use: without chcf use Diabetes mellitus type: type 2 Qualified Code(s): E11.9 - Type 2 diabetes mellitus without complications Code(s): E11.9 - Type 2 diabetes mellitus without complications Status: Acute Assessment and Plan: - hypoglycemia protocol - POC blood glucose ACHS - home medication - metformin 500 mg BID agree - correct regimen ordered - mod dose SSI - A1C 5 (12) Hypothyroidism: Qualifiers: Hypothyroidism type: unspecified Qualified Code(s): E03.9 - Hypothyroidism, unspecified Code(s): E03.9 - Hypothyroidism, unspecified Status: Acute Assessment and Plan: Chronic, continue Synthroid (13) Obstructive sleep apnea on CPAP: Code(s): G47.33 - Obstructive sleep apnea (adult) (pediatric) Status: Acute Assessment and Plan: auto titrating CPAP/BiPAP (14) Constipation: Code(s): K59.00 - Constipation, unspecified Status: Acute Assessment and Plan: Patient notes that she has not had a bowel movement since admission. Denies any nausea/vomiting or abdominal pain. KUB: Prominent amount of fecal material in the rectum and sigmoid and right colon consistent with clinical presentation of constipation; no bowel obstruction is evident Continue Senokot and MiraLax Given a suppository x1 Resolved. Patient has had several bowel movements. DS: Summary Hospital Course Hospital Course: 84-year-old female with a past medical history of COPD, moderate pulmonary hypertension, chronic hypoxic respiratory failure on 4 L nasal cannula CHF with preserved ejection fraction, obstructive sleep apnea on CPAP who presented to the ER from [facility] via EMS due to cough and congestion. Several issues were addressed during her hospitalization: # cholelithiasis MRCP completed, normal common bile duct caliber, no evidence of obstruction. no abd pain, no n/v/d # elevated liver enzymes GI was following As previously discussed, her transaminase elevation is most likely due to remdesivir. She will be discharged tomorrow and instructed to follow up in GI clinic in 4 weeks. She should get a weekly liver profile ordered by her primary care provider and communicate it to us via portal. # hypotension Hypotension likely due to hypovolemia. Patient had good response to volume resuscitation. Lasix 40 mg daily was resumed Diltiazem was placed on hold for ongoing bradycardia which was likely due to remdesivir. HR improved, BP stable - so medication will be resumed prior to discharge. Pt used to take 240 mg but due to bradycardia and hypotension- it was held. Will restart at 120 mg for now and monitor closely. May uptitrated back to previous dose if pt needs it and can tolerate it. # afib - Continue anticoagulation with apixaban - resume diltiazem: Pt used to take 240 mg cardizem but due to bradycardia and hypotension- it was held. Will restart at 120 mg for now and monitor closely. May uptitrated back to previous dose if pt needs it and can tolerate it. # covid completed treatment off iso on home o2, stable for discharge on daily steroids- could explain elevated wbc as no worsening of resp symptoms will stop steroids will need to have cbc rechecked in few days to ensure improvement Status at Discharge Functional status at discharge: uses cane/walker Overall status at discharge: patient is progressing back to baseline Time Spent with Patient Time attestation: Total time spent providing and/or coordinating discharge services: Time spent: Greater than 30 minutes Exam Narrative: General: female in no acute respiratory distress who is nontoxic appearing, resting in bed HEENT: Normocephalic. Atraumatic. Extraocular movement intact. Sclera clear and anicteric. No facial asymmetry. Chest: Lungs are clear in the uppers with slight rhonchi in the lower bases. CV: Heart with irregularly irregular rate and rhythm. Abd: Abdomen was soft. Nondistended. Positive bowel sounds. Ext: No clubbing, cyanosis, or edema. DP pulses bilaterally. Neuro: Patient is alert and oriented x3. Speech is clear. Const: General: comfortable Other: No acute distress, well-developed well-nourished, elderly, debilitated HENMT: Other: Mucous membranes are moist, no oral pharyngeal erythema Eyes: Other: Pupils are equal and reactive Neck: Other: No JVD, no lymphadenopathy Resp: Effort & Inspection: normal respiratory effort Auscultation: clear to auscultation bilaterally Cardio: Other: Regular rate, irregular rhythm, 2+ bilateral radial pedal pulses GI: Other: Soft, nontender, significant redundant skin, normoactive bowel sounds : Other: Pure wick catheter in place Skin: Other: Generalized pallor, non jaundice, chronic darkened skin pink mentation to bilateral lower extremities consistent with patient's history of chronic venous stasis dermatitis/lymphedema in the past Neuro: Other: Alert orient x4, speech is clear, no facial asymmetry, moves all extremities equally, significant tremor Extrem: Other: generalized weakness- feeling better Psych: Affect: normal affect Other: Pleasant and cooperative, fair judgment and insight DS: Data Data Completed and Pending Labs on day of discharge: Labs from last 24 hours 07/28/24 07/27/24 07/27/24 05:12 20:10 19:41 WBC 16.3 H RBC 3.61 L Hgb 11.1 L Hct 33.8 L MCV 93.6 MCH 30.7 MCHC 32.8 RDW 16.2 H Plt Count 103 L MPV 9.9 Sodium 137 136 L Potassium 3.7 4.0 Chloride 98 100 Carbon Dioxide 30 29 Anion Gap 9 7 BUN 32 H 34 H Creatinine 1.07 H 1.09 H Estim Creat Clear Calc 39 39 Estimated GFR 49 L 48 L Glucose 125 H 172 H POC Capillary Glucose 189 H Calcium 9.2 8.8 Total Bilirubin 1.4 H 1.3 AST 72 H 76 H ALT 377 H 375 H Alkaline Phosphatase 84 84 Total Protein 6.0 L 5.0 L Albumin 3.0 L 2.7 L 07/27/24 07/27/24 17:05 11:32 WBC RBC Hgb Hct MCV MCH MCHC RDW Plt Count MPV Sodium Potassium Chloride Carbon Dioxide Anion Gap BUN Creatinine Estim Creat Clear Calc Estimated GFR Glucose POC Capillary Glucose 156 H 162 H Calcium Total Bilirubin AST ALT Alkaline Phosphatase Total Protein Albumin Discharge Plan Discharge Attending physician on discharge: Jose Knowles Consulting providers: Shena Rose Discharging Clinician: Yamilka Schumacher Patient Disposition: CT Fpc/Asst Living Activity: august shower Diet: heart healthy and diabetic Patient Instructions: Antibiotic Form, Apixaban (By mouth), Heart Failure (IP) Patient Language: [place] Stand Alone Forms: General Discharge Information Follow-up/Referrals: Crzu,Kylie Szymanski [Primary Care Provider] - 2 Weeks Discharge Medications: New diltiazem HCl 120 mg Capsule,Extended Release 24hr 120 mg PO DAILY Qty: 90 0RF Continued atorvastatin 10 mg tablet 10 mg PO HS furosemide [Lasix] 40 mg tablet 40 mg PO QAM albuterol sulfate 2.5 mg /3 mL (0.083 %) solution for nebulization 2.5 mg inhalation Q8H PRN (Reason: Wheezing) cyanocobalamin (vitamin B-12) 1,000 mcg/mL solution 1,000 mcg IM MONTHLY Rx Instructions: once between the second - third of the month ferrous sulfate [FeroSul] 325 mg (65 mg iron) tablet 325 mg PO DAILY levothyroxine 150 mcg tablet 150 mcg PO DAILY Rx Instructions: on an empty stomach albuterol sulfate [Ventolin HFA] 90 mcg/actuation Hfa Aerosol Inhaler 2 puff INHALATION Q6H PRN (Reason: Shortness Of Breath) loratadine 10 mg tablet 10 mg PO DAILY multivitamin with folic acid [Tab-A-Mehran] 400 mcg tablet 1 tablet PO DAILY Eliquis 5 mg Tablet 5 mg PO BID potassium chloride 10 mEq capsule, extended release 20 meq PO DAILY metformin 500 mg tablet 500 mg PO BID polyethylene glycol 3350 [Miralax] 17 gram/dose Powder 17 g PO DAILY PRN (Reason: Constipation) ondansetron 4 mg tablet,disintegrating 4 mg PO Q6H PRN (Reason: nausea/vomiting) Lubricant (d-[id number]) 1-0.3 % Drops 1 drp EACH EYE BID PRN (Reason: Dry Eye(S)) tizanidine 2 mg tablet 2 mg PO TID lidocaine [Aspercreme (lidocaine)] 4 % adhesive patch,medicated 1 patch topical DAILY benzonatate 100 mg capsule 100 mg PO TID PRN (Reason: cough) budesonide-formoterol [Breyna] 80-4.5 mcg/actuation HFA aerosol inhaler 2 puff INHALATION Q12H dextromethorphan-guaifenesin 20-400 mg tablet 1 tablet PO Q12H diclofenac sodium [Arthritis Pain (diclofenac)] 1 % gel 2 g topical Q12H PRN (Reason: arthritis pain) Rx Instructions: apply to single elbow, wrist or hand; for hand includes palm/fingers/back of hand tramadol 50 mg Tablet 50 mg PO Q8H Held acetaminophen 500 mg capsule 1,000 mg PO Q8H PRN (Reason: pain) Hold Instructions: Resume on 08/04/24. hold until liver enzymes improved Discontinued diltiazem HCl 240 mg PO DAILY Other Ambulatory Orders: Complete Blood Count no Diff (Routine) Timeframe: 1 Week Location: Determined by Patient Ordered By: Yamilka Schumacher Date of admission: 07/18/24 09:56 Primary Care Provider: CruzNessa Admitting Provider: Betty Jefferson Attending physician on admission: Mikayla Roca Condition: Improved Quality VTE Prophylaxis VTE prophylaxis: pharmacologic ordered Hospitalist MIPS Heart Failure (Exclusion) Patient has history of Heart Transplant or Left Ventricular Assistive Device?: No IF YES, STOP HERE Heart Failure (Qualifier) Patient has current or prior documentation of LVEF less than or equal to 40%, or mod/servere depressed LVSF?: No IF NO, STOP HERE
[2024-07-28 08:02] LABS: Glucose Point of Care 137 mg/dl (65-105)
[2024-07-28] MEDS: guaiFENesin 600 MG/DEXTROMETHORPHAN 30 MG SR TAB 12 HR 1 TAB PO (09:32)
[2024-07-28] MEDS: LORATADINE 10 MG TABLET PO (09:32)
[2024-07-28] MEDS: FUROSEMIDE 40 MG TABLET PO (09:32)
[2024-07-28] MEDS: LIDOCAINE 5% PATCH 1 PATCH TOPICAL (09:32)
[2024-07-28] MEDS: FERROUS SULFATE 325 MG TABLET DR BY MOUTH (09:32)
[2024-07-28] MEDS: APIXABAN 5 MG TABLET PO (09:32)
[2024-07-28] MEDS: PHENYLEPH/SHARK OIL/MO/PETROL CREAM 26 GM 1 APPLIC RECTAL (09:33)
[2024-07-28] MEDS: MULTIVITAMINS THERAPEUTIC TAB (*BKC) 1 TABLET PO (09:33)
[2024-07-28] MEDS: OLOPATADINE 0.1% OPHTH SOLN 5 ML BTL 1 DROP EACH EYE (09:33)
[2024-07-28] MEDS: polyethylene glycoL 3350 17 GM POWD.PACK PO (09:33)
[2024-07-28] MEDS: TIZANIDINE HCL 2 MG TABLET PO (09:33)
[2024-07-28 11:38] LABS: Glucose Point of Care 109 mg/dl (65-105)
[2024-08-01 23:58] LABS: Legionella pneumophila Ag Ur NOT DETECTED
== END 2024-07-28 14:15 | DRG 178 ==
LOC: ANHED 17:38 → ANH3MEDSUR 18:42
PROVIDERS: Internal Medicine; Internal Medicine Gastroenterology; Nurse Practitioner; Student in an Organized Health Care Education/Training Program; Admitting Provider Hospitalist; Emergency Provider Emergency Medicine; PCP Internal Medicine Infectious Disease; Visit Provider Nurse Practitioner
DX: U07.1 COVID-19 (principal); I48.20 Chronic atrial fibrillation, unspecified; J96.11 Chronic respiratory failure with hypoxia; I50.32 Chronic diastolic (congestive) heart failure; N17.9 Acute kidney failure, unspecified; J44.1 Chronic obstructive pulmonary disease with (acute) exacerbation; N39.0 Urinary tract infection, site not specified; B96.1 Klebsiella pneumoniae [K. pneumoniae] as the cause of diseases classified elsewhere; E03.9 Hypothyroidism, unspecified; E86.0 Dehydration; G47.33 Obstructive sleep apnea (adult) (pediatric); I95.9 Hypotension, unspecified; K80.20 Calculus of gallbladder without cholecystitis without obstruction; E86.1 Hypovolemia; E11.9 Type 2 diabetes mellitus without complications; K59.00 Constipation, unspecified; R74.01 Elevation of levels of liver transaminase levels; R00.1 Bradycardia, unspecified; T37.5X5A Adverse effect of antiviral drugs, initial encounter; I25.10 Atherosclerotic heart disease of native coronary artery without angina pectoris; K21.9 Gastro-esophageal reflux disease without esophagitis; E78.5 Hyperlipidemia, unspecified; I10 Essential (primary) hypertension; F17.210 Nicotine dependence, cigarettes, uncomplicated; Z99.81 Dependence on supplemental oxygen
CPT/HCPCS: 36415; 71046; 74018; 74183; 76376; 76705; 80048; 80053; 80074; 81001; 82728; 82948; 83036; 84436; 84443; 84480; 85025; 85027; 85055; 85610; 85652; 85730; 86140; 87040; 87070; 87086; 87186; 87205; 87449; 87637; 87899; 93005; 94640; 94667; 94668; 96361; 96365; 96367; 96375; 99285; A9270; A9577; G0378; J0248; J0456; J0696; J1100; J1815; J2405; J7030; J7040; J7120

== ENCOUNTER 2024-09-01 16:27 | Inpatient (IN) | payer MEDICARE, SELFPAY ==
[2024-09-01] VITALS (27 sets, daily range): BP systolic 54–145; BP diastolic 24–118; PULSE 72–121; RESP 14–37; TEMP 36.2; O2SAT 79–100
--- NOTE | ~2024-09-01 | CT_ITS ---
CT abdomen pelvis wo con Ordering provider: Rex Champagne MD History: 84 years Female with . ab pain . Comparison: None. Technique: CT abdomen and pelvis without IV and without oral contrast. Automated exposure control and iterative reconstruction technique were employed. The dose-length product was 1297.87 mGy-cm. Findings: VISUALIZED LOWER CHEST: Bilateral basilar atelectasis versus pneumonia with minimal effusion bilatera lly. Cardiomegaly. UPPER ABDOMINAL ORGANS: Liver: Normal. Gallbladder: Cholelithiasis with a grossly distended gallbladder. Spleen: Normal. Stomach/duodenum: Duodenal diverticulum is seen. Pancreas: Atrophic. Adrenals: Normal. Kidneys: 7 mm hypodense area seen in the right kidney upper pole which is most likely hemorrhagic cys t. Follow-up advised. Tiny hypodensity with: Patent and a Hounsfield unit measuring minus 46. PELVIC ORGANS: The bladder is underfilled. Calcified uterine fibroids are seen. BOWEL AND MESENTERY: Colon: No evidence of diverticulitis. Fecal material is impacted in the area of the rectum. Normal ap pendix. Small Bowel: Normal. No obstruction. Peritoneum/mesentery: No free air. Minimal fluid is seen in the presacral area. Possibility of procti tis cannot be excluded.. No mesenteric lymphadenopathy. RETROPERITONEUM: Mild atheromatous disease of the abdominal aorta. No retroperitoneal lymphadenopat hy. MUSCULOSKELETAL: Superficial soft tissues: Small fat-containing anterior abdominal wall hernia. Otherwise, The superfi cial soft tissues are normal. Bones: Age appropriate degenerative changes of the spine. Left sacroiliitis. Bilateral hip osteoarthritic changes. Anterolisthesis at the level of L5-S1. Slight loss of volume se en in L4 most likely chronic. IMPRESSION: 1. No evidence of appendicitis, diverticulitis or intestinal obstruction. 2. Cholelithiasis with distended gallbladder. 3. Bilateral lung base atelectasis versus pneumonia with minimal effusion. 4. Small hyperdense lesion in the right kidney midpole which may be hemorrhagic cyst. Fat-containing small lesion in the left kidney lower pole. Follow-up advised. 5. Impacted fecal material in the rectum. Surrounding fat stranding which may indicate proctitis. 6. Fat-containing anterior abdominal wall hernia. Reviewed, dictated and finalized at location A. IMPRESSION: 1. No evidence of appendicitis, diverticulitis or intestinal obstruction. 2. Cholelithiasis with distended gallbladder. 3. Bilateral lung base atelectasis versus pneumonia with minimal effusion. 4. Small hyperdense lesion in the right kidney midpole which may be hemorrhagi c cyst. Fat-containing small lesion in the left kidney lower pole. Follow-up ad vised. 5. Impacted fecal material in the rectum. Surrounding fat stranding which may indicate proctitis. 6. Fat-containing anterior abdominal wall hernia.
--- NOTE | ~2024-09-01 | XR_ITS ---
XR chest 1V portable Ordering provider: Rex Champagne MD History: 84 years Female with . SOB, WEAKNESS AND LOW BP . Comparison: July 17, 2024 FINDINGS: MEDIASTINUM: The cardiac silhouette is moderately enlarged. LUNGS: No effusions or pneumothorax. Minimal opacification the left lung base. Elevation of the right hemidiaphragm. OTHER: No free air under the diaphragm. Degenerative changes of the spine. IMPRESSION: Left basilar atelectasis versus pneumonia. Cardiomegaly. Reviewed, dictated and finalized at location A.
--- NOTE | ~2024-09-01 | US_ITS ---
Limited ABDOMINAL ULTRASOUND (Doppler ultrasound interrogation techniques used as needed for this exa m.) Ordering provider: Rex Champagne MD History: . History of gallstones with elevated T bili . Comparison: None. FINDINGS: PANCREAS: Normal echotexture and size. PORTAL VEIN: Hepatopedal flow demonstrated. LIVER: Normal size and echotexture. No focal hepatic lesions or perihepatic fluid collections are lee ann ntified. Normal flow of the portal vein. BILIARY DUCTS: No intra or extrahepatic biliary dilation. Common bile duct measures 4.4 mm in diamete r which is normal for patient's age. GALLBLADDER: Stones with sludge is noted. No pericholecystic fluid. Wall thickness is 2.8 mm. Negativ e sonographic Cuellar's sign. IVC: Patent FREE FLUID: None visualized within the upper abdomen. IMPRESSION: Gallbladder no stones with sludge. Otherwise, normal limited abdominal ultrasound. Reviewed, dictated and finalized at location A. IMPRESSION: Gallbladder no stones with sludge. Otherwise, normal limited abdominal ultrasou nd.
--- NOTE | 2024-09-01 16:49 | ECG_ITS ---
Test Date: 2024-09-01 17:43:43 Measurements Intervals [place] Rate: 76 P: 0 ND: 0 QRS: -67 QRSD: 149 T: -54 QT: 447 QTc: 504 Interpretive Statements ATRIAL FIBRILLATION RIGHT BUNDLE BRANCH BLOCK POSSIBLE ANTERIOR MYOCARDIAL INFARCTION , OF INDETERMINATE AGE INFERIOR MYOCARDIAL INFARCTION , OF INDETERMINATE AGE MODERATE T-WAVE ABNORMALITY, CONSIDER LATERAL ISCHEMIA Compared to ECG 07/20/2024 21:07:35 T-wave abnormality now present Myocardial infarct finding still present Electronically Signed On 09-01-2024 19:18:03 CDT by Fidencio Rosa
[2024-09-01 17:23] LABS: Basophils Percent Auto 0.1 % (0.2-1.2); Eosinophils Percent Auto 0.1 % (0-4.4); Hematocrit 30.2 % (37.0-47.0); Hemoglobin 9.5 g/dL (12.0-15.0); Immature Granulocyte Absolute 0.11 K/mm3 (0.00-0.031); Immature Granulocyte Percent A 0.7 % (0-0.5); Immature Platelet Fraction Pct 5.8 % (0.9-11.2); Lymphocytes Absolute Auto 2.34 K/mm3 (0.9-3.2); Lymphocytes Percent Auto 15.2 % (18.3-44.2); Mean Corpuscular HGB Conc 31.5 g/dl (32-36); Mean Corpuscular Hemoglobin 30.5 pg (26-34); Mean Corpuscular Volume 97.1 fl (80-100); Monocytes Absolute Auto 1.3 K/mm3 (0.1-0.6); Monocytes Percent Auto 8.7 % (2.6-8.5); Neutrophils Absolute Auto 11.5 K/mm3 (1.3-6.7); Neutrophils Percent Auto 75.2 % (45.5-73.1); Nucleated Red Blood Cells Perc 0.1 % (0.0-0.2); Platelet Count Result 122 k/mm3 (150-375); Red Blood Count 3.11 M/mm3 (4.2-5.4); Red Cell Distribution Width 15.9 % (11.5-14.5); White Blood Count 15.4 K/mm3 (4.5-10.0)
[2024-09-01 17:30] LABS: Alanine Aminotransferase 18 U/L (6-35); Albumin Level 2.7 g/dL (3.5-5.1); Alkaline Phosphatase 74 U/L (38-126); Anion Gap 12 mmol/L (4-12); Aspartate Amino Transferase 27 U/L (14-36); Bilirubin,Total 1.4 mg/dL (0.2-1.3); Blood Urea Nitrogen 65 mg/dL (7-17); Calcium 7.5 mg/dL (8.4-10.2); Carbon Dioxide 25 mmol/L (22-30); Chloride 100 mmol/L (98-107); Estimated CRCL calculation 15 ml/min; Estimated Glomerular Filt Rate 18; Glucose 118 mg/dL (65-110); Sodium 137 mmol/L (137-145)
[2024-09-01 17:31] LABS: Lactic Acid Reflex 3.6 mmol/L (0.7-2.0)
[2024-09-01 17:32] LABS: INR 2.9; Prothrombin Time 30.4 Seconds (11.1-14.7)
[2024-09-01 17:33] LABS: Partial Thromboplastin Time 38.8 Seconds (22.3-36.8)
[2024-09-01] MEDS: SODIUM CHLORIDE 0.9% IV 1,000 ML 999 ML IV CONT ×3 (17:39→19:42)
[2024-09-01 17:57] LABS: Influenza A QL RT-PCR Negative (Negative); Influenza B QL RT-PCR Negative (Negative); RSV RNA, RT-PCR Negative (Negative); SARS-CoV-2 RNA PCR Negative (Negative)
--- NOTE | 2024-09-01 18:15 | ED_ITS ---
HPI - General Adult General Chief complaint: Weakness Stated complaint: weakness, nausea Time Seen by Provider: 09/01/24 16:43 History of Present Illness HPI narrative: 84-year-old female present to the emergency department for evaluation for an extended period of nausea and vomiting decreased p.o. intake. Patient was found to have some low blood pressures at her care facility today. Patient does appear dehydrated. Patient does report history of cholelithiasis. Patient does have some diffuse abdominal tenderness to palpation but denies any abdominal pain. Patient is normally on 3 L of oxygen during the day and 4 L of oxygen at night. Patient is saturating 100% on 2 L at rest. Related Data Home Medications ?Medication ?Instructions ?Recorded ?Confirmed ?Last Taken ?Type atorvastatin 10 mg tablet 10 mg PO HS 10/10/20 07/18/24 Unknown History furosemide 40 mg tablet (Lasix) 40 mg PO QAM 10/10/20 07/18/24 Unknown History albuterol sulfate 2.5 mg/3 mL 2.5 mg inhalation Q8H PRN Wheezing 12/12/23 07/18/24 Unknown History (0.083 %) solution for nebulization albuterol sulfate 90 mcg/actuation 2 puff inhalation Q6H PRN 12/12/23 07/18/24 Unknown History aerosol inhaler (Ventolin HFA) Shortness Of Breath apixaban 5 mg tablet (Eliquis) 5 mg PO BID 12/12/23 07/18/24 Unknown History cyanocobalamin (vitamin B-12) 1,000 mcg IM MONTHLY 12/12/23 07/18/24 11/21/23 09:00 History 1,000 mcg/mL injection solution ferrous sulfate 325 mg (65 mg 325 mg PO DAILY 12/12/23 07/18/24 Unknown History iron) tablet (FeroSul) levothyroxine 150 mcg tablet 150 mcg PO DAILY 12/12/23 07/18/24 Unknown History loratadine 10 mg tablet 10 mg PO DAILY 12/12/23 07/18/24 Unknown History multivitamin with folic acid 400 1 tablet PO DAILY 12/12/23 07/18/24 Unknown History mcg tablet (Tab-A-Mehran) potassium chloride 10 mEq 20 meq PO DAILY 12/12/23 07/18/24 Unknown History capsule,extended release metformin 500 mg tablet 500 mg PO BID 02/06/24 07/18/24 Unknown History ondansetron 4 mg disintegrating 4 mg PO Q6H PRN nausea/vomiting 02/06/24 07/18/24 Unknown History tablet polyethylene glycol 3350 17 17 g PO DAILY PRN Constipation 02/06/24 07/18/24 Unknown History gram/dose oral powder (Miralax) propylene glycol 1 %-glycerin 0.3 1 drp EACH EYE BID PRN Dry Eye(S) 02/06/24 07/18/24 Unknown History % eye drops (Lubricant (propylene glycol-glycerin)) tizanidine 2 mg tablet 2 mg PO TID 04/24/24 07/18/24 04/24/24 History acetaminophen 500 mg capsule 1,000 mg PO Q8H PRN pain 07/18/24 07/18/24 Unknown History benzonatate 100 mg capsule 100 mg PO TID PRN cough 07/18/24 07/18/24 Unknown History budesonide-formoterol HFA 80 2 puff inhalation Q12H 07/18/24 07/18/24 Unknown History mcg-4.5 mcg/actuation aerosol inhaler (Breyna) dextromethorphan-guaifenesin 20 1 tablet PO Q12H 07/18/24 07/18/24 Unknown History mg-400 mg tablet diclofenac sodium 1 % topical gel 2 g topical Q12H PRN arthritis pain 07/18/24 07/18/24 Unknown History (Arthritis Pain (diclofenac)) lidocaine 4 % topical patch 1 patch topical DAILY 07/18/24 07/18/24 Unknown History (Aspercreme (lidocaine)) tramadol 50 mg tablet 50 mg PO Q8H Pain Rated 4-6 07/18/24 07/18/24 Unknown History Allergies Allergy/AdvReac Type Severity Reaction Status Date / Time adhesive tape Allergy Unknown Unknown Verified 09/01/24 16:42 amitriptyline (From Elavil) Allergy Unknown Unknown Verified 09/01/24 16:42 procaine (From Novocain) Allergy Unknown Unknown Verified 09/01/24 16:42 propoxyphene (From Darvon) Allergy Unknown Unknown Verified 09/01/24 16:42 Review of Systems 2 Review of Systems: All systems reviewed & are unremarkable except as noted in HPI and below PMFSH Past Medical History Medical History (Updated 09/01/24 @ 21:49 by Rex Champagne MD) Chronic diastolic (congestive) heart failure Hearing loss, 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 Coronary heart disease Allergic rhinitis Secondary pulmonary hypertension Chronic respiratory failure with hypoxia Acquired hemosiderosis Irritable bowel Chronic GERD Obstructive sleep apnea on CPAP Chronic anticoagulation Atrial fibrillation Hyperlipidemia Hypothyroidism Hypertension Surgical History Surgical History (Updated 09/01/24 @ 21:06 by Idalia Shelley PA-C) History of cataract extraction with lens replacement History of tonsillectomy and adenoidectomy Family History Family History Father Malignant neoplasm of prostate Hypertension Cerebrovascular accident Mother Depression Heart disease Grandparent Hypertension Heart disease Grandparent Alcoholism Social History Social History (Updated 09/01/24 @ 21:07 by Idalia Shelley PA-C) Social History: Surrogate medical decision maker: Marleny Manzo, cousin. Code status: DNR/DNI. Smoking status: Never smoker Alcohol intake: never Substance use: never Substance use type: does not use Do You Feel Safe in your Home?: Yes Lack of Transportation: No Lack of Food: Never True Current Housing: I Have Housing Concerned About Future Housing: No Difficulty Paying Gas/Electric Bills: No Difficulty Paying for Meds: No Currently Unemployed: No Education: Bachelor's Degree Difficulty w/ Childcare or Family Care: No Additional living arrangements comments: The patient was at [facility] until hospitalization March 2024 and has since been transitioned to [facility]. 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 Spiritual care concerns: No Exam 2 Narrative: APPEARANCE: Dehydrated appearing HEAD: normocephalic, atraumatic. EYES: PERRLA/EOMI, conjunctivae clear. NOSE: Normal no drainage EARS:TMS clear with good light reflex. THROAT: Pharynx clear, no exudate. NECK: Supple. No adenopathy, no masses. RESPIRATORY: Airway patent, respirations nonlabored. Clear to auscultation bilaterally, no rales, rhonchi, wheezing. CARDIOVASCULAR: Regular rate and rhythm without murmurs rubs or gallops. ABDOMINAL: Diffuse abdominal tenderness to palpation without guarding, nondistended, normal bowel sounds MUSCULOSKELETAL: Moves all extremities. Strength/ROM intact, No edema, No calf tenderness. NEURO: Alert. Cranial nerves II through XII intact. Good gait. Good coordination SKIN: Warm, dry. Normal Color Course Vital Signs Vital signs: Vital Signs Temperature 97.2 F L 09/01/24 16:38 Pulse Rate 72 09/01/24 16:38 Respiratory Rate 14 09/01/24 16:38 Blood Pressure 98/72 L 09/01/24 16:38 Pulse Oximetry 100 09/01/24 16:38 Oxygen Delivery Nasal Cannula 09/01/24 16:38 Oxygen Flow Rate 2 09/01/24 16:38 Temperature 97.2 F L 09/01/24 16:38 Pulse Rate 94 09/01/24 21:24 Respiratory Rate 33 H 09/01/24 21:24 Blood Pressure 80/67 L 09/01/24 21:24 Pulse Oximetry 88 L 09/01/24 21:21 Oxygen Delivery Nasal Cannula 09/01/24 16:38 Oxygen Flow Rate 2 09/01/24 16:38 Medical Decision Making [facility] Narrative Medical decision making narrative: 84-year-old female presents emergency department for evaluation for low blood pressures. Patient is afebrile but does have a leukocytosis of 15.4 and hemoglobin of 9.5, patient does have a history of anemia. Patient denies any active bleeding. Patient's INR is 2.9. Patient does have an elevated creatinine of 2.49 and a BUN of 65. Patient's typical creatinine is closer to 1.0. Patient's lactic acid was elevated at 2.1. Urine was negative for infection, patient was negative for influenza RSV and for COVID. CT abdomen pelvis was ordered due to diffuse abdominal tenderness with nonsurgical abdomen. CT scan did show stool in the rectum with no evidence of diverticulitis or colitis. CT scan does show atelectasis versus pneumonia. Patient was having low blood pressures at the half-way so she was sent to the emergency department for evaluation. Patient's initial blood pressure was elevated at 98/72. Patient did have other blood pressures that were significantly lower. Patient continued to be alert and appropriate no evidence of distress. Patient's blood pressures did begin to improve after 3 L of IV fluids. Patient was then transition to lactated Ringer's. Blood cultures were ordered and patient was started on antibiotics for suspected pneumonia. Case was discussed with hospitalist patient was accepted to the IMU. While patient's blood pressures were soft they were improved compared to arrival and patient was responding to IV rehydration. On upon reexamination patient continued to be alert and appropriate. Differential Diagnosis Differential Diagnosis: Colitis, diverticulitis, appendicitis, cholecystitis, pneumonia, COVID, RSV, influenza, UTI, dehydration Vital Signs Vital Signs: Vital Signs Temperature 97.2 F L 09/01/24 16:38 Pulse Rate 72 09/01/24 16:38 Respiratory Rate 14 09/01/24 16:38 Blood Pressure 98/72 L 09/01/24 16:38 Pulse Oximetry 100 09/01/24 16:38 Oxygen Delivery Nasal Cannula 09/01/24 16:38 Oxygen Flow Rate 2 09/01/24 16:38 Temperature 97.2 F L 09/01/24 16:38 Pulse Rate 94 09/01/24 21:24 Respiratory Rate 33 H 09/01/24 21:24 Blood Pressure 80/67 L 09/01/24 21:24 Pulse Oximetry 88 L 09/01/24 21:21 Oxygen Delivery Nasal Cannula 09/01/24 16:38 Oxygen Flow Rate 2 09/01/24 16:38 Lab Data Lab results reviewed: Yes I reviewed the patient's lab results. 09/01/24 17:15 09/01/24 17:15 Labs: Lab Results 09/01/24 09/01/24 09/01/24 Range/Units 17:15 18:03 19:42 WBC 15.4 H (4.5-10.0) K/mm3 RBC 3.11 L (4.2-5.4) M/mm3 Hgb 9.5 L (12.0-15.0) g/dL Hct 30.2 L (37.0-47.0) % MCV 97.1 (80-100) fl MCH 30.5 (26-34) pg MCHC 31.5 L (32-36) g/dl RDW 15.9 H (11.5-14.5) % Plt Count 122 L (150-375) k/mm3 MPV 11.0 H (7.4-10.4) fl Immature Gran % (Auto) 0.7 H (0-0.5) % Neut % (Auto) 75.2 H (45.5-73.1) % Lymph % (Auto) 15.2 L (18.3-44.2) % [place] % (Auto) 8.7 H (2.6-8.5) % Eos % (Auto) 0.1 (0-4.4) % Baso % (Auto) 0.1 L (0.2-1.2) % Lymph # (Auto) 2.34 (0.9-3.2) K/mm3 [place] # (Auto) 1.3 H (0.1-0.6) K/mm3 Eos # (Auto) 0.0 (0-0.3) K/mm3 Baso # (Auto) 0.0 (0.0-0.1) K/mm3 Abs Immat Gran (auto) 0.11 H (0.00-0.031) K/mm3 Absolute Neuts (auto) 11.5 H (1.3-6.7) K/mm3 Absolute Nucleated RBC 0.020 H (0.0-0.012) K/mm3 Nucleated RBC % 0.1 (0.0-0.2) % % Immature Plt Fraction 5.8 (0.9-11.2) % PT 30.4 H (11.1-14.7) Seconds INR 2.9 APTT 38.8 H (22.3-36.8) Seconds Sodium 137 (137-145) mmol/L Potassium 4.0 (3.4-5.0) mmol/L Chloride 100 (98-107) mmol/L Carbon Dioxide 25 (22-30) mmol/L Anion Gap 12 (4-12) mmol/L BUN 65 H D (7-17) mg/dL Creatinine 2.49 H (0.7-1.0) mg/dL Estim Creat Clear Calc 15 ml/min Estimated GFR 18 L (59 - ) Glucose 118 H (65-110) mg/dL Lactic Acid 3.6 H 2.1 H (0.7-2.0) mmol/L Calcium 7.5 L (8.4-10.2) mg/dL Total Bilirubin 1.4 H (0.2-1.3) mg/dL AST 27 (14-36) U/L ALT 18 (6-35) U/L Alkaline Phosphatase 74 (38-126) U/L Total Protein 6.0 L (6.3-8.2) g/dL Albumin 2.7 L (3.5-5.1) g/dL Urine Color Dark yellow (Yellow) Urine Appearance Clear (Clear) Urine pH 5.0 (5.0-9.0) Ur Specific [place] 1.017 (1.001-1.035) Urine Protein Trace (Negative) mg/dL Urine Glucose (UA) Negative (Negative) mg/dL Urine Ketones Negative (Negative) mg/dL Ur Blood (Man) Negative (Negative) Urine Nitrate Negative (Negative) Urine Bilirubin 1+ H (Negative) Urine Urobilinogen 1.0 (<2.0) mg/dL Add Ur Microanalysis Reviewed Leukocyte Esterase Rfl Negative (Negative) CLAUDIA/UL Urine RBC 0-2 (0-2) /hpf Urine WBC 0-5 (0-3) /hpf Ur Squamous Epith Cells None seen (Few) /hpf Urine Bacteria None seen /hpf Urine Casts 3-5 Hyaline Casts Present (None) /lpf Influenza A (RT-PCR) Negative (Negative) Influenza B (RT-PCR) Negative (Negative) RSV (RT-PCR) Negative (Negative) SARS-CoV-2 RNA (RT-PCR) Negative (Negative) Imaging Data Radiologist's impression: Impressions Abdomen/Pelvis CT 09/01/24 18:42 IMPRESSION: 1. No evidence of appendicitis, diverticulitis or intestinal obstruction. 2. Cholelithiasis with distended gallbladder. 3. Bilateral lung base atelectasis versus pneumonia with minimal effusion. 4. Small hyperdense lesion in the right kidney midpole which may be hemorrhagic cyst. Fat-containing small lesion in the left kidney lower pole. Follow-up advised. 5. Impacted fecal material in the rectum. Surrounding fat stranding which may indicate proctitis. 6. Fat-containing anterior abdominal wall hernia. Abdomen Ultrasound 09/01/24 19:14 IMPRESSION: Gallbladder no stones with sludge. Otherwise, normal limited abdominal ultrasound. Chest X-Ray 09/01/24 21:11 IMPRESSION: Left basilar atelectasis versus pneumonia. Cardiomegaly. Discharge Plan Discharge Clinical Impression: Pneumonia, NEHA (acute kidney injury) Patient Disposition: Still a Patient Condition: Serious Patient Language: [place] Prescriptions: No Action atorvastatin 10 mg tablet 10 mg PO HS furosemide [Lasix] 40 mg tablet 40 mg PO QAM albuterol sulfate 2.5 mg /3 mL (0.083 %) solution for nebulization 2.5 mg inhalation Q8H PRN (Reason: Wheezing) cyanocobalamin (vitamin B-12) 1,000 mcg/mL solution 1,000 mcg IM MONTHLY Rx Instructions: once between the second - third of the month ferrous sulfate [FeroSul] 325 mg (65 mg iron) tablet 325 mg PO DAILY levothyroxine 150 mcg tablet 150 mcg PO DAILY Rx Instructions: on an empty stomach albuterol sulfate [Ventolin HFA] 90 mcg/actuation Hfa Aerosol Inhaler 2 puff INHALATION Q6H PRN (Reason: Shortness Of Breath) loratadine 10 mg tablet 10 mg PO DAILY multivitamin with folic acid [Tab-A-Mehran] 400 mcg tablet 1 tablet PO DAILY Eliquis 5 mg Tablet 5 mg PO BID potassium chloride 10 mEq capsule, extended release 20 meq PO DAILY metformin 500 mg tablet 500 mg PO BID polyethylene glycol 3350 [Miralax] 17 gram/dose Powder 17 g PO DAILY PRN (Reason: Constipation) ondansetron 4 mg tablet,disintegrating 4 mg PO Q6H PRN (Reason: nausea/vomiting) Lubricant ([id number]) 1-0.3 % Drops 1 drp EACH EYE BID PRN (Reason: Dry Eye(S)) tizanidine 2 mg tablet 2 mg PO TID acetaminophen 500 mg capsule 1,000 mg PO Q8H PRN (Reason: pain) lidocaine [Aspercreme (lidocaine)] 4 % adhesive patch,medicated 1 patch topical DAILY benzonatate 100 mg capsule 100 mg PO TID PRN (Reason: cough) budesonide-formoterol [Breyna] 80-4.5 mcg/actuation HFA aerosol inhaler 2 puff INHALATION Q12H dextromethorphan-guaifenesin 20-400 mg tablet 1 tablet PO Q12H diclofenac sodium [Arthritis Pain (diclofenac)] 1 % gel 2 g topical Q12H PRN (Reason: arthritis pain) Rx Instructions: apply to single elbow, wrist or hand; for hand includes palm/fingers/back of hand tramadol 50 mg Tablet 50 mg PO Q8H diltiazem HCl 120 mg Capsule,Extended Release 24hr 120 mg PO DAILY Qty: 90 0RF Follow-up/Referrals: Cruz,Kylie Szymanski [Primary Care Provider] -
--- NOTE | 2024-09-01 18:23 | PC.NURSE ---
pt to ct at this time attached to portable monitor
[2024-09-01 19:03] LABS: Add Urine Microscopic? YES; Appearance Urine Clear (Clear); Bacteria Urine None Seen /hpf; Bilirubin Urine 1+ (Negative); Blood Urine Negative (Negative); Color Urine Dark Yellow (Yellow); Glucose Urine UA Negative (Negative); Hyaline Casts Urine Present /lpf; Ketones Urine Negative (Negative); Leukocyte Esterase Ur Negative LEU/UL (Negative); Need Manual Microscopic Reviewed; Nitrate Urine Negative (Negative); Protein Urine Trace mg/dL (Negative); RBC Urine 0-2 /hpf (0-2); Specific Grav Ur 1.017 (1.001-1.035); Squamous Epithelial Cell Urine None Seen /hpf (Few); WBC Urine 0-5 /hpf (0-3)
[2024-09-01 19:19] LABS: Reflex Lactic Acid Yes or No Add Lactic
[2024-09-01 20:04] LABS: Lactic Acid 2.1 mmol/L (0.7-2.0)
--- NOTE | 2024-09-01 20:30 | PC.NURSE ---
Dr Champagne aware of pt's BP and 3rd liter of fluids completed. Offered to get central line set up. Orders received to start 4th liter and await response prior to central line.
[2024-09-01] MEDS: LACTATED RINGERS 1,000 ML 250 ML IV CONT (21:00)
--- NOTE | 2024-09-01 21:05 | P.HP_ITS ---
H&P: HPI History of Present Illness Date/Time: 09/01/24 23:00 Chief Complaint: Weakness. Narrative: This is a pleasant 84-year-old female with persistent atrial fibrillation on chronic anticoagulation, diastolic congestive heart failure, chronic obstructive pulmonary disease, chronic respiratory failure on 3-4 L home oxygen, obstructive sleep apnea on CPAP, pulmonary hypertension, hyperlipidemia, hypothyroidism, and gastroesophageal reflux disease who presented to the emergency department via EMS from [facility] for evaluation of weakness. She has not had much of an appetite as of late and complains of frequent nausea and occasional vomiting. Her oral intake has been poor and she feels dehydrated. Over the last several days she has become increasingly weak. Reportedly she was complaining of mild abdominal discomfort in the ED however denied that to me. She also denies fever, chills, sweats, headache, neck ache, sinus congestion, sore throat, cough, chest pain, palpitations, sensations of racing heart, shortness of breath, hematemesis, bloating, belching, epigastric pain, melena, hematochezia, diarrhea, dysuria, and hematuria. No focal weakness, paresthesias, facial droop, or difficulty speaking or swallowing. In the ED: She was afebrile on arrival with a blood pressure of 98/72. Labs are significant for WBC count of 15.4, hemoglobin 9.5, platelet 122, BUN 65, creatinine 2.49, lactic acid 3.6, total bili 1.4, total protein 6.0, albumin 2.7. Urinalysis was pretty benign. Respiratory panel was negative. Chest x-ray showed left basilar atelectasis versus cardiomegaly. CT of the abdomen and pelvis showed impacted fecal material rectum with surrounding fat stranding which may indicate proctitis, hyperdense lesion the right kidney midpole, cholelithiasis with distended gallbladder, and bilateral lung base atelectasis versus pneumonia. She received 3 L crystalloid fluid bolus after blood pressure dropped to 68/42 and she has had some improvement. She was given azithromycin and ceftriaxone for possible pneumonia and is being admitted in this setting for further treatment. At about 03:45 she became increasingly short of breath and complained of anxiety and substernal chest pain radiating through to the back. She also had what appeared to be a 10-12 seconds run of wide complex tachycardia with a rate in the 190s. Repeat EKG showed rapid atrial fibrillation, right bundle branch blo ck, and ST elevation in leads III and aVF and T wave changes in V2 and V3. I had a long discussion with the patient at bedside along with her nurse. She is adamant that she does not want to be intubated though in obvious respiratory distress. 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 Review of Systems Review of Systems: 12 systems were reviewed and are negativ e except for as per HPI. [facility] Past Medical History Medical History (Updated 09/02/24 @ 03:36 by Idalia Shelley PA-C) Chronic diastolic (congestive) heart failure Hearing loss, bilateral Paralyzed hemidiaphragm Coronary heart disease Allergic rhinitis Secondary pulmonary hypertension Chronic respiratory failure with hypoxia Acquired hemosiderosis Irritable bowel Chronic GERD Obstructive sleep apnea on CPAP Chronic anticoagulation Atrial fibrillation Hyperlipidemia Hypothyroidism Hypertension Surgical History Surgical History History of cataract extraction with lens replacement History of tonsillectomy and adenoidectomy Family History Family History Father Malignant neoplasm of prostate Hypertension Cerebrovascular accident Mother Depression Heart disease Grandparent Hypertension Heart disease Grandparent Alcoholism Social History Social History Social History: Surrogate medical decision maker: Marleny Manzo, cousin. Code status: DNR/DNI. Smoking status: Never smoker Alcohol intake: never Substance use: never Substance use type: does not use Do You Feel Safe in your Home?: Yes Lack of Transportation: No Lack of Food: Never True Current Housing: I Have Housing Concerned About Future Housing: No Difficulty Paying Gas/Electric Bills: No Difficulty Paying for Meds: No Currently Unemployed: No Education: Bachelor's Degree Difficulty w/ Childcare or Family Care: No Additional living arrangements comments: The patient was at [facility] until hospitalization March 2024 and has since been transitioned to [facility]. 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 Spiritual care concerns: No Meds Home Medications and Allergies Home Medications ?Medication ?Instructions ?Recorded ?Confirmed ?Type atorvastatin 10 mg tablet 10 mg PO HS 10/10/20 09/02/24 History furosemide 40 mg tablet (Lasix) 40 mg PO QAM 10/10/20 09/02/24 History albuterol sulfate 2.5 mg/3 mL 2.5 mg inhalation Q8H PRN Wheezing 12/12/23 09/02/24 History (0.083 %) solution for nebulization albuterol sulfate 90 mcg/actuation 2 puff inhalation Q6H PRN 12/12/23 09/02/24 H istory aerosol inhaler (Ventolin HFA) Shortness Of Breath apixaban 5 mg tablet (Eliquis) 5 mg PO BID 12/12/23 09/02/24 History cyanocobalamin (vitamin B-12) 1,000 mcg IM MONTHLY 12/12/23 09/02/24 History 1,000 mcg/mL injection solution ferrous sulfate 325 mg (65 mg 325 mg PO DAILY 12/12/23 09/02/24 History iron) tablet (FeroSul) levothyroxine 150 mcg tablet 125 mcg PO DAILY 12/12/23 09/02/24 History loratadine 10 mg tablet 10 mg PO DAILY 12/12/23 09/02/24 History multivitamin with folic acid 400 1 tablet PO DAILY 12/12/23 09/02/24 History mcg tablet (Tab-A-Mehran) potassium chloride 10 mEq 20 meq PO DAILY 12/12/23 09/02/24 History capsule,extended release metformin 500 mg tablet 500 mg PO BID 02/06/24 09/02/24 History ondansetron 4 mg disintegrating 4 mg PO Q6H PRN nausea/vomiting 02/06/24 09/02/24 History tablet polyethylene glycol 3350 17 17 g PO DAILY PRN Constipation 02/06/24 09/02/24 History gram/dose oral powder (Miralax) propylene glycol 1 %-glycerin 0.3 1 drp EACH EYE BID PRN Dry Eye(S) 02/06/24 09/02/24 History % eye drops (Lubricant (propylene glycol-glycerin)) tizanidine 2 mg tablet 2 mg PO TID 04/24/24 09/02/24 History acetaminophen 500 mg capsule 1,000 mg PO Q8H PRN pain 07/18/24 09/02/24 History benzonatate 100 mg capsule 100 mg PO TID PRN cough 07/18/24 09/02/24 History budesonide-formoterol HFA 80 2 puff inhalation Q12H 07/18/24 09/02/24 History mcg-4.5 mcg/actuation aerosol inhaler (Breyna) dextromethorphan-guaifenesin 20 1 tablet PO Q12H 07/18/24 09/02/24 History mg-400 mg tablet diclofenac sodium 1 % topical gel 2 g topical Q12H PRN arthritis pain 07/18/24 09/02/24 History (Arthritis Pain (diclofenac)) lidocaine 4 % topical patch 1 patch topical DAILY 07/18/24 09/02/24 History (Aspercreme (lidocaine)) tramadol 50 mg tablet 50 mg PO Q8H Pain Rated 4-6 07/18/24 09/02/24 History diltiazem HCl 120 mg capsule,24 120 mg PO DAILY #90 caps 07/28/24 09/02/24 Rx hr,extended release fluticasone 250 mcg-salmeterol 50 1 inh inhalation Q12H 09/02/24 09/02/24 History mcg/dose blistr powdr for inhalation (Advair Diskus) folic acid 400 mcg tablet 400 mcg PO DAILY 09/02/24 09/02/24 History pantoprazole 40 mg tablet,delayed 40 mg PO DAILY 09/02/24 09/02/24 History release Allergies Allergy/AdvReac Type Severity Reaction Status Date / Time adhesive tape Allergy Unknown Unknown Verified 09/01/24 16:42 amitriptyline (From Elavil) Allergy Unknown Unknown Verified 09/01/24 16:42 procaine (From Novocain) Allergy Unknown Unknown Verified 09/01/24 16:42 propoxyphene (From Darvon) Allergy Unknown Unknown Verified 09/01/24 16:42 Vital Signs Vital Signs - 24 hr 09/01/24 16:38 09/01/24 17:38 09/01/24 18:00 Temperature 97.2 F L Pulse Rate 72 78 80 Respiratory Rate 14 15 Blood Pressure 98/72 L 106/71 Pulse Oximetry 100 100 Oxygen Delivery Nasal Cannula Oxygen Flow Rate 2 09/01/24 19:31 09/01/24 19:34 Temperature Pulse Rate 82 73 Respiratory Rate 14 14 Blood Pressure 68/42 L 63/52 L Pulse Oximetry 100 Oxygen Delivery Oxygen Flow Rate Exam Narrative: General: Moderately ill-appearing female in the semi-Funk position in bed. Weight: 83.6 kg. BMI: 33.7 kg. HEENT: PERRL, EOMI. Sclera anicteric. Conjunctiva mildly injected. Dry mucous membranes. Neck: Supple. Exam limited due to neck circumference. No obvious JVD. Respiratory: Tachypneic though able to speak in full sentences. Scattered bibasilar crackles. Cardiovascular: Irregularly irregular rate and rhythm. Systolic murmur at the right sternal border. Gastrointestinal: Abdomen is soft obese, and nondistended with positive bowel sounds. Mild tenderness to palpation epigastric region. No guarding or rebound tenderness. Skin: Slightly cool and diaphoretic. Normal capillary refill. Feet/hands are a bit cool to touch. Chronic skin changes of the lower extremities. Extremities: No cyanosis or clubbing. Mild lower extremity edema. Neurological: Alert and oriented x4. Cranial nerves 2-12 are grossly intact. Generally weak without gross focal findings. Psychiatric: Pleasant and cooperative with appropriate mood and affect. She is in good spirits. H&P: Results Labs Labs: Short CBC 09/01/24 Range/Units 17:15 WBC 15.4 H (4.5-10.0) K/mm3 Hgb 9.5 L (12.0-15.0) g/dL Hct 30.2 L (37.0-47.0) % Plt Count 122 L (150-375) k/mm3 BMP 09/01/24 17:15 Sodium 137 Potassium 4.0 Chloride 100 Carbon Dioxide 25 BUN 65 H D Creatinine 2.49 H Glucose 118 H Calcium 7.5 L Liver Function 09/01/24 Range/Units 17:15 Total Bilirubin 1.4 H (0.2-1.3) mg/dL AST 27 (14-36) U/L ALT 18 (6-35) U/L Alkaline Phosphatase 74 (38-126) U/L Albumin 2.7 L (3.5-5.1) g/dL Urine 09/01/24 Range/Units 18:03 Urine Color Dark yellow (Yellow) Urine Appearance Clear (Clear) Urine pH 5.0 (5.0-9.0) Ur Specific [place] 1.017 (1.001-1.035) Urine Protein Trace (Negative) mg/dL Urine Glucose (UA) Negative (Negative) mg/dL Imaging Abdomen/Pelvis CT 09/01/24 18:42 IMPRESSION: 1. No evidence of appendicitis, diverticulitis or intestinal obstruction. 2. Cholelithiasis with distended gallbladder. 3. Bilateral lung base atelectasis versus pneumonia with minimal effusion. 4. Small hyperdense lesion in the right kidney midpole which may be hemorrhagic cyst. Fat-containing small lesion in the left kidney lower pole. Follow-up advised. 5. Impacted fecal material in the rectum. Surrounding fat stranding which may indicate proctitis. 6. Fat-containing anterior abdominal wall hernia. Abdomen Ultrasound 09/01/24 19:14 IMPRESSION: 1. Gallbladder no stones with sludge. Otherwise, normal limited abdominal ultrasound. Assessment and Plan Assessment and plan (1) Shock: Code(s): R57.9 - Shock, unspecified Status: Acute Assessment and Plan: Likely due to a combination of factors including hypovolemia, sepsis, and rapid atrial fibrillation. * Received 4 L crystalloid bolus without lasting improvement. * Right femoral central venous catheter was placed on 09/01/2024. * Currently on norepinephrine at 20 mcg and vasopression 0.02 units to maintain MAP > 65. * Continue empiric antibiotics for possible pneumonia. * Blood and sputum cultures pending. (2) Acute kidney injury: Code(s): N17.9 - Acute kidney failure, unspecified Status: Acute Assessment and Plan: Renal function was normal until July of this year and she now likely has some form of chronic kidney disease. Acute kidney injury today is likely due to a combination of factors include hypovolemia from dehydration, hypoperfusion from hypotension, and possible acute tubular necrosis from sepsis in the setting of loop diuretic use. * Less than 50 mL output since receiving the 4 L bolus, now with evidence of volume overload. * Maintain MAP of at least 65 to maintain adequate end-organ perfusion. * Renal ultrasound ordered for a.m. * Renally dose all medications and avoid nephrotoxic agents. (3) Pneumonia: Code(s): J18.9 - Pneumonia, unspecified organism Status: Acute Assessment and Plan: Chest x-ray and CT of the abdomen pelvis showed findings concerning for pneumonia. * Influenza, RSV, and COVID negative in the ED. MRSA screen is pending. * Received azithromycin 500 mg and ceftriaxone 1 g in the emergency department. * Changed to doxycycline given slightly prolonged QT interval and add vancomycin pending MRSA swab. * Attempt sputum for culture and check urinary Legionella and pneumococcal a ntigens. (4) Non-ST elevation myocardial infarction (NSTEMI): Code(s): I21.4 - Non-ST elevation (NSTEMI) myocardial infarction Status: Acute Assessment and Plan: Initial EKG showed atrial fibrillation with a rate of 76, right bundle-branch block, moderate T-wave abnormalities in the lateral leads, and possible age indeterminate anterior inferior infarctions. She has not had any chest pain or discomfort whatsoever. May very well be elevated in the setting of sepsis and rapid atrial fibrillation. * Trend troponins to peak and obtain echocardiogram. * Hold apixaban for now and start enoxaparin 1 mg/kg. * Cardiology consult appreciated. (5) Atrial fibrillation with rapid ventricular response: Code(s): I48.91 - Unspecified atrial fibrillation Status: Acute Assessment and Plan: She is in chronic atrial fibrillation and has been in rapid ventricular response this evening with rates in the 120 to 140s. * We discussed possible cardioversion given her soft blood pressures though she is not too keen on that at this time. * Try amiodarone bolus and drip for better rate control; unable to start diltiazem at this time due to blood pressures. (6) Acute on chronic congestive heart failure: Code(s): I50.9 - Heart failure, unspecified Status: Acute Assessment and Plan: She has been increasingly tachypneic and short of breath following 4 L crystalloid bolus. * Unable to diurese at this time given hypotension; wonder if she would tolerate a furosemide drip. * BiPAP ordered however she could not tolerate the mask due to claustrophobia. * Maintains DNR/DNI status and if her condition declines she would want comfort focus treatment. (7) Anemia: Code(s): D64.9 - Anemia, unspecified Status: Acute Assessment and Plan: Hemoglobin and hematocrit have slowly drifted down since July, somewhat correlating with her decline in kidney function. She has had ongoing issues with occasional abdominal discomfort, nausea, and vomiting but denies having any significant significant GERD symptoms, bloating, or belching. She has not noticed any blood in her stool or dark stools. * Check iron studies, B12, folate, and stool for occult blood. * Platelets have also been below 150 but above 100 for several months. (8) Hypothyroidism: Qualifiers: Hypothyroidism type: unspecified Qualified Code(s): E03.9 - Hypothyroidism, unspecified Code(s): E03.9 - Hypothyroidism, unspecified Status: Acute Assessment and Plan: TSH today is less than 0.015. * Hold levothyroxine. * Free T4 is pending. 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 All medications including vasopressors will be discontinued. Morphine and lorazepam available as needed; she is much more comfortable. Family members updated per the patient request and her cousin Marleny and her are on the way to see the patient. Quality VTE Prophylaxis VTE prophylaxis: pharmacologic ordered (on apixaban) Hospitalist MIPS Advance Care Plan I have confirmed that the patient's Advanced Care Plan is present, code status is documented, or surrogate decision maker is listed in patient medical record.: Yes Medication Reconciliation I have utilized all available resources to obtain, update and review the patients current medications (includes all prescriptions, OTC, herbals, cannabis, and nutritional supplements).: Yes Critical Care Time Critical Care Time: Yes Total Critical Care Time: 75 Attestation: Due to a high probability of clinically significant, life threatening deterioration, the patient required my highest level of preparedness to intervene emergently and I personally spent this critical care time directly and personally managing the patient. This critical care time included obtaining a history; examining the patient; pulse oximetry; ordering and review of studies; arranging urgent treatment with development of a management plan; evaluation of patient's response to treatment; frequent reassessment; and discussions with other providers. It was exclusive of separately billable procedures and treating other patients and teaching time. Please see Assessment and Plan section and the rest of the note for further information on patient assessment and treatment.
[2024-09-01] MEDS: AZITHROMYCIN 500 MG/NS 250 ML 500 MG/250 ML BAG 250 MG IVPB (23:29)
[2024-09-01] MEDS: LACTATED RINGERS 1,000 ML 125 ML IV CONT (23:29)
--- NOTE | 2024-09-01 23:59 | P.PCNBED_ITS ---
Procedures Central Line Placement Right Femoral: Central Line Date: 09/01/24 Central Line Time: 23:30 Consent: I have discussed with the patient and/or surrogate, the non-emergent placement of a central venous catheter, including its clinical necessity/indication and associated potential risks and complications. The patient and/or surrogate understand(s) and acknowledge(s) the need to proceed with central venous catheter insertion as an important element of the patient's clinical management. Time Out Performed: Yes Patient Position: supine Patient placed on monitor/pulse ox: Yes Provider Prep: mask, sterile gown, sterile gloves, Max. sterile barrier precautions, cap and hand hygiene with conventional soap/water or alcohol based hand rub Central line prep: 2% Chlorhexidine scrub Local anesthesia used: lidocaine 1% Amount of anesthesia used (ml): 5 Sterile US Technique with sterile gel/sterile probe covers: Yes Turkmen: 7 Length (cm): 20 Post Procedure: sutured in place, good blood return, all ports aspirated, flushed, capped, transparent dressing and aseptic technique maintained throughout procedure Post procedure x-ray: other (n/a with femoral line) Complications: none
[2024-09-02] VITALS (34 sets, daily range): BP systolic 52–111; BP diastolic 29–86; PULSE 109–154; RESP 22–44; TEMP 36.4–36.8; O2SAT 91–100; BMI 33.7
--- NOTE | 2024-09-02 00:08 | ECG_ITS ---
Test Date: 2024-09-02 00:14:[address] Rate: 133 P: 0 NM: 0 QRS: 261 QRSD: 133 T: 60 QT: 339 QTc: 504 Interpretive Statements ATRIAL FIBRILLATION WITH RAPID VENTRICULAR RESPONSE RIGHT BUNDLE BRANCH BLOCK [120+ ms QRS DURATION, UPRIGHT V1, 40+ ms S IN INFERIOR MYOCARDIAL INFARCTION , OF INDETERMINATE AGE [40+ ms Q WAVE AND/OR ST/T ABNORMALITY IN II/aVF] Compared to ECG 09/01/2024 17:43:43 T-wave abnormality no longer present Possible ischemia no longer present Myocardial infarct finding still present Electronically Signed On 09-02-2024 11:44:42 CDT by Cintia Yoon M.D.
[2024-09-02] MEDS: NOREPINEPHRINE 8 MG/D5W 250 ML 8 MG/250 ML BAG 9.38 MG IV CONT (00:11)
--- NOTE | 2024-09-02 00:23 | PC.NURSE ---
patient complaining of increased shortness of breath. pt having increased work of breathing and increased respiratory rate breathing 33 times per minute. pt continuing to verbalize shortness of breath. vickie miller at bedside vorb bipap for patient and to d/c maintaince fluid of lactated ringers. pt was sat up at this time. pt oxygen saturation maintains 100% on 3L NC RR 33 times per minute and a heart rate of 145 in afib. vickie Miller confirmed confirmation of verbal orders at this time.
--- NOTE | 2024-09-02 00:38 | PC.NURSE ---
vorb by vickie miller to titrate patient norepi drip to 8mcg/min. JACLYN AHUJA at bedside to confirm correct titration.
--- NOTE | 2024-09-02 00:41 | PC.NURSE ---
patient refusing bipap placement at this time.
--- NOTE | 2024-09-02 00:54 | PC.NURSE ---
Geena, RN at bedside to witness norepi titration to 9mcg/ min
--- NOTE | 2024-09-02 01:06 | PC.NURSE ---
gino from Evan Cowart to titrate patient norepi drip to 12 mcg/ min. this rn used closed loop communication to verbalize increased titration.
[2024-09-02 01:29] LABS: Glucose Point of Care 137 mg/dl (65-105)
--- NOTE | 2024-09-02 01:40 | PC.NURSE ---
Pt positioned to R side.
[2024-09-02] MEDS: VASOPRESSIN INJ 100 UNITS in DEXTROSE 5% 95 ML IV CONT (01:44)
--- NOTE | 2024-09-02 01:47 | PC.NURSE ---
AI, RN at bedside to confirm initation of vasopression at 0.02 units.
[2024-09-02 01:54] LABS: Basophils Percent Auto 0.2 % (0.2-1.2); Eosinophils Percent Auto 0.1 % (0-4.4); Hematocrit 31.9 % (37.0-47.0); Hemoglobin 9.7 g/dL (12.0-15.0); Immature Granulocyte Absolute 0.27 K/mm3 (0.00-0.031); Immature Granulocyte Percent A 1.4 % (0-0.5); Lymphocytes Absolute Auto 2.84 K/mm3 (0.9-3.2); Lymphocytes Percent Auto 14.7 % (18.3-44.2); Mean Corpuscular HGB Conc 30.4 g/dl (32-36); Mean Corpuscular Hemoglobin 30.5 pg (26-34); Mean Corpuscular Volume 100.3 fl (80-100); Mean Platelet Volume 11.3 fl (7.4-10.4); Monocytes Absolute Auto 1.6 K/mm3 (0.1-0.6); Monocytes Percent Auto 8.4 % (2.6-8.5); Neutrophils Absolute Auto 14.5 K/mm3 (1.3-6.7); Neutrophils Percent Auto 75.2 % (45.5-73.1); Platelet Count Result 145 k/mm3 (150-375); Red Blood Count 3.18 M/mm3 (4.2-5.4); Red Cell Distribution Width 15.9 % (11.5-14.5); White Blood Count 19.3 K/mm3 (4.5-10.0)
--- NOTE | 2024-09-02 01:56 | PCRCNOTE ---
Bipap ordered for patient. RT applied mask for 20 seconds and patient wanted mask removed. PA tried again to no avail. Bipap on standby. Pt states she has claustrophobia.
[2024-09-02 02:05] LABS: Lactic Acid Reflex 3.6 mmol/L (0.7-2.0)
[2024-09-02 02:06] LABS: Alanine Aminotransferase 20 U/L (6-35); Albumin Level 2.6 g/dL (3.5-5.1); Alkaline Phosphatase 83 U/L (38-126); Anion Gap 13 mmol/L (4-12); Aspartate Amino Transferase 27 U/L (14-36); Bilirubin,Total 1.3 mg/dL (0.2-1.3); Blood Urea Nitrogen 58 mg/dL (7-17); Calcium 6.7 mg/dL (8.4-10.2); Carbon Dioxide 19 mmol/L (22-30); Chloride 107 mmol/L (98-107); Creatine Kinase 20 U/L (30-135); Estimated CRCL calculation 17 ml/min; Estimated Glomerular Filt Rate 21; Glucose 170 mg/dL (65-110); Magnesium 1.2 mg/dL (1.6-2.3); Potassium 3.8 mmol/L (3.4-5.0); Sodium 139 mmol/L (137-145)
[2024-09-02 02:09] LABS: Hemoglobin A1C 4.2 % (<5.7)
[2024-09-02 02:23] LABS: Procalcitonin 0.3 ng/mL; Troponin I 0.544 ng/mL (0.000-0.034)
--- NOTE | 2024-09-02 02:25 | ECG_ITS ---
Test Date: 2024-09-02 02:30:14 Measurements Intervals [place] Rate: 142 P: 0 SC: 0 QRS: -85 QRSD: 134 T: 75 QT: 333 QTc: 512 Interpretive Statements ATRIAL FIBRILLATION WITH RAPID VENTRICULAR RESPONSE WITH ABERRANT CONDUCTION OR VENTRICULAR PREMATURE COMPLEXES RIGHT BUNDLE BRANCH BLOCK [120+ ms QRS DURATION, UPRIGHT V1, 40+ ms S IN I/aVL/V4/V5/V6] INFERIOR MYOCARDIAL INFARCTION [40+ ms Q WAVE AND/OR ST/T ABNORMALITY IN II/aVF], PROBABLY OLD Compared to ECG 09/02/2024 00:14:37 Ventricular premature complex(es) now present Aberrant conduction of supraventricular beat(s) now present Right-axis deviation no longer present Myocardial infarct finding still present Electronically Signed On 09-02-2024 11:44:08 CDT by Cintia Yoon M.D.
--- NOTE | 2024-09-02 02:26 | ECG_ITS ---
Test Date: 2024-09-02 02:29:30 Measurements Intervals [place] Rate: 133 P: 0 NE: 0 QRS: 264 QRSD: 129 T: 94 QT: 324 QTc: 484 Interpretive Statements ATRIAL FIBRILLATION WITH RAPID VENTRICULAR RESPONSE WITH ABERRANT CONDUCTION OR VENTRICULAR PREMATURE COMPLEXES MARKED RIGHT AXIS DEVIATION [QRS AXIS > 100] RIGHT BUNDLE BRANCH BLOCK [120+ ms QRS DURATION, UPRIGHT V1, 40+ ms S IN I/aVL/V4/V5/V6] INFERIOR MYOCARDIAL INFARCTION [40+ ms Q WAVE AND/OR ST/T ABNORMALITY IN II/aVF], OF INDETERMINATE AGE Compared to ECG 09/02/2024 00:14:37 Ventricular premature complex(es) now present Aberrant conduction of supraventricular beat(s) now present Myocardial infarct finding still present Electronically Signed On 09-02-2024 11:44:20 CDT by Cintia Yoon M.D.
[2024-09-02 02:32] LABS: NT Pro B Type Natriuretic Pept > 30000 pg/mL (19.9-100)
[2024-09-02 02:38] LABS: Thyroid Stimulating Hormone Reflex < 0.015 uIU/mL (0.465-4.68)
[2024-09-02] MEDS: MAGNESIUM SULFATE 3GM/D5W100ML 3 GM/100 ML BAG IVPB (03:03)
[2024-09-02] MEDS: AMIODARONE 150 MG/D5W 100 ML 150 MG/100 ML BAG 600 MG IV CONT (03:04)
[2024-09-02] MEDS: AMIODARONE 360 MG/D5W 200 ML 360 MG/200 ML BAG 33.33 MG IV CONT (03:04)
[2024-09-02] MEDS: CALCIUM GLUC 1,000 MG/NS 50 ML 1,000 MG/50 ML BAG 100 MG IVPB (03:04)
--- NOTE | 2024-09-02 04:14 | ECG_ITS ---
Test Date: 2024-09-02 04:14:15 Measurements Intervals [place] Rate: 134 P: 0 MN: 0 QRS: 232 QRSD: 136 T: 60 QT: 307 QTc: 459 Interpretive Statements ATRIAL FIBRILLATION WITH RAPID VENTRICULAR RESPONSE WITH ABERRANT CONDUCTION OR VENTRICULAR PREMATURE COMPLEXES MARKED RIGHT AXIS DEVIATION [QRS AXIS > 100] RIGHT BUNDLE BRANCH BLOCK [120+ ms QRS DURATION, UPRIGHT V1, 40+ ms S IN I/aVL/V4/V5/V6] INFERIOR MYOCARDIAL INFARCTION [40+ ms Q WAVE AND/OR ST/T ABNORMALITY IN II/aVF], AGE INDETERMINATE Compared to ECG 09/02/2024 02:30:14 Right-axis deviation now present Myocardial infarct finding still present Electronically Signed On 09-03-2024 15:55:14 CDT by Fidencio Rosa
--- NOTE | 2024-09-02 04:18 | PC.NURSE ---
This patient, Monica Bishop, was admitted to Intensive Care Unit-6 at 0210. Patient/family oriented to hospital policies and general routines including ID bracelet, bed and alarms, visiting hours, pain management, procedures, bathroom and other care routines, personal items, smoking policy, room service/diet, and visiting hours. Information on how to activate the Rapid Response Team has been discussed. Patient/Family are encouraged to report perceived risks to care and to ask questions if they do not understand what they are told or what they should do.
--- NOTE | 2024-09-02 04:30 | PC.NURSE ---
pt c/o of increasing respiratory distress RR 42 Hr 135-150, Pt diaphoretic extremities are cool and reports some chest pain but is too SOB to complete a sentence. BP 102/53 while on Levophed at 30 and vasopressin at .004.PT experienced a HR in the 180-190 for approximately 20-30 beats XAVIER Shelley called to bedside. Defibrillator pads placed and hooked up to defibrillator monitor. EKG performed with XAVIER shelley discussing treatment options with pt. Pt repeated that she does not want intubation and can not tolerate Bipap. Pt placed on Vapo therm 45 lpm and 100% to offer some respiratory support. PT does not want more invasive treatment and wants to be comfortable. XAVIER Shelley ordered morphine and Ativan for comfort. pt more comfortable after Morphine 2mg but requested another dose after 10 min. Pt more comfortable but still had some anxiety 10 min later so ativan 1 mg given IV. Pt able to rest. Contact called to inform them of worsening status and patients wish to have comfort care.
[2024-09-02] MEDS: MORPHINE SULFATE (*CRX) 2 MG/ML INJ IV PUSH ×2 (05:18→08:30)
[2024-09-02] MEDS: LORazepam INJ (*CRX) 2 MG/ML VIAL 1 MG IV PUSH ×2 (05:19→08:29)
[2024-09-02 07:31] LABS: Glucose Point of Care 149 mg/dl (65-105)
--- NOTE | 2024-09-02 11:58 | PC.NURSE ---
pt at 921. cousin at bedside notified other family. appropriate parties notified by nursing staff
--- NOTE | 2024-09-02 14:04 | P.DN_ITS ---
Discharge Summary Date and Time Date of : 09/02/24 Time of : 09:22 Provider Pronounced By: 2 RNs Name of First RN That Pronounced: Moy Eid RN Name of Second RN That Pronounced: Bang Champagne RN Probable Cause of Probable Cause of : Septic shock Pneumonia Non ST elevation HI Summary Hospital Course: This is a 84-year-old female with persistent atrial fibrillation on chronic anticoagulation, diastolic congestive heart failure, chronic obstructive pulmonary disease, chronic respiratory failure on 3-4 L home oxygen, obstructive sleep apnea on CPAP, pulmonary hypertension, hyperlipidemia, hypothyroidism, and gastroesophageal reflux disease who presented to the emergency department via EMS from [facility] for evaluation of weakness. She has not had much of an appetite as of late and complains of frequent nausea and occasional vomiting. Her oral intake has been poor and she feels dehydrated. Over the last several days she has become increasingly weak. Also reported mild abdominal discomfort in the ED.. She also denies fever, chills, sweats, headache, neck ache, sinus congestion, sore throat, cough, chest pain, palpitations, sensations of racing heart, shortness of breath, hematemesis, bloating, belching, epigastric pain, melena, hematochezia, diarrhea, dysuria, and hematuria. No focal weakness, paresthesias, facial droop, or difficulty speaking or swallowing. In the ED: She was afebrile on arrival with a blood pressure of 98/72. Labs are significant for WBC count of 15.4, hemoglobin 9.5, platelet 122, BUN 65, creatinine 2.49, lactic acid 3.6, total bili 1.4, total protein 6.0, albumin 2.7. Urinalysis was pretty benign. Respiratory panel was negative. Chest x-ray showed left basilar atelectasis versus cardiomegaly. CT of the abdomen and pelvis showed impacted fecal material rectum with surrounding fat stranding which may indicate proctitis, hyperdense lesion the right kidney midpole, cholelithiasis with distended gallbladder, and bilateral lung base atelectasis versus pneumonia. She received 3 L crystalloid fluid bolus after blood pressure dropped to 68/42 and she has had some improvement. She was given azithromycin and ceftriaxone for possible pneumonia and is being admitted in this setting for further treatment. She was started on vasopressors and was admitted to the ICU. While in ICU CV game short of breath with substernal chest pain also had runs of ventricular tachycardia. EKG with ST elevation in leads 3 and AVF. She declined any further cardiac workup and wanted to switch to comfort measures which was implemented. She shortly implementation of comfort measures. Additional Data Confirmation of as documented by pronouncing clinician: Pupillary Reflex, Palpable Pulses, Response to Stimuli, Heart Tones and Breath Sounds Name of Provider Notified: Dr. Stafford Time Provider Notified: 09:25 Provider Requests Autopsy: No Family Requests Autopsy: No Embalmer Apprentice Notified: Yes Date [facility] Notified of : 09/02/24 Time [facility] Notified of : 09:37
--- OUTSIDE RECORDS SUMMARY | 2024-09-02 15:04 | XMS_ITS | Referral Summary ---
Author Organization [place] [id number] [facility] Address [facility] [place] [address] Care Team Providers Care Digital Marketing Specialist Name Role Phone Hernandez Segovia MD Primary Care Provider [phone] Encounters Date Type Department Care Team Description 08/24/2024 11:00 AM CDT Office Visit [facility] Cardiology [address] [place] [phone] Griselda Rowe NP Chronic atrial fibrillation (HCC) (Primary Dx); Chronic anticoagulation; Hypotension, unspecified hypotension type; Mild aortic stenosis; Hospital discharge follow-up 07/26/2024 Orders Only [facility] Cardiology [address] [place] [phone] Shena Rose NP from Last 3 Months Allergies Active Allergy Reactions Criticality Noted Date Comments Adhesive Hives Medium 01/02/2021 Propoxyphene Hypotension High 01/02/2021 Amitriptyline Diarrhea Low 01/02/2021 Levothyroxine Dizziness Low 01/02/2021 brand Talwin Compound Dizziness Low 01/02/2021 Medications furosemide (LASIX) 40 mg tablet 10/18/19 21 Active potassium chloride ER 10 mEq CR tablet 10/18/19 21 Active atorvastatin (LIPITOR) 10 mg tablet 11/13/19 21 Active dilTIAZem SR (CARDIZEM SR) 120 mg 12 hr capsule Take 1 capsule (120 mg total) by mouth daily 10/16/19 16 Active traMADoL (ULTRAM) 50 mg tablet 01/02/20 21 Active polyethylene glycol (Miralax) 17 gram/dose powder Miralax 17 gram powder in packet 11/23/19 20 Active nystatin (Nyamyc) powder Nyamyc 100,000 unit/gram powder 06/15/19 19 Active albuterol HFA (PROVENTIL HFA,VENTOLIN HFA,PROAIR HFA) 90 mcg/actuation inhaler albuterol sulfate HFA 90 mcg/actuation aerosol inhaler Active wk-ki-cucx-FA-Ca carb-vit K 18 mg iron-400 mcg-500 mg tablet 05/03/18 70 Active Eliquis 5 mg tablet Take 1 tablet (5 mg total) by mouth 2 (two) times a day 11/20/19 24 Active cyanocobalamin (Vitamin B-12) 1,000 mcg/mL injection cyanocobalamin (vitamin B-12) 1,000 mcg/mL solution Active ferrous sulfate 325 mg (65 mg of elemental iron) tablet daily 10/06/19 24 Active loratadine (CLARITIN) 10 mg tablet 11/20/19 24 Active metFORMIN (GLUCOPHAGE) 500 mg tablet 02/23/20 24 Active benzonatate (TESSALON) 200 mg capsule benzonatate 200 mg capsule Active pantoprazole DR (PROTONIX) 40 mg EC tablet Take 1 tablet (40 mg total) by mouth daily 10/21/19 24 Active tiZANidine (ZANAFLEX) 2 mg tablet Take 1 tablet (2 mg total) by mouth every 6 (six) hours as needed Active levothyroxine (SYNTHROID) 150 mcg tablet Take 1 tablet (150 mcg total) by mouth early years teacher before breakfast 07/08/19 25 Active ondansetron ODT (ZOFRAN-ODT) 4 mg disintegrating tablet every 6 (six) hours as needed Active levothyroxine (SYNTHROID) 175 mcg tablet 11/30/19 21 025 Disconti nued(Alt ernate therapy) cyclobenzaprine (FLEXERIL) 5 mg tablet 01/20/20 24 025 Disconti nued(Alt ernate therapy) Active Problems Problem Noted Date Diagnosed Date Essential tremor 01/02/2021 Social History Tobacco Use Types Packs/Day Years Used Date Smoking Tobacco: Never Smokeless Tobacco: Never Tobacco Cessation:Counseling Given: Not Answered Comments Unknown Sex and Gender Information Value Date Recorded Sex Assigned at Not on file 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 Gender Identity Not on file Sexual Orientation Not on file Last Filed Vital Signs Vital Sign Reading Time Taken Comments Blood Pressure 82/68 08/24/2024 11:19 AM CDT Pulse 104 08/24/2024 11:19 AM CDT Temperature - - Respiratory Rate - - Oxygen Saturation 96% 08/24/2024 11:19 AM CDT Inhaled Oxygen Concentration - - Weight 85.3 kg (188 lb) 08/24/2024 11:19 AM CDT Height 165.1 cm (5' 5 ) 08/24/2024 11:19 AM CDT Body Mass Index 31.28 08/24/2024 11:19 AM CDT Plan of Treatment Not on file Procedures Procedure Name Priority Date/Time Associated Diagnosis Comments CARDIOLOGY DOCUMENT SCAN Routine 025 10:15 AM CDT from Last 3 Months Results * Cardiology Document Scan (07/21/2024 10:15 AM CDT) Anatomical Region Laterality Modality Other Shena Rose NP CV CARDIAC SERVICES PROCEDUR ES Final Result from Last 3 [place] [address] MEDICARE [facility] Address: [address] [address] [place] [address] [facility] Member Subscriber Plan / Payer (Ef fective 2020-Present) Name:Monica Bishop Relation to Subscriber:Self Name:Monica Bishop Payer ID:[id number] Group ID:Not on file Type:H2020 Address: [address] [place] [address] [employer] MEDICARE [facility] Address: [address] [address] [place] [address] Care Teams Digital Marketing Specialist Relationship Specialty Start Date End Date Hernandez Segovia MD [address] [place] [address] PCP - General Internal Medicine 02/25/24
--- OUTSIDE RECORDS SUMMARY | 2024-09-02 15:04 | XMS_ITS | Clinical Summary ---
Author Organization [place] [address] [facility] Address [facility] [place] [address] Care Team Providers Care Structural Designer Name Role Phone Hernandez Segovia MD Primary Care Provider [phone] Allergies Active Allergy Reactions Criticality Noted Date [...] sulfate HFA 90 mcg/actuation aerosol inhaler Active de-mo-kqks-FA-Ca carb-vit K 18 mg iron-400 mcg-500 mg [...] 1 tablet (150 mcg total) by mouth computer support specialist instructor before breakfast 07/08/19 25 Active ondansetron ODT (ZOFRAN-ODT) 4 mg disintegrating tablet every 6 (six) hours as needed Active levothyroxine (SYNTHROID) 175 mcg tablet 11/30/19 025 Disconti nued(Alt ernate therapy) cyclobenzaprine (FLEXERIL) 5 mg tablet 01/20/20 24 025 Disconti nued(Alt ernate therapy) Active Problems Problem Noted Date Diagnosed Date Essential tremor 01/02/2021 Encounters Date Type Department Care Team Description 08/24/2024 11:00 AM CDT Office Visit [facility] Cardiology [address] [phone] Griselda Rowe NP Chronic atrial fibrillation (HCC) (Primary Dx); Chronic anticoagulation; Hypotension, unspecified hypotension type; Mild aortic stenosis; Hospital discharge follow-up 07/26/2024 Orders Only [facility]iology [address] [place] [address] [place] [phone] Shena Rose NP from Last 3 Months Surgical History Surgery Date Site/Laterality Comments ABLATION [...] on file 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 Gender Identity Not on file Sexual Orientation [...] 08/24/2024 11:19 AM CDT Plan of Treatment Health Maintenance [...] 5 season) 2024 08/08/2020, 07/11/2020 Influenza Vaccine (Season Ended) 2025 01/16/2019, 01/07/2018, 06/02/2017, Additional history exists DTaP/Tdap/Td Vaccine (3 - Td or Tdap) 10/17/2030 10/17/2020, 05/03/2009 Procedures Procedure Name Priority Date/Time Associated Diagnosis Comments CARDIOLOGY DOCUMENT SCAN Routine 025 10:15 AM CDT from Last 3 Months Results * Cardiology Document Scan (07/21/2024 10:15 AM CDT) Anatomical Region Laterality Modality Other us Shena Yessi Rose PRODUCT MGR CV CARDIAC SERVICES PROCEDUR ES Final Result from Last 3 Months Insurance MEDICARE [facility] [place] [id number] Care Teams Structural Designer Relationship Specialty Start Date End Date Hernandez Segovia MD [address] [place] [address] PCP - General Internal Medicine 02/25/24
--- OUTSIDE RECORDS SUMMARY | 2024-09-02 15:04 | XMS_ITS | CONTINUITY OF CARE DOCUMENT ---
Author Name adilene head Address Unknown Organization [facility] Address [address] [place] [address] Phone [phone] Care Team Providers Care Plant Maintenance Manager Name Role Phone Miguel PENN, Dexter Unavailable GYPSY PENN, REY Unavailable REY BETANCUR MD Unavailable PROBLEMS Condition Status Date Provider Notes Elevated hemoglobin A1c- 01/05/19 active Gurpreet Steen RN SHORTNESS OF BREATH - on O2 active Carlos dejesus POLYCYTHEMIA active ? Dexter Rivera MD CHEST PAIN-08/10 CATH MILD NO N OBS CAD EF 55 completed - Dexter Rivera MD OBESITY active ? Dexter Rivera MD Asthma- 10/13 [place] Mod Rest completed 1959 - Dexter Rivera [...] (MRI Safe) REVEAL/LinQ active Dexter Rivera MD CAD active Dexter Rivera MD Aortic stenosis, mild active Dexter Rivera MD Leg Edema active Dexter Rivera MD Cardiology examination active Dexter schwartz MD Elevated troponin completed - Dexter Rivera MD ENCOUNTERS Date Type Provider Location Encounter Diag nosis - In-person encounter Office Visit Dexter Rivera MD [facility] Cardiology examination - In-person encounter Office Visit Dexter Rivera MD [facility] Afib, chronicLeg Edema - In-person encounter Office Visit Dexter Rievra MD [facility] - In-person encounter Office Visit Dexter Rivera MD [facility] CADAortic stenosis, mild - In-person encounter Office Visit Dexter Rivera MD [facility] - In-person encounter Office Visit Dexter Rivera MD [facility] - In-person encounter Office Visit Dexter Rivera MD [facility] SHORTNESS OF BREATH - on [id number]- b/l uses lymphedema boots - In-person encounter Office Visit Dexter Rivera MD [facility] - In-person encounter Office Visit Dexter Rivera MD [facility] - In-person encounter Office Visit Dexter Rivera MD [facility] Asthma- 6/ [place] Mod RestONYCHOMYCOSISHTN essentialHypothyroidismCHEST PAIN-11/12 NUC ABNPALPITATIONSAfib, chronicElevated troponin - In-person encounter Office Visit Dexter Rivera MD [facility] - In-person encounter Office Visit Dexter Rivera MD [facility] Medtronic (MRI Safe) REVEAL/LinQ - In-person encounter Office Visit Dexter Rivera MD [facility] - In-person encounter Office Visit Dexter Rivera MD [facility] - In-person encounter Office Visit Dexter Rivera MD [facility] - In-person encounter Office Visit Dexter Rivera MD [facility] - In-person encounter Office Visit Dexter Rivera MD [facility] - In-person encounter Office Visit Dexter Rivera MD [facility] - In-person encounter Office Visit Dexter Rivera MD [facility] Office - In-person encounter Office Visit Dexter Rivera MD [facility] - In-person encounter Office Visit Adriana Ireland MD [facility] - In-person encounter Office Visit Dexter Rivera MD [facility] - In-person encounter Office Visit Dexter Rivera MD [facility] CHEST PAIN-08/10 CATH MILD NON OBS CAD EF 55Asthma- 10/13 [place] Mod RestAfib, chronicLYMPHEDEMA- b/l uses lymphedema bootsHyperlipidemia - In-person encounter Office Visit Dexter Rivera MD [facility] CHEST PAIN-11/12 NUC ABNAfib, chronic - In-person encounter Office Visit Dexter Rivera MD [facility] - In-person encounter Office Visit Dexter Rivera MD [facility] - In-person encounter Office Visit Dexter Rivera MD [facility] SHORTNESS OF BREATH - on [id number] PAIN-08/10 CATH MILD NON OBS CAD EF 55OBESITYAsthma- 10/13 [place] Mod RestHTN essentialHypothyroidism VITAL SIGNS Date Observation Value Provider blood pressure, diastolic 68 mm[Hg] Marilyn [facility] blood pressure, systolic 110 mm[Hg] Lynnette [facility] blood pressure, cuff size large Mario baig Bishop blood pressure, diastolic 68 mm[Hg] Mario baig Bishop blood pressure, systolic 110 mm[Hg] James [facility] Bishop oxygen saturation, oximetry 94 % Mabel Bishop respiratory rate E&M 12 /[facility] 66 /min [facility] height E&M 64 [in_i] [facility] Body Mass Index (Ratio) 42.74 kg/m2 Aimee Rivera MD blood pressure, diastolic 90 mm[Hg] Marilyn Log blood pressure, systolic 118 mm[Hg] Lynnette pulse rate 76 /min [facility] Inhaled O2 3 L/min [facility] blood pressure, cuff size large Jorge [facility] blood pressure, diastolic 90 mm[Hg] Jorge et blood pressure, systolic 118 mm[Hg] Jar ret oxygen saturation, oximetry 95 % Panda respiratory rate E&M 16 /min Panda weight E&M 249 [lb_av] Panda height E&M 64 [in_i] Panda [facility] y blood pressure, diastolic 84 mm[Hg] Marilyn [...] % Bren Diaz pulse rate 77 /min Bren Campbel l respiratory rate E&M [...] MD blood pressure, diastolic 80 mm[Hg] [facility], systolic 118 mm[Hg] Sheila barton [place] Inhaled O2 1 L/min [facility] oxygen saturation, oximetry 96 % [facility] respiratory rate E&M 16 /min [facility] 93 /min weight E&M 252 [lb_av] Mentor Mcconnell height E&M 64 [in_i] [facility] Body Mass Index (Ratio) 44.11 kg/m2 Aimee [...] Body Mass Index (Ratio) 48.91 kg/m2 Vergara celestina Gavin weight E&M 285 [lb_av] Alesha Damian [facility] blood pressure, diastolic 86 mm[Hg] Wy marissa Banegas blood pressure, systolic 143 mm[Hg] aCrol spaulding Banegas pulse rate 68 /min Astrid [...] LinkLogic 0-149 cholesterol, serum 118 mg/dL [facility] 036-053 8320/01 /15 calcium, serum 9.4 mg/dL [employer] 8.7-10.3 carbon dioxide, venous blood 26 mmol/L [employer] 20-29 chloride, serum 101 mmol/L [employer] 96-106 potassium, serum 4.3 mmol/L [employer] 3.5-5.2 sodium, serum 141 mmol/L [employer] 832-629 3332/01 /15 urea nitrogen/creatinine ratio, serum 23 [employer] 12-28 eGFR if 56 mL/min/{1.7 3_m2} [employer] >59 Low eGFR if not 49 mL/min/{1.7 3_m2} [employer] >59 Low creatinine, serum 1.08 mg/dL [facility] 0.57-1.00 High urea nitrogen, blood 25 mg/dL [employer] 8-27 blood glucose, random 152 mg/dL [employer] 65-99 High platelet count 162 X10E3/UL [employer] [phone]/01 /15 red blood cell distribution width 13.2 [...] 100.0 hematocrit, blood 48.4 % [facility] 35.0 - 55.0 hemoglobin, blood 15.0 g/dL [employer] 11.5 - 16.5 erythrocyte count, whole blood 5.0 MILLION/UL [employer] 3.5 - 5.5 platelet count 208 10*3/mm3 [facility] hematocrit, blood 42.2 % [facility] triglyceride, serum, fasting 163 mg/dL [facility] Total HDL-cholesterol direct 46 mg/dL [facility] lipoprotein, beta, serum, point, quantitative, calculated 71 mg/dL [facility] cholesterol, serum 150 mg/dL [facility] thyroid stimulating hormone, serum 10.250 u[IU]/mL [facility] alanine aminotransferase (SGPT), serum 23 1/L [facility] aspartate aminotransferase (SGOT), serum 22 1/L [facility] creatinine, serum 1.25 mg/dL [facility] potassium, serum 4.6 mmol/L [facility] sodium, serum 142 mmol/L [facility] very low density lipoproteins 18 mg/dL [facility] LDL/HDL ratio, serum 1.6 [facility] triglyceride, serum, fasting 88 mg/dL [facility] HDL cholesterol, serum 41 mg/dL [facility] LDL cholesterol, serum 67 mg/dL [facility] cholesterol, serum 126 mg/dL [facility] mucus on urinalysis Yes [facility] urine crystals, microscopic Present Abnormal [facility] epithelial cells, urine, per microscopy 0-10 [facility] WBC urine on microscopy 6-10 Abnormal [facility] bacteria, urine microscopy Few [facility] RBC urine by microscopy 0-3 [facility] leukocyte esterase, urine, by dipstick Trace abnormal [facility] urobilinogen, urine, semiquantitative (dipstick) 0.2 [facility] nitrite, urine, semiquantitative Negative [facility] RBC, urine, dipstick Negative [facility] bilirubin, urine Negative [facility] ketones, urine, by test strip M [facility] glucose, urine, semiquantitative Negative [facility] protein, urine, semiquantitative (dipstick) Trace [facility] pH, urine, semiquantitative 6.0 [facility] specific gravity, urine 1.023 [facility] urine color Yellow [facility] appearance, urine Clear [facility] globulins, serum, total 3.7 g/dL [facility] Estimated Glomerular Filtration Rate (calc) >59 [facility] albumin/globulin ratio, serum 1.1 [facility] protein, total, serum 7.7 g/dL [facility] albumin, serum 4.0 g/dL [facility] bilirubin, serum, total 0.5 mg/dL [facility] alkaline phosphatase, serum 67 1/L [facility] alanine aminotransferase (SGPT), serum 27 1/L [facility] aspartate aminotransferase (SGOT), serum 22 1/L [facility] calcium, serum 9.4 mg/dL [facility] blood glucose, fasting 89 mg/dL [facility] creatinine, serum 0.80 mg/dL [facility] urea nitrogen, blood 20 mg/dL [facility] carbon dioxide, serum, total 23 mmol/L [facility] chloride, serum 103 mmol/L [facility] potassium, serum 4.0 mmol/L [facility] sodium, serum 142 mmol/L [facility] platelet count 186 10*3/uL [facility] red blood cell distribution width 14.5 % [facility] mean corpuscular hemoglobin concentration, RBC 33.9 g/dL [facility] mean corpuscular hemoglobin, RBC 31.9 pg [facility] mean corpuscular volume, RBC 94 fL [facility] hematocrit, blood 45.9 % [facility] hemoglobin, blood 15.6 g/dL [facility] erythrocyte (RBC) count 4.87 10*6/mm3 [facility] monocyte count, blood 0.4 10*3/mm3 [facility] lymphocyte count, blood 1.0 10*3/mm3 [facility] monocytes as percent of blood leukocytes 5 % [facility] lymphocytes as percent of blood leukocytes 13 % [facility] leukocyte count, blood 7.4 10*3/mm3 [facility] hematocrit, blood 45.5 % Marc Ceja hemoglobin, [...] mouth twice daily as needed - Dexter Rivera MD SOMA 350 MG ORAL TABLET completed [...] exercise, f requency, days per week no Mentor Mcconnell alcohol use, average drinks per day social basis only Mentor Mcconnell alcohol use no Travis Mcconnell caffeine use, averag e drinks per day 0 /d Mentor Mcconnell drug use no Mentor Mcconnell passive cigarette sm jean pierre exposure no Mentor Mcconnell caffeine use, averag e drinks per [...] Management Plan continue current therapy Danielle Guerra CONTROL CLERK SUBASSEMBLY MENTAL STATUS Date Observation Value Provider assessment [...] RN FAMILY HISTORY Family Member Condition Mother MT female <65 Father Family History of Ot her Cancer Mother Family History of Ford dden Cardiac : Father Family History of Hy pertension: Father Family History of CV A or Stroke: INSURANCE PROVIDERS Payer name Policy type / Coverage type [place] [employer] party ID [employer] [employer] Medicaid [id number] [place] [employer] Medicare 3000 [id number] ADVANCE DIRECTIVES Name Date DISCUSSED - NO DECISION MADE TREATMENT PLAN Date Name Performer [id number],C,L eft LE edema with large blister on the lateral aspect of the leg. She is following with podiatry. S he recently had doppler done with Joe and we will request results Dexter Rivera MD [id number],C,S he recently d/c Breztri inhaler with pulmonary and states her shakes and palpitations have improved since then. Contineus to wear o2 2L all the time. Dexter Rivera MD [id number],C,B lood pressure control is satisfactory. BP today: 118/90 P rior BP: 130/84 (09/10/2022) Her updated medication list for this problem includes: Diltiazem Hcl 240 Mg Capsule,ext.rel 24h Degradable (Diltiazem hcl) ..... Take 1 tablet once a day Furosemide 40 Mg Tablet (Furosemide) ..... Take 1 tablet once a day Dexter Rivera MD [id number],C,C ontinues on statin, aim for LDL less than 70 0 12/2021 LDL 66 S he had recent bloodwork with PCP that we will request Her updated medication list for this problem includes: Atorvastatin 10 Mg Tablet (Atorvastatin) ..... Take 1 tablet by mouth daily Dexter Rivera MD [id number],C,C hest pain free. 45% mid RCA stenosis on cath 10/2017. Dexter Rivera MD [id number],C,I n rate controlled afib on EKG. Continues on Pradaxa for mcfp OAC. Continues Diltiazem and Digoxin. S he had recent bloodwork with PCP that we will request. We will switch Digoxin to once a day M-F Dexter Rivera MD [id number],C,will request recent labs. Danielle Guerra NP [id number],C, W eight loss advised. Danielle Guerra DAE [id number],C, S table. Uses O2 2L continuous. Danielle Guerra DAE [id number],C, B P today: 130/84 P rior BP: [...] tablet once a day Danielle Guerra DAE [id number],C, L abs Reviewed: T SH: 8.440 (05/17/2020) H gBA1c: 6.2 (05/17/2020) C hol: 118 (05/17/2020) HDL: 48 (05/17/2020) Her updated medication list for this problem includes: Levothyroxine 175 Mcg Tablet (Levothyroxine) ..... Take 1 tablet once a day Danielle Wilkinslana PEARL [id number],C, I n rate controlled afib on EKG. Continues on Pradaxa for mcfp OAC. will request recent labs to assess Renal function. Continues Diltiazem and Digoxin. Danielle Guerra DAE [id number],C,C HOL: 118 (05/17/2020) HDL: 48 (05/17/2020) T he following medications were removed from the medication list: Lipitor 10 Mg Tablet (Atorvastatin) ..... 1 tablet by mouth once a day Her updated medication list for this problem includes: Atorvastatin 10 Mg Tablet (Atorvastatin) ..... Take 1 tablet by mouth daily Danielle Wilkinslana PEARL [id number],C, C hest pain free. 45% mid RCA stenosis on cath 10/2017. Danielle Guerra CONTROL CLERK SUBASSEMBLY [id number],C, S table. Will continue with routine monitoring. We will repeat her echo at the next visit. Danielle Wilkinslana CONTROL CLERK SUBASSEMBLY [id number],S, S table. Will continue with routine monitoring. We will repeat her echo at the next visit. Dexter Rivera MD [id number],S, S table. On inhalers. Uses O2 as needed. Dexter Rivera MD [id number],S, C hest pain free. 45% mid RCA stenosis on cath 10/2017. Dexter Rivera MD [id number],S, S table. Will continue with routine monitoring. Dexter Rivera MD [id number],S, C ontinues on Lipitor. Recent LDL is 66. Dexter Rivera MD [id number],S, I n rate controlled afib on EKG. 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 Renal function normal on most recent labs. Continues Diltiazem and Digoxin. Dexter Rivera MD [id number],S, R ecent A1c 6.4. Advised sugar and processed carbohydrate restriction. Dexter Rivera MD [id number],S, S table. On inhalers. Dexter Rivera MD [id number],S, W eight loss advised. Dexter Rivera MD [id number],S, B P control is satisfactory. Dexter Rivera MD [id number],S, C ontinues on Levothyroxine. Dexter Rivera MD [id number],C, C ontinues on Lipitor. Dexter Rivera MD [id number],C, H er CT chest from 12/17/2020 showed [...] with mild pulmonary hypertension. Dexter Rivera MD [id number],C, B P control is satisfactory. Dexter Rivera MD [id number],C, I n SR on EKG. 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 Renal function normal on most recent labs. Continues Diltiazem and Digoxin. Dexter Rivera MD [id number],C,S he had not been able to utilize her boots as she no longer has an aide to help her put them on. She has blisters on her bilateral legs. She has significant venous insufficiency of the left great saphenous vein. Dexter Rivera MD [id number],C,Weight loss a dvised. Dexter Rivera MD [id number],C,Continues on Levothyroxine. Dexter Rivera MD [id number],C,C ontinues on Lipitor. Most recent LDL 62 which is satisfactory. Dexter Rivera MD [id number],C,B P control is satisfactory. Dexter Rivera MD [id number],C,S ignificant improvement with lymphedema boots which she continues to use. Swelling of the RLE>LLE today with an ulcer and erythema anteriorly so will arrange for her to have a venous doppler BLE reflux. She continues to ambulate with a wheelchair. Dexter Rivera MD [id number],C,I n afib on EKG with rate controlled. QTC 440. 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 Renal function normal on most recent labs. Continues Diltiazem and Digoxin. Dexter Rivera MD [id number],C,H er CT chest from 12/17/2020 showed bilateral [...] afib on EKG. Continues on Eliquis for mcfp OAC. Pradaxa D/C by insurance company. Continues [...] afib on EKG. 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 Continues Diltiazem and Digoxin. S he [...] afib on EKG. Continues on Pradaxa for mcfp OAC. will request recent labs to assess [...] afib on EKG. Continues on Pradaxa for mcfp OAC. Renal function normal on most recent [...] SR on EKG. Continues on Pradaxa for mcfp OAC. Renal function normal on most recent [...] controlled. QTC 440. 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 Renal function normal on most recent [...] day. QTC 482. Copntinues on Pradaxa for mcfp OAC. Continues on Diltiazem 240mg daily. Will [...] on Digoxin and is on Pradaxa for mcfp anticoagulation. Will have her discontinue Aspirin. Dexter Rivera MD [facility] :Weight loss advised Carlos Camacho [facility] :Improved. Follows pu lmonary. Carlos oleg [facility] :Continues on Atorvas tatin. Carlos oleg [facility] :Continues on Levothy roxine. Carlos [facility] :Advised to monitor her blood pressure. She continues on Lasix and Diltiazem. Carlos [facility] :Denies o f any palpitations. She continues on Pradaxa for mcfp OAC. Carlos Cardiology:Weight loss advised Eduardo Camacho [...] ILR persists. She continues on Pradaxa for tank terminal gauger anticoagulation. Carlos Camacho Cardiology:Weight loss advised. Dexter Rivera MD Cardiology:Chronic. On continuou s oxygen. Dexter Rivera MD Cardiology:Stable. Follows pulmo nary. Dexter Rivera MD Cardiology:On Lipito r. Dexter Rivera MD Cardiology:Blood pressure contro l is satisfactory. Dexter Rivera MD Cardiology:Paroxysma l. 20 episodes on ILR. She continues on Pradaxa for mcfp anticoagulation. Dexter Rivera MD Cardiology hospital follow [...] her symptoms via ILR. She continues on mcfp anticoagulation with Pradaxa. Dexter Rivera MD Cardiology [...] from the Linq recorder. She cotninues on mcfp anticoagulation with Pradaxa. Dexter Rivera MD Cardiology [...] sinus rhythm. She continues on Pradaxa for mcfp anticoagulation. Dexter Rivera MD Cardiology Follow up [...] up Adriana castillo MD Cardiology Follow up Adrinaa castillo MD f/u: H er updated medication [...] SYS completed ICM Interrogation, Remote (Tech) Dexter Rviera MD INTERROGATION EVAL REMOTE </30 D TECH REVIEW completed Loop Recorder Interrogation, Remote Dexter Rivera MD INTERROGATION EVALUATION REMOTE </30 D ILR SYS completed ICM Interrogation, Remote (Tech) Dexter Rivera MD INTERROGATION EVAL REMOTE </30 D TECH REVIEW completed Loop Recorder Interrogation, Remote Dexter Rviera MD INTERROGATION EVALUATION REMOTE </30 D ILR [...] completed EKG Dexter Rivera MD completed SNOMED-CT: 769830629556055 Current Medications Documented Dexter Rivera MD completed Loop Recorder Interrogation, Remote Dexter Rivera MD INTERROGATION EVALUATION REMOTE </30 D ILR SYS completed ICM Interrogation, Remote (Tech) Dexter Rivear MD INTERROGATION EVAL REMOTE </30 D TECH REVIEW completed Loop Recorder Interrogation, Remote Dexter Rivera MD INTERROGATION EVALUATION REMOTE </30 D ILR SYS completed ICM Interrogation, Remote (Tech) Dexter Rivera MD INTERROGATION EVAL REMOTE </30 D TECH REVIEW completed EKG Dexter Rivera MD completed SNOMED-CT: 822225366305900 Current Medications Documented Dexter Rivera MD completed [...] completed EKG Dexter Rivera MD completed SNOMED-CT: 562592919230625 Current Medications Documented Dexter Rivera MD completed [...] REMOTE </30 D TECH REVIEW completed SNOMED-CT: 716539563573892 Current Medications Documented Dexter Rivera MD completed SNOMED-CT: 33507905 Physical Exam, Performed: Pulse Exam of Foot Dexter Rivera MD completed EKG Dexter Rivera MD completed SNOMED-CT: 934647482815537 Current Medications Documented Dexter Rivera MD completed SNOMED-CT: 896635749 Smoking Cessation Counseling Dexter Rivera MD completed SNOMED-CT: 56467035 Physical Exam, Performed: Pulse Exam of Foot Dexter Rivera MD completed EKG Dexter Rivera MD completed SNOMED-CT: 895499245884820 Current Medications Documented Dexter Rivera MD completed SNOMED-CT: 853789904 Smoking Cessation Counseling Dexter Rivera MD completed SNOMED-CT: 14408135 Physical Exam, Performed: Pulse Exam of Foot Dexter Rivera MD completed EKG Dexter Rivera MD completed SNOMED-CT: 025664905666550 Current Medications Documented Dexter Rivera MD completed Stress EKG Darin Crook MD completed Regadenoson, 4 units Dexter gramajo MD completed Cardiolite, 2 units Dexter dyson MD completed SPECT Images Adriana Ireland MD complet ed Holter, 24 or 48 Dexter Rivera MD completed SNOMED-CT: 48708312 Physical Exam, Performed: Pulse Exam of Foot Adriana Ireland MD completed SNOMED-CT: 12510687 Physical Exam, Performed: Pulse Exam of Foot Adriana Ireland MD completed EKG Adriana Ireland MD completed SNOMED-CT: 883464925134244 Current Medications Documented Adriana Ireland MD completed EKG Dexter Rivera MD completed EKG Dexter Rivera MD completed EKG Dexter Rivera MD completed
== END 2024-09-02 09:22 | disposition expired | DRG 871 ==
LOC: ANHED 21:49 → ANHICU 09-02 00:24
PROVIDERS: Physician Assistant; Admitting Provider Internal Medicine; Emergency Provider Emergency Medicine; PCP Internal Medicine Infectious Disease; Visit Provider Internal Medicine
DX: A41.9 Sepsis, unspecified organism (principal); I21.4 Non-ST elevation (NSTEMI) myocardial infarction; I50.33 Acute on chronic diastolic (congestive) heart failure; J18.9 Pneumonia, unspecified organism; R65.21 Severe sepsis with septic shock; N17.0 Acute kidney failure with tubular necrosis; I48.19 Other persistent atrial fibrillation; J96.11 Chronic respiratory failure with hypoxia; J44.0 Chronic obstructive pulmonary disease with (acute) lower respiratory infection; I13.0 Hypertensive heart and chronic kidney disease with heart failure and stage 1 through stage 4 chronic kidney disease, or unspecified chronic kidney disease; I47.20 Ventricular tachycardia, unspecified; N18.9 Chronic kidney disease, unspecified; R57.1 Hypovolemic shock; I25.10 Atherosclerotic heart disease of native coronary artery without angina pectoris; E86.0 Dehydration; K21.9 Gastro-esophageal reflux disease without esophagitis; G47.33 Obstructive sleep apnea (adult) (pediatric); E03.9 Hypothyroidism, unspecified; E78.5 Hyperlipidemia, unspecified; K58.9 Irritable bowel syndrome, unspecified; F40.240 Claustrophobia; Z66 Do not resuscitate; D64.9 Anemia, unspecified; Z79.01 Long term (current) use of anticoagulants; Z99.81 Dependence on supplemental oxygen
CPT/HCPCS: 36415; 71045; 74176; 76705; 80053; 81001; 82550; 82948; 83036; 83605; 83735; 83880; 84145; 84439; 84443; 84484; 85025; 85055; 85610; 85730; 87040; 87637; 93005; 96361; 96365; 96366; 96367; 96368; 99285; C1751; G0378; J0282; J0456; J0612; J0696; J2060; J2270; J3475; J7030; J7120